=== PATIENT | male | born 1960 | race Caucasian/White ===

== ENCOUNTER 2016-08-17 17:34 | Observation (INO) | payer MEDICARE, MEDICAID ==
[2016-08-17 17:34] VITALS: PULSE 67
[2016-08-17 18:15] VITALS: BMI 41.5
--- NOTE | 2016-08-17 18:47 | ED PDOC ---
Arrival/HPI - General Chief Complaint: Chest Pain Time Seen by Provider: 08/17/16 17:53 Historian: Patient - History of Present Illness Narrative History of Present Illness (Text): 08/17/16 18:41 A 55 year old male, whose past medical history includes CAD, CABG, CHF, diabetes , chronic renal insufficiency, hypertension and lower extremity edema with chronic mrsa infection, presents to the emergency department complaining of chest discomfort for the past 2-3 days. Patient notes radiating pain towards his left shoulder. Patient states his pain is consistent with his angina but feels it is more frequent and worse than usual. He reports decrease relief from nitro. Patient notes dyspnea on exertion, pain and swelling to bilateral lower extremities with weeping discharge from left lower extremity. Patient denies any fever, nausea, vomiting, abdominal pain, urinary symptoms or any other complaints. Time/Duration: Other (2-3 days) Symptom Course: Unchanged Quality: Other Context: Other Past Medical History - Provider Review Nursing Documentation Reviewed: Yes - Infectious Disease Hx of Infectious Diseases: None - Tetanus Immunization Tetanus Immunization: Unknown - Cardiac Hx Cardiac Disorders: Yes Hx Congestive Heart Failure: Yes Hx Hypertension: Yes - Pulmonary Hx Chronic Obstructive Pulmonary Disease (COPD): Yes - Neurological Hx Neurological Disorder: No - HEENT Hx HEENT Disorder: No - Renal Hx Renal Disorder: Yes - Endocrine/Metabolic Hx Diabetes Mellitus Type 2: Yes - Hematological/Oncological Hx Blood Disorders: No - Integumentary Hx Dermatological Disorder: No - Musculoskeletal/Rheumatological Hx Arthritis: Yes - Gastrointestinal Hx Gastrointestinal Disorders: No - Genitourinary/Gynecological Hx Genitourinary Disorders: No (KIDNEY STONES) Hx Reproductive Disorders: No - Psychiatric Hx Psychophysiologic Disorder: Yes Hx Depression: Yes Hx Substance Use: No - Surgical History Hx Open Heart Surgery: Yes - Anesthesia Hx Anesthesia: Yes Hx Anesthesia Reactions: No Hx Malignant Hyperthermia: No - Suicidal Assessment Feels Threatened In Home Enviroment: No Family/Social History - Physician Review Nursing Documentation Reviewed: Yes Family/Social History: No Known Family HX Smoking Status: Former Smoker Hx Alcohol Use: No Hx Substance Use: No Hx Substance Use Treatment: No Allergies/Home Meds Allergies/Adverse Reactions: Allergies No Known Allergies Allergy (Verified 08/17/16 18:17) Home Medications: Home Meds Medication Instructions Recorded Confirmed Insulin Human NPH/Reg [HumuLIN 50 units SUBCUT QPM 10/21/12 07/12/16 70/30 (NPH/Reg)] Isosorbide 120 mg PO DAILY 10/21/12 07/12/16 Aspirin [Lo-Dose Aspirin EC] 81 mg PO DAILY 07/12/16 07/12/16 Glimepiride [Amaryl] 4 mg PO BID 07/12/16 07/12/16 Insulin Aspart, Recombinant 25 units SC DAILY 07/12/16 07/12/16 [Novolog] Nitroglycerin [Nitroglycerin] 0.4 mg SL PRN PRN 07/12/16 07/12/16 Simvastatin [Zocor] 80 mg PO DAILY 07/12/16 07/12/16 Spironolactone [Aldactone] 25 mg PO DAILY 07/12/16 07/12/16 Review of Systems - Physician Review All systems were reviewed & negative as marked: Yes - Review of Systems Constitutional: absent: Fevers Respiratory: Other (MCKENZIE) Cardiovascular: Chest Pain (Chest discomfort with radiating pain to left shoulder) Gastrointestinal: absent: Abdominal Pain, Nausea, Vomiting Genitourinary Male: absent: Dysuria, Frequency, Hematuria, Urinary Output Changes Musculoskeletal: Other (Bilateral lower extremity pain and swelling) Physical Exam Vital Signs Reviewed: Yes Vital Signs Pulse Pulse Resp BP Pulse Ox 08/17/16 21:20 110/68 08/17/16 20:54 104 H 16 106/66 98 08/17/16 18:20 110 H 08/17/16 18:15 110 H 16 95 Temperature: Afebrile Blood Pressure: Normal Pulse: Tachycardic Respiratory Rate: Normal Appearance: Positive for: Non-Toxic, Other (Morbidly obese German male) Pain Distress: None Mental Status: Positive for: Alert and Oriented X 3 - Systems Exam Head: Present: Atraumatic, Normocephalic Pupils: Present: PERRL Conjunctiva: Present: Normal Ears: Present: Normal Mouth: Present: Moist Mucous Membranes Pharnyx: Present: Normal. No: ERYTHEMA, EXUDATE Neck: Present: Normal Range of Motion Respiratory/Chest: Present: Decreased Breath Sounds. No: Respiratory Distress, Accessory Muscle Use Cardiovascular: Present: Normal S1, S2, Tachycardic. No: Murmurs Abdomen: Present: Normal Bowel Sounds. No: Tenderness, Distention, Peritoneal Signs Back: Present: Normal Inspection Upper Extremity: Present: Normal Inspection. No: Cyanosis, Edema Lower Extremity: Present: Edema (bilateral lymphedema, no warmth or ulceration present), NORMAL PULSES Neurological: Present: GCS=15, CN II-XII Intact, Speech Normal Skin: Present: Warm, Dry, Normal Color. No: Rashes Psychiatric: Present: Alert, Oriented x 3, Normal Insight, Normal Concentration Medical Decision Making ED Course and Treatment: 08/17/16 18:41 Impression: A 55 year old male with chest discomfort radiating to left shoulder. Patient notes dyspnea on exertion and bilateral lower extremity pain and swelling with weeping discharge from left lower extremity. Plan: -- Chest xray -- Duplex lower extremity ultrasound -- Labs -- Urinalysis -- Aspirin -- Reassess and disposition Progress Notes: 08/17/16 21:49 Patient with significant cardiac history who is here for chest pain, concerned it is worsening of his angina. EKG is consistent with his old one. Given history - will need to place on tele further for concern for acs, possible unstable angina. No cp at this time and possible recent viagra use, per Dr. Posey, so will hold on nitro. Discussed with Dr. Posey for placement on his service. - Lab Interpretations Lab Results: 08/17/16 18:00 08/17/16 18:00 Lab Results 08/17/16 18:00: WBC 2.5 L*, RBC 4.94, Hgb 13.1 L, Hct 38.8 L, MCV 78.5 L, MCH 26.5, MCHC 33.8, RDW 19.0 H, Plt Count 155, MPV 10.6, Gran % 53.2, Lymph % (Auto ) 27.2, [place] % (Auto) 11.2 H, Eos % (Auto) 7.6 H, Baso % (Auto) 0.8, Gran # 1.33 L, Lymph # 0.7 L, [place] # 0.3, Eos # 0.2, Baso # 0.02, PT 11.5, INR 1.06, APTT 30.5, Sodium 139, Potassium 3.8, Chloride 100, Carbon Dioxide 29, Anion Gap 14, BUN 21, Creatinine 0.9, Est GFR ( Amer) > 60, Est GFR (Non-Af Amer) > 60, Random Glucose 109, Calcium 9.8, Magnesium 2.0, Total Bilirubin 1.4 H, AST 42, ALT 20, Alkaline Phosphatase 93, Lactate Dehydrogenase 419, Total Creatine Kinase 46, Troponin I 0.02 D, NT-Pro-B Natriuret Pep 1480 H, Total Protein 8.5 H, Albumin 4.5, Globulin 4.0, Albumin/Globulin Ratio 1.1, Lipase 180 I have reviewed the lab results: Yes - RAD Interpretation Radiology Orders: 08/17/16 18:35 DUPLEX LOWER EXTRM VEIN BILAT [US] Stat 08/17/16 18:36 CHEST PORTABLE [RAD] Stat - EKG Interpretation EKG Interpretation (Text): 08/17/16 21:51 sinus tachycardia @ 117 with low QRS voltage and poor R wave progression; no changes c/w previous - 07/07/16. Interpreted by ED Physician: Yes Type: 12 lead EKG Comparison: Similar to previous EKG - Medication Orders Current Medication Orders: Discontinued Medications Aspirin (Aspirin Chewable) 324 mg PO STAT STA Stop: 08/17/16 18:38 Last Admin: 08/17/16 18:53 Dose: 324 MG Furosemide (Lasix) 40 mg IVP STAT STA Stop: 08/17/16 20:37 Last Admin: 08/17/16 21:20 Dose: 40 MG MAR Blood Pressure Document 08/17/16 21:20 [email or web address] (Rec: 08/17/16 21:44 CAST [id number]) Blood Pressure Blood Pressure (100/60-150/90) 110/68 IVP Administration Document 08/17/16 21:20 [email or web address] (Rec: 08/17/16 21:44 CAST [id number]) Charges for Administration # of IVP Administrations 1 - Scribe Statement The provider has reviewed the documentation as recorded by the Raulito Chowdary Provider Scribe Attestation: All medical record entries made by the Scribe were at my direction and personally dictated by me. I have reviewed the chart and agree that the record accurately reflects my personal performance of the history, physical exam, medical decision making, and the department course for this patient. I have also personally directed, reviewed, and agree with the discharge instructions and disposition. Disposition/Present on Arrival - Present on Arrival Any Indicators Present on Arrival: No History of DVT/PE: No History of Uncontrolled Diabetes: No Urinary Catheter: No History of Decub. Ulcer: No History Surgical Site Infection Following: None - Disposition Have Diagnosis and Disposition been Completed?: Yes Diagnosis: Chest pain Disposition: HOSPITALIZED Disposition Time: 21:10 Patient Plan: Observation, Telemetry Patient Problems: Current Active Problems Problem Status Diagnosed CHF (congestive heart failure) Acute Edema extremities Chronic Condition: FAIR Discharge Instructions (ExitCare): Chest Pain (ED)
[2016-08-17 18:55] LABS: ADD MANUAL DIFF? NO
[2016-08-17 18:58] LABS: BASO # 0.02 K/mm3 (0.0-2.0); BASO % 0.8 % (0.0-3.0); EOS # 0.2 (0.0-0.7); EOS % 7.6 % (1.5-5.0); GRAN # 1.33 (1.4-6.5); GRAN % 53.2 % (50.0-68.0); HEMATOCRIT 38.8 % (42.0-52.0); LYMPH # 0.7 (1.2-3.4); LYMPH % 27.2 % (22.0-35.0); MEAN CELL VOLUME 78.5 fL (80.0-105.0); MEAN CORPUSCULAR HEMOGLOBIN 26.5 pg (25.0-35.0); MEAN CORPUSCULAR HGB CONC 33.8 g/dl (31.0-37.0); MEAN PLATELET VOLUME 10.6 fl (7.0-11.0); MONO # 0.3 (0.1-0.6); MONO % 11.2 % (1.0-6.0); PLATELET COUNT 155 10^3/uL (120.0-450.0)
[2016-08-17 19:03] LABS: WHITE BLOOD COUNT 2.5 10^3/ul (4.5-11.0)
[2016-08-17 19:09] LABS: INR 1.06 (0.93-1.08); PARTIAL THROMBOPLASTIN TIME 30.5 Seconds (23.7-30.8)
[2016-08-17 19:23] LABS: ALB/GLOB RATIO 1.1 (1.1-1.8); ALKALINE PHOSPHATASE 93 U/L (38-133); ALT/SGPT 20 U/L (7-56); AST/SGOT 42 U/L (15-59); BILIRUBIN,TOTAL 1.4 mg/dL (0.2-1.3); BLOOD UREA NITROGEN 21 mg/dL (7-21); CALCIUM 9.8 mg/dL (8.4-10.5); CARBON DIOXIDE 29 mmol/L (21-33); CHLORIDE 100 mmol/L (98-107); GFR AFRICAN-AMERICAN > 60; GLUCOSE,RANDOM 109 mg/dL (70-110); LIPASE 180 U/L (23-300); POTASSIUM 3.8 mmol/L (3.6-5.0); SODIUM 139 mmol/L (132-148); TOTAL PROTEIN 8.5 g/dL (5.8-8.3)
[2016-08-17 19:34] LABS: TROPONIN I 0.02 ng/mL
[2016-08-18 01:05] LABS: PH,URINE 6.5 (4.7-8.0); URINE BILIRUBIN NEGATIVE (NEGATIVE); URINE BLOOD NEGATIVE (NEGATIVE); URINE GLUCOSE (UA) NEGATIVE (NEGATIVE); URINE KETONE NEGATIVE (NEGATIVE); URINE LEUKOCYTE ESTERASE NEGATIVE Leu/uL (NEGATIVE); URINE PROTEIN NEGATIVE mg/dL (<30 mg/dL); URINE UROBILINOGEN 0.2 E.U./dL (<1 E.U./dL)
[2016-08-18 01:16] LABS: URINE APPEARANCE CLEAR (CLEAR); URINE COLOR YELLOW (YELLOW)
[2016-08-18 06:22] VITALS: O2SAT 100
[2016-08-18] MEDS ORDERED: Pantoprazole 40 mg EC Tab PO SCH (09:45)
[2016-08-18] MEDS ORDERED: Potassium Chloride 10 mEq ER Tab PO SCH (10:00)
[2016-08-18] MEDS ORDERED: POLYETHYLENE GLYCOL 3350 17 GM/Dose PACKET PO SCH (10:00)
[2016-08-18] MEDS ORDERED: Zinc Oxide Topical 40% Oint (Desitin) TOP SCH (10:00)
[2016-08-18] MEDS ORDERED: Arformoterol 15 mcg/2 ml Inh Sol IH SCH ×2 (10:00)
[2016-08-18] MEDS ORDERED: metOLazone 5 MG TAB PO SCH (10:00)
[2016-08-18] MEDS ORDERED: Enoxaparin 40 mg Syringe SC SCH (10:00)
--- NOTE | 2016-08-18 10:02 | RAD ---
HISTORY: cp COMPARISON: 07/07/2016 FINDINGS: LUNGS: No active pulmonary disease. PLEURA: No significant pleural effusion identified, no pneumothorax apparent. CARDIOVASCULAR: Moderate cardiomegaly OSSEOUS STRUCTURES: No significant abnormalities. VISUALIZED UPPER ABDOMEN: Normal. OTHER FINDINGS: None. IMPRESSION: No active disease.
--- NOTE | 2016-08-18 10:13 | CARD ---
APPROVED REPORT EKG Measurement Heart [id number] <Conclusion> Sinus tachycardia PVC Low voltage limb leads Anterior MO, old NSSTW changes No change
[2016-08-18] MEDS: Insulin Detemir 100 units/ml Vial (Levemir) SC SCH ×2 (11:20→18:06)
[2016-08-18] MEDS: Insulin Reg-LOW-Coverage SC SCH ×2 (11:20→18:05)
--- NOTE | 2016-08-18 12:28 | HP ---
The patient was seen in the Emergency Room on 08/17/2016 with complaint of chest pain. HISTORY OF PRESENT ILLNESS: This is a 55-year-old male with history of coronary artery disease, card iac bypass surgery, congestive heart failure, EF in the low 20s, diabetes insulin-dependent, chronic renal insufficiency, hypertension, lower extremity edema, chronic MRSA infection. Just recently, joan Ferrer, was doing good, lost weight. Came in this time with chest pain, left side. According to the patient, similar to his angina although he did not have angina for a long time. The patient r eports that he took nitro for his chest pain. He also had some dyspnea, especially on exertion. Not ed his legs started swelling up more than when he left. The patient denied any fever, nausea, vomiti ng, any chills or any other symptoms. The patient also denied taking any sildenafil, Cialis or Levit ra according to the patient. It was explained to him not to use these or not to take any nitro if he is using it. He understands and he just uses it when electively when he feels like it is safe to us e it. Was recommended not to, but he insisted he wanted it. PAST MEDICAL HISTORY: Chronic as in the present illness. ALLERGIES: No known allergies. SOCIAL HISTORY: No smoking, no drinking. He lives with , has 3 children, 3 daughters. Otherwis e no smoking, no drinking. FAMILY HISTORY: His brother has coronary artery disease, he had a massive heart attack in the age of mid 50s. REVIEW OF SYSTEMS: As in the present illness. MEDICATIONS: Zaroxolyn Aldactone, Zocor, Altace, K-Dur, MiraLax, nitroglycerin p.r.n., Lopressor, Ba hua acidophilus, 70/30, [place], Lasix, Desitin. The patient is getting Lasix 80 mg p.o. b.i.d., aspiri n and Brovana. PHYSICAL EXAMINATION: GENERAL: The patient was seen in the Emergency Room. He was comfortable, no respiratory distress an d no chest pain. I spoke with Dr. Benavides, ER physician. VITAL SIGNS: Temperature 98, heart rate 104, blood pressure 120/74, respirations 20, saturation 99%. HEAD AND NECK: Normal. No JVD, no thyromegaly. CHEST: Clear. CARDIAC: First and second sounds are normal. Systolic murmur. ABDOMEN: Obese, nontender. EXTREMITIES: Bilateral leg edema, right more than left, which is chronic and both legs are wrapped. LABORATORY DATA: White count 2.5, hemoglobin 16.1, hematocrit 38.8, platelets 155. PT, PTT was norm al. Sodium 139, potassium 3.8, chloride 100, bicarbonate 29, BUN 21, creatinine 0.9. Liver enzymes are normal. His proBNP 1480, blood sugar 178. The patient also had a chest x-ray which shows no act debra pulmonary disease. IMPRESSION AND PLAN: This is a 55-year-old male with history of coronary artery disease, congestive heart failure, came in with chest pain. We will admit for observation. Dr. Fermin, cardiology consult will get cardiac enzyme will follow his recommendations. Otherwise, patient continue Lasix and will get cardiac enzymes x 3 and we will followup Dr. Fermin recommendations. Tyrone Posey MD cc: [phone] TT: 08/18/2016 12:27:40 jn
--- NOTE | 2016-08-18 13:19 | CON ---
DATE: 08/18/2016 The patient is in room 277, bed 2. REASON FOR CONSULTATION: Chest pain, shortness of breath, cardiomyopathy, coronary artery disease, s tatus post coronary artery bypass surgery, morbid obesity. HISTORY OF PRESENT ILLNESS: The patient is a 55-year-old male admitted to the hospital with complain ts of chest pain and shortness of breath. The patient stated chest pain is mostly localized point an d is a sharp pain radiating to the back and sometimes he gets chest pain, tightness across the chest on exertion along with shortness of breath. He always sleeps for many years in the recliner because if he sleeps on 1-2 pillows he gets shortness of breath. He also has chronic swelling on the legs al spring with chronic venous stasis. The patient known to have cardiomyopathy, CHF, coronary artery disea se. He is a very poor compliant patient. PAST MEDICAL HISTORY: Significant for morbid obesity, diabetes, hypertension, hyperlipidemia, gaona ry artery disease, status post coronary bypass surgery in 1998, CHF due to acute on chronic LV systol ic failure, chronic venous stasis. The patient's previous cardiac history: The patient had echo on 10/23/2015 which showed ejection frac tion 15-20%, 4 chamber dilatation, trace aortic regurg, mild to moderate mitral regurg, moderate tric uspid regurg, RV systolic pressure 37 mmHg, history of coronary artery bypass surgery in [address] [facility] in [place]. History of kidney stone and depression. The patient had refused c ardiac catheterization in the past. The patient had recent echo on which showed dilated left ventricle, LV ejection fraction 30%, moderate tricuspid regurg with moderate pulmonary hypertension with RV systolic pressure 50 mmHg. PERSONAL HISTORY: The patient is an ex-smoker and he was also diagnosed to have COPD. He still take s a few beers a week. ALLERGIES: No known allergies. HOME MEDICATIONS: Included insulin NPH 70/30 fifty units in the evening, isosorbide mono 120 mg lise y, aspirin 81 mg p.o. daily, glimepiride 4 mg b.i.d., insulin aspart 20 units subQ daily, nitroglycer in p.r.n. sublingual, Zocor 80 mg daily, spironolactone 25 mg daily, Lasix 80 b.i.d., Zaroxolyn 5 mg daily, ____ 1.25 daily. REVIEW OF SYSTEMS: All the systems reviewed, positive mentioned in the history, others were negative . PHYSICAL EXAMINATION: VITAL SIGNS: Blood pressure 120/79, respirations 20, pulse 104, temperature 97.8. HEENT: Head is normocephalic. Eyes: Pupils normal. Conjunctivae normal. NECK: JVP low. Carotid equal. THORAX: AP diameter normal. LUNGS: No significant rales. CARDIOVASCULAR: S1, S2. No rub. ABDOMEN: Protuberant, no organomegaly. EXTREMITIES: The patient has marked swelling with chronic venous stasis changes. LABORATORY DATA: WBC 2.5, hemoglobin 13.1, hematocrit 38.8, platelet 155, sodium 139, potassium 3.8, BUN 21, creatinine 0.9, random glucose 109, bilirubin 1.4. AST, ALT normal. Troponin 0.02 which is normal. BNP 1480. Chest x-ray: Cardiomegaly, increased bronchovascular markings suggestive of con gestive changes. EKG showed sinus rhythm at 81 per minute, Q in V1, V2, small R in V3, V4 suggestive of old anteroseptal NE, T inversion in I and aVL, borderline low voltage. DIAGNOSES: Chest pain, sharp pain in a localized point area and then across the back is probably non cardiac. The patient gets shortness of breath on exertion and some chest pressure, coronary artery d isease, congestive heart failure, morbid obesity, cardiomyopathy, chronic venous stasis, chronic obst ructive pulmonary disease,, coronary artery disease, status post coronary artery bypass surgery in , mild to moderate mitral regurgitation, moderate tricuspid regurgitation, moderate pulmonary hyper tension with right ventricular systolic pressure of 50 mmHg on echo 07/11/2016, diabetes mellitus, juan l dysfunction, anemia, leukopenia. PLAN: The patient is on spironolactone 25 daily. We will change it to b.i.d., ramipril 1.25 p.o. da andre, Ecotrin 81 mg p.o. daily, potassium 10 mEq p.o. daily. We will change furosemide to 80 IV b.i.d . The patient on insulin as ordered, Lipitor 40 mg daily, Lovenox 40 mg subQ daily, Protonix 40 lise y, Zaroxolyn 5 mg p.o. daily. The patient has sinus tachycardia. We will give atenolol 12.5 mg p.o. today, monitor the heart rate. The patient is a very poor compliant patient. Stressed to him not t o drink and follow diet and follow the medication and with the physician. Also, again advised to los e weight. We will follow with you. Rudy Gibbs MD cc: [phone] TT: 08/18/2016 13:18:42 Confirmation # [id number] Dictation # [id number] tn
--- NOTE | 2016-08-18 16:59 | US ---
HISTORY: Leg pain and swelling. Evaluate for DVT PHYSICIAN(S): George Lange MD. TECHNIQUE: Duplex sonography and color-flow Doppler with graded compression were used to evaluate the deep venous systems of both lower extremities. The exam is limited by edema. The tibial veins are not well seen FINDINGS: The visualized deep venous systems of both lower extremities are sonographically normal and compressible. Normal wave forms and augmentation are seen. There is no sonographic evidence for deep venous thrombosis in the visualized segments of both lower extremities. IMPRESSION: No sonographic evidence for deep venous thrombosis in the visualized segments of both lower extremities.
[2016-08-18 17:46] VITALS: BP 99/66; RESP 18; TEMP 97.1
[2016-08-18 18:25] VITALS: PULSE 71
--- NOTE | 2016-08-19 09:35 | CARD ---
APPROVED REPORT EKG Measurement Heart [id number] <Conclusion> Sinus rhythm with 1st degree AV block Low voltage limb leads ASMI, old NSSTW changes No change
--- NOTE | 2016-08-21 14:59 | DS ---
The patient was admitted with bilateral leg edema, congestive heart failure. The patient was well-kn own. He does have a history of chronic systolic heart failure. We just recently discharged from [facility] because of his heart failure and leg edema and swelling and patient also mentioned has chest pain, which is resolved and seems stable otherwise. 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 Gibbs, wh o cleared him for discharge. He does have cardiac enzyme was negative, has echocardiogram shows mode rate pulmonary hypertension with right ventricular pulmonary systolic pressure is 50 on 07/21. The pa tient is stable. Currently has no chest pain, no nausea, no vomiting, stable hemodynamically and rigo athing gomez. PHYSICAL EXAMINATION: VITAL SIGNS: Temperature 97.2, heart rate 102, blood pressure 120/75, respirations 20, saturating 10 0% on room air. HEAD AND NECK: Normal. No JVD, no thyromegaly. CHEST: Clear bilateral. CARDIAC: First sound, second sound normal. Systolic murmur. ABDOMEN: Obese, nontender. EXTREMITIES: Bilateral leg edema, better than before and both legs are red. NEUROLOGIC: Normal. LABORATORY STUDIES: Shows blood sugar in the 150s, 160-200, stable otherwise. The patient also has proBNP which was 1480, which is relatively better than before. The patient also had a chest x-ray, which shows no active pulmonary disease. DISCHARGE DIAGNOSES: 1. Chest pain, atypical. Cardiac enzymes were negative. Cleared by cardiology, Dr. Gibbs. 2. Congestive heart failure, high proBNP, is better than before, acute, chronic systolic heart failu re. 3. Bilateral leg edema. Continue Lasix as prescribed before. 4. Lymphedema. Followup as outpatient by podiatry. Keep the leg elevated. 5. Diabetes. Using insulin. Continue Levemir, continue all other medications. 6. Hypertension. 7. Chronic obstructive pulmonary disease, obstructive sleep apnea, pulmonary hypertension. The patient advised to continue all his previous medication including Zaroxolyn, Aldactone, Zocor, Al tace, K-Dur, MiraLax, Lopressor, insulin, NovoLog and Lantus, Desitin, aspirin. Continue nebulizer t reatment. The patient advised not to use any nitro if he using any of his Levitra or Cialis. The ri sks and benefits explained to the patient, including the time interval between 2 medications. Will brenda bah discharge the patient home. Followup in the office by Dr. Anila Cordero within a week. Tyrone Posey MD cc: [phone] TT: 08/21/2016 14:28:28 en
== END 2016-08-18 20:05 | disposition home or self-care (01) ==
LOC: ED 17:34 → UNDOADMOB 21:10 → ERH 21:10 → 2RSO 08-18 00:14 → ERH 08-18 00:14 → INTOOBSV 08-18 13:16 → OBSVTOIN 08-18 13:16 → UNDODISOB 08-18 20:05
PROVIDERS: ADMIT Internal Medicine; ATTEND Internal Medicine
DX: R07.89 Other chest pain (principal); I13.0 Hypertensive heart and chronic kidney disease with heart failure and stage 1 through stage 4 chronic kidney disease, or unspecified chronic kidney disease; I50.23 Acute on chronic systolic (congestive) heart failure; I42.9 Cardiomyopathy, unspecified; E11.22 Type 2 diabetes mellitus with diabetic chronic kidney disease; N18.9 Chronic kidney disease, unspecified; J44.9 Chronic obstructive pulmonary disease, unspecified; D64.9 Anemia, unspecified; E66.01 Morbid (severe) obesity due to excess calories; I27.2 Other secondary pulmonary hypertension; I08.1 Rheumatic disorders of both mitral and tricuspid valves; D72.819 Decreased white blood cell count, unspecified; I87.8 Other specified disorders of veins; F32.9 Major depressive disorder, single episode, unspecified; Z95.1 Presence of aortocoronary bypass graft; Z79.82 Long term (current) use of aspirin; Z79.4 Long term (current) use of insulin; Z68.41 Body mass index [BMI] 40.0-44.9, adult; Z87.442 Personal history of urinary calculi; Z87.891 Personal history of nicotine dependence
CPT/HCPCS: 71010; 80053; 81003; 82550; 82948; 83615; 83690; 83735; 83880; 84484; 85025; 85610; 85730; 93005; 93970; 96374; 99285; G0378; J1650; J1940

== ENCOUNTER 2016-11-19 00:34 | Emergency (ER) | payer MEDICARE, MEDICAID ==
[2016-11-19 00:35] VITALS: PULSE 67
[2016-11-19 00:56] VITALS: BMI 39.8
[2016-11-19] MEDS ORDERED: Morphine 2 mg/ml ISec IVP STA (01:18)
--- NOTE | 2016-11-19 01:18 | ED PDOC ---
Arrival/HPI - General Chief Complaint: Chest Pain Time Seen by Provider: 11/19/16 00:48 Historian: Patient - History of Present Illness Narrative History of Present Illness (Text): 11/19/16 01:15 Mason Benavides is a 56 year old male, whose past medical history includes CAD, quadruple bypass, CHF, IDDM, chronic renal insufficiency, hypertension, COPD, and lower extremity edema with chronic MRSA infection, who presents to the Emergency department complaining of chest pain. Patient states he has been experiencing sharp mid-sternal chest pain since yesterday, worsened tonight. Patient denies any fever, chills, shortness of breath, nausea, vomiting, diarrhea, urinary symptoms, back pain, neck pain, headache, dizziness, or any other complaints. PMD: Dr. Posey Time/Duration: Other (yesterday) Symptom Course: Worsening Quality: Other (Sharp) Activities at Onset: Rest, Light Context: Home Past Medical History - Provider Review Nursing Documentation Reviewed: Yes - Infectious Disease Hx of Infectious Diseases: None - Tetanus Immunization Tetanus Immunization: Unknown - Cardiac Hx Cardiac Disorders: Yes Hx Congestive Heart Failure: Yes Hx Hypertension: Yes Hx Peripheral Edema: Yes - Pulmonary Hx Respiratory Disorders: Yes Hx Asthma: Yes Hx Chronic Obstructive Pulmonary Disease (COPD): Yes Hx Pneumonia: Yes - Neurological Hx Neurological Disorder: No - HEENT Hx HEENT Disorder: No - Renal Hx Renal Disorder: Yes Hx Kidney Stones: Yes Hx Renal Failure: Yes - Endocrine/Metabolic Hx Endocrine Disorders: Yes Hx Diabetes Mellitus Type 2: Yes - Hematological/Oncological Hx Blood Disorders: Yes Hx Hepatitis A: Yes - Integumentary Hx Dermatological Disorder: No - Musculoskeletal/Rheumatological Hx Musculoskeletal Disorders: Yes Hx Falls: No Hx Osteoarthritis: Yes - Gastrointestinal Hx Gastrointestinal Disorders: No - Genitourinary/Gynecological Hx Genitourinary Disorders: No - Psychiatric Hx Psychophysiologic Disorder: Yes Hx Depression: Yes Hx Substance Use: No - Surgical History Hx Cardiac Catheterization: Yes Hx Coronary Stent: Yes Hx Open Heart Surgery: Yes - Anesthesia Hx Anesthesia: Yes Hx Anesthesia Reactions: No Hx Malignant Hyperthermia: No - Suicidal Assessment Feels Threatened In Home Enviroment: No Family/Social History - Physician Review Nursing Documentation Reviewed: Yes Family/Social History: Unknown Family HX Smoking Status: Former Smoker Hx Alcohol Use: No Hx Substance Use: No Hx Substance Use Treatment: No Allergies/Home Meds Allergies/Adverse Reactions: Allergies No Known Allergies Allergy (Verified 11/19/16 01:01) Home Medications: Home Meds Medication Instructions Recorded Confirmed Insulin Human NPH/Reg [HumuLIN 50 units SUBCUT QPM 10/21/12 07/12/16 70/30 (NPH/Reg)] Isosorbide 120 mg PO DAILY 10/21/12 07/12/16 Aspirin [Lo-Dose Aspirin EC] 81 mg PO DAILY 07/12/16 07/12/16 Glimepiride [Amaryl] 4 mg PO BID 07/12/16 07/12/16 Insulin Aspart, Recombinant 25 units SC DAILY 07/12/16 07/12/16 [Novolog] Nitroglycerin 0.4 mg SL PRN PRN 07/12/16 07/12/16 Simvastatin [Zocor] 80 mg PO DAILY 07/12/16 07/12/16 Spironolactone [Aldactone] 25 mg PO DAILY 07/12/16 07/12/16 Review of Systems - Physician Review All systems were reviewed & negative as marked: Yes - Review of Systems Constitutional: Normal. absent: Fevers Eyes: Normal ENT: Normal Respiratory: Normal. absent: SOB, Cough Cardiovascular: Chest Pain Gastrointestinal: Normal. absent: Abdominal Pain, Diarrhea, Nausea, Vomiting Genitourinary Male: Normal. absent: Dysuria, Frequency, Hematuria, Urinary Output Changes Musculoskeletal: Normal. absent: Back Pain, Neck Pain Skin: Normal. absent: Rash Neurological: Normal. absent: Headache, Dizziness Endocrine: Normal Hemo/Lymphatic: Normal Psychiatric: Normal Physical Exam Vital Signs Reviewed: Yes Vital Signs Temp Pulse Resp BP Pulse Ox 11/19/16 01:47 98 H 104/60 11/19/16 00:57 97.4 F L 100 H 18 154/93 H 96 Temperature: Afebrile Blood Pressure: Hypertensive Pulse: Regular Respiratory Rate: Normal Appearance: Positive for: Well-Appearing, Non-Toxic, Comfortable Pain Distress: None Mental Status: Positive for: Alert and Oriented X 3 - Systems Exam Head: Present: Atraumatic, Normocephalic Pupils: Present: PERRL Extroacular Muscles: Present: EOMI Conjunctiva: Present: Normal Mouth: Present: Moist Mucous Membranes Neck: Present: Normal Range of Motion Respiratory/Chest: Present: Clear to Auscultation, Good Air Exchange. No: Respiratory Distress, Accessory Muscle Use Cardiovascular: Present: Regular Rate and Rhythm, Normal S1, S2. No: Murmurs Abdomen: Present: Normal Bowel Sounds. No: Tenderness, Distention, Peritoneal Signs Back: Present: Normal Inspection Upper Extremity: Present: Normal Inspection. No: Cyanosis, Edema Lower Extremity: Present: Edema (Chronic lower extremity edema/venous stasis changes bilaterally), Neurovascularly Intact. No: Cyanosis, Tenderness, Swelling, Temperature Abnormalties Neurological: Present: GCS=15, CN II-XII Intact, Speech Normal Skin: Present: Warm, Dry, Normal Color. No: Rashes Psychiatric: Present: Alert, Oriented x 3, Normal Insight, Normal Concentration Medical Decision Making ED Course and Treatment: 11/19/16 01:15 Impression: 56 year old male complaining of sharp chest pain. Plan: -- EKG -- Chest X-ray -- Labs, cardiac enzymes -- Aspirin -- Lopressor -- Morphine -- Reassess and disposition Prior Visits: Notes and results from previous visits were reviewed. On 08/17/2016, pt was seen in the Emergency department for chest pain. Pt was admitted to the hospital for further evaluation. Progress Notes: Reviewed EKG, NSR at 100 bpm. LAD. Septal infarct. Non-specific ST/T wave changes. 11/19/16 03:21 Reviewed radiology, Chest X-ray shows no acute processes. 11/19/16 05:[address] Posey, who is aware and agrees with plan. Accepts pt in to his service. Pt will go to Telemetry observation for chest pain. Requests Dr. Fermin on consult. Pt is no acute distress. Discussed results and hospital observation plan with pt , who is aware and verbalizes understanding. - Lab Interpretations Lab Results: 11/19/16 01:32 11/19/16 01:32 Lab Results 11/19/16 01:32: WBC 2.1 L*, RBC 4.76, Hgb 13.0 L, Hct 40.2 L, MCV 84.5, MCH 27.3 , MCHC 32.3, RDW 15.4 H, Plt Count 120, MPV 11.6 H 11/19/16 01:32: Sodium 138, Potassium 4.1, Chloride 102, Carbon Dioxide 26, Anion Gap 14, BUN 15, Creatinine 1.0, Est GFR ( Amer) > 60, Est GFR (Non- Af Amer) > 60, Random Glucose 168 H, Calcium 9.3, Total Bilirubin 1.9 H, AST 36 , ALT 30, Alkaline Phosphatase 57, Lactate Dehydrogenase 426, Total Creatine Kinase 32 L, Troponin I 0.02, Total Protein 7.0, Albumin 4.0, Globulin 3.1, Albumin/Globulin Ratio 1.3 11/19/16 01:32: PT 12.5 H, INR 1.16 H, APTT 28.2 I have reviewed the lab results: Yes - RAD Interpretation Radiology Orders: 11/19/16 01:17 CHEST PORTABLE [RAD] Stat Hydrogen Operator: ED Physician - EKG Interpretation Interpreted by ED Physician: Yes Type: 12 lead EKG - Medication Orders Current Medication Orders: Discontinued Medications Aspirin (Aspirin) 325 mg PO ONCE STA Stop: 11/19/16 01:19 Last Admin: 11/19/16 01:46 Dose: 325 mg Metoprolol Tartrate (Lopressor) 25 mg PO ONCE STA Stop: 11/19/16 01:19 Last Admin: 11/19/16 01:47 Dose: 25 mg Morphine Sulfate (Morphine) 2 mg IVP STAT STA Stop: 11/19/16 01:19 Last Admin: 11/19/16 01:46 Dose: 2 mg - Scribe Statement The provider has reviewed the documentation as recorded by the Josselynibkatina Akers All medical record entries made by the Josselynibkatina were at my direction and personally dictated by me. I have reviewed the chart and agree that the record accurately reflects my personal performance of the history, physical exam, medical decision making, and the department course for this patient. I have also personally directed, reviewed, and agree with the discharge instructions and disposition. Disposition/Present on Arrival - Present on Arrival Any Indicators Present on Arrival: No History of DVT/PE: No History of Uncontrolled Diabetes: No Urinary Catheter: No History of Decub. Ulcer: No History Surgical Site Infection Following: None - Disposition Have Diagnosis and Disposition been Completed?: Yes Diagnosis: Chest pain Disposition: HOSPITALIZED Disposition Time: 05:23 Patient Plan: Observation Condition: STABLE Discharge Instructions (ExitCare): Chest Pain (ED)
[2016-11-19 01:49] LABS: ALB/GLOB RATIO 1.3 (1.1-1.8); ALKALINE PHOSPHATASE 57 U/L (38-133); ALT/SGPT 30 U/L (7-56); AST/SGOT 36 U/L (15-59); BILIRUBIN,TOTAL 1.9 mg/dL (0.2-1.3); BLOOD UREA NITROGEN 15 mg/dL (7-21); CALCIUM 9.3 mg/dL (8.4-10.5); CARBON DIOXIDE 26 mmol/L (21-33); CHLORIDE 102 mmol/L (98-107); GFR AFRICAN-AMERICAN > 60; GLUCOSE,RANDOM 168 mg/dL (70-110); POTASSIUM 4.1 mmol/L (3.6-5.0); SODIUM 138 mmol/L (132-148)
[2016-11-19 01:51] LABS: INR 1.16 (0.93-1.08); PARTIAL THROMBOPLASTIN TIME 28.2 Seconds (23.7-30.8)
[2016-11-19 01:55] LABS: HEMATOCRIT 40.2 % (42.0-52.0); MEAN CELL VOLUME 84.5 fL (80.0-105.0); MEAN CORPUSCULAR HEMOGLOBIN 27.3 pg (25.0-35.0); MEAN CORPUSCULAR HGB CONC 32.3 g/dl (31.0-37.0); MEAN PLATELET VOLUME 11.6 fl (7.0-11.0); RED CELL DISTRIBUTION WIDTH 15.4 % (11.5-14.5)
[2016-11-19 02:00] LABS: TROPONIN I 0.02 ng/mL
[2016-11-19 02:14] LABS: WHITE BLOOD COUNT 2.1 10^3/ul (4.5-11.0)
[2016-11-19 06:59] VITALS: TEMP 98.2
--- NOTE | 2016-11-19 08:22 | RAD ---
HISTORY: chest pain COMPARISON: Chest x-ray performed 08/17/16 TECHNIQUE: Chest, one view. FINDINGS: LUNGS: Mild interstitial prominence may reflect infection or edema. Please note that chest x-ray has limited sensitivity for the detection of pulmonary masses. PLEURA: Small left pleural effusion. No definite pneumothorax . CARDIOVASCULAR: Median sternotomy wires. Cardiomegaly. OSSEOUS STRUCTURES: Degenerative changes. VISUALIZED UPPER ABDOMEN: Unremarkable. OTHER FINDINGS: None. IMPRESSION: Mild interstitial prominence may reflect infection or edema. Small left pleural effusion. Cardiomegaly. Median sternotomy wires. Study has been marked for PA review.
[2016-11-19] MEDS ORDERED: Lactobacillus Acidophilus 500 MU Cap PO SCH (11:15)
[2016-11-19] MEDS ORDERED: POLYETHYLENE GLYCOL 3350 17 GM/Dose PACKET PO SCH (11:15)
[2016-11-19] MEDS ORDERED: Arformoterol 15 mcg/2 ml Inh Sol IH SCH (11:15)
[2016-11-19] MEDS ORDERED: Zinc Oxide Topical 40% Oint (Desitin) TOP SCH (11:15)
[2016-11-19] MEDS ORDERED: Enoxaparin 40 mg Syringe SC SCH (11:15)
[2016-11-19] MEDS ORDERED: Potassium Chloride 20 mEq ER Tab PO SCH (11:15)
[2016-11-19] MEDS ORDERED: Pantoprazole 40 mg EC Tab PO SCH (11:15)
[2016-11-19 11:52] VITALS: BP 110/77; PULSE 97; RESP 19; O2SAT 97
--- NOTE | 2016-11-19 12:44 | CP.PCM.PN ---
Subjective - Date & Time of Evaluation Date of Evaluation: 11/19/16 Time of Evaluation: 12:00 - Subjective Subjective: Patient seen because he has decided to leave AMA for personal reasons. He is alert, awake ,oriented x 3. He states he does not want any further tests,examinations or treatment at this facility. His Vital signs are stable and he is ambulatory. Patient's PMD Dr Posey just saw the patient and he is aware of patient's decision to leave AMA. Patient was told of the risks he is taking in leaving AMA,namely,his chest pain could worsen,he could get a ND,CHF could worsen,cardiac arrhythmias could occur, hypo or hyper glycemia could occur. this could lead to seizures,coma or even .Also ,his low WBC count could mean he has an infection,and this could worsen leading to spread of infection.sepsis and /or loss of life. Patient states he understands everything he is told.but still wants to leave AMA. Advised to return to the ER if needed. Objective - Vital Signs/Intake and Output Vital Signs (last 24 hours): Temp Pulse Resp BP Pulse Ox 98.2 F 97 H 19 110/77 97 11/19/16 06:59 11/19/16 11:52 11/19/16 11:52 11/19/16 11:52 11/19/16 11:52 - Medications Medications: Current Medications Arformoterol Tartrate (Brovana) 15 mcg IH BID JANY Aspirin (Ecotrin) 81 mg PO DAILY JANY Atorvastatin Calcium (Lipitor) 40 mg PO DIN JANY Enoxaparin Sodium (Lovenox) 40 mg SC DAILY [facility] PRN Reason: Protocol Furosemide (Lasix) 40 mg IV BID JANY Glimepiride (Amaryl) 4 mg PO BID JANY Lactobacillus Acidophilus (Bacid Acidophilus) 1 cap PO BID JANY Pantoprazole Sodium (Protonix Ec Tab) 40 mg PO ACB JANY Petrolatum (Desitin Maximum Strength Topical 40% Oint) 0 gm TOP DAILY JANY Polyethylene Glycol (Miralax) 17 gm PO DAILY JANY Potassium Chloride (K-Dur 20 Meq Er Tab) 20 meq PO DAILY [facility] - Labs Labs: PT 12.5 Seconds (9.9-11.8) H 11/19/16 01:32 INR 1.16 (0.93-1.08) H 11/19/16 01:32 APTT 28.2 Seconds (23.7-30.8) 11/19/16 01:32
--- NOTE | 2016-11-19 19:09 | HP ---
The patient is a 56-year-old male who came in with the main reason of chest pain and dyspnea. HISTORY OF PRESENT ILLNESS: This is a 56-year-old male with history of coronary artery disease, juan estive heart failure, EF in the 15%-20%, hypertension and poor compliance came in with chest pain cricket und the chest for almost 4 or 5 hours last night, came in today with the same chest pain [facility]. He felt short of breath. The patient gained 4 pounds recently, has been a dvised to follow his weight and take his Lasix on a regular basis. The patient denied any dizziness. Denied any sweating, any radiation of the pain. No nausea, no vomiting. PAST MEDICAL HISTORY: As I mentioned, COPD, insulin-dependent diabetes, morbid obesity, obstructive sleep apnea, chronic bilateral leg edema and lymphedema, hypertension, coronary artery disease, low e jection fraction, ischemic cardiomyopathy, hypercholesterolemia, renal insufficiency. ALLERGIES: No known allergies. SOCIAL HISTORY: He lives with his and children. No smoking. ALLERGIES: No known allergy. FAMILY HISTORY: Noncontributory. PHYSICAL EXAMINATION: VITAL SIGNS: Temperature 98, heart rate is 92, blood pressure is 125/62, respirations 18, saturation 99% on room air. HEAD AND NECK: Normal. No JVD. CHEST: Clear. CARDIAC: First and second sounds are normal. Systolic murmur. ABDOMEN: Soft, obese, nontender. EXTREMITIES: Bilateral leg edema, but better than before. NEUROLOGIC: Normal. DIAGNOSTIC STUDIES: The patient had a chest x-ray, which shows mild interstitial prominence, may ref lect edema or infection. LABORATORY STUDIES: Include white count 2.1, hemoglobin 13, hematocrit 40.2, platelets are 120. Mya paul: Sodium 138, potassium 4.1, chloride 103, bicarbonate 26, BUN 15, creatinine 1. Liver functi on test is normal. Glucose 168, calcium 9.3, total bilirubin 1.9. Liver function test is normal. T roponin is 0.02 and on repeat troponin before the patient signed against medical advice was the same, 0.02, which is negative. The patient had an EKG which shows is not read yet. IMPRESSION AND PLAN: 1. Acute congestive heart failure. 2. Acute chest pain. Plan is to admit the patient, cardiology consult . Dr. Mckeon will get cardiac enzymes . We will continue IV Lasix, oxygen, inhaled bronchodilators, nebulizers, insulin. The patient gett ing 70/30 insulin 50 units once a day before breakfast and has been doing that and we will give him p otassium, Lasix, and we will follow up clinically. The patient did not take any nitro, is stable and will follow up clinically. We will admit to telemetry. Tyrone Posey MD cc: [phone] TT: 11/19/2016 19:08:44 mn
--- NOTE | 2016-11-19 22:02 | CARD ---
APPROVED REPORT EKG Measurement Heart [id number] CO [id number] <Conclusion> Normal sinus rhythm Left axis deviation Pulmonary disease pattern Septal infarct, age undetermined Abnormal ECG
== END 2016-11-19 12:31 | disposition left against medical advice (07) ==
LOC: ED 00:34 → UNDOADMOB 05:12 → ERH 05:12
DX: R07.9 Chest pain, unspecified (principal); I25.10 Atherosclerotic heart disease of native coronary artery without angina pectoris; I10 Essential (primary) hypertension; E11.9 Type 2 diabetes mellitus without complications; Z79.4 Long term (current) use of insulin; Z95.1 Presence of aortocoronary bypass graft; Z87.891 Personal history of nicotine dependence
CPT/HCPCS: 71010; 80053; 82550; 83615; 84484; 85027; 85610; 85730; 93005; 96372; 96374; 99285; J1650; J2270

== ENCOUNTER 2017-07-26 23:42 | Inpatient (IN) | payer MEDICARE, MEDICAID ==
[2017-07-26 23:43] VITALS: PULSE 67
[2017-07-26 23:45] VITALS: BMI 36.0
--- NOTE | 2017-07-27 00:15 | ED PDOC ---
Arrival/HPI - General Chief Complaint: Trauma Time Seen by Provider: 07/27/17 00:07 Historian: Patient - History of Present Illness Narrative History of Present Illness (Text): 07/27/17 00:20 A 56 year old male, whose past medical history includes quadruple bypass, diabetes, presents to the emergency department complaining of right sided leg, shoulder, abdominal, lower back pain and dizziness s/p a fall at work today. The patient states that he stepped on a pallet and fell off of it landing on his right side. The patient states that he felt dizzy after his fall and does not recall hitting his head. The patient denies fevers, chills, chest pain, shortness of breath, dyspnea on exertion, cough, nausea, vomiting, diarrhea, neck pain, urinary/bowel changes, or any other complaint. PMD: Dr. Posey Time/Duration: Prior to Arrival Symptom Onset: Sudden Symptom Course: Unchanged Activities at Onset: Rest, Light Context: Work Past Medical History - Provider Review Nursing Documentation Reviewed: Yes - Infectious Disease Hx of Infectious Diseases: None - Tetanus Immunization Tetanus Immunization: Unknown - Cardiac Hx Cardiac Disorders: Yes Hx Congestive Heart Failure: Yes Hx Hypertension: Yes - Pulmonary Hx Chronic Obstructive Pulmonary Disease (COPD): Yes - Neurological Hx Neurological Disorder: No - HEENT Hx HEENT Disorder: No - Renal Hx Renal Failure: Yes - Endocrine/Metabolic Hx Diabetes Mellitus Type 2: Yes - Hematological/Oncological Hx Blood Disorders: Yes Hx Hepatitis A: Yes - Integumentary Hx Dermatological Disorder: No - Musculoskeletal/Rheumatological Hx Musculoskeletal Disorders: Yes Hx Falls: Yes Hx Osteoarthritis: Yes - Gastrointestinal Hx Gastrointestinal Disorders: No - Genitourinary/Gynecological Hx Genitourinary Disorders: No - Psychiatric Hx Psychophysiologic Disorder: Yes Hx Depression: Yes Hx Substance Use: No - Surgical History Hx Cardiac Catheterization: Yes Hx Coronary Stent: Yes Hx Open Heart Surgery: Yes - Anesthesia Hx Anesthesia: Yes Hx Anesthesia Reactions: No Hx Malignant Hyperthermia: No - Suicidal Assessment Feels Threatened In Home Enviroment: No Family/Social History - Physician Review Nursing Documentation Reviewed: Yes Family/Social History: No Known Family HX Smoking Status: Former Smoker Hx Alcohol Use: Yes (EVERY WEEK BEER) Hx Substance Use: No Hx Substance Use Treatment: No Allergies/Home Meds Allergies/Adverse Reactions: Allergies No Known Allergies Allergy (Verified 07/26/17 23:45) Home Medications: Home Meds Medication Instructions Recorded Confirmed Carvedilol [Coreg] 3.125 mg PO BID 06/05/17 07/26/17 Escitalopram [Lexapro] 10 mg PO HS 06/05/17 07/26/17 Fluticasone/Salmeterol 500/50 0 puff NEB BID 06/05/17 07/26/17 [Advair Diskus 500/50] Glimepiride [amaRYL] 4 mg PO BID 06/05/17 07/26/17 Insulin Detemir [Levemir] 50 unit SC DAILY 06/05/17 07/26/17 Insulin Glargine,Hum.rec.anlog 50 unit SQ BID 06/05/17 07/26/17 [Lantus Solostar] Metolazone 2.5 mg PO DAILY 06/05/17 07/26/17 Potassium Chloride [Klor-Con 10] 10 meq PO DAILY 06/05/17 07/26/17 Review of Systems - Physician Review All systems were reviewed & negative as marked: Yes - Review of Systems Constitutional: absent: Fevers, Night Sweats Respiratory: absent: SOB, Cough Cardiovascular: absent: Chest Pain, MCKENZIE Gastrointestinal: Abdominal Pain (Right upper and lower quadrant abdominal pain. ). absent: Stool Changes, Diarrhea, Nausea, Vomiting Genitourinary Male: absent: Urinary Output Changes Musculoskeletal: Back Pain (Lower back pain), Other (Right shoulder and leg pain ) Neurological: Dizziness Physical Exam Vital Signs Reviewed: Yes Vital Signs Temp Pulse Resp BP Pulse Ox 07/26/17 23:48 97.5 F L 117 H 18 105/71 100 07/26/17 23:44 97.5 F L 117 H 19 105/71 100 Temperature: Hypothermic Blood Pressure: Normal Pulse: Tachycardic Respiratory Rate: Normal Appearance: Positive for: Well-Appearing, Non-Toxic, Comfortable Pain Distress: None Mental Status: Positive for: Alert and Oriented X 3 - Systems Exam Head: Present: Atraumatic, Normocephalic Pupils: Present: PERRL Extroacular Muscles: Present: EOMI Conjunctiva: Present: Normal Mouth: Present: Moist Mucous Membranes Neck: Present: Normal Range of Motion. No: MIDLINE TENDERNESS, Paraspinal Tenderness Respiratory/Chest: Present: Clear to Auscultation, Good Air Exchange. No: Respiratory Distress, Accessory Muscle Use, Tender to Palpation Cardiovascular: Present: Regular Rate and Rhythm, Normal S1, S2. No: Murmurs Abdomen: Present: Tenderness (Right upper and lower abdominal pain.), Guarding Back: No: Midline Tenderness, Paraspinal Tenderness Upper Extremity: Present: Normal ROM (Full ROM of shoulder.), Neurovascularly Intact, Other (No step-off or crepitus. No ecchymosis.). No: Tenderness (No upper arm tenderness) Lower Extremity: Present: Normal Inspection, Edema (Bilateral edema. ), NORMAL PULSES, Tenderness (Minimal tenderness over ankle. No knee tenderness. ), Neurovascularly Intact, Other (No step-off or crepitus. No ecchymosis.). No: CALF TENDERNESS Neurological: Present: GCS=15, CN II-XII Intact, Speech Normal Skin: Present: Warm, Dry, Normal Color. No: Rashes Psychiatric: Present: Alert, Oriented x 3, Normal Insight, Normal Concentration Medical Decision Making ED Course and Treatment: 07/27/17 00:33 Impression: A 56 year old male presents to the emergency department complaining of right sided shoulder, leg, abdominal, lower back pain, and dizziness s/p slip and fall. Plan: -- Chest, Abdomen CT -- Head CT -- Chest X-ray -- Right Knee with Patella / Shoulder/ Tibia Fibula -- EKG -- Labs -- Reassess and disposition Progress Notes: EKG: Ordered, reviewed, and independently interpreted the EKG. Rate : 113 BPM Rhythm : Sinus Tachycardia 07/27/17 00:35: Patient started to complain of chest pain while in emergency department. - Lab Interpretations I have reviewed the lab results: Yes - RAD Interpretation Radiology Orders: 07/27/17 00:07 HEAD W/O CONTRAST [CT] Stat 07/27/17 00:20 CHEST, ABDOMEN WITH CONTRAST [CT] Stat 07/27/17 00:21 KNEE W PATELLA RIGHT 3 VIEW [RAD] Stat SHOULDER RIGHT [RAD] Stat TIBIA FIBULA RIGHT [RAD] Stat - EKG Interpretation Interpreted by ED Physician: Yes Type: 12 lead EKG - Scribe Statement The provider has reviewed the documentation as recorded by the Josselynibe Kellie Calderon Provider Scribe Attestation: All medical record entries made by the Scribe were at my direction and personally dictated by me. I have reviewed the chart and agree that the record accurately reflects my personal performance of the history, physical exam, medical decision making, and the department course for this patient. I have also personally directed, reviewed, and agree with the discharge instructions and disposition. Disposition/Present on Arrival - Present on Arrival History of DVT/PE: No History of Uncontrolled Diabetes: No Urinary Catheter: No History of Decub. Ulcer: No History Surgical Site Infection Following: None - Disposition Forms: [email or web address] ([place])
--- NOTE | 2017-07-27 00:39 | ED PDOC ---
Arrival/HPI - General Historian: Patient - History of Present Illness Time/Duration: Prior to Arrival Symptom Course: Unchanged Activities at Onset: Rest, Light Context: Work <Quita Giles - Last Filed: 07/27/17 01:52> <Clay Alves - Last Filed: 07/27/17 03:37> - General Chief Complaint: Trauma Time Seen by Provider: 07/27/17 00:07 - History of Present Illness Narrative History of Present Illness (Text): 07/27/17 00:20 A 56 year old male, whose past medical history includes CAD, quadruple bypass, CHF, IDDM, chronic renal insufficiency, hypertension, COPD, and lower extremity edema with chronic MRSA infection, presents to the emergency department complaining of right sided leg, shoulder, abdominal pain, lower back pain and dizziness s/p slip and fall while trying to get detergent from the shelf prior to arrival. The patient states that he stepped on a pallet step stool and fell off of it landing on his right side. The patient states that he felt dizzy after his fall and does not recall hitting his head. The patient denies fevers, chills, chest pain, shortness of breath, dyspnea on exertion, cough, nausea, vomiting, diarrhea, neck pain, urinary/bowel changes, or any other complaint. PMD: Dr. Posey (Quita Giles) Past Medical History - Provider Review Nursing Documentation Reviewed: Yes - Infectious Disease Hx of Infectious Diseases: None - Tetanus Immunization Tetanus Immunization: Unknown - Cardiac Hx Cardiac Disorders: Yes Hx Congestive Heart Failure: Yes Hx Hypertension: Yes - Pulmonary Hx Chronic Obstructive Pulmonary Disease (COPD): Yes - Neurological Hx Neurological Disorder: No - HEENT Hx HEENT Disorder: No - Renal Hx Renal Failure: Yes - Endocrine/Metabolic Hx Diabetes Mellitus Type 2: Yes - Hematological/Oncological Hx Blood Disorders: Yes Hx Hepatitis A: Yes - Integumentary Hx Dermatological Disorder: No - Musculoskeletal/Rheumatological Hx Musculoskeletal Disorders: Yes Hx Falls: Yes Hx Osteoarthritis: Yes - Gastrointestinal Hx Gastrointestinal Disorders: No - Genitourinary/Gynecological Hx Genitourinary Disorders: No - Psychiatric Hx Psychophysiologic Disorder: Yes Hx Depression: Yes Hx Substance Use: No - Surgical History Hx Cardiac Catheterization: Yes Hx Coronary Stent: Yes Hx Open Heart Surgery: Yes - Anesthesia Hx Anesthesia: Yes Hx Anesthesia Reactions: No Hx Malignant Hyperthermia: No - Suicidal Assessment Feels Threatened In Home Enviroment: No <Quita Giles - Last Filed: 07/27/17 01:52> Family/Social History - Physician Review Nursing Documentation Reviewed: Yes Family/Social History: No Known Family HX Smoking Status: Former Smoker Hx Alcohol Use: Yes (EVERY WEEK BEER) Hx Substance Use: No Hx Substance Use Treatment: No <Quita Giles - Last Filed: 07/27/17 01:52> Allergies/Home Meds <Quita Giles - Last Filed: 07/27/17 01:52> <Clay Alves - Last Filed: 07/27/17 03:37> Allergies/Adverse Reactions: Allergies No Known Allergies Allergy (Verified 07/26/17 23:45) Home Medications: Home Meds Medication Instructions Recorded Confirmed Carvedilol [Coreg] 3.125 mg PO BID 06/05/17 07/26/17 Escitalopram [Lexapro] 10 mg PO HS 06/05/17 07/26/17 Fluticasone/Salmeterol 500/50 0 puff NEB BID 06/05/17 07/26/17 [Advair Diskus 500/50] Glimepiride [amaRYL] 4 mg PO BID 06/05/17 07/26/17 Insulin Detemir [Levemir] 50 unit SC DAILY 06/05/17 07/26/17 Insulin Glargine,Hum.rec.anlog 50 unit SQ BID 06/05/17 07/26/17 [Lantus Solostar] Metolazone 2.5 mg PO DAILY 06/05/17 07/26/17 Potassium Chloride [Klor-Con 10] 10 meq PO DAILY 06/05/17 07/26/17 Review of Systems - Physician Review All systems were reviewed & negative as marked: Yes - Review of Systems Constitutional: absent: Fevers, Night Sweats Respiratory: absent: SOB, Cough Cardiovascular: absent: Chest Pain, MCKENZIE Gastrointestinal: Abdominal Pain (Right sided abdominal pain.). absent: Stool Changes, Diarrhea, Nausea, Vomiting Genitourinary Male: absent: Urinary Output Changes Musculoskeletal: Back Pain (Lower back pain), Other (Right shoulder, leg pain.) . absent: Neck Pain Neurological: Dizziness <Quita Giles - Last Filed: 07/27/17 01:52> Physical Exam Vital Signs Reviewed: Yes Temperature: Hypothermic Blood Pressure: Normal Pulse: Tachycardic Respiratory Rate: Normal Appearance: Positive for: Well-Appearing, Non-Toxic, Comfortable Pain Distress: None Mental Status: Positive for: Alert and Oriented X 3 <Quita Giles - Last Filed: 07/27/17 01:52> <Clay Alves - Last Filed: 07/27/17 03:37> - Physical Exam Narrative Physical Exam (Text): 07/27/17 00:38 - Systems Exam Head: Present: Atraumatic, Normocephalic Pupils: Present: PERRL Extroacular Muscles: Present: EOMI Conjunctiva: Present: Normal Mouth: Present: Moist Mucous Membranes Neck: Present: Normal Range of Motion. No: MIDLINE TENDERNESS, Paraspinal Tenderness Respiratory/Chest: Present: Clear to Auscultation, Good Air Exchange. No: Respiratory Distress, Accessory Muscle Use, Tender to Palpation, NO ECCHYMOSIS NO EDEMA, NO STEP OFFS, NO CREPITUS Cardiovascular: Present: Regular Rate and Rhythm, Normal S1, S2. No: Murmurs Abdomen: Present: Tenderness (Right upper and lower abdominal pain.), Guarding Back: No: Midline Tenderness, Paraspinal Tenderness Upper Extremity: Present: Normal ROM (Full ROM of shoulder.), Neurovascularly Intact, Other (No step-off or crepitus. No ecchymosis.). No: Tenderness (No upper arm tenderness) Lower Extremity: Present: Normal Inspection, Edema (Bilateral edema. ), NORMAL PULSES, Tenderness (Minimal tenderness over ankle. No knee tenderness. ), Neurovascularly Intact, Other (No step-off or crepitus. No ecchymosis.). No: CALF TENDERNESS Neurological: Present: GCS=15, Speech Normal Skin: Present: Warm, Dry, Normal Color. Psychiatric: Present: Alert, Oriented x 3, (Quita Giles) Vital Signs Temp Pulse Resp BP Pulse Ox 07/27/17 03:00 98.0 F 104 H 18 99/62 L 99 07/27/17 01:43 97.6 F 101 H 16 99/72 L 99 07/26/17 23:48 97.5 F L 117 H 18 105/71 100 07/26/17 23:44 97.5 F L 117 H 19 105/71 100 Medical Decision Making - Lab Interpretations I have reviewed the lab results: Yes - EKG Interpretation Interpreted by ED Physician: Yes Type: 12 lead EKG <Quita Giles - Last Filed: 07/27/17 01:52> <Clay Alves - Last Filed: 07/27/17 03:37> ED Course and Treatment: 07/27/17 00:33 A 56 year old male presents to the emergency department complaining of right sided shoulder, leg, abdominal, lower back pain, and dizziness s/p mechanical slip and fall. Plan: -- Chest, Abdomen/pelvis CT -- Head CT -- Chest X-ray -- Right Knee with Patella xray --right shoulder xray -- right tib fib xray -- EKG: sinus tachycardia at 113 b/m no st elevations -- Labs -- Reassess and disposition Progress Notes: 07/27/17 00:35: Patient started to complain of chest pain while in emergency department. 07/27/17 01:23: while in xray; pt c/o right femur pain; xrays ordered. cbc; wbc; 2.6 cmp: bun; 31 cr; 1.0 troponin: 0.04 -- Right Knee with Patella xray: no fracture --right shoulder xray: no fracture -- right tib fib xray NO fracture -- Right femur xray; no fracture ct head: ct chest/abd/pelvis; case signed out to dr. alves pending CT head and chest/abd pelvis, re- evaluation and disposition. (Quita Giles) 07/27/17 02:09: Case endorsed to me by DIALLO Giles. Pending Head CT, Chest/Abdomen/Pelvis CT will re-evaluate and disposition. 07/27/17 03:27 CT Chest With Intravenous Contrast IMPRESSION: 1. No acute post-traumatic abnormality. 2. There is a peripheral consolidation with increased interstitial markings or fibrosis at the left lung base. A small consolidation is also visualized within the lingula. These findings are stable. 3. There is mild left pleural thickening. 4. There is cardiomegaly. 5. Incidental/non-acute findings are described above. CT Abdomen With Intravenous Contrast EXAM DATE/TIME: 07/27/2017 12:20 AM IMPRESSION: 1. There is hypodense fatty infiltration of the liver. Minimal perihepatic ascites is visualized. Aside from the area of artifact, no hepatic laceration is visualized. 2. There is splenomegaly. Mild perisplenic ascites is visualized. Heterogeneous enhancement of the spleen limits evaluation for laceration. 3. Cholelithiasis. 4. There is dilatation of the splenic vein, consistent with portal hypertension. 5. There is stranding of the abdominal mesentery, most advanced centrally. This is suggestive of mesenteric panniculitis. This stranding extends adjacent to the pancreas. Correlation with pancreatic enzymes is recommended to exclude pancreatitis. 6. The prostate is mildly enlarged, but incompletely visualized. 7. Mildly enlarged retroperitoneal lymph nodes are identified. A mildly enlarged portacaval lymph node is also visualized. These lymph nodes are nonspecific as to etiology. Dictated and Authenticated by: Jose Raul Perry MD 07/27/2017 3:13 AM Eastern Time ([place] & [place]) CT Head Without Intravenous Contrast EXAM DATE/TIME: 07/27/2017 12:07 AM Dictated and Authenticated by: Jose Raul Perry MD 07/27/2017 3:19 AM Eastern Time ([place] & [place]) IMPRESSION: 1. No acute intracranial hemorrhage or acute territorial type infarct. 2. There is a small nonspecific focus of hypodensity within the right frontal white matter. This is suggestive of small vessel ischemic disease and new compared to the prior study. Demyelination is within the differential. This can be further evaluated with a nonemergent MRI. 07/27/17 03:29: Discussed case with Dr. Posey who accepts patient to his service. Requests Dr. Fermin and Dr. Simpson on consult. (Clay Alves) - Lab Interpretations Lab Results: 07/27/17 00:20 07/27/17 00:20 Lab Results 07/27/17 00:20: WBC 2.6 L*, RBC 5.34, Hgb 14.5, Hct 44.3, MCV 83.0, MCH 27.2, MCHC 32.7, RDW 17.0 H, Plt Count 121, MPV 11.1 H, Gran % 47.9 L, Lymph % (Auto) 36.1 H, [place] % (Auto) 11.0 H, Eos % (Auto) 4.2, Baso % (Auto) 0.8, Gran # 1.26 L , Lymph # (Auto) 1.0 L, [place] # (Auto) 0.3, Eos # (Auto) 0.1, Baso # (Auto) 0.02 07/27/17 00:20: Sodium 139, Potassium 3.6, Chloride 95 L, Carbon Dioxide 33, Anion Gap 15, BUN 31 H, Creatinine 1.0, Est GFR ( Amer) > 60, Est GFR ( Non-Af Amer) > 60, Random Glucose 237 H, Calcium 9.2, Total Bilirubin 1.3, AST 50, ALT 30, Alkaline Phosphatase 67, Lactate Dehydrogenase 448, Total Creatine Kinase 51, Troponin I 0.04 D, Total Protein 7.5, Albumin 4.2, Globulin 3.3, Albumin/Globulin Ratio 1.3 07/27/17 00:20: PT 12.3, INR 1.08, APTT 32.7 - RAD Interpretation Radiology Orders: 07/27/17 00:07 HEAD W/O CONTRAST [CT] Stat 07/27/17 00:20 CHEST, ABDOMEN WITH CONTRAST [CT] Stat 07/27/17 00:21 KNEE W PATELLA RIGHT 3 VIEW [RAD] Stat SHOULDER RIGHT [RAD] Stat TIBIA FIBULA RIGHT [RAD] Stat 07/27/17 00:35 CHEST PORTABLE [RAD] Stat 07/27/17 01:23 Femur Right [FEMUR MIN 2 VIEWS RT] [RAD] Stat - Scribe Statement The provider has reviewed the documentation as recorded by the Scribe <Quita Giles - Last Filed: 07/27/17 01:52> - PA / AGRICULTURE CONSULTANT / Resident Statement / has reviewed & agrees with the documentation as recorded. / has examined the patient and agrees with the treatment plan. <Clay Alves - Last Filed: 07/27/17 03:37> - Scribe Statement Kellie Calderon Provider Scribe Attestation: All medical record entries made by the Scribe were at my direction and personally dictated by me. I have reviewed the chart and agree that the record accurately reflects my personal performance of the history, physical exam, medical decision making, and the department course for this patient. I have also personally directed, reviewed, and agree with the discharge instructions and disposition. (Quita Giles) Disposition/Present on Arrival - Present on Arrival Any Indicators Present on Arrival: No History of DVT/PE: No History of Uncontrolled Diabetes: No Urinary Catheter: No History of Decub. Ulcer: No History Surgical Site Infection Following: None <Quita Giles - Last Filed: 07/27/17 01:52> - Present on Arrival Any Indicators Present on Arrival: No History of DVT/PE: No History of Uncontrolled Diabetes: No Urinary Catheter: No History of Decub. Ulcer: No History Surgical Site Infection Following: None - Disposition Have Diagnosis and Disposition been Completed?: Yes Disposition Time: 03:37 Patient Plan: Observation <Clay Alves - Last Filed: 07/27/17 03:37> - Disposition Diagnosis: Chest pain, Leg strain, Shoulder strain, Dizziness Disposition: HOSPITALIZED Condition: STABLE Discharge Instructions (ExitCare): Chest Pain (ED) Forms: [facility] ([place]ish)
[2017-07-27 00:44] LABS: ALB/GLOB RATIO 1.3 (1.1-1.8); ALBUMIN 4.2 g/dL (3.0-4.8); ALT/SGPT 30 U/L (7-56); AST/SGOT 50 U/L (17-59); BLOOD UREA NITROGEN 31 mg/dL (7-21); CALCIUM 9.2 mg/dL (8.4-10.5); GFR AFRICAN-AMERICAN > 60; GFR NON-AFRICAN AMERICAN > 60
[2017-07-27] MEDS ORDERED: Iohexol 350 MG/100 ML VIAL ONE (00:54)
[2017-07-27 00:56] LABS: TROPONIN I 0.04 ng/mL
[2017-07-27 00:58] LABS: INR 1.08 (0.93-1.08); PARTIAL THROMBOPLASTIN TIME 32.7 Seconds (25.1-36.5); PROTHROMBIN TIME 12.3 SECONDS (9.4-12.5)
[2017-07-27 00:59] LABS: BASO # 0.02 K/mm3 (0.0-2.0); BASO % 0.8 % (0.0-3.0); EOS # 0.1 (0.0-0.7); EOS % 4.2 % (1.5-5.0); GRAN # 1.26 (1.4-6.5); GRAN % 47.9 % (50.0-68.0); HEMOGLOBIN 14.5 g/dL (14.0-18.0); LYMPH % 36.1 % (22.0-35.0); MEAN CORPUSCULAR HEMOGLOBIN 27.2 pg (25.0-35.0); MEAN CORPUSCULAR HGB CONC 32.7 g/dl (31.0-37.0); MEAN PLATELET VOLUME 11.1 fl (7.0-11.0); MONO # 0.3 (0.1-0.6); RBC 5.34 10^6/uL (3.5-6.1)
[2017-07-27 01:03] LABS: WHITE BLOOD COUNT 2.6 10^3/ul (4.5-11.0)
--- NOTE | 2017-07-27 03:13 | CT ---
EXAM: CT Chest With Intravenous Contrast CLINICAL HISTORY: The patient age is 56 years old and is male; Pain; Abdominal pain; Flank; Right; Chest pain; Additional info: Trauma/fall right sided abdominal pain Facility exam id and description: Ct [facility] chest, abdomen with contrast TECHNIQUE: Axial computed tomography images of the chest with intravenous contrast. All CT scans at this facility use one or more dose reduction techniques, viz.: automated exposure control; ma/kV adjustment per patient size (including targeted exams where dose is matched to indication; i.e. head); or iterative reconstruction technique. Coronal and sagittal reformatted images were created and reviewed. CONTRAST: 96 mL of omni 350 administered intravenously. COMPARISON: CT - CHEST W/O CONTRAST 2017-06-06 08:54 FINDINGS: Lungs: There is a peripheral consolidation with increased interstitial markings or fibrosis at the left lung base. A small consolidation is also visualized within the lingula. These findings are stable. Patchy nonspecific groundglass density is identified within the lungs bilaterally. Pleural space: There is mild left pleural thickening. No pneumothorax. Heart: There is cardiomegaly. Bones/joints: Hypertrophic degenerative changes are noted within the spine. Vasculature: Evaluation of the pulmonary arteries is suboptimal due to the phase of enhancement. Sternotomy arteries are visualized. There is no aneurysm or dissection of the thoracic aorta. Lymph nodes: Multiple small mediastinal lymph nodes are visualized, without progression. IMPRESSION: 1. No acute post-traumatic abnormality. 2. There is a peripheral consolidation with increased interstitial markings or fibrosis at the left lung base. A small consolidation is also visualized within the lingula. These findings are stable. 3. There is mild left pleural thickening. 4. There is cardiomegaly. 5. Incidental/non-acute findings are described above. EXAM: CT Abdomen With Intravenous Contrast EXAM DATE/TIME: 07/27/2017 12:20 AM CLINICAL HISTORY: The patient age is 56 years old and is male; Pain; Abdominal pain; Flank; Right; Chest pain; Additional info: Trauma/fall right sided abdominal pain Facility exam id and description: Ct [facility] chest, abdomen with contrast TECHNIQUE: Axial computed tomography images of the abdomen with intravenous contrast. All CT scans at this facility use one or more dose reduction techniques, viz.: automated exposure control; ma/kV adjustment per patient size (including targeted exams where dose is matched to indication; i.e. head); or iterative reconstruction technique. Coronal and sagittal reformatted images were created and reviewed. CONTRAST: 96 mL of omni 350 administered intravenously. COMPARISON: None available. FINDINGS: Liver: There is hypodense fatty infiltration of the liver. Minimal perihepatic ascites is visualized. Artifact limits evaluation of the posterior right hepatic lobe. Otherwise, no hepatic laceration is visualized. Gallbladder and bile ducts: Multiple gallstones are visualized. Pancreas: Normal contour. See below. Spleen: There is splenomegaly. Mild perisplenic ascites is visualized. Heterogeneous enhancement of the spleen limits evaluation for laceration. There is dilatation of the splenic vein, consistent with portal hypertension. Adrenals: No mass. Kidneys and ureters: No solid mass. No hydronephrosis. Stomach and bowel: There is moderate fecal material within the colon. Intraperitoneal space: There is stranding of the abdominal mesentery, most advanced centrally. This is suggestive of mesenteric panniculitis. This stranding extends adjacent to the pancreas. Bones/joints: No acute fracture. Vasculature: Atherosclerotic changes are identified of the abdominal aorta and iliac arteries. There is no aneurysm or dissection of the aorta. Lymph nodes: Mildly enlarged retroperitoneal lymph nodes are identified. One of the enlarged lymph nodes is seen in the left periaortic region measuring 1.3 x 1.2 cm. A mildly enlarged portacaval lymph node is also visualized. These lymph nodes are nonspecific as to etiology. Small intrapelvic lymph nodes are identified, without significant lymphadenopathy. Other findings: The prostate is mildly enlarged, but incompletely visualized. IMPRESSION: 1. There is hypodense fatty infiltration of the liver. Minimal perihepatic ascites is visualized. Aside from the area of artifact, no hepatic laceration is visualized. 2. There is splenomegaly. Mild perisplenic ascites is visualized. Heterogeneous enhancement of the spleen limits evaluation for laceration. 3. Cholelithiasis. 4. There is dilatation of the splenic vein, consistent with portal hypertension. 5. There is stranding of the abdominal mesentery, most advanced centrally. This is suggestive of mesenteric panniculitis. This stranding extends adjacent to the pancreas. Correlation with pancreatic enzymes is recommended to exclude pancreatitis. 6. The prostate is mildly enlarged, but incompletely visualized. 7. Mildly enlarged retroperitoneal lymph nodes are identified. A mildly enlarged portacaval lymph node is also visualized. These lymph nodes are nonspecific as to etiology.
--- NOTE | 2017-07-27 03:20 | CT ---
EXAM: CT Head Without Intravenous Contrast EXAM DATE/TIME: 07/27/2017 12:07 AM CLINICAL HISTORY: The patient age is 56 years old and is male; Signs and symptoms; Dizziness; Additional info: Dizziness, head injury Facility exam id and description: Ct heads head w/o contrast TECHNIQUE: Axial computed tomography images of the head/brain without intravenous contrast. All CT scans at this facility use one or more dose reduction techniques, viz.: automated exposure control; ma/kV adjustment per patient size (including targeted exams where dose is matched to indication; i.e. head); or iterative reconstruction technique. Coronal and sagittal reformatted images were created and reviewed. COMPARISON: CT - HEAD W/O CONTRAST 2015-09-28 16:17 FINDINGS: Brain: There is a small nonspecific focus of hypodensity within the right frontal white matter. This is suggestive of small muscle ischemic disease and new compared to the prior study. Demyelination is within the differential. The acuity of the white matter disease is indeterminate. The white-keita differentiation is preserved demonstrating no acute territorial type infarct. No acute intracranial hemorrhage is seen. Midline shift: There is no midline shift. Ventricles: No ventriculomegaly. Bones/joints: The calvarium demonstrates no evidence for a depressed fracture. Soft tissues: See above. Vasculature: There is atherosclerotic calcification of the intracranial internal carotid arteries and distal vertebral arteries. Sinuses: There is partial opacification of a right ethmoid air cell. Mastoid air cells: No mastoid effusion. IMPRESSION: 1. No acute intracranial hemorrhage or acute territorial type infarct. 2. There is a small nonspecific focus of hypodensity within the right frontal white matter. This is suggestive of small vessel ischemic disease and new compared to the prior study. Demyelination is within the differential. This can be further evaluated with a nonemergent MRI.
--- NOTE | 2017-07-27 09:01 | RAD ---
HISTORY: chest pain COMPARISON: 06/04/2017 FINDINGS: LUNGS: No active pulmonary disease. The previous study showed an 18 mm nodule in the right upper lobe. This is no longer visible PLEURA: No significant pleural effusion identified, no pneumothorax apparent. CARDIOVASCULAR: Mild cardiomegaly and mild vascular congestion OSSEOUS STRUCTURES: No significant abnormalities. VISUALIZED UPPER ABDOMEN: Normal. OTHER FINDINGS: None. IMPRESSION: No active disease.
[2017-07-27] MEDS: Potassium Chloride 10 mEq ER Tab PO SCH ×2 (09:36→21:53)
--- NOTE | 2017-07-27 11:14 | RAD ---
PROCEDURE: Right Knee Radiographs. HISTORY: fall pain COMPARISON: None. FINDINGS: BONES: Normal. No fracture. JOINTS: Normal. No osteoarthritis. JOINT EFFUSION: None. OTHER FINDINGS: The patella is unremarkable IMPRESSION: Normal radiographs of the right knee.
--- NOTE | 2017-07-27 11:15 | RAD ---
PROCEDURE: Radiographs of the Right Shoulder HISTORY: fall, shoulder pain COMPARISON: No prior. FINDINGS: BONES: Normal. No fracture. JOINTS: Normal. Glenohumeral and acromioclavicular joints preserved. No osteoarthritis. SOFT TISSUES: Normal. OTHER FINDINGS: None. IMPRESSION: Normal radiographs of the right shoulder.
--- NOTE | 2017-07-27 11:15 | RAD ---
PROCEDURE: Radiographs of the right tibia and fibula. HISTORY: fall, pain COMPARISON: None available. TECHNIQUE: Frontal and lateral views obtained. FINDINGS: BONES: No fracture or destructive lesion. JOINT SPACES: Unremarkable. OTHER FINDINGS: None. IMPRESSION: Unremarkable radiographs of the right tibia and fibula.
--- NOTE | 2017-07-27 11:16 | RAD ---
PROCEDURE: Right Femur Radiographs. HISTORY: fall COMPARISON: None. TECHNIQUE: AP and Lateral Radiographs of the right femur. FINDINGS: FEMUR: Normal. No fracture. SOFT TISSUES: Normal. OTHER FINDINGS: None. IMPRESSION: Unremarkable radiographs of the right femur.
[2017-07-27] MEDS: Insulin Reg-LOW-Coverage SC SCH ×3 (11:38→21:52)
[2017-07-27 12:00] LABS: HEPATITIS B SURFACE AG Negative (NEGATIVE)
[2017-07-27 12:06] LABS: HEPATITIS A IGM NEGATIVE (NEGATIVE); HEPATITIS B CORE AB NEGATIVE (NEGATIVE)
[2017-07-27 12:17] LABS: HEPATITIS C ANTIBODY NEGATIVE (NEGATIVE)
[2017-07-27] MEDS ORDERED: Oxycodone/Acetaminophen 5/325 mg Tab PO PRN (14:20)
--- NOTE | 2017-07-27 16:23 | CP.PCM.CON ---
History of Present Illness - History of Present Illness History of Present Illness: seen and examined at the bedside earlier today, chart review. Request for GI consult is for portal hypertension. HPI: This is a 56-year-old male with a past medical history of coronary artery disease, quadruple bypass, CHF, insulin-dependent diabetes COPD came to the emergency room with complaints of right-sided leg, shoulder, abdominal and lower back pain, and dizziness. The patient reported that he fell at sharp right while trying to get detergent, he tripped over plastic wrap,foot got stuck. He does report hitting his head but did not lose consciousness. No reports of nausea, vomiting, or shortness of breath or chest pain. He does report right-sided abdominal pain as well as neck pain. No reports of change in bowel habits, melena or bright red blood. On admission he had a CT scan of chest and abdomen which reported splenomegaly with mild perisplenic ascites, heterogenous enhancement of the spleen limits evaluation for laceration. There is dilation of the splenic vein consistent with portal hypertension. Patient denies any EtOH or any known liver disease, also noted to have multiple gallstones. As for the chest is show cardiomegaly and mild left pleural thickening and peripheral consolidation with increased interstitial markings or fibrosis at the left lung base. Patient denies ever having EGD or colonoscopy and fact patient endorses that his PCP has been recommending colonoscopy but patient is reluctant. Past medical history: Congestive heart failure, morbid obesity, insulin- dependent diabetes mellitus Recurrent leg cellulitis, obstructive sleep apnea, quadruple bypass, patient endorses MRSA on lower extremities multiple times Surgical history: Quadruple bypass, removal of Pilonidal cyst 2 Allergies: No known drug allergies Social history: Denies smoking, drinks alcohol at least once a week, denies excessive consumption Denies recreational drug use Family history: Noncontributory at this time Medications: Reviewed as per AUG, significant for Plavix ROS: Systems reviewed with positive finding see HPI. Past Patient History - Infectious Disease Hx of Infectious Diseases: None - Tetanus Immunizations Tetanus Immunization: Unknown - Past Medical History & Family History Past Medical History?: Yes - Past Social History Smoking Status: Smoker Currrent Status Unknown - CARDIAC Hx Cardiac Disorders: Yes Hx Congestive Heart Failure: Yes Hx Hypertension: Yes - PULMONARY Hx Chronic Obstructive Pulmonary Disease (COPD): Yes - NEUROLOGICAL Hx Neurological Disorder: No - HEENT Hx HEENT Problems: No - RENAL Hx Renal Failure: Yes - ENDOCRINE/METABOLIC Hx Diabetes Mellitus Type 2: Yes - HEMATOLOGICAL/ONCOLOGICAL Hx Blood Disorders: Yes Hx Hepatitis A: Yes - INTEGUMENTARY Hx Dermatological Problems: No - MUSCULOSKELETAL/RHEUMATOLOGICAL Hx Falls: Yes - GASTROINTESTINAL Hx Gastrointestinal Disorders: No - GENITOURINARY/GYNECOLOGICAL Hx Genitourinary Disorders: No - PSYCHIATRIC Hx Psychophysiologic Disorder: Yes Hx Depression: Yes - SURGICAL HISTORY Hx Cardiac Catheterization: Yes Hx Coronary Stent: Yes Hx Open Heart Surgery: Yes - ANESTHESIA Hx Anesthesia: Yes Hx Anesthesia Reactions: No Hx Malignant Hyperthermia: No Meds Allergies/Adverse Reactions: Allergies Allergy/AdvReac Type Severity Reaction Status Date / Time No Known Allergies Allergy Verified 07/26/17 23:45 - Medications Medications: Current Medications Aspirin (Aspirin Chewable) 81 mg PO DAILY [facility] Last Admin: 07/27/17 10:16 Dose: 81 mg Atorvastatin Calcium (Lipitor) 40 mg PO DIN [facility] Carvedilol (Coreg) 3.125 mg PO BID [facility] Last Admin: 07/27/17 10:16 Dose: 3.125 mg Clopidogrel Bisulfate (Plavix) 75 mg PO DAILY [facility] Last Admin: 07/27/17 10:16 Dose: 75 mg Furosemide (Lasix) 40 mg PO BID [facility] Last Admin: 07/27/17 10:17 Dose: Not Given Insulin Human Regular (Humulin R Low) 0 units SC ACHS [facility] PRN Reason: Protocol Last Admin: 07/27/17 11:38 Dose: 3 units Oxycodone/Acetaminophen (Percocet 5/325 Mg Tab) 1 tab PO Q8H PRN PRN Reason: Pain, moderate (4-7) Stop: 07/30/17 14:21 Potassium Chloride (Klor-Con 10) 10 meq PO BID [facility] Last Admin: 07/27/17 09:36 Dose: Not Given Spironolactone (Aldactone) 25 mg PO DAILY [facility] Last Admin: 07/27/17 10:16 Dose: 25 mg Physical Exam - Constitutional Appears: No Acute Distress - Head Exam Head Exam: NORMOCEPHALIC - Eye Exam Eye Exam: Normal appearance. absent: Scleral icterus - ENT Exam ENT Exam: Mucous Membranes Moist - Neck Exam Neck exam: Positive for: Normal Inspection - Respiratory Exam Respiratory Exam: Decreased Breath Sounds, NORMAL BREATHING PATTERN. absent: Wheezes, Respiratory Distress - Cardiovascular Exam Cardiovascular Exam: +S1, +S2 - GI/Abdominal Exam GI & Abdominal Exam: Normal Bowel Sounds, Soft, Tenderness (diffuse right-sided tenderness but no rebound or guarding, no ecchymotic areas noted). absent: Guarding, Organomegaly (abdomen obese), Rebound - Extremities Exam Extremities exam: Positive for: pedal edema (bilateral lower extremity edema and discoloration). Negative for: calf tenderness - Neurological Exam Neurological exam: Alert, Oriented x3 - Skin Skin Exam: Dry, Warm Results - Vital Signs Recent Vital Signs: Last Vital Signs Temp 98.6 F 07/27/17 14:00 Pulse 107 H 07/27/17 14:00 Resp 20 07/27/17 14:00 BP 111/77 07/27/17 14:00 Pulse Ox 96 07/27/17 06:00 - Labs Result Diagrams: 07/27/17 00:20 07/27/17 00:20 Labs: Laboratory Results - last 24 hr 07/27/17 07/27/17 07/27/17 07:35 09:15 11:26 POC Glucose (mg/dL) 203 H 285 H Hepatitis A IgM Ab Negative Hep Bs Antigen Negative Hep B Core IgM Ab Negative Hepatitis C Antibody Negative Assessment & Plan - Assessment and Plan (Free Text) Assessment: Assessment: Status post fall, tripped over plastic, fell on right side complain of right- sided abdominal pain, neck pain, leg pain. Fatty liver Splenomegaly/perisplenic ascites/splenic vein dilatation consistent with portal hypertension ? cardiac vs liver cirrhosis History of recurrent CHF H/O Quadruple bypass Diabetes mellitus Plan: Request for abdominal Doppler to check hepatic and portal veins Abdominal ultrasound Check alpha-fetoprotein Follow-up hepatitis panel Pending x-rays of cervical spine monitor H&H and for overt GI bleed On Plavix and aspirin On Aldactone Thank you for this consult and for allowing us to participate in your patient's care, further recommendations based upon clinical course. Seen and discussed with Dr. Wright.
--- NOTE | 2017-07-27 19:19 | US ---
HISTORY: portal htn COMPARISON: None. TECHNIQUE: Sonographic evaluation of the abdomen. FINDINGS: LIVER: Measures 15.9 cm. Normal echogenicity of the liver parenchyma. No mass. No intrahepatic bile duct dilatation. GALLBLADDER: Cholelithiasis without mural thickening, pericholecystic fluid collection or positive sonographic Bustos sign. COMMON BILE DUCT: Measures 1.8 mm. No stones. No dilatation. PANCREAS: The head and neck of the pancreas appear unremarkable the remainder obscured by extensive stomach or bowel gas. RIGHT KIDNEY: Measures 12.6cm. No obstructive uropathy or definitive mass or calculus identified. LEFT KIDNEY: Measures 12.7cm. No obstructive uropathy or definitive mass or calculus identified. SPLEEN: Splenomegaly is identified to 16.8 without focal mass appreciable. AORTA: No aneurysmal dilatation. IVC: Unremarkable. OTHER FINDINGS: None. IMPRESSION: Splenomegaly to 16.8 cm without focal mass identified. Cholelithiasis. Partial imaging of the pancreas.
--- NOTE | 2017-07-27 19:22 | US ---
PROCEDURE: HEPATIC VENOUS DOPPLER Ultrasound HISTORY: DOPPLER OF PORTAL AND HEPATIC VEIN COMPARISON: ABDOMEN ULTRASOUND EXAM ALSO PERFORMED 07/27/2017. TECHNIQUE: Color spectral Doppler analysis of the hepatic and portal veins is been performed as well as the abdominal aorta and inferior vena cava. FINDINGS: Normal directional blood flow was appreciated the portal vein. No hepatofugal blood flow. Hepatic venous blood flow was normal in direction as well as that within the abdominal aorta and inferior and inferior vena cava. No definite structural pattern to suggest occlusive venous or abdominal aortic changes. IMPRESSION: Unremarkable hepatic Doppler ultrasound examination.
--- NOTE | 2017-07-27 22:14 | CON ---
DATE: REASON FOR THE CONSULTATION: Follow up cardiac evaluation status post mechanical fall in grocery shop, complaining of right hip pain, right leg pain. BRIEF CLINICAL HISTORY: This is a 56-year-old morbidly obese male who significantly decreased weight, history of coronary artery bypass many years ago, diabetes, chronic renal insufficiency, COPD, hypertension, obesity, chronic leg edema and chronic venous stasis, chronic MRSA infection who fell down in grocery shop according to the patient and hurt right side of the chest and right hip. The right side of the chest is much better, but now is still complaining of pain, so he came to the emergency room. Denies any chest pain. Denies shortness of breath. Denies any palpitations than usual. Denies any fever or chills. PAST MEDICAL HISTORY: Significant for morbid obesity, diabetes, hypertension, hyperlipidemia, coronary artery disease, status post coronary artery bypass surgery in 1998, history of CHF multiple admissions, acute on chronic systolic dysfunction as well as diastolic dysfunction, chronic venous stasis. Review of cardiac workup as follows: The patient had echo 07/10/2016 that shows dilated left ventricle, systolic function mildly decreased, ejection fraction 30%, moderate tricuspid regurgitation, moderate pulmonary hypertension, RV systolic pressure of 50. SOCIAL HISTORY: The patient is ex-smoker. Denies any history of alcohol abuse. Denies any history of tobacco abuse now. ALLERGIES: NO KNOWN DRUG ALLERGIES. CURRENT MEDICATIONS: The patient is taking at home before he came in was taking metolazone, guaifenesin, spironolactone, insulin, Lasix, Plavix, Coreg, carvedilol, atorvastatin and aspirin. REVIEW OF SYSTEMS: As per HPI. PHYSICAL EXAMINATION: As follows: VITAL SIGNS: Temperature afebrile, heart rate 109, blood pressure 98/60. HEENT: PERRLA. Extraocular muscles intact. NECK: Supple. No carotid bruits or thyromegaly. CHEST: Clear to auscultation. HEART: S1 and S2, regular. ABDOMEN: Soft. EXTREMITIES: Clubbing and cyanosis negative. LABORATORY DATA: Blood workup as follows. WBC 2.6, hemoglobin 14.5, hematocrit 44.3 and platelet count 121. Chemistry shows sodium 139, potassium 3.6, chloride 95, carbon dioxide 33, anion gap of 15, BUN , creatinine 1.0. IMPRESSION: Status post mechanical fall, history of coronary artery disease and coronary artery bypass graft, history of congestive heart failure secondary to systolic dysfunction, ejection fraction 35%, , diabetes, hypertension, hyperlipidemia, chronic venous stasis, history of Methicillin-resistant Staphylococcus aureus. RECOMMENDATION: Review baseline medication, moderate electrolytes, discontinue telemetry. We will follow with you. Thank you, Dr. Posey, for providing us the opportunity in taking care of the patient, Mason Benavides. Rudy Fermin MD
--- NOTE | 2017-07-27 22:38 | CARD ---
APPROVED REPORT EKG Measurement Heart [id number] <Conclusion> Sinus tachycardia Low voltage QRS Cannot rule out Anteroseptal infarct, age undetermined Abnormal ECG
--- NOTE | 2017-07-28 01:02 | CON ---
DATE: PULMONARY CONSULTATION REFERRING PHYSICIAN: Tyrone Posey MD. REASON FOR CONSULTATION: Chronic lung disease, may have sleep apnea syndrome, cardiomyopathy, status post fall, had chest pain. HISTORY OF PRESENT ILLNESS: This is a 56-year-old gentleman with multiple medical issues including coronary artery disease, history of coronary artery bypass surgery, cardiomyopathy with decreased LV function, pulmonary hypertension, chronic lung disease. Apparently, he tripped and the boxes fell on his face and right side of his abdomen, also hurting leg, came into emergency room, had multiple x-rays done. Has mild perisplenic ascites. X-ray of the chest was remarkable with mild left pleural thickening and consolidation with interstitial fibrosis marking. No nausea, no vomiting, no diarrhea reported. PAST MEDICAL HISTORY: As per history of present illness. ALLERGIES: NONE KNOWN. SOCIAL HISTORY: Denies any smoke or alcohol use. FAMILY HISTORY: No significant cardiopulmonary disease reported. MEDICATIONS: He is on spironolactone 25 mg daily, aspirin 81 mg daily, Coreg 3.125 mg twice a day, insulin coverage, potassium 10 mEq twice a day, Lasix 40 mg twice a day, Lipitor 40 mg daily, Lovenox 40 mg daily, Percocet 5/325 one tab q.8 hours p.r.n., Plavix 75 mg daily. REVIEW OF SYSTEMS: No headache, no rhinitis. Does have some muscular-type chest pain. No nausea. Has some abdominal wall discomfort. Leg swelling is much improved. PHYSICAL EXAMINATION: GENERAL: Lying in the bed, in no acute distress. VITAL SIGNS: Tem is 98; heart rate 107; respiratory rate is 20; blood pressure 111/77; pulse ox 96%, 2 L nasal cannula. HEENT: Moist mucous membrane. Crowded airway. Mallampati score is 4. NECK: Supple. No JVD. LUNGS: Have a few crackles, scattered rhonchi. HEART: S1 and S2. ABDOMEN: Obese, soft, nontender. EXTREMITIES: Chronic changes of the skin, has some edema. NEUROLOGIC: Awake, alert. Follows simple command. LABORATORY DATA: Shows hemoglobin 14.5, hematocrit 44.3, WBC 2.6, platelet is 121. INR 1.08. PTT is 33. Sodium 139, potassium 3.6, chloride 95, bicarbonate 33, BUN 31, creatinine 1.0, glucose 291, calcium 9.2. AST 50, ALT 30, alk phos is 67. Troponin is less than 0.04. Albumin is 4.2. Alpha-fetoprotein is 0.8. Hepatitis profile is unremarkable. He has a CT of the lumbar spine, cervical spine and abdominal ultrasound, reports are all pending. Has a femur x-ray done, which shows unremarkable x-ray of the right femur. Also has a CT of the head done in the ER, which shows no acute intracranial hemorrhage or acute territory type infarct, small nonspecific focus of hypodensity within the right frontal white matter, suggested a small vessel ischemic disease and new compared to the prior study. IMPRESSION AND PLAN: Status post fall. According to patient, he feels a mechanical fall. Other issues are cardiomyopathy, congestive heart failure, chronic lung disease, obstructive sleep apnea syndrome, suspected diabetes, lower extremity edema, gastroesophageal reflux disease. Pulmonary point of view, keep head elevated at 45 degrees, sleep apnea precaution, avoid sedation. Continue diuretics, gastric prophylaxis. Sequential compression device to lower extremity. May need MRI of the brain to assure the stability of findings on CAT scan. Followup labs in the morning. Thank you and we will follow with you. Rudy Simpson MD
--- NOTE | 2017-07-28 08:11 | CT ---
PROCEDURE: CT Cervical Spine without contrast HISTORY: Fall COMPARISON: None available. TECHNIQUE: Axial computed tomography images were obtained of the cervical spine without the use of intravenous contrast. Coronal and sagittal reformatted images were created and reviewed. Radiation dose: Total exam DLP = 588.53 mGy-cm. This CT exam was performed using one or more of the following dose reduction techniques: Automated exposure control, adjustment of the mA and/or kV according to patient size, and/or use of iterative reconstruction technique. FINDINGS: VERTEBRAE: There is normal alignment of the cervical vertebral bodies. There is straightening of the cervical spine with loss of normal cervical lordosis. Vertebral height is normal. There is no acute fracture or spondylolisthesis. The craniocervical junction is normal. There is mild degenerative osteoarthrosis at the atlantoaxial joint. DISCS/SPINAL CANAL/NEURAL FORAMINA: There is multilevel degenerative disc disease due to combination of disc osteophyte complexes, uncovertebral joint hypertrophy and multilevel facet arthropathy, worse at C5-6 with a broad-based central and right paracentral disc protrusion, moderate spinal canal stenosis and moderate right neural foraminal narrowing. PARASPINAL SOFT TISSUES: The paraspinous soft tissues are normal. OTHER FINDINGS: None. IMPRESSION: No acute fracture or spondylolisthesis. Straightening of the cervical spine may be positional or related to muscle spasm. Multilevel degenerative disc disease, worse at C5-6 with a broad-based central and right paracentral disc protrusion, moderate spinal canal stenosis and moderate right neural foraminal narrowing. A preliminary report was provided by [employer].
--- NOTE | 2017-07-28 08:20 | CT ---
PROCEDURE: CT Lumbar Spine without contrast HISTORY: Back pain COMPARISON: None. TECHNIQUE: Axial computed tomography images were obtained of the lumbar spine without the use of intravenous contrast. Coronal and sagittal reformatted images were created and reviewed. Radiation dose: Total exam DLP = 2440.93 mGy-cm. This CT exam was performed using one or more of the following dose reduction techniques: Automated exposure control, adjustment of the mA and/or kV according to patient size, and/or use of iterative reconstruction technique. FINDINGS: VERTEBRAE: There is normal alignment of the lumbar vertebral bodies. There is normal lumbar lordosis. There is diffuse bone demineralization. There is no acute fracture, spondylolysis or spondylolisthesis. There is congenital narrowing of the lumbar spinal canal due to congenital short pedicles. DISCS/SPINAL CANAL/NEURAL FORAMINA: L1-2: No large disc herniation, neural foraminal or spinal canal stenosis. L2-3: No large disc herniation, neural foraminal or spinal canal stenosis. L3-4: Diffuse posterior disc bulge in conjunction with mild ligamentum flavum infolding result in mild spinal canal stenosis. Mild bilateral facet arthropathy contribute to moderate neural foraminal narrowing L4-5: Diffuse posterior disc bulge in conjunction with moderate ligamentum flavum infolding result in moderate spinal canal stenosis. Moderate bilateral facet arthropathy contribute to severe neural foraminal narrowing. L5-S1: Posterior disc bulge without spinal canal stenosis. Mild facet arthropathy contribute to mild neural foraminal narrowing. PARASPINAL SOFT TISSUES: Unremarkable. OTHER FINDINGS: There is fecal stasis in the rectum. There is small left pleural effusion and basilar atelectasis. IMPRESSION: No acute fracture, spondylolysis or spondylolisthesis. Mild multilevel degenerative disc disease superimposed on a congenitally narrow spinal canal, worse at L4-5 with moderate spinal canal stenosis and severe neural foraminal narrowing. A preliminary report was provided by [employer] services.
[2017-07-28] MEDS: Enoxaparin 40 mg Syringe SC SCH (09:27)
[2017-07-28] MEDS: Insulin Reg-LOW-Coverage SC SCH ×4 (09:30→21:37)
[2017-07-28] MEDS: Potassium Chloride 10 mEq ER Tab PO SCH ×2 (09:30→17:23)
[2017-07-28] MEDS ORDERED: Insulin Detemir 100 units/ml Vial (Levemir) SC SCH (10:00)
[2017-07-28] MEDS ORDERED: INSULIN GLARGINE HUM REC ANLOG 50 UNIT SQ SCH (10:00)
[2017-07-28] MEDS ORDERED: Enoxaparin 40 mg Syringe SC SCH (10:00)
[2017-07-28] MEDS: Insulin Detemir 100 units/ml Vial (Levemir) SC SCH ×2 (10:25→17:22)
[2017-07-28] MEDS: Albuterol-Ipratrop 3 mg / 0.5 (3 ml) UD IH PRN (20:19)
[2017-07-28] MEDS ORDERED: Magnesium Hydroxide Susp 30 ml UD PO ONE (22:19)
[2017-07-29] MEDS: Albuterol-Ipratrop 3 mg / 0.5 (3 ml) UD IH PRN (01:39)
--- NOTE | 2017-07-29 01:54 | PN ---
DATE: PULMONARY PROGRESS NOTE REFERRING PHYSICIAN: Tyrone Posey MD SUBJECTIVE: He is sitting on side of the bed. Nursing staff at bedside, giving medication. Night was unremarkable. CPAP/BiPAP. No nausea. No vomiting. No diarrhea. Still has leg swelling. OBJECTIVE: GENERAL: In no acute distress. VITAL SIGNS: Temp is 98, heart rate is 108, respiratory rate is 20, blood pressure 104/69, pulse ox 98% on 3 L nasal cannula. HEENT: Moist mucous membrane. Crowded airway. Mallampati score is 4. NECK: Supple. No JVD. LUNGS: Have a few scattered rhonchi. HEART: S1 and S2. ABDOMEN: Soft and nontender. No organomegaly. EXTREMITIES: There is trace edema. NEUROLOGIC: Awake, alert. Follows simple commands. MEDICATIONS: He is on Aldactone 25 mg daily, Antivert 12.5 mg q. 8 hours, aspirin 81 mg daily, Coreg 3.125 mg twice a day, DuoNeb q. 6 hours p.r.n., insulin coverage, potassium 10 mEq twice a day, Lasix 40 mg twice a day, Levemir 25 unit b.i.d., Lipitor 40 mg daily, Lovenox 40 mg subcu daily, Percocet 5/325 one tab q. 8 hours p.r.n., and Plavix 75 mg daily. LABORATORY DATA: Reviewed and shows blood sugar is 252. IMPRESSION AND PLAN: Status post fall; according to patient, it was mechanical fall. Has cardiomyopathy, congestive heart failure, chronic lung disease, obstructive sleep apnea syndrome, has diabetes, lower extremity edema, and gastroesophageal reflux disease. Pulmonary point of view, encouraged continuous positive airway pressure use, keep head at 45 degrees. Gastric prophylaxis. Deep venous thrombosis prophylaxis. Continue diuretics. May need MRI of the brain to assure the findings seen on the CT of the head. Thank you and we will follow with you. Rudy Simpson MD
--- NOTE | 2017-07-29 05:38 | CP.PCM.PN ---
Subjective - Date & Time of Evaluation Date of Evaluation: 07/29/17 Time of Evaluation: 05:38 - Subjective Subjective: S: Requested something for bowel movement. Has no other complaints. Medical record was reviewed. O: Last Vital Signs 3 Temp 98.3 F 07/29/17 05:37 Pulse 95 H 07/29/17 05:37 Resp 20 07/29/17 05:37 BP 96/65 L 07/29/17 05:37 Pulse Ox 95 07/29/17 05:37 Stable. Not in distress. LUNGS:Normal breathing patten. A:Constipation. P:Milk of magnesia 30 CC PO x 1. Objective - Vital Signs/Intake and Output Vital Signs (last 24 hours): Temp Pulse Resp BP Pulse Ox 98.3 F 95 H 20 96/65 L 95 07/29/17 05:37 07/29/17 05:37 07/29/17 05:37 07/29/17 05:37 07/29/17 05:37 - Medications Medications: Current Medications Albuterol/Ipratropium (Duoneb 3 Mg/0.5 Mg (3 Ml) Ud) 3 ml IH [id number] PRN PRN Reason: Shortness of Breath Last Admin: 07/29/17 01:39 Dose: 3 ml Aspirin (Aspirin Chewable) 81 mg PO DAILY [facility] Last Admin: 07/28/17 09:27 Dose: 81 mg Atorvastatin Calcium (Lipitor) 40 mg PO DIN [facility] Last Admin: 07/28/17 17:23 Dose: 40 mg Carvedilol (Coreg) 3.125 mg PO BID [facility] Last Admin: 07/28/17 17:25 Dose: 3.125 mg Clopidogrel Bisulfate (Plavix) 75 mg PO DAILY [facility] Last Admin: 07/28/17 09:29 Dose: 75 mg Enoxaparin Sodium (Lovenox) 40 mg SC DAILY [facility] PRN Reason: Protocol Last Admin: 07/28/17 09:27 Dose: 40 mg Furosemide (Lasix) 40 mg IVP BID [facility] Last Admin: 07/28/17 17:24 Dose: 40 mg Insulin Detemir (Levemir) 25 unit SC BID [facility] Last Admin: 07/28/17 17:22 Dose: 25 unit Insulin Human Lispro (Humalog) 5 units SC AC [facility] Insulin Human Regular (Humulin R Low) 0 units SC ACHS [facility] PRN Reason: Protocol Last Admin: 07/28/17 21:37 Dose: Not Given Meclizine HCl (Antivert) 12.5 mg PO Q8 [facility] Last Admin: 07/28/17 21:37 Dose: 12.5 mg Oxycodone/Acetaminophen (Percocet 5/325 Mg Tab) 1 tab PO Q8H PRN PRN Reason: Pain, moderate (4-7) Stop: 07/30/17 14:21 Last Admin: 07/29/17 01:54 Dose: 1 tab Potassium Chloride (Klor-Con 10) 10 meq PO BID [facility] Last Admin: 07/28/17 17:23 Dose: 10 meq Spironolactone (Aldactone) 25 mg PO DAILY [facility] Last Admin: 07/28/17 09:27 Dose: 25 mg - Labs Labs: PT 12.3 SECONDS (9.4-12.5) 07/27/17 00:20 INR 1.08 (0.93-1.08) 07/27/17 00:20 APTT 32.7 Seconds (25.1-36.5) 07/27/17 00:20
[2017-07-29] MEDS: Insulin Reg-LOW-Coverage SC SCH ×4 (08:07→21:21)
[2017-07-29] MEDS: Insulin Lispro 1 UNITS/0.01 ML SC SCH ×3 (08:13→17:12)
[2017-07-29] MEDS: Insulin Detemir 100 units/ml Vial (Levemir) SC SCH ×3 (09:27→17:14)
[2017-07-29] MEDS: Enoxaparin 40 mg Syringe SC SCH (09:27)
[2017-07-29] MEDS: Potassium Chloride 10 mEq ER Tab PO SCH ×2 (09:28→17:13)
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
[2017-07-29] MEDS ORDERED: Ergocalciferol 50,000 Intl Units Cap PO SCH (16:00)
[2017-07-29] MEDS: Bisacodyl 5mg EC Tab PO PRN (18:46)
--- NOTE | 2017-07-30 00:30 | PN ---
DATE: 07/29/2017 SUBJECTIVE: The patient seems stable. His dizziness seems better. He is getting his insulin. No other complaints. Seen by neurologist. PHYSICAL EXAMINATION: VITAL SIGNS: Today, temperature is 97, heart rate 68, blood pressure is 96/63, respirations 18, saturation 94% on room air. HEAD AND NECK: Normal. No JVD, no thyromegaly. CHEST: Clear, good air entry. CARDIAC: First and second sounds normal. There is systolic murmur. ABDOMEN: Obese, nontender. EXTREMITIES: Moderate edema bilaterally. NEUROLOGIC: Normal. The patient does have some spine exam tenderness in cervical spine with decreased range of motion towards the left side of the neck and also lumbosacral area, he complained of pain with decreased range of motion, mild decreased range of motion forward. LABORATORY STUDIES: The patient's blood sugar 250s and it is coming down to 138, 180, improving. IMPRESSION: 1. Status post fall, head trauma. The patient is stable. Had complaint of vertigo, continue Antivert. Seen by neurologist, stable. 2. Neck pain and lumbosacral area pain, stable. CT was negative for compression fractures or any fractured bones. 3. Insulin-dependent diabetes. Blood sugar is better. Continue current management, and we will follow up clinically. The patient getting Levemir and Humalog plus insulin coverage. 4. Coronary artery disease, congestive heart failure. Continue Lasix, continue Aldactone, and monitor his conditions. Continue aspirin, Plavix. The patient seems to be doing well. Continue Lipitor 40 mg at dinner and Coreg b.i.d. 5. Morbid obesity. 6. Obstructive sleep apnea. 7. Chronic obstructive pulmonary disease, continue bilevel positive airway pressure. PLAN: We will continue gastrointestinal and deep venous thrombosis prophylaxis. The patient seems stable. We will discharge in the morning. The patient seems noncompliant with BiPAP. Tyrone Posey MD
--- NOTE | 2017-07-30 00:46 | PN ---
DATE: 07/28/2017 SUBJECTIVE: Patient complained of right side pain and complained of neck pain and lumbosacral area pain and no other complaint. Breathing is good. His sugar is 300, 200, otherwise stable. PHYSICAL EXAMINATION: VITAL SIGNS: Temperature 98.6, heart [id number], blood pressure 127/89, respiration 19, saturation 95% on room air. HEAD AND NECK: Normal. No JVD. No thyromegaly. CHEST: Clear. Good air entry. CARDIAC: First sound and second sound normal. Systolic murmur. ABDOMEN: Soft, obese. There is tenderness more on the right side. EXTREMITIES: There is mild edema bilateral. There is right flank tenderness. NEUROLOGIC: Nonfocal. LABORATORY DATA: Noted for blood sugar 290-300. Status post fall, head and neck trauma. We got a CT lumbar spine, CT cervical spine, the results came back as degenerative joint disease. No acute fractures. Lumbar spine, degenerative joint disease, no acute fracture. Also, ultrasound of the abdomen, which shows cirrhosis and also had a venous Doppler of the portal vein, which was negative. He had some ascites probably cardiac related. IMPRESSION: 1. Status post trauma. CT of lumbar spine and cervical spine shows no acute fractures, degenerative joint disease. We will monitor lab, and patient seems not in any distress, although complained of pain but seems stable. We will get a Neurology consultation to see him for his vertigo type dizziness, and the patient did hit his head. A CT of the head was negative, was done but could be vertigo. We will give him Antivert. We will get a Neurology consult on him too. 2. Congestive heart failure, coronary artery disease. Continue Lasix. Continue Zaroxolyn and monitor this patient's condition with Cardiology. 3. Liver cirrhosis is probably related to his chronic congestive heart failure and portal hypertension without splenomegaly. We will follow up with GI consult, Dr. Wright. 4. Chronic obstructive pulmonary disease, obstructive sleep apnea. Continue bilevel positive airway pressure. Patient is noncompliant. We will get Dr. Simpson to follow up on that. 5. Insulin-dependent diabetes. Continue Levemir and monitor his sugar. Continue Humalog before meals 2 units a.c. meals and monitor his blood sugar. Continue current therapy, and we will follow up with the neurologist. Tyrone MD [facility] # [id number]
--- NOTE | 2017-07-30 01:44 | CON ---
DATE: HISTORY OF PRESENT ILLNESS: This is a 56-year-old male with a past medical history of coronary artery disease, bypass, chronic renal insufficiency, COPD, hypertension, and chronic venostasis. The patient was admitted because he fell down and hurt his right side of the body and came to the hospital. CAT scan of head, C-spine and lumbar spine was done, which was reported negative for fracture and I was called to evaluate the patient. PAST MEDICAL HISTORY: Diabetes, hypertension, hyperlipidemia, coronary artery disease, status post bypass. SOCIAL HISTORY: Ex-smoker. Does not drink. ALLERGIES: No known drug allergies. PHYSICAL EXAMINATION: HEENT: Normocephalic, atraumatic. NECK: Supple. NEUROLOGIC: Alert, awake, oriented x3. No aphasia. Cranial nerves II through XII are tested. Pupils reactive. EOM intact. Visual ralph full. No facial asymmetry. Tongue midline. Motor: Moves all the extremities equally. Tone normal. Deep tendon reflexes 1+. Both plantars are downgoing. Sensory appears intact. Cerebellar, gait deferred. IMPRESSION: Dizziness, vertigo, and multiple medical problems, status post fall, trauma to the right side of the body. Continue present management. We will follow up. Rehab. Tomi Schofiedl MD
--- NOTE | 2017-07-30 03:07 | PN ---
DATE: PULMONARY PROGRESS NOTE REFERRING PHYSICIAN: Tyrone Posey MD SUBJECTIVE: He is lying in the bed, sleepy, arousable. Did not use CPAP. No headache. No rhinitis. No nausea. No vomiting. No diarrhea. Still has some leg swelling. OBJECTIVE: GENERAL: In no acute distress. VITAL SIGNS: Temperature is 98, heart rate 99, respiratory rate is 18, blood pressure 96/63, pulse ox 94% on nasal cannula. HEENT: Moist mucous membrane. Crowded airway. NECK: Supple. No JVD. LUNGS: Has a fair airflow, with few rhonchi. HEART: S1 and S2. ABDOMEN: Soft, nontender, no organomegaly. EXTREMITIES: Has trace edema, chronic skin changes. NEUROLOGIC: Sleepy, arousable. Follows simple command. LABORATORY DATA: Shows blood sugar 134. MEDICATIONS: He is on Aldactone 25 mg daily, Antivert 12.5 mg q. 8 hours, aspirin 81 mg daily, calcium carbonate 600 mg daily, Colace 100 mg twice a day, Coreg 3.125 mg twice a day, vitamin D 50,000 units weekly, Dulcolax 5 mg twice a day p.r.n., DuoNeb q. 6 hours insulin coverage, potassium 10 mEq daily, Lasix 40 mg twice a day, Levemir 30 units subcu twice a day, Lipitor 40 mg daily, Lovenox 40 mg daily, Percocet 5/325 one tablet q. 8 hours p.r.n., Plavix 75 mg daily. IMPRESSION AND PLAN: Status post fall, which was mechanical fall; has cardiomyopathy, congestive heart failure, chronic lung disease, obstructive sleep apnea syndrome, diabetes, lower extremity edema and gastroesophageal reflux disease. Pulmonary point of view, doing okay. Continue bronchodilator. Continue diuretics. Keep head at 45 degrees, encouraged continuous positive airway pressure use. Gastric prophylaxis. Deep venous thrombosis prophylaxis. Should get MRI of the brain to assure the stability of findings seen on the CT of the head. Thank you and we will follow up with you. Rudy Simpson MD
--- NOTE | 2017-07-30 04:59 | HP ---
DATE OF EXAM: 07/27/2017 REASON FOR ADMISSION: Fall with multiple trauma. HISTORY OF PRESENT ILLNESS: The patient was in a store. He was standing on a piece of wood that broken. He fell, he hit his right side of the body and fell on his face, more on the right side; hit his head and he hit his chest wall area, his right side leg. He denied loss of consciousness, but he complained of pain. He tried to get up. While he was getting up, he also fell again because he was standing on a box of goods and he fell again and could not get up. They lift him up and came to the ER. Complained of neck pain, lower back pain, right leg pain and whole right-sided pain. He denied any chest pain, any shortness of breath, any nausea, vomiting, diarrhea, fever. No other complaints. PAST MEDICAL HISTORY: Ischemic cardiomyopathy, congestive heart failure, EF 20%, hypercholesterolemia, diabetes, insulin dependent. HOME MEDICATIONS: He takes Coreg 6.25 mg b.i.d., he takes Lipitor 40 mg once a day, aspirin 81 mg, Lasix 40 b.i.d., Advair, Flonase, Lexapro 10 mg, Plavix 75 p.o. daily, Protonix 40 once a day, Zaroxolyn 2.5 mg once a day, Reglan 5 mg a.c. meals, Xopenex, Levemir 50 units subcu daily and sometimes he takes 5 to 10 units of Humalog before meals. Patient also takes Aldactone 25 mg p.o. daily and potassium 10 mEq p.o. daily, MiraLax 17 mg b.i.d. ALLERGIES: NO KNOWN ALLERGY. SOCIAL HISTORY: He lives with his and sometimes he lives by himself, has 3 children. No smoking, no drinking, no alcohol. He quit smoking 2 years ago. REVIEW OF SYSTEMS: As in the present illness, he always complained of shortness of breath, lower extremity edema, scrotal edema, dyspnea, sometimes depressed, but not suicidal. He does complain of back pains very rarely, but no other complaints. Impotence, sometimes he has erectile dysfunctions. PHYSICAL EXAMINATION: VITAL SIGNS: On 07/27/2017, the patient had the following; temperature 97.9, heart rate 109, blood pressure is 98/60, respirations 20, saturation 96% on 2 liters. HEAD AND NECK: Normal except there is tenderness in the neck area and spine area, and there is minimal decreased range of motion, especially to the left lateral flexion. No swelling, no cuts. CHEST: Clear. Good air entry. CARDIAC: First sound and second sound normal, systolic murmur. ABDOMEN: Obese, nontender. EXTREMITIES: There is bilateral leg edema, chronic. NEUROLOGIC: Normal. Patient also complained of lower back pain; in the lumbosacral area, there is some tenderness. There is mild decreased range of the motion, especially flexion forward. He does have some pain associated with that. Patient also has some tenderness in the right thigh area. LABORATORY STUDIES: When he came in, he had white count 2.6, hemoglobin 14.5, hematocrit 44.3, platelets 121. Chemistry noted for sodium 139, potassium 3.6, chloride 95, bicarb 33, BUN 31, creatinine 1, blood sugar 237. Liver function test is normal. Patient also had multiple x-rays of the tibia and fibula that was negative, shoulder x-ray negative, knee x-ray was negative. Chest and abdomen CT also was ordered, negative, no acute findings. IMPRESSION AND PLAN: 1. Status post fall with multiple traumas to the neck, to lumbosacral area, right thigh area, right side of the belly. We will admit the patient for observations. We will monitor his status. We will get a Cardiology consult to see him for his cardiac status. We will continue to monitor his condition. 2. Congestive heart failure. 3. Coronary artery disease. 4. Chronic obstructive pulmonary disease. 5. Diabetes, insulin dependent. 6. Resume all his meds. Follow up clinically. Tyrone Posey MD
[2017-07-30 05:39] VITALS: O2SAT 97
[2017-07-30] MEDS: Insulin Reg-LOW-Coverage SC SCH ×2 (07:43→12:28)
[2017-07-30] MEDS: Insulin Lispro 1 UNITS/0.01 ML SC SCH ×2 (08:06→12:28)
[2017-07-30] MEDS: Potassium Chloride 10 mEq ER Tab PO SCH (09:21)
[2017-07-30] MEDS: Enoxaparin 40 mg Syringe SC SCH (09:21)
[2017-07-30] MEDS: Insulin Detemir 100 units/ml Vial (Levemir) SC SCH (09:22)
[2017-07-30] MEDS ORDERED: POLYETHYLENE GLYCOL 3350 17 GM/Dose PACKET PO SCH (10:15)
[2017-07-30] MEDS: Bisacodyl 5mg EC Tab PO PRN (10:17)
[2017-07-30 12:12] VITALS: BP 119/79; PULSE 103; RESP 22; TEMP 97.9
--- NOTE | 2017-07-30 14:19 | PN ---
DATE: REASON FOR CONSULTATION AND FOLLOWUP: Cardiac evaluation status post mechanical fall, history of coronary artery disease, complaining of right hip pain, complaining of some dizziness on standing and complaining of neck pain. Denies any chest pain, shortness of breath or any palpitation. SUBJECTIVE: Denies any chest pain or shortness of breath and complaining of dizziness on standing. OBJECTIVE GENERAL: Not in apparent distress. VITAL SIGNS: Temperature afebrile, heart rate 106, blood pressure 124/78. HEENT: PERRLA, intact. NECK: Supple. No carotid bruit or thyromegaly. CHEST: Clear to auscultation. HEART: S1 and S2, regular. ABDOMEN: Soft. EXTREMITIES: Clubbing and cyanosis negative. LABORATORY DATA: Blood workup as follows: WBC 2.6, hemoglobin 14.5, hematocrit 44.3, and platelet count 121,000. Chemistry shows sodium 139, potassium 3.6, chloride 95, carbon dioxide 50, anion gap of 15, BUN 13, and creatinine 1.0. IMPRESSION: Status post mechanical fall; complaining of dizziness on standing; rule out orthostatic hypotension. Last echo on 07/10/2016 shows ejection fraction 30%, moderate tricuspid regurgitation, moderate pulmonary hypertension with right ventricular systolic pressure of 50; history of coronary artery disease; history of coronary artery bypass graft; history of chronic obstructive pulmonary disease; history of obesity; chronic leg edema; chronic venous stasis; renal insufficiency, chronic; history of Methicillin-resistant Staphylococcus aureus infection of lower extremity; hyperlipidemia; hypertension; congestive heart failure secondary to systolic dysfunction, acute on chronic. RECOMMENDATIONS: We will do orthostatic change for the blood pressure to rule out any drop in blood pressure, suggested to the patient to give the blood, patient is not giving the blood for orthostatic hypotension. We will get repeat echo to assess LV function. because the patient is being treated with IV Lasix. No lab is available. Discussed with the patient. Patient agreed to give the blood tomorrow, he is refusing. Rudy Fermin MD
--- NOTE | 2017-07-30 16:58 | PN ---
DATE: NEUROLOGY FOLLOWUP CHIEF COMPLAINT: Follow up for dizziness. SUBJECTIVE: The patient is doing much better. No longer is feeling lightheaded or vertiginous. Meclizine did help him. No acute events overnight. PAST MEDICAL HISTORY: Type 2 diabetes, sleep apnea syndrome, cardiomyopathy, congestive heart failure, chronic lower extremity stasis, and COPD. REVIEW OF SYSTEMS: A 14-point review of systems is negative except as per the HPI. FAMILY HISTORY: Noncontributory. SOCIAL HISTORY: No illicit drug use, smoking, or EtOH abuse. ALLERGIES: NO KNOWN DRUG ALLERGIES. MEDICATIONS: Reviewed by nurse's reconciliation sheet. LABORATORY DATA: Blood sugar today is 166. PHYSICAL EXAMINATION: VITAL SIGNS: Temperature 97.9, pulse rate 103, blood pressure 119/79, respiratory rate 22, oxygen saturation 96% by room air. GENERAL: The patient is sitting up in bed, in no acute distress. HEENT: Head is atraumatic, normocephalic. PERRLA. Extraocular muscles intact. NECK: Supple. No JVD, no adenopathy noted. LUNGS: Clear to auscultation. No adventitious sounds. HEART: S1, S2. Normal rate and rhythm. No murmurs, rubs, or gallops. ABDOMEN: Soft, nontender, nondistended. Bowel sounds are present. EXTREMITIES: No clubbing, no cyanosis. Peripheral pulses 2+ felt bilaterally. NEUROLOGIC: The patient is alert, oriented to person, place, month, and year. Speech is fluent without any errors. Cranial nerves II through XII intact. Motor: Moves all extremities equally. No pronator drift seen. Sensory: Decreased light touch and pinprick up to the calves bilaterally. Decreased vibration of the toes. DTRs are 2+ throughout and 1 at both knees and ankles. Coordination: [id number] is intact. Gait is slightly wide based. IMPRESSION: This is a 56-year-old man with history of type 2 diabetes, chronic obstructive pulmonary disease, congestive heart failure, and chronic lower extremity stasis who had a mechanical fall and slipped off the pedestal and hit the back of his head as well as his back. His back showed chronic degenerative changes in the cervical and lumbar spine. His dizziness is secondary to a traumatic vertigo, which improved with meclizine. RECOMMENDATIONS: At this time, I recommend: 1. Keep blood sugars between 140 to 180. 2. Meclizine 25 p.o. t.i.d. p.r.n. at the onset of dizziness. 3. He can follow up as an outpatient when he is clinically stable from my standpoint. Melecio Schofield MD
--- NOTE | 2017-08-01 08:08 | DS ---
HOSPITAL COURSE: The patient admitted due to fall that resulted in severe multiple areas of pain. The patient was evaluated in the Emergency Room, had a CT scan of the head which was negative. The patient had a CT of the chest and abdomen while in the Emergency Room, which was due to his fall and it sounds that there is some hypodense fatty infiltration of the liver; perihepatic ascites, probably cardiac in origin. He also had cholelithiasis. He has dilation of splenic vein consistent with portal hypertension. He also had prostate mildly enlarged and there is also mildly enlarged retroperitoneal lymphadenopathy with mildly enlarged portacaval lymph node also, these nodes are nonspecific in etiology. 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 Next, also patient had ultrasound of the liver, gallbladder, seen by GI senior market intelligence consultant, Dr. Wright, and also seen by Neurology senior market intelligence consultant, Dr. Schofield, Pulmonary senior market intelligence consultant, Dr. Simpson and Dr. Melecio Schofield evaluated him and patient seems stable and will be discharged home. He was monitored in Telemetry. His cardiac status, seen by Cardiology, Dr. Fermin who recommended him to be discharged and also, patient had lumbar CT, cervical CT, which showed degenerative disk disease; however, the cervical CT showed large paracentral disk herniation, with which the patient has some complaint of right-sided pain that shoot down to his right arm and also, decreased range of motion of his neck with tenderness on the right side of the C-spine. The patient seems stable, otherwise. His pain is not severe. However, he will follow up as an outpatient. The patient was maintained on his cardiac medicine, insulin medications, Lasix, monitored in the Telemetry and went home. DISCHARGE MEDICATIONS: Coreg 3.125 mg b.i.d., Tessalon Perles 100 mg t.i.d., Lipitor 40 mg once a day, aspirin 81 mg once a day, 40 mg Lasix b.i.d., Flonase nasal spray, Lexapro 10 mg at night p.r.n., Plavix 75 mg p.o. daily, Protonix 40 mg once a day, Reglan 5 mg before meals, Xopenex q.i.d., Levemir 50 units subcu daily, Amaryl 4 mg b.i.d., Aldactone 25 mg p.o. daily, potassium 10 mEq p.o. daily, MiraLax 17 g b.i.d., Antivert 12.5 mg p.o. q. 8 hours, vitamin D once a week, Colace b.i.d., and calcium p.o. daily. PHYSICAL EXAMINATION On discharge is as follows: VITAL SIGNS: Temperature 97, heart rate 106, blood pressure 124/78, respirations 20. HEENT: Head and neck shows tenderness in the right side of the C-spine with decreased range of motion, mild. CHEST: Clear. CARDIAC: First sound and second sound are normal. Systolic murmur. ABDOMEN: Obese, maybe right-sided rib tender area. Otherwise, abdomen soft. BACK: There is tenderness in the lumbosacral area with mild decreased range of motion. EXTREMITIES: Lower extremities, mild edema, chronic. NEUROLOGIC: He moved all extremity except for the above-noted finding on cervical spine exam and lumbosacral area. DISCHARGE DIAGNOSES 1. Status post fall with multiple head and neck and lumbar spine trauma with right thigh pain. 2. Vertigo as a result of head trauma, he is on Antivert, seen by neurologist. 3. Acute neck, cervical spine pain with radiculopathy symptoms on the right arm, which seems not severe in intensity. 4. Lower back pain with acute exacerbation with multi-degenerative disk disease with spinal stenosis. 5. Morbid obesity. 6. Congestive heart failure. 7. Insulin-dependent diabetes. 8. Chronic obstructive pulmonary disease. 9. Obstructive sleep apnea. 10. Noncompliance. 11. Possible osteoporosis. The patient advised to continue vitamin D, calcium, insulin as mentioned in the medication list above. I will see the patient on discharge. Tyrone Posey MD
== END 2017-07-30 13:14 | disposition home or self-care (01) | DRG 552 ==
LOC: ED 23:42 → ERH 07-27 03:37 → 3RSO 07-27 04:22 → OBSVTOIN 07-28 18:06
PROVIDERS: ADMIT Internal Medicine; ATTEND Internal Medicine
DX: M51.36 Other intervertebral disc degeneration, lumbar region (principal); E11.22 Type 2 diabetes mellitus with diabetic chronic kidney disease; I13.0 Hypertensive heart and chronic kidney disease with heart failure and stage 1 through stage 4 chronic kidney disease, or unspecified chronic kidney disease; I50.42 Chronic combined systolic (congestive) and diastolic (congestive) heart failure; I27.20 Pulmonary hypertension, unspecified; J84.10 Pulmonary fibrosis, unspecified; E66.01 Morbid (severe) obesity due to excess calories; K76.6 Portal hypertension; I07.1 Rheumatic tricuspid insufficiency; R18.8 Other ascites; M47.892 Other spondylosis, cervical region; W01.0XXA Fall on same level from slipping, tripping and stumbling without subsequent striking against object, initial encounter; E78.00 Pure hypercholesterolemia, unspecified; E78.5 Hyperlipidemia, unspecified; G47.33 Obstructive sleep apnea (adult) (pediatric); I25.10 Atherosclerotic heart disease of native coronary artery without angina pectoris; I25.5 Ischemic cardiomyopathy; I87.8 Other specified disorders of veins; J44.9 Chronic obstructive pulmonary disease, unspecified; K21.9 Gastro-esophageal reflux disease without esophagitis; K59.00 Constipation, unspecified; K74.60 Unspecified cirrhosis of liver; K76.0 Fatty (change of) liver, not elsewhere classified; K80.20 Calculus of gallbladder without cholecystitis without obstruction; N18.9 Chronic kidney disease, unspecified; S46.919A Strain of unspecified muscle, fascia and tendon at shoulder and upper arm level, unspecified arm, initial encounter; S86.919A Strain of unspecified muscle(s) and tendon(s) at lower leg level, unspecified leg, initial encounter; Z79.4 Long term (current) use of insulin; Z79.82 Long term (current) use of aspirin; Z79.899 Other long term (current) drug therapy; Z86.14 Personal history of Methicillin resistant Staphylococcus aureus infection; Z87.891 Personal history of nicotine dependence; Z91.19 Patient's noncompliance with other medical treatment and regimen; Z95.1 Presence of aortocoronary bypass graft; Z95.5 Presence of coronary angioplasty implant and graft; Y92.512 Supermarket, store or market as the place of occurrence of the external cause; R42 Dizziness and giddiness; Z68.36 Body mass index [BMI] 36.0-36.9, adult

== ENCOUNTER 2017-09-17 21:07 | Observation (INO) | payer MEDICARE, MEDICAID ==
[2017-09-17 21:09] VITALS: PULSE 67
[2017-09-17 22:32] VITALS: BMI 36.5
[2017-09-17 23:30] LABS: BASO # 0.01 K/mm3 (0.0-2.0); BASO % 0.3 % (0.0-3.0); EOS # 0.1 (0.0-0.7); EOS % 4.1 % (1.5-5.0); GRAN # 1.8 (1.4-6.5); GRAN % 57.4 % (50.0-68.0); HEMOGLOBIN 14.5 g/dL (14.0-18.0); LYMPH # 0.9 (1.2-3.4); LYMPH % 27.7 % (22.0-35.0); MEAN CORPUSCULAR HEMOGLOBIN 27.6 pg (25.0-35.0); MEAN PLATELET VOLUME 10.8 fl (7.0-11.0); MONO # 0.3 (0.1-0.6); MONO % 10.5 % (1.0-6.0); RBC 5.26 10^6/uL (3.5-6.1); RED CELL DISTRIBUTION WIDTH 15.7 % (11.5-14.5); WHITE BLOOD COUNT 3.1 10^3/ul (4.5-11.0)
[2017-09-17 23:40] LABS: ALB/GLOB RATIO 1.4 (1.1-1.8); ALBUMIN 4.5 g/dL (3.0-4.8); CALCIUM 9.6 mg/dL (8.4-10.5); GFR AFRICAN-AMERICAN > 60; GFR NON-AFRICAN AMERICAN > 60
[2017-09-17 23:48] LABS: ALT/SGPT 29 U/L (7-56); AST/SGOT 50 U/L (17-59); B-TYPE NATRIURETIC PEPTIDE 1290 pg/mL (0-450); BLOOD UREA NITROGEN 55 mg/dL (7-21)
[2017-09-18] MEDS ORDERED: Vancomycin 1gm in NS 250ml 1 GM/250 ML BAG IVPB STA (03:11)
[2017-09-18] MEDS ORDERED: Piperacillin/Tazobact 3.375 gm 100 ML IVPB STA (03:11)
[2017-09-18] MEDS ORDERED: Levalbuterol 1.25 MG/3 ML Inhal Soln UD IH STA (03:13)
--- NOTE | 2017-09-18 03:52 | ED PDOC ---
Arrival/HPI - General Chief Complaint: Lower Extremity Problem/Injury Time Seen by Provider: 09/17/17 22:43 Historian: Patient - History of Present Illness Narrative History of Present Illness (Text): 09/18/17 03:14 57yr old male presents today with worsening right foot pain. pt states he only has pain if he walks and applies pressure to the plantar aspect of the foot. Patient states he's noticed some change in the redness along the foot. Patient states he feels as if the pain is in the bone. Patient denies fevers at home. Patient states he has been having occasional cough. Patient states he took his medications yesterday and the cough is much better than it was today. Patient denies any shortness of breath at present time. He denies chest pain. Patient denies dizziness or weakness. Patient denies any recent trauma or injury. Patient denies urinary symptoms. Denies abdominal pain. Patient states he started to have a sharp pain in the left foot as well. He denies paresthesias. Past Medical History - Provider Review Nursing Documentation Reviewed: Yes - Travel History Have you recently traveled outside [place] w/in the past 3 mons?: No - Infectious Disease Hx of Infectious Diseases: None - Tetanus Immunization Tetanus Immunization: Unknown - Cardiac Hx Cardiac Disorders: Yes Hx Congestive Heart Failure: Yes Hx Hypertension: Yes - Pulmonary Hx Chronic Obstructive Pulmonary Disease (COPD): Yes - Neurological Hx Neurological Disorder: No - HEENT Hx HEENT Disorder: No - Renal Hx Renal Failure: Yes - Endocrine/Metabolic Hx Diabetes Mellitus Type 2: Yes - Hematological/Oncological Hx Blood Disorders: Yes Hx Hepatitis A: Yes - Integumentary Hx Dermatological Disorder: No - Musculoskeletal/Rheumatological Hx Falls: Yes - Gastrointestinal Hx Gastrointestinal Disorders: No - Genitourinary/Gynecological Hx Genitourinary Disorders: No - Psychiatric Hx Psychophysiologic Disorder: Yes Hx Depression: Yes Hx Substance Use: No - Surgical History Hx Cardiac Catheterization: Yes Hx Coronary Stent: Yes Hx Open Heart Surgery: Yes - Anesthesia Hx Anesthesia: Yes Hx Anesthesia Reactions: No Hx Malignant Hyperthermia: No - Suicidal Assessment Feels Threatened In Home Enviroment: No Family/Social History - Physician Review Nursing Documentation Reviewed: Yes Family/Social History: Unknown Family HX Smoking Status: Former Smoker Hx Alcohol Use: Yes (EVERY WEEK BEER) Hx Substance Use: No Hx Substance Use Treatment: No Allergies/Home Meds Allergies/Adverse Reactions: Allergies No Known Allergies Allergy (Verified 07/26/17 23:45) Home Medications: Home Meds Medication Instructions Recorded Confirmed Carvedilol [Coreg] 3.125 mg PO BID 06/05/17 07/26/17 Escitalopram [Lexapro] 10 mg PO HS 06/05/17 07/26/17 Fluticasone/Salmeterol 500/50 0 puff NEB BID 06/05/17 07/26/17 [Advair Diskus 500/50] Glimepiride [amaRYL] 4 mg PO BID 06/05/17 07/26/17 Insulin Detemir [Levemir] 50 unit SC DAILY 06/05/17 07/26/17 Potassium Chloride [Klor-Con 10] 10 meq PO DAILY 06/05/17 07/26/17 Review of Systems - Review of Systems Constitutional: absent: Fatigue, Fevers ENT: absent: Sore Throat, Sinus Congestion Respiratory: Cough. absent: SOB Cardiovascular: absent: Chest Pain, Palpitations Gastrointestinal: absent: Abdominal Pain, Nausea, Vomiting Musculoskeletal: Arthralgias Skin: Cellulitis Neurological: absent: Headache, Dizziness Psychiatric: absent: Anxiety, Depression Physical Exam Vital Signs Reviewed: Yes Vital Signs Temp Pulse Resp BP Pulse Ox 09/18/17 01:13 97.9 F 76 20 118/75 96 09/17/17 22:29 97.8 F 110 H 20 132/74 99 Temperature: Afebrile Blood Pressure: Normal Pulse: Tachycardic Respiratory Rate: Normal Appearance: Positive for: Well-Appearing, Non-Toxic, Comfortable Pain Distress: None Mental Status: Positive for: Alert and Oriented X 3 - Systems Exam Head: Present: Atraumatic Mouth: Present: Moist Mucous Membranes Neck: Present: Normal Range of Motion Respiratory/Chest: Present: Good Air Exchange, Wheezes, Rhonchi. No: Clear to Auscultation, Respiratory Distress, Accessory Muscle Use, Decreased Breath Sounds, Tachypneic Cardiovascular: Present: Tachycardic. No: Murmurs Abdomen: No: Tenderness, Rebound, Guarding Upper Extremity: Present: Normal ROM Lower Extremity: Present: NORMAL PULSES, Normal ROM, Tenderness (right foot; + ttp over plantar aspect of heel, + ttp over medial aspect of heel; + erythema; + edema; sensation and distal pulses intact; no calf tenderness. no ulcerations , no puncture wounds. ), Swelling, Erythema, Neurovascularly Intact, Capillary Refill < 2 s. No: CALF TENDERNESS, Deformity Neurological: Present: GCS=15, Speech Normal Skin: Present: Warm, Dry Psychiatric: Present: Alert, Oriented x 3 Medical Decision Making ED Course and Treatment: 09/18/17 03:56 57yr old male with hx of chf and lower leg edema with increasing pain right leg. pt with swelling and erythema and tenderness. cbc; wnl cmp; bun;55 glucose; 216 bnp; 1290 trop: ekg; sinus tachycardia at 109 bpm, right axis deviation no ST elevations xray right foot; no fracture cxr; + vascular congestion. blood cultures pending. vancomycin and zosyn started IV for cellulitis. case discussed with dr. interiano; he would like patient to be started on bipap as patient has sleep apnea; also requesting neb treatments. all results discussed with patient; will consult dr. perez and dr. garcía for foot pain. impression: cellulitis, leg, elevated BNP admit tele obs. Reassessment Condition: Re-examined - Lab Interpretations Lab Results: 09/17/17 23:22 09/17/17 23:22 Lab Results 09/17/17 23:22: Lactate Dehydrogenase Pending, Total Creatine Kinase 50, Troponin I Pending 09/17/17 23:22: WBC 3.1 L, RBC 5.26, Hgb 14.5, Hct 42.6, MCV 81.0, MCH 27.6, MCHC 34.0, RDW 15.7 H, Plt Count 144, MPV 10.8, Gran % 57.4, Lymph % (Auto) 27.7 , [place] % (Auto) 10.5 H, Eos % (Auto) 4.1, Baso % (Auto) 0.3, Gran # 1.80, Lymph # (Auto) 0.9 L, [place] # (Auto) 0.3, Eos # (Auto) 0.1, Baso # (Auto) 0.01 09/17/17 23:22: Sodium 138, Potassium 4.0, Chloride 98, Carbon Dioxide 28, Anion Gap 16, BUN 55 H, Creatinine 1.2, Est GFR ( Amer) > 60, Est GFR ( Non-Af Amer) > 60, Random Glucose 216 H, Calcium 9.6, Total Bilirubin 0.9, AST 50, ALT 29, Alkaline Phosphatase 71, NT-Pro-B Natriuret Pep 1290 H, Total Protein 7.7, Albumin 4.5, Globulin 3.2, Albumin/Globulin Ratio 1.4 - RAD Interpretation Radiology Orders: 09/17/17 22:43 CHEST PORTABLE [RAD] Stat DUPLEX LOWER EXTRM VEIN BILAT [US] Stat 09/17/17 22:44 FOOT RIGHT 3 VIEWS ROUTINE [RAD] Stat - Medication Orders Current Medication Orders: Vancomycin HCl (Vancomycin 1gm) 1 gm in 250 mls @ 167 mls/hr IVPB STAT STA PRN Reason: Protocol Stop: 09/18/17 04:40 Discontinued Medications Piperacillin Sod/Tazobactam Sod (Zosyn 3.375 In Ns 100ml) 100 mls @ 200 mls/hr IVPB STAT STA PRN Reason: Protocol Stop: 09/18/17 03:40 Levalbuterol HCl (Xopenex) 1.25 mg IH STAT STA Stop: 09/18/17 03:14 Tramadol HCl (Ultram) 50 mg PO STAT STA Stop: 09/18/17 00:41 Last Admin: 09/18/17 00:56 Dose: 50 mg MAR Pain Assessment Document 09/18/17 00:56 RUSSELL (Rec: 09/18/17 00:56 [facility]LL [email or web address]) Pain Reassessment Is this a pain reassessment? Yes Sleep Is patient sleeping during reassessment? No Presence of Pain Presence of Pain Yes Location Left, Right or Bilateral Bilateral Pain Location Body Site Leg Disposition/Present on Arrival - Present on Arrival Any Indicators Present on Arrival: No History of DVT/PE: No History of Uncontrolled Diabetes: No Urinary Catheter: No History of Decub. Ulcer: No History Surgical Site Infection Following: None - Disposition Have Diagnosis and Disposition been Completed?: Yes Diagnosis: Cellulitis of leg, Elevated brain natriuretic peptide (BNP) level Disposition: HOSPITALIZED Disposition Time: 02:56 Patient Plan: Observation Patient Problems: Current Active Problems Problem Status Onset CHF (congestive heart failure) Acute Cellulitis of leg Acute Elevated brain natriuretic peptide (BNP) level Acute Condition: FAIR
[2017-09-18 04:28] LABS: TROPONIN I 0.03 ng/mL
[2017-09-18 05:06] VITALS: O2SAT 97
--- NOTE | 2017-09-18 07:41 | CP.PCM.CON ---
History of Present Illness - History of Present Illness History of Present Illness: Seen and examined by Me and Dr. Fermin Reason for Consult: 57 year old male with history of ischemic cardiomyopathy, post coronary artery bypass Subjective: I have pain on my right foot when walking, has always have chest pain off and on at rest occasionally Brief History: 57 year old male who came to the ER due to worsening right foot pain on the plantar aspect of right foot especially when walking. He claimed pain on the bone part of foot. Pain increasing when walking. Admit to chest pain off and on occasionally. denies shortness of breath. He has history of ischemic cardiomyopathy, post coronary artery bypass, COPD, IDDM, neuropathy,cellulitis, prostate problems. Review of Systems - Cardiovascular Cardiovascular: As Per HPI, Chest Pain at Rest Additional comments: Tachycardia 110-120's, chest pain on and off occasionally - Respiratory Additional comments: denies SOB - Gastrointestinal Additional comments: denies abdominal problems - Musculoskeletal Additional comments: pain on the right foot plantar - Integumentary Additional comments: dry skin on both lower extremities, healed cellulitis on both legs - Neurological Additional comments: denies any problems - Endocrine Additional Comments: Insulin dependent diabetes mellitus - Hematologic/Lymphatic Additional comments: denies any problems Past Patient History - Infectious Disease Hx of Infectious Diseases: None - Tetanus Immunizations Tetanus Immunization: Unknown - Past Medical History & Family History Past Medical History?: Yes - Past Social History Smoking Status: Never Smoked - CARDIAC Hx Cardiac Disorders: Yes Hx Cardia Arrhythmia: Yes (Tachycardia) Hx Congestive Heart Failure: Yes Hx Hypertension: Yes - PULMONARY Hx Asthma: Yes Hx Chronic Obstructive Pulmonary Disease (COPD): Yes Hx Pneumonia: Yes Hx Sleep Apnea: Yes - NEUROLOGICAL Hx Neurological Disorder: No Hx Dizziness: Yes Other/Comment: Neuropathy - HEENT Hx HEENT Problems: No Hx Cataracts: Yes Hx Glaucoma: Yes - RENAL Hx Kidney Stones: Yes Hx Renal Failure: Yes - ENDOCRINE/METABOLIC Hx Diabetes Mellitus Type 2: Yes - HEMATOLOGICAL/ONCOLOGICAL Hx Blood Disorders: Yes Hx Hepatitis A: Yes - INTEGUMENTARY Hx Dermatological Problems: No - MUSCULOSKELETAL/RHEUMATOLOGICAL Hx Falls: Yes - GASTROINTESTINAL Hx Gastrointestinal Disorders: No - GENITOURINARY/GYNECOLOGICAL Hx Genitourinary Disorders: No Hx Prostate Problems: Yes - PSYCHIATRIC Hx Psychophysiologic Disorder: Yes Hx Depression: Yes Hx Substance Use: No - SURGICAL HISTORY Hx Cardiac Catheterization: Yes Hx Coronary Artery Bypass Graft: Yes Hx Coronary Stent: Yes Hx Open Heart Surgery: Yes - ANESTHESIA Hx Anesthesia: Yes Hx Anesthesia Reactions: No Hx Malignant Hyperthermia: No Meds Allergies/Adverse Reactions: Allergies Allergy/AdvReac Type Severity Reaction Status Date / Time No Known Allergies Allergy Verified 07/26/17 23:45 Physical Exam - Constitutional Appears: No Acute Distress - Head Exam Head Exam: NORMAL INSPECTION - Eye Exam Eye Exam: Normal appearance Pupil Exam: NORMAL ACCOMODATION - ENT Exam ENT Exam: Mucous Membranes Moist, Normal Exam - Respiratory Exam Respiratory Exam: Decreased Breath Sounds, Clear to Auscultation Bilateral - Cardiovascular Exam Cardiovascular Exam: REGULAR RHYTHM, +S1, +S2 Additional comments: Tachycardia 110-120's - GI/Abdominal Exam GI & Abdominal Exam: Normal Bowel Sounds, Soft - Extremities Exam Additional comments: bilateral leg swelling 4+, scar from cellulitis. pain on right plantar foot - Neurological Exam Neurological exam: Alert, Oriented x3 - Psychiatric Exam Psychiatric exam: Normal Affect, Normal Mood - Skin Skin Exam: Dry, Intact Results - Vital Signs Recent Vital Signs: Last Vital Signs Temp 97.5 F L 09/18/17 06:01 Pulse 100 H 09/18/17 06:01 Resp 19 09/18/17 06:01 BP 113/73 09/18/17 06:01 Pulse Ox 97 09/18/17 04:30 - Labs Result Diagrams: 09/17/17 23:22 09/17/17 23:22 Assessment & Plan - Assessment and Plan (Free Text) Assessment: History of present illness: 57 year old male who came to the ER due to worsening right foot pain on the plantar aspect of right foot especially when walking.He claimed pain on the bone part of foot. Pain increasing when walking. Admit to chest pain off and on occasionally. denies shortness of breath. He has history of ischemic cardiomyopathy, post coronary artery bypass.COPD,neuropathy, IDDM. Plan: Heart and blood pressure stable Will start lasix 40 mg IV every 12 hours with K+ supplements Had Echo last 07/10/16= LVEF moderately to severely impaired -30% moderate tricuspid regurgitation, moderate pulmonary hypertension, no vegetation Had Stress test 06/05/17- normal stress test Claimed that he was referred for evaluation of heart transplant years ago but refused Treat conservatively BNP-1290,better than previous admissions Will follow up. Plan and treatment discussed with Dr. Fermin - Date & Time Date: 09/18/17 Time: 07:15
--- NOTE | 2017-09-18 08:33 | RAD ---
HISTORY: cough COMPARISON: 07/27/2022. FINDINGS: LUNGS: The lungs are well inflated. There is mild pulmonary venous congestion and pulmonary redistribution. No focal consolidation. PLEURA: Small left pleural effusion, no pneumothorax apparent. CARDIOVASCULAR: Again seen is severe cardiomegaly. Status post CABG. OSSEOUS STRUCTURES: No significant abnormalities. VISUALIZED UPPER ABDOMEN: Normal. OTHER FINDINGS: None. IMPRESSION: Findings are most compatible with mild congestive heart failure. No lobar pneumonia.
--- NOTE | 2017-09-18 08:39 | RAD ---
PROCEDURE: Right Foot Radiographs. HISTORY: foot pain COMPARISON: None. FINDINGS: BONES: There is no acute displaced fracture or bone destruction. Bone alignment and mineralization are. JOINTS: Normal. SOFT TISSUES: There is severe soft tissue swelling in the foot. OTHER FINDINGS: Atherosclerotic vascular calcifications are present. IMPRESSION: Severe soft tissue swelling in the foot which in the appropriate clinical setting could be related to cellulitis. No radiographic evidence for acute fracture or osteomyelitis
[2017-09-18] MEDS ORDERED: Levalbuterol 0.63 MG/3 ML Inhal Soln UD IH PRN (08:54)
[2017-09-18] MEDS ORDERED: Enoxaparin 40 mg Syringe SC SCH (10:00)
--- NOTE | 2017-09-18 14:26 | US ---
PROCEDURE: Lower extremity HANSEL exam HISTORY: Peripheral vascular disease with pain and claudication. Diabetes. Previous smoker. PHYSICIAN(S): George Lange MD. FINDINGS: The exam is limited by calcified, noncompressible vessels distally. The resting ABIs are not obtainable. The brachial systolic pressures are symmetric. The high thigh PVR waveforms are relatively normal and symmetric. However, there is a 38 mm difference between high thigh pressures, lower on the left. This could represent subtle left iliac and/ or common femoral artery disease The left calf PVR waveform augments normally. There is a 60 mm gradient across the right thigh. The right calf PVR waveform does not augment. This is consistent with right SFA occlusive disease. The ankle and metatarsal waveforms are moderately blunted and symmetric. This is consistent with bilateral tibial occlusive disease. IMPRESSION: 1. Limited study due to calcified vessels. 2. Bilateral tibial occlusive disease 3. Right SFA occlusive disease. 4. Possible left iliac and/ or common femoral artery occlusive disease.
--- NOTE | 2017-09-18 14:27 | US ---
HISTORY: Leg pain and swelling. Evaluate for DVT PHYSICIAN(S): George Lange MD. TECHNIQUE: Duplex sonography and color-flow Doppler with graded compression were used to evaluate the deep venous systems of both lower extremities. The exam is somewhat limited by swelling FINDINGS: The visualized deep venous systems of both lower extremities are sonographically normal and compressible. Normal wave forms and augmentation are seen. There is no sonographic evidence for deep venous thrombosis in the visualized segments of both lower extremities. IMPRESSION: No sonographic evidence for deep venous thrombosis in the visualized segments of both lower extremities.
[2017-09-18 17:18] VITALS: BP 101/60; PULSE 101
[2017-09-18 17:38] VITALS: RESP 19; TEMP 98.4
--- NOTE | 2017-09-18 17:46 | MRI ---
MRI right foot History: Cellulitis. With ambulation. Comparison: None available. Technique: Multi-echo sequences were performed through the right foot without the use of intravenous contrast. Findings: Prominent reticulation and edema seen within dorsal subcutaneous soft tissues of the right foot as well as the circumferential subcutaneous soft tissues of the distal tibia and fibula consistent with a diffuse cellulitis. Reticulation and edema seen within the volar musculature which may represent a myositis. Anterior extensor tendons are preserved. Mild tenosynovitis of the flexor hallucis longus tendon sheath. Remainder of the medial flexors are tendons are preserved. Peroneal tendons are preserved. Anterior and posterior talofibular ligaments are preserved. Relative failure of fat suppression of the middle and distal phalanges of the 2nd through 5th digits, nonspecific. Patchy increased STIR signal seen within the medullary cavities of the 1st and 4th metatarsal bones. This is of uncertain clinical etiology; however, developing medullary infarcts versus acute infectious versus inflammatory changes versus additional etiology cannot entirely be excluded. Clinical correlation. Mild increased signal seen within the visualized Lisfranc ligament which may represent a low grade sprain. Achilles tendon is preserved. Focal thickening of the plantar fascia measuring up to 8 millimeters near its insertion on the inferior calcaneus with a focal 2 millimeter rounded foci of fluid signal intensity at the inferior insertion on the calcaneus suggestive for focal tearing superimposed on a moderate plantar fascitis. Adjacent prominent reactive edema seen within the inferior calcaneus at that level which may represent adjacent reactive edema, possibly secondary to acute infectious and or inflammatory changes versus posttraumatic change versus additional etiology. Sinus tarsi is preserved. No significant ankle joint effusion. Degenerative changes noted at the talonavicular joint space dorsally. Fraying with increased signal seen within the deep fibers of the deltoid ligament suggestive for partial tearing. Impression: 1. Prominent reticulation and edema seen within dorsal subcutaneous soft tissues of the right foot as well as the circumferential subcutaneous soft tissues of the distal tibia and fibula consistent with a diffuse cellulitis. Reticulation and edema seen within the volar musculature which may represent a myositis. 2. Focal thickening of the plantar fascia measuring up to 8 millimeters near its insertion on the inferior calcaneus with a focal 2 millimeter rounded foci of fluid signal intensity at the inferior insertion on the calcaneus suggestive for focal tearing superimposed on a moderate plantar fascitis. Adjacent prominent reactive edema with increased STIR signal and decreased T1 signal seen within the inferior calcaneus at that level which may represent adjacent reactive edema, possibly secondary to acute infectious and or inflammatory changes versus posttraumatic change versus additional etiology. 3. Patchy increased STIR signal seen within the medullary cavities of the 1st and 4th metatarsal bones. This is of uncertain clinical etiology; however, developing medullary infarcts versus acute infectious versus inflammatory changes versus additional etiology cannot entirely be excluded. Clinical correlation. 4. Mild tenosynovitis of the flexor hallucis longus tendon sheath. 5. Mild increased signal seen within the visualized Lisfranc ligament which may represent a low grade sprain. 6. Degenerative changes noted at the talonavicular joint space dorsally. 7. Fraying with increased signal seen within the deep fibers of the deltoid ligament suggestive for partial tearing.
--- NOTE | 2017-09-18 19:32 | CON ---
DATE: 09/18/2017 TIME: 05:10 p.m. CHIEF COMPLAINT/HISTORY OF PRESENT ILLNESS: This is a 57-year-old, noncompliant male with ischemic cardiomyopathy, who is being evaluated for swelling/discomfort of his lover extremities. He has advanced stasis changes bilaterally without active ulceration. There is a lymphedema appearance to the swelling in his lower extremities, implying chronic changes. His pulses at the popliteal and pedal level are not easily palpable. His recent HANSEL/PVR exam is consistent with bilateral tibial disease. No ischemic ulceration is appreciated. I spoke with Dr. Squires. We will place class 1 compression stocking on his lower extremities, which he should wear day and night. We will see him in the office to evaluate his obvious varicose veins and venous insufficiency. Hopefully, he can tolerate the compression stockings, given his cardiomyopathy and small vessel PVD. George Lange MD MTDLisy
[2017-09-18] MEDS ORDERED: Budesonide 0.5 mg/2 ml Inhal Susp UD IH SCH (20:00)
[2017-09-18] MEDS ORDERED: Arformoterol 15 mcg/2 ml Inh Sol IH SCH (20:00)
--- NOTE | 2017-09-18 20:47 | CON ---
DATE: LOCATION: The patient was seen earlier today in [facility], bed 2. CHIEF COMPLAINT: Right foot pain times several days. HISTORY OF PRESENT ILLNESS: This is a 57-year-old male with past medical history of morbid obesity with BMI of 52, history of diabetes and kidney stones, coronary artery disease, hypertension, high cholesterol, cardiomyopathy, congestive heart failure, depression, coronary artery bypass graft and pilonidal cyst, NO KNOWN ALLERGIES, who was admitted with a diagnosis of cellulitis of the right leg and congestive heart failure. REVIEW OF SYSTEMS: Reveals the patient has not had any fevers, any chills; just pain upon walking. Does have shortness of breath. No chest pain. No abdominal pain, diarrhea or constipation. No bright red blood per rectum. PAST MEDICAL HISTORY: Significant for morbid obesity, BMI of 52, diabetes mellitus, kidney stones, coronary artery disease, hypertension, high cholesterol, cardiomyopathy, congestive heart failure, depression. PAST SURGICAL HISTORY: Significant for coronary artery bypass graft and pilonidal cyst. ALLERGIES: THE PATIENT HAS NO KNOWN ALLERGIES. MEDICATIONS AT HOME: Reviewed and include insulin, Lasix, and Lexapro. PHYSICAL EXAMINATION GENERAL: The patient is in bed, answering questions appropriately. VITAL SIGNS: Temperature of 97, blood pressure was 102/60, respiratory rate of 20, heart rate of 98. HEENT: Unremarkable. NECK: Supple. LUNGS: Decreased breath sounds. HEART: Normal S1 and S2. ABDOMEN: Soft, nontender. EXTREMITIES: Examination of foot reveals chronic changes. The right leg has slightly more erythema. No discharge. There is tenderness in the medial aspect of the right heel. LABORATORY DATA: Reveals a white count of 3.1, hemoglobin of 14, platelets of 144. BUN of 55, creatinine of 1.2. The BNP is 1290. Microbiology is pending. The patient had an MRI, results are reviewed and not conclusive for osteo. ASSESSMENT AND PLAN: This is a 57-year-old male with morbid obesity, body mass index of 52 in the past, now with obesity with body mass index of 35, diabetes, kidney stones, coronary artery disease, hypertension, high cholesterol, cardiomyopathy, congestive heart failure, depression with leukopenia and tachycardia. Sepsis with right foot cellulitis. An MRI with mild tenosynovitis and a partial tear of deltoid segment. No mention of osteomyelitis. We will treat the patient with short course of doxycycline, Maxipime, and maybe able to switch to p.o., awaiting for podiatric involvement. We will follow with you. Alessio Melo MD
--- NOTE | 2017-09-18 21:11 | CP.PCM.PN ---
Subjective - Date & Time of Evaluation Date of Evaluation: 09/18/17 Time of Evaluation: 20:47 - Subjective Subjective: Patient seen at the request of his RN because he wants to leave AMA.He is demanding a private room which is not available now. He was admitted for Cellulitis of his R foot. His VS are stable. He does not want any further examinations,tests or treatment ,just wants to leave AMA. Patient was told he is undertaking huge risks in leaving AMA ,namely,loss of limb,spread of infection (sepsis),abscess formation in different parts of his body(including the spine),organ failure and /or .Patient understands what he is told. He signed out AMA,stated he will follow up with his PMD. Advised to return to ER if needed. Dr Posey was notified Objective - Vital Signs/Intake and Output Vital Signs (last 24 hours): Temp Pulse Resp BP Pulse Ox 98.4 F 101 H 19 101/60 97 09/18/17 17:37 09/18/17 17:37 09/18/17 17:37 09/18/17 17:37 09/18/17 04:30 Intake and Output: 09/18/17 09/19/17 18:59 06:59 Intake Total 600 Output Total 1250 Balance -650 - Medications Medications: Current Medications Arformoterol Tartrate (Brovana) 15 mcg IH [id number] [facility] Last Admin: 09/18/17 20:32 Dose: Not Given Aspirin (Aspirin Chewable) 81 mg PO DAILY [facility] Last Admin: 09/18/17 10:46 Dose: 81 mg Atorvastatin Calcium (Lipitor) 40 mg PO DIN [facility] Last Admin: 09/18/17 17:15 Dose: 40 mg Budesonide (Pulmicort Respules) 0.5 mg IH [id number] [facility] Last Admin: 09/18/17 20:32 Dose: Not Given Carvedilol (Coreg) 3.125 mg PO BID [facility] Last Admin: 09/18/17 17:15 Dose: 3.125 mg Clopidogrel Bisulfate (Plavix) 75 mg PO DAILY [facility] Last Admin: 09/18/17 17:15 Dose: 75 mg Doxycycline Hyclate (Doryx) 100 mg PO Q12 [facility] PRN Reason: Protocol Stop: 09/25/17 22:01 Enoxaparin Sodium (Lovenox) 40 mg SC DAILY [facility] PRN Reason: Protocol Last Admin: 09/18/17 10:48 Dose: 40 mg Furosemide (Lasix) 40 mg IVP Q12 [facility] Last Admin: 09/18/17 10:48 Dose: 40 mg Cefepime HCl (Maxipime 1gm) 1 gm in 100 mls @ 100 mls/hr IVPB Q8 [facility] PRN Reason: Protocol Stop: 09/27/17 22:01 Levalbuterol HCl (Xopenex) 0.63 mg IH [id number] PRN PRN Reason: Shortness of Breath Pantoprazole Sodium (Protonix Ec Tab) 40 mg PO 0600 [facility]
--- NOTE | 2017-09-18 21:36 | CARD ---
APPROVED REPORT EKG Measurement Heart [id number] <Conclusion> Sinus tachycardia Right axis deviation Pulmonary disease pattern Abnormal ECG
[2017-09-18] MEDS ORDERED: Cefepime 1gm in NS 100ml 1 GM/100 ML BAG IVPB SCH (22:00)
--- NOTE | 2017-09-18 23:41 | CON ---
DATE: HISTORY OF PRESENT ILLNESS: A 57-year-old male seen at bedside for consultation, evaluation and management of right heel pain. Patient states his pain has worsened over the course of the last few days. Patient states that he only has pain when he is on his feet and is greatest upon awakening in the morning and then arising again after periods of rest. He denies any recent or past history of trauma to the area. Patient denies any fever, chills, nausea or vomiting. He states that he has been using his left foot to keep weight off of his right foot, and now his left foot is bothering him as well. PAST MEDICAL HISTORY: Significant for cardiac disorder, congestive heart failure, essential hypertension, renal failure, type 2 diabetes with peripheral vascular disease and peripheral neuropathy, hepatitis, depression. PAST SURGICAL HISTORY Patient has a history of open heart surgery, cardiac catheterization, and coronary stenting. SOCIAL HISTORY Patient denies any illicit drug use. Does not drink alcohol. Does not smoke, but has a history of depression and psychophysiologic disorder. HOME MEDICATIONS: Include Coreg, Lexapro, Advair, Amaryl, Levemir and Klor-Con. ALLERGIES: PATIENT HAS NO KNOWN DRUG ALLERGIES. PHYSICAL EXAMINATION: VITAL SIGNS: Revealed temperature of 97.9, pulse rate of 98, blood pressure of 102/65, respiratory rate of 20. EXTREMITIES: Nonpalpable posterior tibial pulse and weakly palpable dorsalis pedis pulse noted bilaterally. Absent pedal hair growth noted bilaterally. Lower extremity skin presents thin, shiny and discolored bilaterally. There is noted to be discoloration from longstanding chronic venous stasis changes. There is noted to be pain upon palpation of the plantar medial aspect of the right calcaneal region at the tubercle. This correlates clinically to plantar fasciitis. There are no open lesions noted. There is no drainage. There is no increased temperature gradient noted. LABORATORY DATA: Laboratory findings reveal white count of 3.1, hemoglobin of 14.5, hematocrit of 42.6, platelet count of 144. Right foot x-rays reveal severe soft tissue swelling in the foot, but no radiographic evidence of acute fracture or osteomyelitis. The severe soft tissue swelling does not correlate to cellulitis clinically. Arterial Doppler reveals bilateral tibial occlusive disease and right SFA occlusive disease. There is possible left iliac and/or common femoral artery occlusive disease noted as well. Venous duplex reveals no sonographic evidence for deep vein thrombosis in either of the lower extremities. ASSESSMENT: Painful plantar fasciitis of the right heel. We will await MRI results for further confirmation. PLAN: patient was examined and we will order ice packs to be applied to his right heel for 15 minutes 5 times daily. We will await MRI results. Given his arterial Doppler results, recommend vascular consult with Dr. George Lange for possible vascular intervention for his tibial occlusive disease. Patient will be seen and followed daily. Juan Squires DPM [id number]
--- NOTE | 2017-09-19 04:37 | CON ---
DATE: PULMONARY CONSULTATION REFERRING PHYSICIAN: Dr. Posey. REASON FOR CONSULTATION: Chronic lung disease, cardiomyopathy, sleep apnea syndrome, lower extremity cellulitis. HISTORY OF PRESENT ILLNESS: This is an 57-year-old gentleman known to me from previous admission, noncompliant with the followup, has diabetes, renal insufficiency, coronary artery disease, hypertension, hyperlipidemia, cardiomyopathy, sleep apnea syndrome, depression, comes in with bilateral lower extremity swelling, edema and right foot pain, seen by Infectious Disease, started on antibiotics. Denies any fever. No chills. No nausea, no vomiting. PAST MEDICAL HISTORY: As per history present illness. ALLERGIES: NONE KNOWN. SOCIAL HISTORY: Nonsmoker, nondrinker. FAMILY HISTORY No significant cardiopulmonary disease reported. MEDICATIONS He is on aspirin 81 mg daily, Brovana inhaled twice a day, Coreg 3.125 mg twice day, doxycycline 100 mg twice a day, Lasix 40 mg twice a day, Lipitor 40 mg daily, Lovenox 40 mg subcu daily, cefepime 1 g IV every 8 hours, Plavix 75 mg daily, Protonix 40 mg daily, Pulmicort inhaled twice a day, Ultram 50 mg was given, vancomycin 1 g IV given, Xopenex inhale every 6 hours, Zosyn 3.375 g IV given. REVIEW OF SYSTEMS: No headache, no rhinitis. Has some cough, clear sputum production. No nausea, no vomiting. No diarrhea. No abdominal pain. Has leg swelling and foot pain. PHYSICAL EXAMINATION: GENERAL: Sitting on the side of the bed, in no acute distress. VITAL SIGNS: Temperature is 98, heart is 101, respiratory rate is 20, blood pressure 101/60, pulse ox 98% room air. HEENT: Moist mucous membrane. Crowded airway. Mallampati score IV. NECK: Supple. No JVD. LUNGS: Have a few scattered rhonchi. HEART: S1 and S2. ABDOMEN: Soft, nontender, no organomegaly. EXTREMITIES: Have chronic skin changes, edema, erythema. NEUROLOGIC: Awake, alert, and follows simple commands. LABORATORY DATA: Shows hemoglobin 14.5, hematocrit 42.6, WBC 3.1, platelet is 144. Sodium 138, potassium 4.0, chloride 98, bicarbonate 28, BUN 55, creatinine 1.2, glucose 216, calcium 9.6, AST 50, ALT 29, alk phos is 71. Troponin less than 0.03. ProBNP 1290. Albumin is 4.5. Also has an ultrasound of lower extremity done, which shows bilateral tibial occlusive disease, right SFA occlusive disease, positive left iliac and common femoral artery occlusive disease. Has an MRI of the foot done, which shows prominent edema, soft tissue swelling consistent with cellulitis. There may be component of myositis. Chest x-ray shows congestion. IMPRESSION AND PLAN: Chronic obstructive lung disease, cardiomyopathy, coronary artery disease, noncompliant with continuous positive airway pressure and bilevel positive airway pressure, diabetes, peripheral vascular disease, cellulitis, myositis, seen by Infectious Disease, started on antibiotics. Pulmonary point of view, add inhaled bronchodilator, keep head at 45 degrees, supplemental oxygen, sleep apnea precaution. Patient is noncompliant and refusing to use continuous positive airway pressure/bilevel positive airway pressure. Elevate lower extremity. May benefit from Podiatry consult. Thank you and we will follow with you. Rudy Simpson MD
[2017-09-19] MEDS ORDERED: Pantoprazole 40 mg EC Tab PO SCH (06:00)
--- NOTE | 2017-09-19 08:21 | CON ---
DATE: 09/18/2017 Addendum for initial consult dictated by Shani Queen, nurse practitioner. Patient is complaining of pain and want to get a rehab as well as get the crutches, so we will write for physical therapy. Also, the patient had a stress test in 06/2017. Patient was requested for a nuclear thallium, but patient does not want to inject thallium in the body, so patient did a regular stress test which was negative in 06/2017. PLAN: We will order for HANSEL, PVR as well as we will do physical therapy and will discontinue telemetry. Continue to treat for cellulitis aggressively, medical treatment. We will get lipid profile, TSH, hemoglobin A1c in the morning. Rudy Fermin MD
--- NOTE | 2017-09-19 20:31 | HP ---
CHIEF COMPLAINT: A 57-year-old male came into the hospital because of his lower extremity pain and swelling. HISTORY OF PRESENT ILLNESS: A 57-year-old male with chronic lymphedema of both lower extremities, ischemic cardiomyopathy, congestive heart failure, came into the hospital because of lower extremity pain, usually under plantar surface of both feet. He does have difficulty ambulating. He feels the pain is deep inside. The patient denied any short of breath at this time or any chest pain or any fever, nausea or vomiting. PAST MEDICAL HISTORY: As I mentioned, ischemic cardiomyopathy, severe; COPD; morbid obesity; tachycardia; depression; diabetes, insulin dependent; chronic back pain; shoulder pain. ALLERGIES: NO KNOWN ALLERGY. SOCIAL HISTORY: No smoking, no drinking, and he lives by himself. He has two daughters and his . They live together. REVIEW OF SYSTEMS: As in the present illness, chest discomfort on and off; dyspnea; the patient is a well-known noncompliant patient, lot of times signed AMA and does not follow any rules or any recommendations; chronic pain, leg pain; lymphedema; dyspnea; chest pain; dizziness. PHYSICAL EXAMINATION: VITAL SIGNS: Temperature 97.9, heart rate 98, blood pressure 102/65, respirations 20, saturating 94% on room air. HEAD AND NECK: Normal. No JVD. No thyromegaly. CHEST: Clear. Good air entry. CARDIAC: First sound, second sound are normal. There is regular rhythm. ABDOMEN: Obese, nontender. EXTREMITIES: Chronic skin changes, lymphedema bilaterally including the ankle, above the ankle, and the foot itself and it seems tender all over, mild. However, there is no obvious redness as compared with his known chronic conditions. LABORATORY DATA: White count 3.1, hemoglobin 14.5, hematocrit 42.6, platelets 144. Chemistry: Sodium 138, potassium 4, chloride 98, bicarb 28, BUN 55, creatinine 1.2, blood sugar 216. Liver enzymes are normal. ProBNP 1290, his troponin 0.03. Total CK 50, lactate dehydrogenase 549. The patient also had chest x-ray when he came in and the lungs show well inflated lungs. There is mild pulmonary vascular congestion and no focal consolidation. There is a small left pleural effusion. No pneumonia. The patient also had a foot x-ray, which shows negative for osteo, soft tissue swelling. Electrocardiogram, which showed sinus tachycardia, right axis deviation, pulmonary disease pattern and had a venous Doppler of both lower extremities which shows negative for DVT in the visualized segment. The patient also had an MRI of the foot same day of admission and it showed mild tenosynovitis of the hallucis longus tendon, increased signal within the visualized ligaments, represent low-grade sprain, degenerative changes in the talonavicular joint space dorsally. Also, there is increased signal with as well as deltoid ligament suggesting of partial healing. The patient also has prominent reticulation and edema seen on the dorsal subcutaneous soft tissue of the right foot as well as circumferential subcutaneous soft tissue of the distal tibia-fibula consistent with diffuse cellulitis, reticulations and edema seen within the volar musculature, which may represent myositis. There is also focal thickening of the plantar fascia measuring up to 8 mm near its insertions at the inferior calcaneus with focal 2 mm rounded foci of fluid. The inferior insertions of the calcaneus suggestive of focal tearing superimposed on moderate plantar fasciitis. Also, there is some edema possible secondary to infection or inflammatory conditions. There is also patchy increased signal in the medullary cavities of the first and fourth metatarsal bone, uncertain clinical significance. IMPRESSION AND PLAN: 1. The patient is a well known diabetic, 57, with recurrent cellulitis, lymphedema of both lower extremities and the presence of the abnormal MRI and complaint of pain and swelling of his legs. We admitted the patient for cellulitis both lower extremities. The patient was seen by infectious disease consult, Dr. Melo. The patient was given IV antibiotics and was getting podiatry consultation by Dr. Morales. The patient was given cefepime 1 g every 12 hours and also doxycycline 100 every 12 hours. The patient was admitted initially to telemetry and switched off telemetry to medical floor, maintained on aspirin, was given nebulizer treatment, Coreg, antibiotic and local wound care in addition to his Plavix. The patient was also given Lovenox, Xopenex, Pulmicort, Protonix, Plavix, and cefepime 1 g every 8 hours. 2. The patient has chronic obstructive pulmonary disease, stable. Continue inhaled bronchodilators and BiPAP machine at night. 3. Chronic congestive heart failure. Follow up with Cardiology, maintain his Coreg and other medications, Plavix and aspirin and we will follow up clinically. 4. Morbid obesity. 5. Insulin-dependent diabetes, on insulin coverage and we will admit the patient. Follow up clinically. Tyrone Posey MD
--- NOTE | 2017-09-20 07:53 | DS ---
HOSPITAL COURSE: Patient is admitted for observations with cellulitis of lower extremities, edema, sprain, swelling of his foot. Patient is seen by ID consult, Dr. Melo; Podiatry, Dr. Morales and Cardiology, Dr. Fermin. Patient was admitted initially to Telemetry and then, moved to Regular floor. Patient is also seen in consultation for pulmonary consult. He was given BiPAP and his medications insulin, IV antibiotic, meropenem 1 g every 8 and doxycycline . Patient was hemodynamically stable. Alert, awake, oriented x3. Called in by house doctor, the patient wants to go home, signed against medical advice and his case has been discussed and the risk of worsening infection, cellulitis, septic shock and has been explained to the patient; however, he wants to go home. Patient signed AMA and discharged home. DISCHARGE DIAGNOSES: 1. Cellulitis of both lower extremities. 2. Congestive heart failure. 3. Ischemic cardiomyopathy. 4. Chronic obstructive pulmonary disease. 5. Obstructive sleep apnea. 6. Insulin-dependent diabetes. 7. Morbid obesity. Tyrone Posey MD
== END 2017-09-18 21:30 | disposition left against medical advice (07) ==
LOC: ED 21:07 → ERH 09-18 03:08 → 2RNO 09-18 05:22 → 5RSO 09-18 20:14
PROVIDERS: ADMIT Internal Medicine; ATTEND Internal Medicine
DX: L03.115 Cellulitis of right lower limb (principal); I25.5 Ischemic cardiomyopathy; I11.0 Hypertensive heart disease with heart failure; I50.9 Heart failure, unspecified; E11.51 Type 2 diabetes mellitus with diabetic peripheral angiopathy without gangrene; E11.42 Type 2 diabetes mellitus with diabetic polyneuropathy; M72.2 Plantar fascial fibromatosis; I25.10 Atherosclerotic heart disease of native coronary artery without angina pectoris; E66.9 Obesity, unspecified; F32.9 Major depressive disorder, single episode, unspecified; N19 Unspecified kidney failure; B15.9 Hepatitis A without hepatic coma; Z95.5 Presence of coronary angioplasty implant and graft; Z91.19 Patient's noncompliance with other medical treatment and regimen; Z79.4 Long term (current) use of insulin; Z68.35 Body mass index [BMI] 35.0-35.9, adult; Z95.1 Presence of aortocoronary bypass graft
CPT/HCPCS: 71045; 73630; 73718; 80053; 82550; 82948; 83615; 83880; 84484; 85025; 87086; 93005; 93923; 93970; 99285; G0378; J1650; J1940; J2543

== ENCOUNTER 2018-06-03 17:20 | Emergency (ER) | payer MEDICARE, MEDICAID ==
[2018-06-03 17:20] VITALS: PULSE 67
[2018-06-03 17:25] VITALS: BMI 43.8
--- NOTE | 2018-06-03 17:57 | ED PDOC ---
Arrival/HPI - General Time Seen by Provider: 06/03/18 17:24 - History of Present Illness Narrative History of Present Illness (Text): 06/03/18 17:57 57 year old male, with past medical history of CAD, quadruple bypass, CHF, IDDM, chronic renal insufficiency, hypertension, COPD, and lower extremity edema with chronic MRSA infection, presents to the ED for evaluation of cough. Patient was asked to put on a mask secondary to cough but refused. As such, patient was decided to be transferred to isolation room. Patient eloped within the process prior to medical examination. HPI and ROS limited secondary to patient elopement. Past Medical History - Provider Review Nursing Documentation Reviewed: Yes - Infectious Disease Hx of Infectious Diseases: None - Tetanus Immunization Tetanus Immunization: Unknown - Cardiac Hx Cardiac Disorders: Yes Hx Congestive Heart Failure: Yes Hx Hypertension: Yes - Pulmonary Hx Chronic Obstructive Pulmonary Disease (COPD): Yes - Neurological Hx Neurological Disorder: No - HEENT Hx HEENT Disorder: No - Renal Hx Renal Failure: Yes - Endocrine/Metabolic Hx Diabetes Mellitus Type 2: Yes - Hematological/Oncological Hx Blood Disorders: Yes Hx Hepatitis A: Yes - Integumentary Hx Dermatological Disorder: No - Musculoskeletal/Rheumatological Hx Falls: Yes - Gastrointestinal Hx Gastrointestinal Disorders: No - Genitourinary/Gynecological Hx Genitourinary Disorders: No - Psychiatric Hx Psychophysiologic Disorder: Yes Hx Depression: Yes Hx Substance Use: No - Surgical History Hx Cardiac Catheterization: Yes Hx Coronary Stent: Yes Hx Open Heart Surgery: Yes - Anesthesia Hx Anesthesia: Yes Hx Anesthesia Reactions: No Hx Malignant Hyperthermia: No - Suicidal Assessment Feels Threatened In Home Enviroment: No Family/Social History - Physician Review Nursing Documentation Reviewed: Yes Family/Social History: Unknown Family HX Smoking Status: Former Smoker Hx Alcohol Use: Yes (EVERY WEEK BEER) Hx Substance Use: No Hx Substance Use Treatment: No Allergies/Home Meds Allergies/Adverse Reactions: Allergies No Known Allergies Allergy (Verified 06/03/18 17:59) Home Medications: Home Meds Medication Instructions Recorded Confirmed RX: Carvedilol [Coreg] 3.125 mg PO BID 06/05/17 07/26/17 RX: Escitalopram [Lexapro] 10 mg PO HS 06/05/17 07/26/17 RX: Fluticasone/Salmeterol 500/50 0 puff NEB BID 06/05/17 07/26/17 [Advair Diskus 500/50] RX: Glimepiride [amaRYL] 4 mg PO BID 06/05/17 07/26/17 RX: Insulin Detemir [Levemir] 50 unit SC DAILY 06/05/17 07/26/17 RX: Potassium Chloride [Klor-Con 10 meq PO DAILY 06/05/17 07/26/17 10] Review of Systems - Review of Systems Systems not reviewed;Unavailable: Other (Patient eloped) Respiratory: Cough Physical Exam - Physical Exam Physical Exam Limitations: Other (Not performed as patient eloped.) Medical Decision Making ED Course and Treatment: 06/03/18 18:00 Patient eloped prior to examination. 06/03/18 18:00 EKG: Ordered, reviewed, and independently interpreted the EKG. Rate :109 BPM Rhythm : A-fib Interpretation : No ST-segment elevations. Low voltage. - RAD Interpretation Radiology Orders: 06/03/18 17:37 CHEST PORTABLE [RAD] Stat - EKG Interpretation Interpreted by ED Physician: Yes Type: 12 lead EKG - Scribe Statement The provider has reviewed the documentation as recorded by the Scribe Max Bernard. All medical record entries made by the Scribe were at my direction and personally dictated by me. I have reviewed the chart and agree that the record accurately reflects my personal performance of the history, physical exam, medical decision making, and the department course for this patient. I have also personally directed, reviewed, and agree with the discharge instructions and disposition. Disposition/Present on Arrival - Present on Arrival Any Indicators Present on Arrival: No History of DVT/PE: No History of Uncontrolled Diabetes: No Urinary Catheter: No History Surgical Site Infection Following: None - Disposition Have Diagnosis and Disposition been Completed?: Yes Diagnosis: Patient left without being seen Disposition Time: 18:00 Condition: UNKNOWN Referrals: Tyrone Posey MD [Primary Care Provider] - Follow up with primary
[2018-06-03 18:08] VITALS: BP 107/62; PULSE 98; RESP 20; TEMP 98.8; O2SAT 98
--- NOTE | 2018-06-04 10:39 | CARD ---
APPROVED REPORT Date of service: 06/03/2018 EKG Measurement Heart [id number] <Conclusion> Atrial fibrillation with rapid ventricular response Rightward axis Low voltage QRS Cannot rule out Anterior infarct, age undetermined Abnormal ECG
== END 2018-06-03 18:00 | disposition left against medical advice (07) ==
LOC: ED 17:20
DX: Z02.89 Encounter for other administrative examinations (principal); R07.9 Chest pain, unspecified
CPT/HCPCS: 93005; LWBS0

== ENCOUNTER 2018-07-08 18:44 | Inpatient (IN) | payer MEDICARE, MEDICAID ==
[2018-07-08 19:07] VITALS: BMI 45.1
[2018-07-08 19:59] LABS: HEMOGLOBIN 12.6 g/dL (14.0-18.0); MEAN CELL VOLUME 80.9 fl (80.0-105.0); MEAN CORPUSCULAR HEMOGLOBIN 25.3 pg (25.0-35.0); MEAN CORPUSCULAR HGB CONC 31.3 g/dl (31.0-37.0); MEAN PLATELET VOLUME 10.6 fl (7.0-11.0); RBC 4.98 10^6/uL (3.5-6.1); RED CELL DISTRIBUTION WIDTH 17.9 % (11.5-14.5); WHITE BLOOD COUNT 2.8 10^3/uL (4.5-11.0)
--- NOTE | 2018-07-08 20:00 | ED PDOC ---
Arrival/HPI - General Chief Complaint: Shortness Of Breath Time Seen by Provider: 07/08/18 19:14 Historian: Patient - History of Present Illness Narrative History of Present Illness (Text): 07/08/18 19:49 57 year old male, whose past medical history includes morbid obesity, cardiomyopathy, CAD, quadruple bypass, CHF, IDDM, chronic renal insufficiency, hypertension, COPD, and lower extremity edema with chronic MRSA infection, p resents to the emergency department with progressive shortness of breath, for 3 days. Patient informs of associated orthopnea. Patient also informs of worsening leg swelling and unhealed skin wounds in the lower extremities. Patient informs he was advised by pmd to come to the ER. Patient denies any chest pain, nausea, vomiting, diarrhea, fever, chills, abdominal pain, or any other complaints. Time/Duration: < week (3 days) Symptom Onset: Gradual Symptom Course: Unchanged, Worsening Activities at Onset: Light Context: Home Past Medical History - Provider Review Nursing Documentation Reviewed: Yes - Infectious Disease Hx of Infectious Diseases: None - Tetanus Immunization Tetanus Immunization: Unknown - Cardiac Hx Cardiac Disorders: Yes Hx Congestive Heart Failure: Yes Hx Hypertension: Yes - Pulmonary Hx Chronic Obstructive Pulmonary Disease (COPD): Yes - Neurological Hx Neurological Disorder: No - HEENT Hx HEENT Disorder: No - Renal Hx Renal Disorder: Yes Hx Renal Failure: Yes - Endocrine/Metabolic Hx Endocrine Disorders: Yes Hx Diabetes Mellitus Type 2: Yes - Hematological/Oncological Hx Blood Disorders: Yes Hx Hepatitis A: Yes - Integumentary Hx Dermatological Disorder: No - Musculoskeletal/Rheumatological Hx Falls: Yes - Gastrointestinal Hx Gastrointestinal Disorders: No - Genitourinary/Gynecological Hx Genitourinary Disorders: No - Psychiatric Hx Psychophysiologic Disorder: Yes Hx Depression: Yes Hx Substance Use: No - Surgical History Hx Cardiac Catheterization: Yes Hx Coronary Stent: Yes Hx Open Heart Surgery: Yes - Anesthesia Hx Anesthesia: Yes Hx Anesthesia Reactions: No Hx Malignant Hyperthermia: No - Suicidal Assessment Feels Threatened In Home Enviroment: No Family/Social History - Physician Review Nursing Documentation Reviewed: Yes Family/Social History: No Known Family HX Smoking Status: Former Smoker Hx Alcohol Use: Yes (EVERY WEEK BEER) Hx Substance Use: No Hx Substance Use Treatment: No Allergies/Home Meds Allergies/Adverse Reactions: Allergies No Known Allergies Allergy (Verified 06/03/18 17:59) Home Medications: Home Meds Medication Instructions Recorded Confirmed Carvedilol [Coreg] 3.125 mg PO BID 06/05/17 07/26/17 Escitalopram [Lexapro] 10 mg PO HS 06/05/17 07/26/17 Fluticasone/Salmeterol 500/50 0 puff NEB BID 06/05/17 07/26/17 [Advair Diskus 500/50] Glimepiride [amaRYL] 4 mg PO BID 06/05/17 07/26/17 Insulin Detemir [Levemir] 50 unit SC DAILY 06/05/17 07/26/17 Potassium Chloride [Klor-Con 10] 10 meq PO DAILY 06/05/17 07/26/17 Review of Systems - Physician Review All systems were reviewed & negative as marked: Yes - Review of Systems Constitutional: absent: Fevers, Night Sweats Respiratory: SOB Cardiovascular: absent: Chest Pain Gastrointestinal: absent: Abdominal Pain, Diarrhea, Nausea, Vomiting Musculoskeletal: Other (Chornic leg swelling) Skin: Abscess Physical Exam Vital Signs Reviewed: Yes Vital Signs Pulse Resp BP Pulse Ox 07/08/18 19:24 120 H 18 117/83 97 Blood Pressure: Normal Pulse: Tachycardic Respiratory Rate: Normal Appearance: Positive for: Well-Appearing, Non-Toxic, Comfortable Pain Distress: None Mental Status: Positive for: Alert and Oriented X 3 - Systems Exam Head: Present: Atraumatic, Normocephalic Pupils: Present: PERRL Extroacular Muscles: Present: EOMI Conjunctiva: Present: Normal Mouth: Present: Moist Mucous Membranes Neck: Present: Normal Range of Motion Respiratory/Chest: Present: Rhonchi (Few scattered rhonchi). No: Respiratory Distress, Accessory Muscle Use Cardiovascular: Present: Regular Rate and Rhythm, Normal S1, S2. No: Murmurs Abdomen: Present: Other (Soft and Globular). No: Tenderness, Distention, Peritoneal Signs Back: Present: Normal Inspection Upper Extremity: Present: Normal Inspection. No: Cyanosis, Edema Lower Extremity: Present: Normal Inspection, Swelling (Chronic bilateral lower leg swelling), Other (Chronic venous stasis changes; scattered open wounds to lower legs). No: Edema, CALF TENDERNESS, Adam's Sign Neurological: Present: GCS=15, CN II-XII Intact, Speech Normal Skin: Present: Warm, Dry, Normal Color. No: Rashes Psychiatric: Present: Alert, Oriented x 3, Normal Insight, Normal Concentration Medical Decision Making ED Course and Treatment: 07/08/18 20:04 Impression: 57 year old male presents with shortness of breath Plan: -- EKG -- CMP, Cardiac iso, BNP -- Platelets -- Wound and blood cultures -- Reassess and disposition Prior Visits: Notes and results from previous visits were reviewed. Progress Notes: 07/08/18 20:06 EKG reviewed by me, shows: A-fib @ 129bpm Anterior infarct Non-specific STT wave changes 07/08/18 22:[address] Posey who accepts patient under his service. Requests Dr Melo, Dr Fermin, and Dr Morales on consult. 07/09/18 00:21 Dr Posey is on the blue list, patient needs to be admitted to hospitalist service. Discussed case with medical receptionist biller and Dr Blue who will now assume care of the patient. - Scribe Statement The provider has reviewed the documentation as recorded by the Scribe George Perez Provider Scribe Attestation: All medical record entries made by the Scribe were at my direction and personally dictated by me. I have reviewed the chart and agree that the record accurately reflects my personal performance of the history, physical exam, medical decision making, and the department course for this patient. I have also personally directed, reviewed, and agree with the discharge instructions and disposition. Disposition/Present on Arrival - Present on Arrival Any Indicators Present on Arrival: No History of DVT/PE: No History of Uncontrolled Diabetes: No Urinary Catheter: No History of Decub. Ulcer: No History Surgical Site Infection Following: None - Disposition Have Diagnosis and Disposition been Completed?: Yes Diagnosis: CHF (congestive heart failure), Cellulitis of leg, Atrial fibrillation Disposition: HOSPITALIZED Disposition Time: 22:24 Patient Problems: Current Active Problems Problem Status Onset Atrial fibrillation Acute CHF (congestive heart failure) Acute Cellulitis of leg Acute Condition: STABLE Discharge Instructions (ExitCare): Heart Failure (ED), Cellulitis (ED) Forms: [email or web address] (Portuguese)
[2018-07-08 20:06] LABS: INR 1.33; PARTIAL THROMBOPLASTIN TIME 40.1 Seconds (26.9-38.3); PROTHROMBIN TIME 14.8 SECONDS (9.4-12.5)
[2018-07-08 20:11] LABS: ALB/GLOB RATIO 1.2 (1.1-1.8); ALBUMIN 4.4 g/dL (3.0-4.8); ALT/SGPT 14 U/L (7-56); AST/SGOT 46 U/L (17-59); BLOOD UREA NITROGEN 43 mg/dL (7-21); CALCIUM 9.5 mg/dL (8.4-10.5); GFR NON-AFRICAN AMERICAN 57
[2018-07-08] MEDS ORDERED: Piperacillin/Tazobact 3.375 gm 100 ML IV STA (20:14)
[2018-07-08] MEDS ORDERED: Vancomycin 1 gm/D5W 200 ml 200 ML IV STA (20:14)
[2018-07-08] MEDS ORDERED: Vancomycin 1gm in NS 250ml 1 GM/250 ML BAG IVPB STA (20:20)
[2018-07-08 20:22] LABS: B-TYPE NATRIURETIC PEPTIDE 3960 pg/mL (0-450); TROPONIN I 0.04 ng/mL
[2018-07-08] MEDS ORDERED: diltiaZEM IVPB 100mg in NS 100 ML IV PRN (21:33)
--- NOTE | 2018-07-09 01:07 | CP.PCM.HP ---
<Jose Richardson - Last Filed: 07/09/18 04:47> History of Present Illness - History of Present Illness History of Present Illness: Jose Richardson, PGY1 H&P for Dr. Blue cc: "progressive shortness of breath" Patient is a 57 year old male, with PMHx Morbid Obesity, CAD with CABG, CHF-rEF, DM, JOAN, CKD, Fatty Liver Disease, HTN, MRSA infection of the lower extremities, Afib who presented to the emergency department with progressive shortness of breath for 3 days in duration. In the ED, Vitals: HR 114, Temp 97.8, BP 127/74, RR 18, SaO2 97% (room air). Medical team was consulted for evaluation. Patient endorsed orthopnea and exertional dyspnea. He said for the past 3 days he felt like his shortness of breath was worsening. He noted worsening swelling of his legs and he has chronic unhealed skin wounds on both of his legs. He also has a chronic cough. He says that he takes his lasix medication at home but it hasn't been helping him. He denies chest pain, abdominal pain, n/v/d, fevers, chills, numbness/tingling of extremities. A full 12 point ROS was conducted and unremarkable except as stated above. PMD: Dr. Posey PMHx: Morbid Obesity, CAD with CABG, CHF-rEF, DM, JOAN, CKD, Fatty Liver Disease, HTN, MRSA infection of the lower extremities, Afib Past Surgical Hx: CABG (1998) Allergies: NKDA Meds: see MAR Social Hx: former heavy smoker, reports that he drinks 1-2 beers a week, denies drug use Fam Hx: Cancer, HTN Present on Admission - Present on Admission Any Indicators Present on Admission: No Review of Systems - Review of Systems All systems: reviewed and no additional remarkable complaints except (as per HPI) Past Patient History - Infectious Disease Hx of Infectious Diseases: None - Tetanus Immunizations Tetanus Immunization: Unknown - Past Medical History & Family History Past Medical History?: Yes - Past Social History Smoking Status: Former Smoker - CARDIAC Hx Cardiac Disorders: Yes Hx Congestive Heart Failure: Yes Hx Hypertension: Yes - PULMONARY Hx Chronic Obstructive Pulmonary Disease (COPD): Yes - NEUROLOGICAL Hx Neurological Disorder: No - HEENT Hx HEENT Problems: No - RENAL Hx Chronic Kidney Disease: Yes Hx Renal Failure: Yes - ENDOCRINE/METABOLIC Hx Endocrine Disorders: Yes Hx Diabetes Mellitus Type 2: Yes - HEMATOLOGICAL/ONCOLOGICAL Hx Blood Disorders: Yes Hx Hepatitis A: Yes - INTEGUMENTARY Hx Dermatological Problems: No - MUSCULOSKELETAL/RHEUMATOLOGICAL Hx Falls: Yes - GASTROINTESTINAL Hx Gastrointestinal Disorders: No - GENITOURINARY/GYNECOLOGICAL Hx Genitourinary Disorders: No - PSYCHIATRIC Hx Psychophysiologic Disorder: Yes Hx Depression: Yes Hx Substance Use: No - SURGICAL HISTORY Hx Cardiac Catheterization: Yes Hx Coronary Stent: Yes Hx Open Heart Surgery: Yes - ANESTHESIA Hx Anesthesia: Yes Hx Anesthesia Reactions: No Hx Malignant Hyperthermia: No Meds Allergies/Adverse Reactions: Allergies Allergy/AdvReac Type Severity Reaction Status Date / Time No Known Allergies Allergy Verified 06/03/18 17:59 Physical Exam - Constitutional Appears: No Acute Distress - Head Exam Head Exam: ATRAUMATIC, NORMAL INSPECTION, NORMOCEPHALIC - Eye Exam Eye Exam: EOMI, Normal appearance Pupil Exam: NORMAL ACCOMODATION - ENT Exam ENT Exam: Mucous Membranes Moist - Respiratory Exam Respiratory Exam: Clear to Auscultation Bilateral, NORMAL BREATHING PATTERN. absent: Rales, Rhonchi, Wheezes - Cardiovascular Exam Cardiovascular Exam: RRR, +S1, +S2 - GI/Abdominal Exam GI & Abdominal Exam: Distended, Normal Bowel Sounds, Soft. absent: Guarding, Rigid, Tenderness - Extremities Exam Extremities exam: Positive for: pedal edema, tenderness, pedal pulses present. Negative for: calf tenderness Additional comments: Chronic stasis dermatitis with +1 pitting edema of the lower extremities bilaterally. No pustular drainage. Not warm to the touch. - Back Exam Back exam: NORMAL INSPECTION - Neurological Exam Neurological exam: Alert, Oriented x3 - Psychiatric Exam Psychiatric exam: Normal Affect, Normal Mood - Skin Skin Exam: Dry, Intact, Normal Color, Warm Results - Vital Signs Recent Vital Signs: Last Vital Signs Temp 97.8 F 07/08/18 19:24 Pulse 114 H 07/08/18 23:33 Resp 21 07/08/18 23:33 BP 137/74 07/08/18 23:33 Pulse Ox 98 07/08/18 23:33 - Labs Result Diagrams: 07/08/18 19:50 07/08/18 19:50 Labs: Laboratory Results - last 24 hr 02/04/19 02/04/19 02/04/19 19:50 19:50 19:50 WBC 2.8 L RBC 4.98 Hgb 12.6 L Hct 40.3 L MCV 80.9 MCH 25.3 MCHC 31.3 RDW 17.9 H Plt Count 173 MPV 10.6 PT 14.8 H INR 1.33 APTT 40.1 H Sodium 138 Potassium 3.7 Chloride 97 L Carbon Dioxide 29 Anion Gap 15 BUN 43 H Creatinine 1.3 Est GFR ( Amer) > 60 Est GFR (Non-Af Amer) 57 Random Glucose 151 H Calcium 9.5 Total Bilirubin 1.5 H AST 46 ALT 14 Alkaline Phosphatase 93 Lactate Dehydrogenase 505 Total Creatine Kinase 32 L Troponin I 0.04 D NT-Pro-B Natriuret Pep 3960 H Total Protein 7.9 Albumin 4.4 Globulin 3.5 Albumin/Globulin Ratio 1.2 Assessment & Plan - Assessment and Plan (Free Text) Assessment: Patient is a 57 year old male, with PMHx Morbid Obesity, CAD with CABG, CHF-rEF, DM, JOAN, CKD, Fatty Liver Disease, HTN, MRSA infection of the lower extremities, Afib who presented to the emergency department with progressive shortness of breath for 3 days in duration. Patient will be admitted for CHF exacerbation, Afib with RVR, and Cellulitis of the lower extremities with Hx MRSA. Plan: CHF Exacerbation with Hx CHF-rEF - duonebs prn - Cardio is on consult (Dr. Fermin) - c/w nasal cannula prn - Lasix 40mg IV q8 - trend trops; initial trop was .04 - daily weights - strict ins/outs - BNP was 3960 in ED - Lipid Panel - Last echo 07/2016: EF 31% with mild-mod pulmonary HTN - CXR: no evidence of consolidation or infiltrate Afib with RVR - c/w cardizem drip - Lovenox 1 mg/kg q12 - EKG: afib with RVR at 129 bpm. Non-specific ST and T wave changes. - Patient endorses hx of Afib - Cardio is on consult - TSH Cellulitis of the Lower Extremities with Hx MRSA - vanco - ID on consult (Dr. Melo) - Podiatry is on consult (Dr. Morales) - Wound care - Surgical boot for lower extremities - wbc noted to be 2.8 - blood cx and wound cx - PT evaluation - Isolation because of MRSA Hx Hx DM II - ISS - Accuchecks - Levemir 20mg q12 Hx CKD - Cr is 1.3 - monitor renal function Hx JOAN - recommend BiPAP at night however patient was refusing GI ppx: ptx Diet: HHD (carb-consistent) Dispo: Monitor patient on telemetry. Case was discussed and reviewed with Attending Physician, Dr. Blue. <Jay Blue - Last Filed: 07/09/18 21:19> Results - Vital Signs Recent Vital Signs: Last Vital Signs Temp 97.8 F 07/08/18 19:24 Pulse 93 H 07/09/18 12:25 Resp 16 07/09/18 07:02 BP 144/80 07/09/18 15:02 Pulse Ox 97 07/09/18 07:02 - Labs Result Diagrams: 07/08/18 19:50 07/08/18 19:50 Labs: Laboratory Results - last 24 hr 07/09/18 07/09/18 07/09/18 08:21 11:17 18:13 POC Glucose (mg/dL) 174 H 270 H 225 H Attending/Attestation - Attestation I have personally seen and examined this patient.: Yes I have fully participated in the care of the patient.: Yes I have reviewed all pertinent clinical information: Yes
[2018-07-09] MEDS ORDERED: Albuterol-Ipratrop 3 mg / 0.5 (3 ml) UD IH PRN (02:05)
[2018-07-09] MEDS ORDERED: Enoxaparin 150 mg Syringe SC SCH ×2 (02:15→06:00)
[2018-07-09] MEDS ORDERED: Pantoprazole 40 mg EC Tab PO SCH (06:00)
[2018-07-09 07:02] VITALS: RESP 16; O2SAT 97
--- NOTE | 2018-07-09 08:45 | RAD ---
Date of service: 07/08/2018 HISTORY: sob COMPARISON: 09/17/2017 FINDINGS: LUNGS: No active pulmonary disease. PLEURA: No significant pleural effusion identified, no pneumothorax apparent. CARDIOVASCULAR: No aortic atherosclerotic calcification present. Moderate to severe cardiomegaly mild vascular congestion OSSEOUS STRUCTURES: No significant abnormalities. VISUALIZED UPPER ABDOMEN: Normal. OTHER FINDINGS: None. IMPRESSION: Moderate to severe cardiomegaly with mild vascular congestion
[2018-07-09] MEDS: Insulin Lispro (humaLOG) MEDIUM Coverage SC SCH ×4 (09:00→23:19)
[2018-07-09] MEDS ORDERED: metOLazone 5 MG TAB PO SCH (10:45)
[2018-07-09] MEDS: Insulin Detemir 100 units/ml Vial (Levemir) SC SCH ×2 (11:43→23:58)
--- NOTE | 2018-07-09 12:23 | CARD ---
APPROVED REPORT Date of service: 07/08/2018 EKG Measurement Heart [id number] <Conclusion> Atrial fibrillation with rapid ventricular response Indeterminate axis Low voltage QRS Poor R wave progression, cannot rule out Anterior infarct, age undetermined Abnormal ECG
[2018-07-09] MEDS: Milrinone 20mg/100ml D5W 100 ML IV PRN ×2 (12:25→18:09)
[2018-07-09] MEDS ORDERED: Digoxin 250 mcg (0.25 mg) Tab PO SCH (14:00)
--- NOTE | 2018-07-09 14:27 | CP.PCM.CON ---
<Chepe Brooks - Last Filed: 07/09/18 14:22> History of Present Illness - History of Present Illness History of Present Illness: ID Consult Note 57 year old male with past medical history of CAD s/p CABG, CHF, DM, JOAN, CKD, morbid obesity, fatty liver disease, A-fib, and HTN presents to 3 weeks of worsening shortness of breath. Patient admits to having worsening swelling of b/l lower extremities during this time. He admits to getting lower leg open wounds whenever his legs swell. He has had open sores on his legs for 3 weeks. He states he has used over the counter triple antibiotic ointment topically, without help. Denies chest pain, nausea, vomiting, diarrhea, fever, chills, dysuria. Medical Hx: CAD s/p CABG, CHF, DM, JOAN, CKD, morbid obesity, fatty liver disease, A-fib, and HTN Surgical Hx: CABG Allergies: NKDA Medications: Reviewed, as per MAR Social Hx: Former smoker, social alcohol use. Denies illicit drug use Family Hx: Cancer, HTN Review of Systems - Review of Systems Review of Systems: 12 point ROS as per HPI, otherwise negative Past Patient History - Infectious Disease Hx of Infectious Diseases: None - Tetanus Immunizations Tetanus Immunization: Unknown - Past Medical History & Family History Past Medical History?: Yes - Past Social History Smoking Status: Former Smoker - CARDIAC Hx Cardiac Disorders: Yes Hx Congestive Heart Failure: Yes Hx Hypertension: Yes - PULMONARY Hx Chronic Obstructive Pulmonary Disease (COPD): Yes - NEUROLOGICAL Hx Neurological Disorder: No - HEENT Hx HEENT Problems: No - RENAL Hx Chronic Kidney Disease: Yes Hx Renal Failure: Yes - ENDOCRINE/METABOLIC Hx Endocrine Disorders: Yes Hx Diabetes Mellitus Type 2: Yes - HEMATOLOGICAL/ONCOLOGICAL Hx Blood Disorders: Yes Hx Hepatitis A: Yes - INTEGUMENTARY Hx Dermatological Problems: No - MUSCULOSKELETAL/RHEUMATOLOGICAL Hx Falls: Yes - GASTROINTESTINAL Hx Gastrointestinal Disorders: No - GENITOURINARY/GYNECOLOGICAL Hx Genitourinary Disorders: No - PSYCHIATRIC Hx Psychophysiologic Disorder: Yes Hx Depression: Yes Hx Substance Use: No - SURGICAL HISTORY Hx Cardiac Catheterization: Yes Hx Coronary Stent: Yes Hx Open Heart Surgery: Yes - ANESTHESIA Hx Anesthesia: Yes Hx Anesthesia Reactions: No Hx Malignant Hyperthermia: No Meds Allergies/Adverse Reactions: Allergies Allergy/AdvReac Type Severity Reaction Status Date / Time No Known Allergies Allergy Verified 06/03/18 17:59 - Medications Medications: Current Medications Albuterol/Ipratropium (Duoneb 3 Mg/0.5 Mg (3 Ml) Ud) 3 ml IH Q4H PRN PRN Reason: Shortness of Breath Apixaban (Eliquis) 5 mg PO BID [facility]; Protocol Digoxin (Lanoxin) 0.25 mg PO 1400 [facility] Furosemide (Lasix) 40 mg IVP Q8 [facility] Last Admin: 07/09/18 05:47 Dose: 40 mg Ceftaroline Fosamil 400 mg/ (Sodium Chloride) 100 mls @ 100 mls/hr IVPB Q12 [facility]; Protocol Stop: 07/16/18 10:01 Last Admin: 07/09/18 11:08 Dose: 100 mls/hr Milrinone Lactate/Dextrose (Primacor 20mg/100ml D5w) 100 mls @ 15.615 mls/hr IV .Q6H25M PRN; Protocol PRN Reason: TITRATE PER MD ORDER Last Admin: 07/09/18 12:25 Dose: 0.375 mcg/kg/min, 15.615 mls/hr Insulin Detemir (Levemir) 20 unit SC Q12 [facility] Last Admin: 07/09/18 11:43 Dose: 20 units Insulin Human Lispro (Humalog Med) 0 units SC ACHS [facility]; Protocol Last Admin: 07/09/18 09:00 Dose: Not Given Lisinopril (Zestril) 2.5 mg PO DAILY [facility] Metolazone (Zaroxolyn) 5 mg PO DAILY [facility] Last Admin: 07/09/18 11:42 Dose: 5 mg Metoprolol Tartrate (Lopressor) 25 mg PO BID [facility] Last Admin: 07/09/18 11:09 Dose: 25 mg Pantoprazole Sodium (Protonix Ec Tab) 40 mg PO 0600 [facility] Last Admin: 07/09/18 05:47 Dose: 40 mg Physical Exam - Constitutional Appears: Non-toxic, No Acute Distress - Head Exam Head Exam: ATRAUMATIC, NORMAL INSPECTION, NORMOCEPHALIC - Eye Exam Eye Exam: EOMI - ENT Exam ENT Exam: Mucous Membranes Moist - Respiratory Exam Respiratory Exam: Decreased Breath Sounds, NORMAL BREATHING PATTERN - Cardiovascular Exam Cardiovascular Exam: RRR, +S1, +S2 - GI/Abdominal Exam GI & Abdominal Exam: Normal Bowel Sounds, Soft. absent: Tenderness - Extremities Exam Extremities exam: Positive for: pedal edema (+2 b/l) - Neurological Exam Neurological exam: Alert, Oriented x3 - Psychiatric Exam Psychiatric exam: Normal Affect, Normal Mood - Skin Additional comments: Chronic lymphadema skin changes on b/l lower extremities Multiple open sores, nondraining. No discharge Results - Vital Signs Recent Vital Signs: Last Vital Signs Temp 97.8 F 07/08/18 19:24 Pulse 93 H 07/09/18 12:25 Resp 16 07/09/18 07:02 BP 110/70 07/09/18 12:25 Pulse Ox 97 07/09/18 07:02 - Labs Result Diagrams: 07/08/18 19:50 07/08/18 19:50 Labs: Laboratory Results - last 24 hr 07/08/18 07/08/18 07/08/18 19:50 19:50 19:50 WBC 2.8 L RBC 4.98 Hgb 12.6 L Hct 40.3 L MCV 80.9 MCH 25.3 MCHC 31.3 RDW 17.9 H Plt Count 173 MPV 10.6 PT 14.8 H INR 1.33 APTT 40.1 H Sodium 138 Potassium 3.7 Chloride 97 L Carbon Dioxide 29 Anion Gap 15 BUN 43 H Creatinine 1.3 Est GFR ( Amer) > 60 Est GFR (Non-Af Amer) 57 POC Glucose (mg/dL) Random Glucose 151 H Calcium 9.5 Total Bilirubin 1.5 H AST 46 ALT 14 Alkaline Phosphatase 93 Lactate Dehydrogenase 505 Total Creatine Kinase 32 L Troponin I 0.04 D NT-Pro-B Natriuret Pep 3960 H Total Protein 7.9 Albumin 4.4 Globulin 3.5 Albumin/Globulin Ratio 1.2 07/09/18 08:21 WBC RBC Hgb Hct MCV MCH MCHC RDW Plt Count MPV PT INR APTT Sodium Potassium Chloride Carbon Dioxide Anion Gap BUN Creatinine Est GFR ( Amer) Est GFR (Non-Af Amer) POC Glucose (mg/dL) 174 H Random Glucose Calcium Total Bilirubin AST ALT Alkaline Phosphatase Lactate Dehydrogenase Total Creatine Kinase Troponin I NT-Pro-B Natriuret Pep Total Protein Albumin Globulin Albumin/Globulin Ratio Assessment & Plan - Assessment and Plan (Free Text) Plan: Cellulitis with open wounds CHF exacerbation Hx of leg wounds with MRSA, Pseudomonas, and Klebsiella Hx of CAD Hx of CABG Hx of CHF Hx of Morbid obesity Hx of JOAN Hx of CKD Hx of HTN Hx of A-fib Plan Chest x-ray reviewed Lower extremity ultrasound negative for DVT b/l Continue patient on Teflaro Follow up cultures Local wound care Cecilia, PGY-3 <Raghav Toth - Last Filed: 07/09/18 16:11> Meds - Medications Medications: Current Medications Albuterol/Ipratropium (Duoneb 3 Mg/0.5 Mg (3 Ml) Ud) 3 ml IH Q4H PRN PRN Reason: Shortness of Breath Apixaban (Eliquis) 5 mg PO BID [facility]; Protocol Digoxin (Lanoxin) 0.25 mg PO 1400 [facility] Last Admin: 07/09/18 15:01 Dose: 0.25 mg Furosemide (Lasix) 40 mg IVP Q8 [facility] Last Admin: 07/09/18 15:02 Dose: 40 mg Ceftaroline Fosamil 400 mg/ (Sodium Chloride) 100 mls @ 100 mls/hr IVPB Q12 [facility]; Protocol Stop: 07/16/18 10:01 Last Admin: 07/09/18 11:08 Dose: 100 mls/hr Milrinone Lactate/Dextrose (Primacor 20mg/100ml D5w) 100 mls @ 15.615 mls/hr IV .Q6H25M PRN; Protocol PRN Reason: TITRATE PER MD ORDER Last Admin: 07/09/18 12:25 Dose: 0.375 mcg/kg/min, 15.615 mls/hr Insulin Detemir (Levemir) 20 unit SC Q12 [facility] Last Admin: 07/09/18 11:43 Dose: 20 units Insulin Human Lispro (Humalog Med) 0 units SC ACHS [facility]; Protocol Last Admin: 07/09/18 12:00 Dose: Not Given Lisinopril (Zestril) 2.5 mg PO DAILY [facility] Metolazone (Zaroxolyn) 5 mg PO DAILY [facility] Last Admin: 07/09/18 11:42 Dose: 5 mg Metoprolol Tartrate (Lopressor) 25 mg PO BID [facility] Last Admin: 07/09/18 11:09 Dose: 25 mg Pantoprazole Sodium (Protonix Ec Tab) 40 mg PO 0600 [facility] Last Admin: 07/09/18 05:47 Dose: 40 mg Results - Vital Signs Recent Vital Signs: Last Vital Signs Temp 97.8 F 07/08/18 19:24 Pulse 93 H 07/09/18 12:25 Resp 16 07/09/18 07:02 BP 144/80 07/09/18 15:02 Pulse Ox 97 07/09/18 07:02 - Labs Result Diagrams: 07/08/18 19:50 07/08/18 19:50 Labs: Laboratory Results - last 24 hr 07/08/18 07/08/18 07/08/18 19:50 19:50 19:50 WBC 2.8 L RBC 4.98 Hgb 12.6 L Hct 40.3 L MCV 80.9 MCH 25.3 MCHC 31.3 RDW 17.9 H Plt Count 173 MPV 10.6 PT 14.8 H INR 1.33 APTT 40.1 H Sodium 138 Potassium 3.7 Chloride 97 L Carbon Dioxide 29 Anion Gap 15 BUN 43 H Creatinine 1.3 Est GFR ( Amer) > 60 Est GFR (Non-Af Amer) 57 POC Glucose (mg/dL) Random Glucose 151 H Calcium 9.5 Total Bilirubin 1.5 H AST 46 ALT 14 Alkaline Phosphatase 93 Lactate Dehydrogenase 505 Total Creatine Kinase 32 L Troponin I 0.04 D NT-Pro-B Natriuret Pep 3960 H Total Protein 7.9 Albumin 4.4 Globulin 3.5 Albumin/Globulin Ratio 1.2 07/09/18 08:21 WBC RBC Hgb Hct MCV MCH MCHC RDW Plt Count MPV PT INR APTT Sodium Potassium Chloride Carbon Dioxide Anion Gap BUN Creatinine Est GFR ( Amer) Est GFR (Non-Af Amer) POC Glucose (mg/dL) 174 H Random Glucose Calcium Total Bilirubin AST ALT Alkaline Phosphatase Lactate Dehydrogenase Total Creatine Kinase Troponin I NT-Pro-B Natriuret Pep Total Protein Albumin Globulin Albumin/Globulin Ratio Assessment & Plan - Assessment and Plan (Free Text) Plan: Infectious diseases Attending Physician Attestation Patient seen and examined, discussed with medical equipment repair technician. I have reviewed the patient's history of present illness, past medical, social, personal and family histories, pertinent physical exam findings, course so far in this hospital admission, pertinent laboratory and imaging results. I agree with the above findings, assessment and plan. In addition, started patient on Teflaro for cellulitis of lower extremities with infected wounds. Follow up wound cx, blood cx and monitor clinical response.
[2018-07-09 15:05] VITALS: PULSE 80
--- NOTE | 2018-07-09 16:23 | CP.PCM.PCO ---
Progress Note - Review of Symptoms Events since last encounter: Patient refused evaluation by Podiatry at this time, will be evaluated again tomorrow
[2018-07-09] MEDS ORDERED: Vancomycin 1gm in NS 250ml 1 GM/250 ML BAG IVPB SCH (20:00)
--- NOTE | 2018-07-09 20:34 | CON ---
DATE: 07/09/2018 CARDIOLOGY CONSULTATION REASON FOR CONSULTATION: Acute decompensated congestive heart failure, acute and chronic systolic dysfunction. BRIEF CLINICAL HISTORY: This is a 57-year-old morbidly obese male very noncompliant for the medications, history of chronic atrial fibrillation, history of coronary artery disease, CABG, history of renal insufficiency, admitted with 3 months history of gaining weight, gained more than 80 pounds of weight over the period of 2 to 3 months. Now for the last 3 days have more increasing shortness of breath and more increased leg swelling and now the patient has paroxysmal dyspnea, PND and orthopnea, so came to the emergency room. Denies any chest pain now. PAST MEDICAL HISTORY: Significant for morbid obesity, diabetes, hypertension, hyperlipidemia, atrial fibrillation, coronary artery bypass surgery in 1998, quadruple 4 bypass at [facility], history of multiple admission with decompensated congestive heart failure, acute on chronic secondary to systolic dysfunction as of diastolic dysfunction, chronic venous stasis, history of atrial fibrillation. Last EKG on , paroxysmal, before that the patient was in normal sinus. PREVIOUS CARDIAC WORKUP FOLLOWS: The patient had an echo on 07/10/2016 that showed dilated left ventricular systolic function, moderately decreased ejection fraction 30%, moderate tricuspid regurgitation, moderate pulmonary hypnosis systolic pressure of 50. The patient had scheduled stress test in 06/2017, but the patient refused nuclear and did regular stress test because he thinks nuclear will his body, he does not want any nuclear material to be injected. A stress test dated 06/07/2017, and it was regular stress test. The patient also refused cardiac catheterization in the past as well. The patient did a repeat echocardiography most recent 07/10/2016, that showed ejection fraction 30% and [id number] pulmonary hypertension, no vegetation, and moderate tricuspid regurgitation, done by Dr. Cortez. CURRENT MEDICATIONS: The patient at home was taking guaiphenesin, spironolactone, Reglan, Xopenex, insulin, glimepiride, Plavix, Coreg, atorvastatin, and aspirin. ALLERGIES: NO KNOWN DRUG ALLERGY. REVIEW OF SYSTEMS: As per HPI, except recent history of shortness of breath and palpitation. PHYSICAL EXAMINATION: GENERAL: Height of the patient 5 feet 9 inches, weight of the patient 306 pounds, and body mass index 45 kg/m2. HEENT: PERRLA. Extraocular muscles intact. NECK: Supple. JVD positive. CHEST: Bilateral decreased air entry at the bases, few crackles. ABDOMEN: Belly distended. EXTREMITIES: Pedal edema 3+. LABORATORY DATA: EKG atrial fibrillation rate of 123. Blood workup; WBC 2.8, hemoglobin 12.6, hematocrit 40.3, and platelet count 173. INR 1.33. Chemistry shows sodium 130, potassium 3.7, chloride 97, carbon dioxide 29, anion gap of 15, BUN 43, and creatinine 1.3. BNP 3,960. Chest x-ray reviewed, shows congestion, CHF. IMPRESSION: A 57-year-old male with morbid obesity, diabetes, hypertension, hyperlipidemia, coronary artery disease, status post coronary artery bypass grafting in 1998, admitted with decompensated congestive heart failure secondary to systolic dysfunction. Last ejection fraction in 2017 was 30%. The patient is very noncompliance. History of paroxysmal atrial fibrillation. Refused cardiac catheterization also. This morning, a lengthy discussion was done, but the patient refused cardiac catheterization. Last time, the patient agreed for only regular stress test, but does not want nuclear stress test. RECOMMENDATIONS: We will start IV Primacor, aggressive diuresis. Continue Cardizem IV then change to p.o. and then we will start Eliquis 5 mg p.o. two times a day because of the atrial fibrillation, though the patient is very noncompliant. Discussed with the patient at length. We will also add metolazone. We will follow with you. Thank you, Dr. Posey, for providing us the opportunity in taking care of the patient, Mason Benavides. Rudy Fermin MD
[2018-07-09] MEDS ORDERED: Influenza Vaccine 60 mcg/0.5 mL SYR (4YR UP) IM ONE (21:31)
[2018-07-09] MEDS ORDERED: Pneumococcal 23-Valent Vaccine IM ONE (21:31)
--- NOTE | 2018-07-09 23:02 | CARD ---
APPROVED REPORT Date of service: 07/09/2018 EXAM: Two-dimensional and M-mode echocardiogram with Doppler and color Doppler. INDICATION Congestive Heart Failure 2D DIMENSIONS Left Atrium (2D)4.8 (1.6-4.0cm)IVSd1.3 (0.7-1.1cm) LVDd6.0 (3.9-5.9cm)PWd1.2 (0.7-1.1cm) LVDs5.5 (2.5-4.0cm)FS (%) 9.0 % LVEF (%)19.3 (>50%) M-Mode DIMENSIONS Aortic Root3.00 (2.2-3.7cm)Aortic Cusp Exc.2.20 (1.5-2.0cm) Aortic Valve AoV Peak Swjgorhv526.0cm/Poornima Peak GR.5mmHg Mitral Valve E/A ratio0.0 TDI E/Lateral E'0.0E/Medial E'0.0 Tricuspid Valve TR Peak [id number]/sRAP [id number] Peak Gr.30mmHg [id number] LEFT VENTRICLE The Left Ventricle is mildly dilated. There is borderline concentric left ventricular hypertrophy. The systolic function is severely impaired.EF-20-25% There is moderate to severe hypokinesis in the apical anterior wall. A fib, diastolicFx could not be assessed No left ventricle thrombus noted on this study. There is no ventricular septal defect visualized. There is no left ventricular aneurysm. There is no mass noted in the left ventricle. RIGHT VENTRICLE The right ventricle is moderately dilated. There is normal right ventricular wall thickness. Systolic function is moderately reduced. ATRIA The left atrium is mildly dilated. The right atrium is moderately dilated. The interatrial septum is intact with no evidence for an atrial septal defect. AORTIC VALVE The aortic valve is moderately thickened but opens well. The aortic valve is moderately sclerotic. There is trace aortic regurgitation. moderate aortic Sclerosis but no There is no aortic valvular vegetation. MITRAL VALVE The mitral valve is thickened but opens well. Mitral regurgitation is mild to moderate. There is no mitral valve stenosis. There is no evidence of mitral valve prolapse. TRICUSPID VALVE The tricuspid valve leaflets are thickened , but open well. There is moderate tricuspid regurgitation.RVSP_40 mmof hg. There is no tricuspid valve stenosis. There is no tricuspid valve prolapse or vegetation. PULMONIC VALVE The pulmonic valve is mildly thickened. There is trace pulmonic valvular regurgitation. There is no pulmonic valvular stenosis. GREAT VESSELS The aortic root is normal in size. The ascending aorta is normal in size. The pulmonary artery is normal. The IVC is dilated. PERICARDIAL EFFUSION There is no pleural effusion. There is no pericardial effusion. <Conclusion> Four chamber dilatation, C/w CMP.EF-20-25%. There is trace aortic regurgitation. Mitral regurgitation is mild to moderate. There is moderate tricuspid regurgitation.RVSP_40 mmof hg. There is trace pulmonic valvular regurgitation. The IVC is dilated. No thrombus or vegetation noted
[2018-07-09 23:30] VITALS: BP 116/61
[2018-07-10] MEDS: Milrinone 20mg/100ml D5W 100 ML IV PRN (01:05)
[2018-07-10 03:27] VITALS: TEMP 98.2
[2018-07-10 03:40] VITALS: PULSE 102
--- NOTE | 2018-07-11 04:17 | DS ---
SUBJECTIVE: The patient was moved to the telemetry floor earlier. The patient left the hospital against medical advice. patient had seen by multiple consults. Cardiology consult, pulmonary consult, Infectious Disease consult and podiatry consult. The patient had an echocardiogram, which shows dilated left ventricle, dilated was consistent with cardiomyopathy. Ejection fraction between 20% and 25%. He has moderate tricuspid regurgitation with pulmonary hypertension, 40 mmHg, and mild to moderate mitral regurgitation. His IVC is dilated consistent with high pressure and high fluid pressure in the right side of the heart. PHYSICAL EXAMINATION: VITAL SIGNS: Stable. Temperature 98, heart rate 93, blood pressure 116/61, respiration 16, O2 saturation 97% on room air. The patient left before being seen and probably there is no significant changes, still have edema and several changes in the legs. DISCHARGE DIAGNOSES: 1. Cellulitis, post lower extremity. 2. Dilated cardiomyopathy, with acute worsening. 3. Acute congestive heart failure. 4. Diabetes, insulin dependent. 5. Chronic atrial fibrillations. 6. Morbid obesity. 7. Obstructive sleep apnea. 8. Noncompliance. PLAN: To follow the patient when he come back to the office. The patient is very noncompliant, risk of strokes, sudden heart attack and , and cardiac risk is high with his cardiomyopathy patient, noncompliant, especially risk of stroke and any infarctions in any organs due to untreated atrial fibrillations. Tyrone Posey MD
--- NOTE | 2018-07-11 04:31 | PN ---
DATE: 07/09/2018 SUBJECTIVE: The patient was seen in the emergency room. He complained that he is uncomfortable with stitches, but otherwise he has still leg swelling. He is less short of breath than before. No chest pain. No other complaints. PHYSICAL EXAMINATION: VITAL SIGNS: Temperature 98.2, heart rate 96, blood pressure 116/61, respirations 18, and saturation 97% on room air. HEAD AND NECK: Normal. No JVD. No thyromegaly. CHEST: Clear bilaterally. CARDIAC: First sound and second sound normal. Systolic murmur. ABDOMEN: Obese, nontender. EXTREMITIES: Bilateral leg edema up to the knee with bilateral redness, more in the right. There is some redness ulcerations in the lower extremity consistent with cellulitis. NEUROLOGICAL: Normal. LABORATORY DATA: White count 2.8, hemoglobin 12.6, hematocrit 40.3, platelets 173. Chemistry: Sodium 138, potassium 3.7, chloride 97, bicarb 29, BUN 43, creatinine 1.3, blood sugar 174. Total bilirubin 1.5, AST and ALT are normal. Troponin is 0.04 and BNP is 3960. IMPRESSION AND PLAN: 1. Bilateral lower extremity cellulitis. Continue current intravenous antibiotics as per infectious disease consultation, Dr. Melo, who is a consult on the case. Dr. Raghav Toth has seen the patient, and he recommended to continue current treatment with local wound care for both lower extremities. The patient is getting Teflaro intravenously every 12 hours. 2. Congestive heart failure. The patient has low cardiac output, ischemic cardiomyopathy. Seen by cardiology, Dr. Fermin, who recommended intravenous milrinone (intravenous Primacor). 3. Insulin-dependent diabetes. Continue Levemir. Continue insulin coverage. 4. Ischemic cardiomyopathy. Continue Zestril, digoxin, Primacor, and Lasix. 5. Atrial fibrillation. The patient is on Eliquis 5 mg twice a day. Discussed risks of compliance with Eliquis and risks of stroke have been explained very well to the patient, he understands. 6. Bilateral lower extremity edema. Continue Lasix and Zaroxolyn. Keep the legs elevated. The patient is otherwise stable. We will keep the head of the bed elevated at 45 degrees. The patient is noncompliant with continuous positive airway pressure machine as part of risk of obstructive sleep apnea. Continue current therapy for now. Tyrone Posey MD
== END 2018-07-10 05:14 | disposition left against medical advice (07) | DRG 291 ==
LOC: ED 18:44 → ERH 07-09 00:21 → 3RNO 07-10 01:32
PROVIDERS: ADMIT Internal Medicine; ATTEND Internal Medicine
DX: I13.0 Hypertensive heart and chronic kidney disease with heart failure and stage 1 through stage 4 chronic kidney disease, or unspecified chronic kidney disease (principal); I50.43 Acute on chronic combined systolic (congestive) and diastolic (congestive) heart failure; L03.115 Cellulitis of right lower limb; L03.116 Cellulitis of left lower limb; Z68.42 Body mass index [BMI] 45.0-49.9, adult; I42.0 Dilated cardiomyopathy; I25.5 Ischemic cardiomyopathy; E78.5 Hyperlipidemia, unspecified; G47.33 Obstructive sleep apnea (adult) (pediatric); I08.1 Rheumatic disorders of both mitral and tricuspid valves; I25.10 Atherosclerotic heart disease of native coronary artery without angina pectoris; I27.20 Pulmonary hypertension, unspecified; I48.0 Paroxysmal atrial fibrillation; I48.2 Chronic atrial fibrillation; I87.8 Other specified disorders of veins; J44.9 Chronic obstructive pulmonary disease, unspecified; K76.0 Fatty (change of) liver, not elsewhere classified; N18.9 Chronic kidney disease, unspecified; Z79.01 Long term (current) use of anticoagulants; E11.22 Type 2 diabetes mellitus with diabetic chronic kidney disease; E66.01 Morbid (severe) obesity due to excess calories; Z79.4 Long term (current) use of insulin; Z86.14 Personal history of Methicillin resistant Staphylococcus aureus infection; Z87.891 Personal history of nicotine dependence; Z91.19 Patient's noncompliance with other medical treatment and regimen; Z95.1 Presence of aortocoronary bypass graft; Z95.5 Presence of coronary angioplasty implant and graft

== ENCOUNTER 2018-09-12 20:24 | Inpatient (IN) | payer MEDICARE, MEDICAID ==
[2018-09-12 21:13] LABS: BASO # 0.02 K/mm3 (0.0-2.0); BASO % 0.7 % (0.0-3.0); EOS # 0.1 (0.0-0.7); EOS % 4.2 % (1.5-5.0); HEMOGLOBIN 11.8 g/dL (14.0-18.0); LYMPH # 0.6 (1.2-3.4); LYMPH % 22.1 % (22.0-35.0); MEAN CELL VOLUME 81.2 fl (80.0-105.0); MEAN CORPUSCULAR HEMOGLOBIN 25.2 pg (25.0-35.0); MEAN PLATELET VOLUME 10.8 fl (7.0-11.0); MONO # 0.5 (0.1-0.6); MONO % 15.8 % (1.0-6.0); RBC 4.69 10^6/uL (3.5-6.1); RED CELL DISTRIBUTION WIDTH 19.9 % (11.5-14.5); WHITE BLOOD COUNT 2.9 10^3/uL (4.5-11.0)
[2018-09-12 21:15] LABS: VENOUS BLOOD GAS BASE EXCESS 3.9 mmol/L (0.0-2.0); VENOUS BLOOD GAS PO2 93 mm/Hg (30-55); VENOUS BLOOD PH 7.47 (7.32-7.43)
[2018-09-12 21:22] LABS: BLOOD UREA NITROGEN 39 mg/dL (7-21); CALCIUM 9.5 mg/dL (8.4-10.5); GFR NON-AFRICAN AMERICAN 57
[2018-09-12 21:33] LABS: B-TYPE NATRIURETIC PEPTIDE 7580 pg/mL (0-450)
[2018-09-12 21:34] LABS: TROPONIN I 0.02 ng/mL
[2018-09-12] MEDS ORDERED: Albuterol-Ipratrop 3 mg / 0.5 (3 ml) UD IH STA (21:36)
--- NOTE | 2018-09-12 21:40 | ED PDOC ---
Arrival/HPI - General Chief Complaint: Shortness Of Breath Time Seen by Provider: 09/12/18 20:36 Historian: Patient - History of Present Illness Narrative History of Present Illness (Text): 09/12/18 21:37 58 year old male, whose past medical history includes Morbid Obesity, CAD with CABG, CHF-rEF, DM, JOAN, CKD, Fatty Liver Disease, HTN, MRSA infection of the lower extremities, Afib, presents to the emergency department complaining of swelling to the legs bilaterally, swelling to his scrotum, abdominal distention, and shortness of breath for the past 10 days. Patient reports he experienced this previously. He reports he is compliant with his Lasix. Patient also reports intermittent sharp chest pain and urinary retention, but denies any fever, chills, nausea, vomiting, diarrhea, back pain, neck pain, headache, dizziness, or any other complaints. PMD: Dr. Posey Time/Duration: Other (10 days) Symptom Onset: Gradual Symptom Course: Unchanged Activities at Onset: Light Context: Home Past Medical History - Provider Review Nursing Documentation Reviewed: Yes - Infectious Disease Hx of Infectious Diseases: None - Tetanus Immunization Tetanus Immunization: Unknown - Cardiac Hx Cardiac Disorders: Yes (tachycardia, cad) Hx Angina: Yes Hx Cardiac Arrhythmia: Yes Hx Congestive Heart Failure: Yes Hx Hypertension: Yes Hx Peripheral Edema: Yes (+4 pitting ble edema) Other/Comment: 1999 open heart, circulation problems, chronic non healing draining leg wounds - Pulmonary Hx Respiratory Disorders: Yes Hx Asthma: Yes Hx Chronic Obstructive Pulmonary Disease (COPD): Yes Hx Pneumonia: Yes Hx Sleep Apnea: Yes - Neurological Hx Neurological Disorder: Yes Hx Dizziness: Yes - HEENT Hx HEENT Disorder: Yes (eyeglases) Hx Cataracts: Yes Hx Glaucoma: Yes Other/Comment: dental abcess 09/17/17, missing teeth, wound cultures taken of r and l leg wounds 07/08/18 results are still pending - Renal Hx Renal Disorder: Yes Hx Kidney Stones: Yes Hx Renal Failure: Yes - Endocrine/Metabolic Hx Endocrine Disorders: Yes Hx Diabetes Mellitus Type 2: Yes - Hematological/Oncological Hx Blood Disorders: Yes Hx Hepatitis A: Yes - Integumentary Hx Dermatological Disorder: Yes Other/Comment: + 4 edema ble discolored skin,multiple non heaing draining wounds, thick toenails, chronic mrsa, dry skin both feet, discolored toes, chest scar healed from open heart 1998 - Musculoskeletal/Rheumatological Hx Falls: Yes (past) - Gastrointestinal Hx Gastrointestinal Disorders: Yes (obese, fatty liver) - Genitourinary/Gynecological Hx Genitourinary Disorders: No - Psychiatric Hx Psychophysiologic Disorder: Yes Hx Depression: Yes Hx Substance Use: No - Surgical History Hx Cardiac Catheterization: Yes Hx Coronary Stent: Yes Hx Open Heart Surgery: Yes Other/Comment: pylonidal cysts x 2 - Anesthesia Hx Anesthesia: Yes Hx Anesthesia Reactions: No Hx Malignant Hyperthermia: No - Suicidal Assessment Feels Threatened In Home Enviroment: No Family/Social History - Physician Review Nursing Documentation Reviewed: Yes Family/Social History: No Known Family HX Smoking Status: Never Smoked Hx Alcohol Use: Yes (a beer a week) Hx Substance Use: No Hx Substance Use Treatment: No Allergies/Home Meds Allergies/Adverse Reactions: Allergies No Known Allergies Allergy (Verified 06/03/18 17:59) Home Medications: Home Meds Medication Instructions Recorded Confirmed Carvedilol [Coreg] 3.125 mg PO BID 06/05/17 09/12/18 Escitalopram [Lexapro] 10 mg PO HS 06/05/17 09/12/18 Fluticasone/Salmeterol 500/50 0 puff NEB BID 06/05/17 09/12/18 [Advair Diskus 500/50] Glimepiride [amaRYL] 4 mg PO BID 06/05/17 09/12/18 Insulin Detemir [Levemir] 50 unit SC DAILY 06/05/17 09/12/18 Potassium Chloride [Klor-Con 10] 10 meq PO DAILY 06/05/17 09/12/18 Review of Systems - Physician Review All systems were reviewed & negative as marked: Yes - Review of Systems Constitutional: absent: Fevers, Other (chills) Respiratory: SOB Cardiovascular: Chest Pain, Edema (to legs, scrotum) Gastrointestinal: Other (abdomianl distention). absent: Abdominal Pain, Diarrhea, Nausea, Vomiting Genitourinary Male: Other (urianry retention) Musculoskeletal: absent: Back Pain, Neck Pain Neurological: absent: Headache, Dizziness Physical Exam Vital Signs Reviewed: Yes Vital Signs Temp Pulse Resp BP Pulse Ox 09/12/18 20:37 97.5 F L 97 H 22 116/78 98 Temperature: Afebrile Blood Pressure: Normal Pulse: Regular Respiratory Rate: Normal Appearance: Positive for: Well-Appearing, Non-Toxic, Uncomfortable Pain Distress: None Mental Status: Positive for: Alert and Oriented X 3 Finger Stick Blood Glucose: 191 - Systems Exam Head: Present: Atraumatic, Normocephalic Pupils: Present: PERRL Extroacular Muscles: Present: EOMI Conjunctiva: Present: Normal Mouth: Present: Moist Mucous Membranes Neck: Present: Normal Range of Motion Respiratory/Chest: Present: Other (prolong expiratory phase. Mild dyspnea conversational). No: Respiratory Distress, Accessory Muscle Use, Wheezes, Rales Cardiovascular: Present: Regular Rate and Rhythm, Normal S1, S2. No: Murmurs Abdomen: Present: Distention (grossly abdominal distention ), Other (decrease bowel sounds). No: Tenderness, Normal Bowel Sounds, Peritoneal Signs Back: Present: Normal Inspection Upper Extremity: Present: Normal Inspection. No: Cyanosis, Edema Lower Extremity: Present: Edema (pitting edema bilateral LE that goes all the way up to the legs, scrotum, and distented belly. ) Neurological: Present: GCS=15, Speech Normal Skin: Present: Warm, Dry, Normal Color. No: Rashes Psychiatric: Present: Alert, Oriented x 3 Medical Decision Making ED Course and Treatment: 09/12/18 21:37 Impression: 58 year old male presents complaining of swelling to this legs bilaterally, swelling to his scrotum, abdominal distention, shortness of breath, and intermittent chest pain that began 10 days ago. Plan: -- VBG -- EKG -- Labs -- Chest X-ray -- Duoneb -- Bladder scan -- Reassess and disposition Prior Visits: Notes and results from previous visits were reviewed. Progress Notes: EKG shows a-fib RVR at 109 BPM. Interpreted by me. 09/12/18 21:46 CXR Impression: As read by me as CHF. 09/12/18 21:[address] Posey who is aware and agrees with the plan. Accepts patient into his service. Request Dr. Fermin for consult. 09/12/18 22:00 Patient complaining of urinary retention. Order a bladder scan which shows >1000. Ordered blakely cath. 09/12/18 22:41 Blakely cath successfully placed. - Lab Interpretations Lab Results: pO2 93 mm/Hg (30-55) H 09/12/18 21:12 VBG pH 7.47 (7.32-7.43) H 09/12/18 21:12 VBG pCO2 38.0 (40-60) L 09/12/18 21:12 VBG HCO3 27.7 mmol/l (21-28) 09/12/18 21:12 VBG Total CO2 28.9 mmol.L (22-28) H 09/12/18 21:12 VBG O2 Sat (Calc) 99.2 % (40-65) H 09/12/18 21:12 VBG Base Excess 3.9 mmol/L (0.0-2.0) H 09/12/18 21:12 VBG Potassium 5.3 mmol/L (3.6-5.2) H 09/12/18 21:12 Sodium 134.0 mmol/L (132-148) 09/12/18 21:12 Chloride 101.0 mmol/L (98-107) 09/12/18 21:12 Glucose 197 mg/dl (75-110) H 09/12/18 21:12 Lactate 1.5 mmol/L (0.7-2.1) 09/12/18 21:12 FiO2 21.0 % 09/12/18 21:12 Troponin I 0.02 ng/mL D 09/12/18 21:00 NT-Pro-B Natriuret Pep 7580 pg/mL (0-450) H 09/12/18 21:00 I have reviewed the lab results: Yes - RAD Interpretation Radiology Orders: 09/12/18 21:25 CHEST PORTABLE [RAD] Stat Pipe Finisher: ED Physician - EKG Interpretation Interpreted by ED Physician: Yes Type: 12 lead EKG - Scribe Statement The provider has reviewed the documentation as recorded by the Raulito Hawkins Provider Scribe Attestation: All medical record entries made by the Raulito were at my direction and personally dictated by me. I have reviewed the chart and agree that the record accurately reflects my personal performance of the history, physical exam, medical decision making, and the department course for this patient. I have also personally directed, reviewed, and agree with the discharge instructions and disposition. Disposition/Present on Arrival - Present on Arrival Any Indicators Present on Arrival: No History of DVT/PE: No History of Uncontrolled Diabetes: No Urinary Catheter: No History of Decub. Ulcer: No History Surgical Site Infection Following: None - Disposition Have Diagnosis and Disposition been Completed?: Yes Diagnosis: CHF (congestive heart failure), Hyperglycemia, Urinary retention Disposition: HOSPITALIZED Disposition Time: 21:50 Patient Plan: Admission, Telemetry Patient Problems: Current Active Problems Problem Status Onset CHF (congestive heart failure) Acute Hyperglycemia Acute Urinary retention Acute Condition: STABLE
[2018-09-13 04:06] VITALS: BMI 48.7
--- NOTE | 2018-09-13 08:29 | RAD ---
HISTORY: sob COMPARISON: Chest x-ray performed 07/08/18 TECHNIQUE: Chest, one view. FINDINGS: LUNGS: Moderate interstitial prominence may reflect infection or edema. No focal consolidation. Please note that chest x-ray has limited sensitivity for the detection of pulmonary masses. PLEURA: No significant pleural effusion identified. No definite pneumothorax . CARDIOVASCULAR: Median sternotomy wires. Cardiomegaly. Atherosclerotic calcifications of the aortic knob. OSSEOUS STRUCTURES: Degenerative changes. VISUALIZED UPPER ABDOMEN: Unremarkable. OTHER FINDINGS: None. IMPRESSION: Moderate interstitial prominence may reflect infection or edema. Cardiomegaly.
[2018-09-13] MEDS ORDERED: Levalbuterol 0.63 MG/3 ML Inhal Soln UD IH PRN (09:38)
[2018-09-13] MEDS: POLYETHYLENE GLYCOL 3350 17 GM/Dose PACKET PO SCH ×3 (10:04→18:48)
[2018-09-13] MEDS: metOLazone 5 MG TAB PO SCH (10:06)
[2018-09-13] MEDS: Milrinone 20mg/100ml D5W 100 ML IV PRN ×3 (10:07→21:38)
--- NOTE | 2018-09-13 11:15 | CARD ---
APPROVED REPORT Date of service: 09/12/2018 EKG Measurement Heart [id number] <Conclusion> Atrial fibrillation with rapid ventricular response Low voltage QRS Possible Anterolateral infarct, age undetermined Abnormal ECG
--- NOTE | 2018-09-13 11:53 | CP.PCM.CON ---
<Alessio Champion - Last Filed: 09/13/18 11:42> History of Present Illness - History of Present Illness History of Present Illness: Podiatry consult note for attending Dr. Squires: 56 year old male with PMH of Morbid obesity, CAD, quadruple bypass, CHF, IDDM, chronic renal insufficiency, HTN, COPD and LE edema seen at bedside complaining of b/l painful leg swelling. Patient is well known to podiatry service and used to follow up with Dr. Squires for his b/l LE edema. Patient states that he has had these swollen legs for years. Patient states that 10 days ago it started to get worse and more painful. He states that the pain is throbbing and 10/10. Patient denies any recent wounds to either legs. He states that all he is now on Lasix. He denies any further pedal complaints at this time. He denies recent N/V/F/C/CP/SO. PMH: Morbid obesity, CAD, quadruple bypass, CHF, IDDM, chronic renal insufficiency, HTN, COPD and LE edema. PSH: CABG (1998) Allergies: NKDA Social Hx: former heavy smoker, reports that he drinks 1-2 beers a week, denies drug use Review of Systems - Review of Systems Review of Systems: As per HPI - Constitutional Constitutional: As Per HPI Past Patient History - Infectious Disease Hx of Infectious Diseases: None - Tetanus Immunizations Tetanus Immunization: Unknown - Past Medical History & Family History Past Medical History?: Yes - Past Social History Smoking Status: Never Smoked - CARDIAC Hx Cardiac Disorders: Yes (tachycardia, cad) Hx Angina: Yes Hx Cardia Arrhythmia: Yes Hx Congestive Heart Failure: Yes Hx Hypertension: Yes Hx Peripheral Edema: Yes (+4 pitting ble edema) Other/Comment: 1998 open heart, circulation problems, chronic non healing draining leg wounds - PULMONARY Hx Respiratory Disorders: Yes Hx Asthma: Yes Hx Chronic Obstructive Pulmonary Disease (COPD): Yes Hx Pneumonia: Yes Hx Sleep Apnea: Yes - NEUROLOGICAL Hx Neurological Disorder: Yes Hx Dizziness: Yes - HEENT Hx HEENT Problems: Yes (eyeglases) Hx Cataracts: Yes Hx Glaucoma: Yes Other/Comment: dental abcess 09/17/17, missing teeth, wound cultures taken of r and l leg wounds 07/08/18 results are still pending - RENAL Hx Chronic Kidney Disease: Yes Hx Kidney Stones: Yes Hx Renal Failure: Yes - ENDOCRINE/METABOLIC Hx Endocrine Disorders: Yes Hx Diabetes Mellitus Type 2: Yes - HEMATOLOGICAL/ONCOLOGICAL Hx Blood Disorders: Yes Hx Hepatitis A: Yes - INTEGUMENTARY Hx Dermatological Problems: Yes Other/Comment: + 4 edema ble discolored skin,multiple non heaing draining wou nds, thick toenails, chronic mrsa, dry skin both feet, discolored toes, chest scar healed from open heart 1998 - MUSCULOSKELETAL/RHEUMATOLOGICAL Hx Falls: Yes - GASTROINTESTINAL Hx Gastrointestinal Disorders: Yes (obese, fatty liver) - GENITOURINARY/GYNECOLOGICAL Hx Genitourinary Disorders: No - PSYCHIATRIC Hx Psychophysiologic Disorder: Yes Hx Depression: Yes Hx Substance Use: No - SURGICAL HISTORY Hx Cardiac Catheterization: Yes Hx Coronary Stent: Yes Hx Open Heart Surgery: Yes Other/Comment: pylonidal cysts x 2 - ANESTHESIA Hx Anesthesia: Yes Hx Anesthesia Reactions: No Hx Malignant Hyperthermia: No Meds Allergies/Adverse Reactions: Allergies Allergy/AdvReac Type Severity Reaction Status Date / Time No Known Allergies Allergy Verified 06/03/18 17:59 - Medications Medications: Current Medications Apixaban (Eliquis) 5 mg PO BID PENDING SALE TO [facility]; Protocol Last Admin: 09/13/18 10:06 Dose: 5 mg Aspirin (Aspirin Chewable) 81 mg PO DAILY PENDING SALE TO [facility] Last Admin: 09/13/18 10:04 Dose: 81 mg Atorvastatin Calcium (Lipitor) 40 mg PO DIN PENDING SALE TO [facility] Digoxin (Digoxin) 0.125 mg PO 1400 PENDING SALE TO [facility] Docusate Sodium (Colace) 100 mg PO BID PENDING SALE TO [facility] Last Admin: 09/13/18 10:03 Dose: 100 mg Ergocalciferol (Drisdol 50,000 Intl Units Cap) 1 cap PO Q7D PENDING SALE TO [facility] Escitalopram Oxalate (Lexapro) 10 mg PO HS PENDING SALE TO [facility] Furosemide (Lasix) 40 mg IV 0800,1400 PENDING SALE TO [facility] Milrinone Lactate/Dextrose (Primacor 20mg/100ml D5w) 100 mls @ 16.84 mls/hr IV .Q5H57M PRN; Protocol PRN Reason: TITRATE PER MD ORDER Last Admin: 09/13/18 10:07 Dose: 0.375 mcg/kg/min, 16.84 mls/hr Insulin Detemir (Levemir) 30 unit SC HS PENDING SALE TO [facility] Insulin Human Regular (Humulin R Low) 0 units SC ACHS PENDING SALE TO [facility]; Protocol Levalbuterol HCl (Xopenex) 0.63 mg IH [id number] PRN PRN Reason: Shortness of Breath Last Admin: 09/13/18 10:41 Dose: 0.63 mg Metolazone (Zaroxolyn) 5 mg PO DAILY PENDING SALE TO [facility] Stop: 09/16/18 23:59 Last Admin: 09/13/18 10:06 Dose: 5 mg Pantoprazole Sodium (Protonix Ec Tab) 40 mg PO 0600 PENDING SALE TO [facility] Polyethylene Glycol (Miralax) 17 gm PO BID PENDING SALE TO [facility] Last Admin: 09/13/18 10:20 Dose: Not Given Spironolactone (Aldactone) 25 mg PO BID JANY Tramadol HCl (Ultram) 50 mg PO Q6 PRN PRN Reason: Pain, severe (8-10) Last Admin: 09/13/18 10:37 Dose: 50 mg Verapamil HCl (Calan Tab) 40 mg PO TID PENDING SALE TO [facility] Last Admin: 09/13/18 10:04 Dose: 40 mg Physical Exam - Constitutional Appears: Non-toxic - Head Exam Head Exam: ATRAUMATIC, NORMOCEPHALIC - Extremities Exam Additional comments: LE focused exam: Vasc: DP/PT pulses non palpable secondary to b/l swelling. Cap refill < 3 seconds to all digits. Skin temperature warm to warm from proximal to distal. Diffuse +2 pitting edema noted to b/l LE. Neuro: Gross and protective sensation grossly intact b/l. Derm: No open lesions, wounds, maceration, xerosis, or abnormal growths noted to b/l LE. Mild erythema noted to b/l LE most likely secondary to lymphedema. MSK: Mild pain on palpating to b/l LE. No gross deformities noted b/l. Muscle power intact 5/5 to all groups b/l. - Neurological Exam Neurological exam: Alert, Oriented x3 Results - Vital Signs Recent Vital Signs: Last Vital Signs Temp 97.7 F 09/13/18 06:00 Pulse 103 H 09/13/18 10:42 Resp 20 09/13/18 06:00 BP 116/65 09/13/18 10:07 Pulse Ox 96 09/13/18 06:00 - Labs Result Diagrams: 09/12/18 21:00 09/12/18 21:00 Labs: Laboratory Results - last 24 hr 09/12/18 09/12/18 09/12/18 20:46 21:00 21:00 WBC 2.9 L RBC 4.69 Hgb 11.8 L Hct 38.1 L MCV 81.2 MCH 25.2 MCHC 31.0 RDW 19.9 H Plt Count 189 MPV 10.8 Neut % (Auto) 57.2 Lymph % (Auto) 22.1 Ward % (Auto) 15.8 H Eos % (Auto) 4.2 Baso % (Auto) 0.7 Lymph # (Auto) 0.6 L Ward # (Auto) 0.5 Eos # (Auto) 0.1 Baso # (Auto) 0.02 Absolute Neuts (auto) 1.63 pO2 VBG pH VBG pCO2 VBG HCO3 VBG Total CO2 VBG O2 Sat (Calc) VBG Base Excess VBG Potassium Glucose Lactate FiO2 Sodium 135 Potassium 5.3 H Chloride 99 Carbon Dioxide 26 Anion Gap 15 BUN 39 H Creatinine 1.3 Est GFR ( Amer) > 60 Est GFR (Non-Af Amer) 57 POC Glucose (mg/dL) 191 H Random Glucose 191 H Calcium 9.5 Magnesium 2.4 H Lactate Dehydrogenase 410 Total Creatine Kinase 24 L Troponin I 0.02 D NT-Pro-B Natriuret Pep 7580 H Venous Blood Potassium 09/12/18 21:12 WBC RBC Hgb Hct MCV MCH MCHC RDW Plt Count MPV Neut % (Auto) Lymph % (Auto) Ward % (Auto) Eos % (Auto) Baso % (Auto) Lymph # (Auto) Ward # (Auto) Eos # (Auto) Baso # (Auto) Absolute Neuts (auto) pO2 93 H VBG pH 7.47 H VBG pCO2 38.0 L VBG HCO3 27.7 VBG Total CO2 28.9 H VBG O2 Sat (Calc) 99.2 H VBG Base Excess 3.9 H VBG Potassium 5.3 H Glucose 197 H Lactate 1.5 FiO2 21.0 Sodium 134.0 Potassium Chloride 101.0 Carbon Dioxide Anion Gap BUN Creatinine Est GFR ( Amer) Est GFR (Non-Af Amer) POC Glucose (mg/dL) Random Glucose Calcium Magnesium Lactate Dehydrogenase Total Creatine Kinase Troponin I NT-Pro-B Natriuret Pep Venous Blood Potassium 5.3 H Assessment & Plan - Assessment and Plan (Free Text) Assessment: 56 year old male with PMHx of CAD, quadruple bypass, CHF, IDDM, chronic renal insufficiency, HTN, COPD and LE edema with chronic MRSA infection seen at bedside complaining of b/l lower extremity painful edema. Plan: Patient seen and evaluated at bedside with attending Dr. Squires Plan discussed with Dr. Squires Charts, labs and vitals reviewed: Afebrile, no leukocytosis B/L Tomas bandage applied to lower extremities. Ordered b/l Venous duplex. Ordered lotrisone cream to be applied b/l topically BID. Continue medications as per primary service. Podiatry will continue to follow while patient in house - Date & Time Date: 09/13/18 Time: 11:42 <Juan Squires - Last Filed: 09/13/18 16:45> Meds - Medications Medications: Current Medications Apixaban (Eliquis) 5 mg PO BID PENDING SALE TO [facility]; Protocol Last Admin: 09/13/18 10:06 Dose: 5 mg Aspirin (Aspirin Chewable) 81 mg PO DAILY PENDING SALE TO [facility] Last Admin: 09/13/18 10:04 Dose: 81 mg Atorvastatin Calcium (Lipitor) 40 mg PO DIN PENDING SALE TO [facility] Betamethasone/Clotrimazole (Lotrisone) 0 gm TOP BID PENDING SALE TO [facility] Digoxin (Digoxin) 0.125 mg PO 1400 PENDING SALE TO [facility] Last Admin: 09/13/18 14:41 Dose: 0.125 mg Docusate Sodium (Colace) 100 mg PO BID PENDING SALE TO [facility] Last Admin: 09/13/18 10:03 Dose: 100 mg Ergocalciferol (Drisdol 50,000 Intl Units Cap) 1 cap PO Q7D PENDING SALE TO [facility] Last Admin: 09/13/18 13:00 Dose: 1 cap Escitalopram Oxalate (Lexapro) 10 mg PO HS PENDING SALE TO [facility] Milrinone Lactate/Dextrose (Primacor 20mg/100ml D5w) 100 mls @ 16.84 mls/hr IV .Q5H57M PRN; Protocol PRN Reason: TITRATE PER MD ORDER Last Admin: 09/13/18 15:09 Dose: 0.375 mcg/kg/min, 16.84 mls/hr Insulin Detemir (Levemir) 30 unit SC [facility] Insulin Human Regular (Humulin R Low) 0 units SC [facility]; Protocol Last Admin: 09/13/18 13:01 Dose: 1 u Ipratropium [place] (Atrovent) 0.5 mg IH TIDRESP PENDING SALE TO [facility] Last Admin: 09/13/18 13:11 Dose: 0.5 mg Levalbuterol HCl (Xopenex) 0.63 mg IH [id number] PRN PRN Reason: Shortness of Breath Last Admin: 09/13/18 10:41 Dose: 0.63 mg Levalbuterol HCl (Xopenex) 0.63 mg IH TIDRESP PENDING SALE [facility] Last Admin: 09/13/18 13:11 Dose: 0.63 mg Metolazone (Zaroxolyn) 5 mg PO DAILY PENDING SALE TO [facility] Stop: 09/16/18 23:59 Last Admin: 09/13/18 10:06 Dose: 5 mg Oxycodone HCl (Oxycodone Immediate Release Tab) 5 mg PO Q6H PRN PRN Reason: Pain, severe (8-10) Last Admin: 09/13/18 14:40 Dose: 5 mg Pantoprazole Sodium (Protonix Ec Tab) 40 mg PO 0600 PENDING SALE TO [facility] Polyethylene Glycol (Miralax) 17 gm PO BID PENDING SALE TO [facility] Last Admin: 09/13/18 10:20 Dose: Not Given Spironolactone (Aldactone) 25 mg PO BID JANY Verapamil HCl (Calan Tab) 40 mg PO TID PENDING SALE [facility] Last Admin: 09/13/18 14:07 Dose: Not Given Results - Vital Signs Recent Vital Signs: Last Vital Signs Temp 97.3 F L 09/13/18 12:00 Pulse 100 H 09/13/18 14:00 Resp 20 09/13/18 12:00 BP 99/61 L 09/13/18 14:07 Pulse Ox 96 09/13/18 06:00 - Labs Result Diagrams: 09/12/18 21:00 09/12/18 21:00 Labs: Laboratory Results - last 24 hr 09/12/18 09/12/18 09/12/18 20:46 21:00 21:00 WBC 2.9 L RBC 4.69 Hgb 11.8 L Hct 38.1 L MCV 81.2 MCH 25.2 MCHC 31.0 RDW 19.9 H Plt Count 189 MPV 10.8 Neut % (Auto) 57.2 Lymph % (Auto) 22.1 Ward % (Auto) 15.8 H Eos % (Auto) 4.2 Baso % (Auto) 0.7 Lymph # (Auto) 0.6 L Ward # (Auto) 0.5 Eos # (Auto) 0.1 Baso # (Auto) 0.02 Absolute Neuts (auto) 1.63 pO2 VBG pH VBG pCO2 VBG HCO3 VBG Total CO2 VBG O2 Sat (Calc) VBG Base Excess VBG Potassium Glucose Lactate FiO2 Sodium 135 Potassium 5.3 H Chloride 99 Carbon Dioxide 26 Anion Gap 15 BUN 39 H Creatinine 1.3 Est GFR ( Amer) > 60 Est GFR (Non-Af Amer) 57 POC Glucose (mg/dL) 191 H Random Glucose 191 H Calcium 9.5 Magnesium 2.4 H Lactate Dehydrogenase 410 Total Creatine Kinase 24 L Troponin I 0.02 D NT-Pro-B Natriuret Pep 7580 H Venous Blood Potassium 09/12/18 21:12 WBC RBC Hgb Hct MCV MCH MCHC RDW Plt Count MPV Neut % (Auto) Lymph % (Auto) Ward % (Auto) Eos % (Auto) Baso % (Auto) Lymph # (Auto) Ward # (Auto) Eos # (Auto) Baso # (Auto) Absolute Neuts (auto) pO2 93 H VBG pH 7.47 H VBG pCO2 38.0 L VBG HCO3 27.7 VBG Total CO2 28.9 H VBG O2 Sat (Calc) 99.2 H VBG Base Excess 3.9 H VBG Potassium 5.3 H Glucose 197 H Lactate 1.5 FiO2 21.0 Sodium 134.0 Potassium Chloride 101.0 Carbon Dioxide Anion Gap BUN Creatinine Est GFR ( Amer) Est GFR (Non-Af Amer) POC Glucose (mg/dL) Random Glucose Calcium Magnesium Lactate Dehydrogenase Total Creatine Kinase Troponin I NT-Pro-B Natriuret Pep Venous Blood Potassium 5.3 H Attending/Attestation - Attestation I have personally seen and examined this patient.: Yes I have fully participated in the care of the patient.: Yes I have reviewed all pertinent clinical information: Yes
[2018-09-13] MEDS: Ergocalciferol 50,000 Intl Units Cap PO SCH (13:00)
[2018-09-13] MEDS: Insulin Reg-LOW-Coverage SC SCH ×3 (13:01→21:39)
[2018-09-13] MEDS: Ipratropium 0.02% Inhal Soln (0.5 mg/2.5 ml) UD IH SCH ×2 (13:11→20:25)
[2018-09-13] MEDS: Levalbuterol 0.63 MG/3 ML Inhal Soln UD IH SCH ×2 (13:11→20:25)
--- NOTE | 2018-09-13 13:56 | CON ---
DATE: 09/13/2018 PULMONARY CONSULTATION NOTE REASON FOR CONSULTATION: Sleep apnea, COPD and shortness of breath. HISTORY OF PRESENT ILLNESS: This is a 58-year-old male known to us from previous admissions, has history of noncompliance with outpatient followup, has past medical history significant for morbid obesity, coronary artery disease with CABG, congestive heart failure, diabetes mellitus, obstructive sleep apnea, chronic kidney disease, fatty liver disease, hypertension, history of MRSA infection on lower extremities, AFib, cardiomyopathy, lymphedema bilateral lower extremity. The patient presents to emergency room complaining of following to bilateral lower extremities swelling to his scrotum, abdominal distention and shortness of breath for about 10 days. Repots that he has been taking his Lasix at home but they have not been helping. Also reported on admission to the emergency room that he was having some urinary retention and some sharp chest pain. Today, the patient seen sitting up at bedside, edema continues, reports some nasal congestion. Denies any chest pain. Muñoz catheter in place. PAST MEDICAL HISTORY: As per history of present illness. ALLERGIES: NO KNOWN ALLERGIES. SOCIAL HISTORY: Nonsmoker. No EtOH abuse. No illicit drug use. FAMILY HISTORY: No significant cardiopulmonary disease reported. MEDICATIONS: Reviewed. Eliquis 5 mg twice a day, aspirin 81 mg, Lipitor 40 mg at dinner, Lotrisone topically twice a day to affected area, digoxin 0.125 mg daily, Colace 100 mg twice a day, ergocalciferol 50,000 units weekly, Lexapro 10 mg at bedtime, Lasix 40 mg twice a day, Levemir 30 units subcutaneously at bedtime, Humulin R sliding scale a.c. and at bedtime, Xopenex 0.63 mg inhalation every 6 hours p.r.n., metolazone 5 mg daily, Primacor 20 mg in 100 mL D5W 100 mL at 16.84 mL per hour, Protonix 40 mg daily, MiraLax 17 g twice a day, Aldactone 25 mg twice a day, Ultram 50 mg every 6 hours p.r.n. and Verapamil 40 mg 3 times a day. REVIEW OF SYSTEMS: No headache, chest pain, abdominal pain, nausea, vomiting, diarrhea, leg pain reported. The patient reports swelling to bilateral lower extremities, swelling to scrotum and abdominal distention. Reports shortness of breath at times, especially when lying flat, states he has nasal congestion. PHYSICAL EXAMINATION GENERAL: No acute distress. VITAL SIGNS: Blood pressure 108/70, pulse 107, temperature 97.7 and oxygen saturation 96%. HEENT: Moist mucous membranes. Crowded airway. Mallampati score of 4. NECK: Supple. No JVD. LUNGS: Few scattered rhonchi. CARDIOVASCULAR: S1 and S2. ABDOMEN: Distended and nontender. EXTREMITIES: Bilateral lower extremity edema. NEUROLOGICAL: Awake, alert and verbal. Following commands. EXTREMITIES: Chronic skin changes, edema. LABORATORY DATA: Reviewed. WBC 2.9, RBC 4.69, hemoglobin 11.9, hematocrit 38.1 and platelets 189. PO2 of 93, venous blood gas pH 7.47, venous blood gas PCO2 of 38, venous blood gas HCO3 of 27.7 on FiO2 of 21. Sodium 135, potassium 5.3, chloride 99, carbon dioxide 26, anion gap 15, BUN 39, creatinine 1.3, GFR 57, POC glucose 191, random glucose 191, calcium 9.5, magnesium 2.4, lactate dehydrogenase 410, total creatine kinase 24, troponin 0.02, proBNP 7580 and venous blood potassium 5.3. Chest x-ray shows moderate interstitial prominence, may reflect infection or edema. No focal consolidation. EKG; atrial fibrillation with rapid ventricular response. IMPRESSION AND PLAN: Congestive heart failure, chronic obstructive lung disease, cardiomyopathy, coronary artery disease, obstructive sleep apnea, noncompliance with continuous positive airway pressure and bilevel positive airway pressure use, diabetes mellitus, peripheral vascular disease, morbid obesity, hypertension, chronic kidney disease and pulmonary hypertension. Discussed with the patient in depth regarding using bilevel positive airway pressure machine, the patient refuses at this time, understanding risk associated with sleep apnea even . The patient verbalizes that he does not want to use continuous positive airway pressure and bilevel positive airway pressure machine, but will leave continuous positive airway pressure and bilevel positive airway pressure in his room incase he changes his mind tonight. Needs to monitor closely for cardiac arrhythmia. We will increase Lasix to 80 mg twice a day, repeating CMP in the morning. The patient currently on anticoagulation for atrial fibrillation. We will add Xopenex and Atrovent routine for chronic lung disease. Gastric prophylaxis, sleep apnea precaution, head of elevated at 45 degrees and fall precautions. Continue supplemental oxygen. This patient was seen and examined with Dr. Simpson. Discussed assessment and plan as described above. This patient was seen and examined with Jose Salinas, nurse practitioner. Discussed assessment and plan as described above. Thank you for this consult and we will follow with you. Jose Salinas APN Rudy Simpson MD HONG
[2018-09-13] MEDS: oxyCODONE 5 mg Immediate Release Tab PO PRN (14:40)
[2018-09-13] MEDS: Digoxin 125 mcg (0.125 mg) Tab PO SCH (14:41)
[2018-09-13] MEDS: Clotrimazole/Betamethasone Cream(15 gm) TOP SCH (20:24)
[2018-09-13] MEDS: Insulin Detemir 100 units/ml Vial (Levemir) SC SCH (21:36)
[2018-09-14] MEDS: oxyCODONE 5 mg Immediate Release Tab PO PRN ×3 (00:38→23:40)
--- NOTE | 2018-09-14 04:39 | CON ---
DATE: 09/13/2018 CARDIOLOGY CONSULTATION REASON FOR CONSULTATION: Followup acute decompensated congestive heart failure, secondary to systolic dysfunction; swelling of the leg and scrotal swelling and shortness of breath. Cardiac evaluation and management. BRIEF CLINICAL HISTORY: This is a 58-year-old morbidly obese male, very noncompliant with past medical history significant with coronary artery disease, CABG, CHF, reduced EF, diabetes, obstructive sleep apnea, chronic kidney disease, chronic atrial fibrillation, noncompliance with the medication, came in with complaint of leg swelling, shortness of breath, and scrotal swelling since Lasix does not work. Denies any chest pain. The last time the patient came in to the ER and suggested to start Primacor, but the patient eloped and signed out from the emergency room. PAST HISTORY: Significant for morbid obesity, diabetes, hypertension, hyperlipidemia, chronic atrial fibrillation, coronary artery bypass in 1998, quadruple bypass at [facility], history of multiple admissions for decompensated congestive heart failure, acute and chronic, secondary to systolic dysfunction as well as diastolic dysfunction; chronic venous stasis, history of chronic atrial fibrillation. Previous cardiac workup as follows: The patient had an echo on 07/10/2016 that shows dilated left ventricle ejection fraction, severely decreased. The patient had a repeat echocardiography done on last admission dated 07/09/2018, read by me and that showed an ejection fraction of 20-25%, four-chamber dilatation, trace aortic regurgitation, [id number] mitral regurgitation, moderate tricuspid regurgitation, RV systolic pressure 40, trace pulmonary insufficiency, dilated IVC dated 07/09/2018. History of atrial fibrillation, paroxysmal, now is persistent. The patient will scheduled a stress test, but the patient refused, think that nuclear material will poison him and he does not want this. The last time the patient had a regular stress test dated 06/07/2017 and refused catheterization as well in the past. CURRENT MEDICATIONS: The patient is supposed to take at home, guaifenesin, Aldactone, potassium, , Reglan, meclizine, insulin, glimepiride, Coreg, carvedilol. Digoxin and anticoagulation were added the last time at admission, but the patient does not want to take it. ALLERGIES: NO KNOWN DRUG ALLERGIES. REVIEW OF SYSTEMS: As per HPI. PHYSICAL EXAMINATION: GENERAL: Height of the patient, 5 feet 9 inches, weight of the patient 330 pounds, body mass index 50 kg/m2. VITAL SIGNS: Temperature afebrile, heart rate 100, blood pressure 108/70. HEENT: PERRLA. Extraocular muscles are intact. NECK: Supple. No carotid bruits or thyromegaly. CHEST: Clear to auscultation. Basilar crackles noted. Decreased air entry at the bases. HEART: Irregular. ABDOMEN: Soft. EXTREMITIES: 3+ pedal edema, scrotal swelling noted. LABORATORY DATA: EKG: AFib, rate of 110. Blood workup: WBC 2.9, hemoglobin 11.8, hematocrit 38.1, platelet count of 189. Chemistry shows sodium 135, potassium 5.2, chloride 99, carbon dioxide of 26, anion gap of 15, BUN 35, creatinine 1.3. BNP 7580. Chest x-ray shows CHF. IMPRESSION: This is a 58-year-old morbidly obese male with past medical history of significant coronary artery disease status post coronary artery bypass graft in 1998, very noncompliant with the medication, history of atrial fibrillation, does not want to take anticoagulation, does not want to take digoxin. Last echo shows four-chamber dilatation, decreased left ventricular function, admitted with acute decompensated congestive heart failure secondary to systolic dysfunction. RECOMMENDATIONS: We will start Eliquis, we will start IV Primacor, aggressive diuresis with Zaroxolyn, hold other medications because of low blood pressure, start verapamil to control the heart rate. Once he stabilizes and patient improves, we will put MARCEL or ARB as well as low dose of Coreg. Emphasis is made in comparison with medication, followup and further recommendation made for hospital course. We will follow with you. Thank you, Dr. Posey, for providing us the opportunity in taking care of the patient, Mason Benavides. Rudy Fermin MD
[2018-09-14] MEDS: Milrinone 20mg/100ml D5W 100 ML IV PRN ×4 (05:21→23:16)
[2018-09-14] MEDS: Pantoprazole 40 mg EC Tab PO SCH (05:23)
[2018-09-14 07:10] LABS: ALB/GLOB RATIO 1.2 (1.1-1.8); ALBUMIN 3.7 g/dL (3.0-4.8); ALT/SGPT 6 U/L (7-56); AST/SGOT 34 U/L (17-59); BLOOD UREA NITROGEN 42 mg/dL (7-21); CALCIUM 9.2 mg/dL (8.4-10.5); GFR NON-AFRICAN AMERICAN 52
[2018-09-14 07:11] LABS: BASO # 0.03 K/mm3 (0.0-2.0); BASO % 0.8 % (0.0-3.0); EOS # 0.2 (0.0-0.7); EOS % 4.8 % (1.5-5.0); HEMOGLOBIN 10.2 g/dL (14.0-18.0); LYMPH # 0.6 (1.2-3.4); LYMPH % 16.2 % (22.0-35.0); MEAN CELL VOLUME 81.3 fl (80.0-105.0); MEAN CORPUSCULAR HEMOGLOBIN 24.4 pg (25.0-35.0); MEAN PLATELET VOLUME 10.5 fl (7.0-11.0); MONO # 0.5 (0.1-0.6); RBC 4.18 10^6/uL (3.5-6.1); RED CELL DISTRIBUTION WIDTH 19.7 % (11.5-14.5); WHITE BLOOD COUNT 3.8 10^3/uL (4.5-11.0)
[2018-09-14] MEDS: Insulin Reg-LOW-Coverage SC SCH ×3 (08:46→16:30)
[2018-09-14] MEDS: Levalbuterol 0.63 MG/3 ML Inhal Soln UD IH SCH ×3 (09:25→20:13)
[2018-09-14] MEDS: Ipratropium 0.02% Inhal Soln (0.5 mg/2.5 ml) UD IH SCH ×3 (09:25→20:13)
[2018-09-14] MEDS: Clotrimazole/Betamethasone Cream(15 gm) TOP SCH ×2 (11:00→20:17)
[2018-09-14] MEDS: metOLazone 5 MG TAB PO SCH (11:00)
--- NOTE | 2018-09-14 11:18 | CP.PCM.PN ---
<Alessio Champion - Last Filed: 09/14/18 11:15> Subjective - Date & Time of Evaluation Date of Evaluation: 09/14/18 Time of Evaluation: 11:15 - Subjective Subjective: Podiatry progress note for attending Dr. Squires: 58 year old male patient edema seen at bedside for b/l painful leg swelling. Patient states that his leg pain improved since yesterday. He states that he feels some burning pain in his heels when he steps on his feet. He states that he had some nausea today. He denies any further pedal complaints at this time. He denies any overnight V/F/C/CP/SO. Objective - Vital Signs/Intake and Output Vital Signs (last 24 hours): Temp Pulse Resp BP Pulse Ox 98.7 F 99 H 18 122/63 99 09/14/18 06:00 09/14/18 06:00 09/14/18 06:00 09/14/18 06:00 09/14/18 06:00 Intake and Output: 09/14/18 09/14/18 06:59 18:59 Intake Total 2085 100 Output Total 1100 Balance 985 100 - Medications Medications: Current Medications Apixaban (Eliquis) 5 mg PO BID [facility]; Protocol Last Admin: 09/13/18 18:47 Dose: 5 mg Aspirin (Aspirin Chewable) 81 mg PO DAILY [facility] Last Admin: 09/13/18 10:04 Dose: 81 mg Atorvastatin Calcium (Lipitor) 40 mg PO DIN [facility] Last Admin: 09/13/18 18:47 Dose: 40 mg Betamethasone/Clotrimazole (Lotrisone) 0 gm TOP BID [facility] Last Admin: 09/13/18 20:24 Dose: 1 applic Digoxin (Digoxin) 0.125 mg PO 1400 [facility] Last Admin: 09/13/18 14:41 Dose: 0.125 mg Docusate Sodium (Colace) 100 mg PO BID [facility] Last Admin: 09/13/18 18:48 Dose: 100 mg Ergocalciferol (Drisdol 50,000 Intl Units Cap) 1 cap PO Q7D [facility] Last Admin: 09/13/18 13:00 Dose: 1 cap Escitalopram Oxalate (Lexapro) 10 mg PO HS [facility] Last Admin: 09/13/18 21:36 Dose: 10 mg Furosemide (Lasix) 40 mg IVP 0800,1400 [facility] Milrinone Lactate/Dextrose (Primacor 20mg/100ml D5w) 100 mls @ 16.84 mls/hr IV .Q5H57M PRN; Protocol PRN Reason: TITRATE PER MD ORDER Last Admin: 09/14/18 10:56 Dose: 0.375 mcg/kg/min, 16.84 mls/hr Insulin Detemir (Levemir) 30 unit SC HS [facility] Last Admin: 09/13/18 21:36 Dose: 30 unit Insulin Human Regular (Humulin R Low) 0 units SC ACHS [facility]; Protocol Last Admin: 09/14/18 08:46 Dose: Not Given Ipratropium [place] (Atrovent) 0.5 mg IH TIDRESP [facility] Last Admin: 09/14/18 09:25 Dose: 0.5 mg Levalbuterol HCl (Xopenex) 0.63 mg IH [id number] PRN PRN Reason: Shortness of Breath Last Admin: 09/13/18 10:41 Dose: 0.63 mg Levalbuterol HCl (Xopenex) 0.63 mg IH TIDRESP [facility] Last Admin: 09/14/18 09:25 Dose: 0.63 mg Metolazone (Zaroxolyn) 5 mg PO DAILY [facility] Stop: 09/16/18 23:59 Last Admin: 09/13/18 10:06 Dose: 5 mg Oxycodone HCl (Oxycodone Immediate Release Tab) 5 mg PO Q6H PRN PRN Reason: Pain, severe (8-10) Last Admin: 09/14/18 00:38 Dose: 5 mg Pantoprazole Sodium (Protonix Ec Tab) 40 mg PO 0600 [facility] Last Admin: 09/14/18 05:23 Dose: 40 mg Polyethylene Glycol (Miralax) 17 gm PO BID [facility] Last Admin: 09/13/18 18:48 Dose: 17 gm Spironolactone (Aldactone) 25 mg PO BID [facility] Verapamil HCl (Calan Tab) 40 mg PO TID [facility] Last Admin: 09/13/18 18:47 Dose: 40 mg - Labs Labs: 09/14/18 06:00 09/14/18 06:00 - Constitutional Appears: Non-toxic, No Acute Distress - Head Exam Head Exam: ATRAUMATIC, NORMOCEPHALIC - Extremities Exam Additional comments: LE focused exam: Vasc: DP/PT pulses non palpable secondary to b/l swelling. Cap refill < 3 seconds to all digits. Skin temperature warm to warm from proximal to distal. Diffuse +2 pitting edema noted to b/l LE. Neuro: Gross and protective sensation grossly intact b/l. Derm: No open lesions, wounds, maceration, xerosis, or abnormal growths noted to b/l LE. Skin changes noted 2ry to chronic edema in the form of thickning and lichnification. MSK: Mild pain on palpating to b/l LE. No gross deformities noted b/l. Muscle power intact 5/5 to all groups b/l. - Neurological Exam Neurological Exam: Alert, Awake, Oriented x3 Assessment and Plan - Assessment and Plan (Free Text) Assessment: 58 year old male patient edema seen at bedside for b/l lower extremity painful edema. Plan: Patient seen and evaluated at bedside with attending Dr. Squires Plan discussed with Dr. Squires Charts, labs and vitals reviewed: Afebrile, no leukocytosis. Ordered PT evaluation and treatment. B/L Tomas bandage applied to lower extremities. B/L Venous duplex; Pending. Continue applying lotrisone cream b/l topically BID. Continue medications as per primary service. Podiatry will continue to follow while patient in house <Juan Squires - Last Filed: 09/14/18 12:02> Objective - Vital Signs/Intake and Output Vital Signs (last 24 hours): Temp Pulse Resp BP Pulse Ox 98.7 F 99 H 18 122/63 99 09/14/18 06:00 09/14/18 06:00 09/14/18 06:00 09/14/18 06:00 09/14/18 06:00 Intake and Output: 09/14/18 09/14/18 06:59 18:59 Intake Total 2085 100 Output Total 1100 Balance 985 100 - Medications Medications: Current Medications Apixaban (Eliquis) 5 mg PO BID [facility]; Protocol Last Admin: 09/13/18 18:47 Dose: 5 mg Aspirin (Aspirin Chewable) 81 mg PO DAILY [facility] Last Admin: 09/13/18 10:04 Dose: 81 mg Atorvastatin Calcium (Lipitor) 40 mg PO DIN [facility] Last Admin: 09/13/18 18:47 Dose: 40 mg Betamethasone/Clotrimazole (Lotrisone) 0 gm TOP BID [facility] Last Admin: 09/13/18 20:24 Dose: 1 applic Digoxin (Digoxin) 0.125 mg PO 1400 [facility] Last Admin: 09/13/18 14:41 Dose: 0.125 mg Docusate Sodium (Colace) 100 mg PO BID [facility] Last Admin: 09/13/18 18:48 Dose: 100 mg Ergocalciferol (Drisdol 50,000 Intl Units Cap) 1 cap PO Q7D [facility] Last Admin: 09/13/18 13:00 Dose: 1 cap Escitalopram Oxalate (Lexapro) 10 mg PO HS [facility] Last Admin: 09/13/18 21:36 Dose: 10 mg Furosemide (Lasix) 40 mg IVP 0800,1400 [facility] Milrinone Lactate/Dextrose (Primacor 20mg/100ml D5w) 100 mls @ 16.84 mls/hr IV .Q5H57M PRN; Protocol PRN Reason: TITRATE PER MD ORDER Last Admin: 09/14/18 10:56 Dose: 0.375 mcg/kg/min, 16.84 mls/hr Insulin Detemir (Levemir) 30 unit SC [facility] Last Admin: 09/13/18 21:36 Dose: 30 unit Insulin Human Regular (Humulin R Low) 0 units SC [facility]; Protocol Last Admin: 09/14/18 08:46 Dose: Not Given Ipratropium [place] (Atrovent) 0.5 mg IH TIDRESP [facility] Last Admin: 09/14/18 09:25 Dose: 0.5 mg Levalbuterol HCl (Xopenex) 0.63 mg IH [id number] PRN PRN Reason: Shortness of Breath Last Admin: 09/13/18 10:41 Dose: 0.63 mg Levalbuterol HCl (Xopenex) 0.63 mg IH TIDRESP [facility] Last Admin: 09/14/18 09:25 Dose: 0.63 mg Metolazone (Zaroxolyn) 5 mg PO DAILY [facility] Stop: 09/16/18 23:59 Last Admin: 09/13/18 10:06 Dose: 5 mg Oxycodone HCl (Oxycodone Immediate Release Tab) 5 mg PO Q6H PRN PRN Reason: Pain, severe (8-10) Last Admin: 09/14/18 00:38 Dose: 5 mg Pantoprazole Sodium (Protonix Ec Tab) 40 mg PO 0600 [facility] Last Admin: 09/14/18 05:23 Dose: 40 mg Polyethylene Glycol (Miralax) 17 gm PO BID [facility] Last Admin: 09/13/18 18:48 Dose: 17 gm Spironolactone (Aldactone) 25 mg PO BID [facility] Verapamil HCl (Calan Tab) 40 mg PO TID [facility] Last Admin: 09/13/18 18:47 Dose: 40 mg - Labs Labs: 09/14/18 06:00 09/14/18 06:00 Attending/Attestation - Attestation I have personally seen and examined this patient.: Yes I have fully participated in the care of the patient.: Yes I have reviewed all pertinent clinical information, including history, physical exam and plan: Yes
[2018-09-14] MEDS: Digoxin 125 mcg (0.125 mg) Tab PO SCH (15:43)
[2018-09-14] MEDS: POLYETHYLENE GLYCOL 3350 17 GM/Dose PACKET PO SCH ×2 (15:46→20:00)
--- NOTE | 2018-09-14 20:58 | PN ---
DATE: 09/14/2018 SUBJECTIVE: The patient was seen today. He is lying in the bed in 45 degrees. He does feel orthopnea when he is lying flat. His is big, distended, nontender, and Muñoz catheter is in with diureses. PHYSICAL EXAMINATION: VITAL SIGNS: Temperature 98.1, heart rate 123, blood pressure is 105/58, and respirations 18. HEAD AND NECK: Normal. No JVD. No thyromegaly. CHEST: Diminished breath sounds bilaterally. CARDIAC: First sound and second sound normal. Tachycardic. ABDOMEN: Obese and nontender. EXTREMITIES: Edema bilateral with lymphedema with chronic skin changes. NEUROLOGICAL: Normal. LABORATORY STUDY: Shows sodium 135, potassium 4.9, chloride 99, bicarb 27, BUN 42, creatinine 1.4, and blood sugar 126. Liver function test is normal. Albumin 3.7 and globulin 3.2. CBC shows white count 3.8, hemoglobin 10.2, hematocrit 34, and platelets 187. IMPRESSION AND PLAN: 1. Acute congestive heart failure on top of chronic systolic heart failure. Continue IV Lasix, continue IV milrinone. 2. Atrial fibrillation new, continue Eliquis plus verapamil. 3. Chronic obstructive pulmonary disease. 4. Obstructive sleep apnea, continue bilevel positive airway pressure, and follow up with Dr. Simpson. 5. Lymphedema, chronic leg edema with scrotal edema, continue diuresis. Podiatry consult seeing the patient. 6. Diabetes, insulin dependent. Blood sugar is controlled in 120s. Continue current management. Continue current therapy. Follow up clinically. Tyrone Posey MD
--- NOTE | 2018-09-14 22:18 | PN ---
DATE: 09/14/2018 PULMONARY PROGRESS NOTE REFERRING PHYSICIAN: Tyrone Posey MD SUBJECTIVE: He is out of bed to chair, has a Muñoz catheter, dark color urine, claiming not putting out enough urine. Short of breath, minimal exertion. No chest pain. No nausea, No vomiting. No diarrhea, has anasarca, lower extremity; refuse to use CPAP/BiPAP. OBJECTIVE: GENERAL: No acute distress. VITAL SIGNS: Temperature 98, heart rate 106, respiratory rate is 20, blood pressure 112/71, pulse ox 99% on nasal cannula. HEENT: Moist mucous membranes. Crowded airway. Mallampati score is 4. NECK: Supple. No JVD. LUNGS: Decrease breath sound at bases. Few rhonchi. HEART: S1, S2. ABDOMEN: Soft. Nontender. Nondistended, has some edema. EXTREMITIES: Has anasarca. Chronic skin changes. NEUROLOGIC: Awake and alert, follows simple commands. MEDICATIONS: He is on Aldactone 25 mg twice a day, aspirin 81 mg daily, Atrovent 0.5 mg three times a day, Calan 40 mg three times a day, Colace 100 mg twice a day, digoxin 0.125 mg daily, vitamin D 50,000 units every seven days, Eliquis 5 mg twice a day, insulin coverage, Lasix 40 mg IV twice a day, Levemir 30 units subcu h.s., Lexapro 10 mg h.s., Lipitor 40 mg daily, Lotrisone cream affected area, MiraLax 17 g twice a day, oxycodone immediate release 5 mg every 6 hours p.r.n., Primacor IV drip, Protonix 40 mg daily, Xopenex inhaled p.r.n., Zaroxolyn 5 mg daily. LABORATORY DATA: Shows hemoglobin 10.2, hematocrit 34.7, WBC 3.8, platelet count is 187. Sodium 135, potassium 4.9, chloride 99, bicarbonate 27, BUN 42, creatinine 1.4, glucose 126, calcium 9.2, phosphorus 3.2, magnesium 2.2, AST 34, ALT 6, alk phos is 76, albumin is 3.7. IMPRESSION: Congestive heart failure, chronic obstructive lung disease, cardiomyopathy, coronary artery disease, obstructive sleep apnea syndrome, suspected diabetes mellitus, peripheral vascular disease, morbid obesity, hypertension, chronic renal disease, pulmonary hypertension. PLAN: We will continue to encourage the patient to use BiPAP, keep head at 45 degrees, continue diuretics or Primacor. We will send urinalysis and urine culture. May need to increase the diuretics. Thank you and we will follow with you. Rudy Simpson MD
[2018-09-15] MEDS: Insulin Detemir 100 units/ml Vial (Levemir) SC SCH ×2 (00:02→22:20)
--- NOTE | 2018-09-15 00:02 | HP ---
DATE OF EXAM: 09/13/2018 MAIN REASON FOR ADMISSION: Difficulty breathing. HISTORY OF PRESENT ILLNESS: This is a 58-year-old male who came into the hospital with complaint of short of breath, swelling of both lower extremities, and swelling of the scrotum. The patient is well known. He has ischemic cardiomyopathy and noncompliant. The patient keep signing AMA, poor compliance with meds as outpatient and inpatient, came in with dyspnea, progressive swelling all over his body including his belly, scrotum and legs with history of recurrent cellulitis and lymphedema, came with similar complaint and was admitted to the hospital for evaluation and treatment. Denied any fever, chills, or any chest pain. PAST MEDICAL HISTORY: As I explained has congestive heart failure with low ejection fraction, coronary artery disease, hypertension, hypercholesteremia, insulin-dependent diabetes, morbid obesity, obstructive sleep apnea, chronic lymphedema, chronic leg cellulitis, obstructive sleep apnea, noncompliance, and poor compliance as outpatient and inpatient. ALLERGIES: NO KNOWN ALLERGY. MEDICATIONS: Plavix 75 mg, Coreg 3.125 b.i.d., calcium pills twice a day, Tessalon Perles, Lipitor 40, aspirin 81, Aldactone 25 p.o. daily, potassium 10 p.o. daily, MiraLax, Protonix 40, Reglan p.r.n., Antivert, Xopenex q.i.d., Levemir 50 units subcutaneously daily, Amaryl 4 mg b.i.d., Lasix 40 p.o. b.i.d., Advair, Flonase, Lexapro 10 mg p.o. at bedtime, vitamin D once a week, and Colace 100 b.i.d. REVIEW OF SYSTEMS: As in the present illness. Did not have difficulty breathing. He does have weakness. He does have swelling of the lower extremity, dysuria, knee arthritis, and back pain. No GI symptoms. The patient is also noncompliant consulted with any GI colonoscopies or prostate eval. Does not follow with either doctor as outpatient. PHYSICAL EXAMINATION: GENERAL: The patient was sitting in the bed, does not seems to be in respiratory distress, but his belly is huge, scrotum is huge, swollen, edematous both lower extremity with the chronic ischemic changes. VITAL SIGNS: Temperature 97.7, heart rate 107, blood pressure 108/70, respirations 20, and saturation 96%. HEENT: Head and neck normal. No JVD. CHEST: Diminished breath sounds with few basilar rales. CARDIAC: First sound and second sound normal. ABDOMEN: Soft, obese, and nontender. EXTREMITIES: Lymphedema both lower extremities. GENITOURINARY: Scrotum is huge and swollen. Both testicles swollen and it seems like in a one testicular . LABORATORY DATA: White count 2.9, hemoglobin 11.8, hematocrit 38.1, and platelets 189. Chemistry shows sodium 135, potassium 5.3, chloride 99, bicarbonate 26, BUN 39, creatinine 1.3, blood sugar 191, glucose 191, calcium 9.5, and magnesium 2.4. Lactate dehydrogenase is 410. CK is 24. Troponin 0.02. ProBNP 7580. Chest x-ray report, it shows moderate interstitial prominence reflect infection or edema. No focal consolidations that is consistent with congestive heart failure. The patient also had electrocardiogram, which shows atrial fibrillation with rapid ventricular response, possible anteroseptal . IMPRESSION: 1. Acute congestive heart failure, severe anasarca. We will start IV Lasix, Cardiology consult Dr. Fermin seen the patient, start him on milrinone drip, IV Lasix, Zaroxolyn, and also put him on Eliquis 5 mg because of his atrial fibrillation, continue digoxin, and the patient was getting verapamil 40 mg three times a day for controlling of his atrial fibrillation. 2. Chronic obstructive pulmonary disease, continue Xopenex. The patient need bilevel positive airway pressure machine for obstructive sleep apnea, Pulmonary consult Dr. Simpson. 3. Bilateral lower extremity edema, lymphedema, we will get Dr. Squires for lower extremity cellulitis and edema. PLAN: Continue current therapy. For diabetes, resume insulin and insulin coverage. Continue current therapy. Follow up clinically. The patient is a full code. Poor compliance patient and will need Lasix diuresis at least 20 to 30 pounds of gain weight because of his edema all over. Tyrone Posey MD
[2018-09-15] MEDS: Pantoprazole 40 mg EC Tab PO SCH (06:09)
[2018-09-15] MEDS: oxyCODONE 5 mg Immediate Release Tab PO PRN ×2 (06:09→22:30)
[2018-09-15] MEDS: Milrinone 20mg/100ml D5W 100 ML IV PRN ×3 (06:10→18:22)
[2018-09-15] MEDS: Insulin Reg-LOW-Coverage SC SCH ×5 (08:18→22:22)
[2018-09-15] MEDS: Levalbuterol 0.63 MG/3 ML Inhal Soln UD IH SCH ×3 (09:12→20:19)
[2018-09-15] MEDS: Ipratropium 0.02% Inhal Soln (0.5 mg/2.5 ml) UD IH SCH ×3 (09:12→20:19)
[2018-09-15] MEDS: Clotrimazole/Betamethasone Cream(15 gm) TOP SCH ×2 (09:35→18:17)
[2018-09-15] MEDS: metOLazone 5 MG TAB PO SCH (09:36)
[2018-09-15] MEDS: POLYETHYLENE GLYCOL 3350 17 GM/Dose PACKET PO SCH ×2 (09:36→18:16)
--- NOTE | 2018-09-15 11:51 | CP.PCM.PN ---
<Alessio Champion - Last Filed: 09/15/18 11:48> Subjective - Date & Time of Evaluation Date of Evaluation: 09/15/18 Time of Evaluation: 11:48 - Subjective Subjective: Podiatry progress note for attending Dr. Squires: 58 year old male patient edema seen at bedside for b/l painful leg swelling. Patient states that his leg pain and swelling are improving. He states that he is still feeling some burning pain in his heels when he steps on it. He states that he had some nausea today. He denies any further pedal complaints at this t aide. He denies any overnight V/F/C/CP/SO. Objective - Vital Signs/Intake and Output Vital Signs (last 24 hours): Temp Pulse Resp BP Pulse Ox 97.4 F L 103 H 20 106/58 L 95 09/15/18 05:55 09/15/18 09:36 09/15/18 05:55 09/15/18 09:36 09/15/18 05:55 Intake and Output: 09/15/18 09/15/18 06:59 18:59 Intake Total 1220 Output Total 1850 Balance -630 - Medications Medications: Current Medications Apixaban (Eliquis) 5 mg PO BID [facility]; Protocol Last Admin: 09/15/18 09:36 Dose: 5 mg Aspirin (Aspirin Chewable) 81 mg PO DAILY [facility] Last Admin: 09/15/18 09:36 Dose: 81 mg Atorvastatin Calcium (Lipitor) 40 mg PO DIN [facility] Last Admin: 09/14/18 20:00 Dose: 40 mg Betamethasone/Clotrimazole (Lotrisone) 0 gm TOP BID [facility] Last Admin: 09/15/18 09:35 Dose: 1 applic Digoxin (Digoxin) 0.125 mg PO 1400 [facility] Last Admin: 09/14/18 15:43 Dose: 0.125 mg Docusate Sodium (Colace) 100 mg PO BID [facility] Last Admin: 09/15/18 09:36 Dose: 100 mg Ergocalciferol (Drisdol 50,000 Intl Units Cap) 1 cap PO Q7D [facility] Last Admin: 09/13/18 13:00 Dose: 1 cap Escitalopram Oxalate (Lexapro) 10 mg PO HS [facility] Last Admin: 09/14/18 23:19 Dose: 10 mg Furosemide (Lasix) 60 mg IVP 0800,1400 [facility] Last Admin: 09/15/18 09:36 Dose: 60 mg Milrinone Lactate/Dextrose (Primacor 20mg/100ml D5w) 100 mls @ 16.84 mls/hr IV .Q5H57M PRN; Protocol PRN Reason: TITRATE PER MD ORDER Last Admin: 09/15/18 06:10 Dose: 0.375 mcg/kg/min, 16.84 mls/hr Insulin Detemir (Levemir) 30 unit SC [facility] Last Admin: 09/15/18 00:02 Dose: Not Given Insulin Human Regular (Humulin R Low) 0 units SC [facility]; Protocol Last Admin: 09/15/18 08:18 Dose: Not Given Ipratropium [place] (Atrovent) 0.5 mg IH TIDRESP [facility] Last Admin: 09/15/18 09:12 Dose: 0.5 mg Levalbuterol HCl (Xopenex) 0.63 mg IH [id number] PRN PRN Reason: Shortness of Breath Last Admin: 09/13/18 10:41 Dose: 0.63 mg Levalbuterol HCl (Xopenex) 0.63 mg IH TIDRESP [facility] Last Admin: 09/15/18 09:12 Dose: 0.63 mg Metolazone (Zaroxolyn) 5 mg PO DAILY [facility] Stop: 09/16/18 23:59 Last Admin: 09/15/18 09:36 Dose: 5 mg Oxycodone HCl (Oxycodone Immediate Release Tab) 5 mg PO Q6H PRN PRN Reason: Pain, severe (8-10) Last Admin: 09/15/18 06:09 Dose: 5 mg Pantoprazole Sodium (Protonix Ec Tab) 40 mg PO 0600 [facility] Last Admin: 09/15/18 06:09 Dose: 40 mg Polyethylene Glycol (Miralax) 17 gm PO BID [facility] Last Admin: 09/15/18 09:36 Dose: 17 gm Spironolactone (Aldactone) 25 mg PO BID [facility] Verapamil HCl (Calan Tab) 40 mg PO TID [facility] Last Admin: 09/15/18 09:36 Dose: 40 mg - Labs Labs: 09/14/18 06:00 09/14/18 06:00 - Constitutional Appears: Non-toxic - Head Exam Head Exam: ATRAUMATIC, NORMOCEPHALIC - Extremities Exam Additional comments: LE focused exam: Vasc: DP/PT pulses non palpable secondary to b/l swelling. Cap refill < 3 seconds to all digits. Skin temperature warm to warm from proximal to distal. Diffuse +2 pitting edema noted to b/l LE, improving. Neuro: Gross and protective sensation grossly intact b/l. Derm: No open lesions, wounds, maceration, xerosis, or abnormal growths noted to b/l LE. Skin changes noted 2ry to chronic edema in the form of thickning and lichnification. MSK: Mild pain on palpating to b/l LE. No gross deformities noted b/l. Muscle power intact 5/5 to all groups b/l. - Neurological Exam Neurological Exam: Alert, Awake, Oriented x3 - Psychiatric Exam Psychiatric exam: Normal Affect, Normal Mood Assessment and Plan - Assessment and Plan (Free Text) Assessment: 58 year old male patient edema seen at bedside for b/l lower extremity painful stasis edema. Plan: Patient seen and evaluated at bedside Plan discussed with Dr. Squires Charts, labs and vitals reviewed: Afebrile, no leukocytosis. Ordered PT evaluation and treatment. B/L Tomas bandage applied to lower extremities. B/L Venous duplex; Pending. Continue applying lotrisone cream b/l topically BID. Continue medications as per primary service. Podiatry will continue to follow while patient in house <Juan Squires - Last Filed: 09/17/18 07:46> Objective - Vital Signs/Intake and Output Vital Signs (last 24 hours): Temp Pulse Resp BP Pulse Ox 97.7 F 93 H 19 111/62 92 L 09/17/18 05:53 09/17/18 05:53 09/17/18 05:53 09/17/18 05:53 09/17/18 05:53 Intake and Output: 09/17/18 09/17/18 06:59 18:59 Intake Total 906 Output Total 2200 Balance -1294 - Medications Medications: Current Medications Apixaban (Eliquis) 5 mg PO BID [facility]; Protocol Last Admin: 09/16/18 17:10 Dose: 5 mg Aspirin (Aspirin Chewable) 81 mg PO DAILY [facility] Last Admin: 09/16/18 09:38 Dose: 81 mg Atorvastatin Calcium (Lipitor) 40 mg PO DIN [facility] Last Admin: 09/16/18 17:09 Dose: 40 mg Betamethasone/Clotrimazole (Lotrisone) 0 gm TOP BID [facility] Last Admin: 09/16/18 17:10 Dose: 1 applic Digoxin (Digoxin) 0.125 mg PO 1400 [facility] Last Admin: 09/16/18 14:09 Dose: 0.125 mg Docusate Sodium (Colace) 100 mg PO BID [facility] Last Admin: 09/16/18 17:10 Dose: 100 mg Ergocalciferol (Drisdol 50,000 Intl Units Cap) 1 cap PO Q7D [facility] Last Admin: 09/13/18 13:00 Dose: 1 cap Escitalopram Oxalate (Lexapro) 10 mg PO HS [facility] Last Admin: 09/16/18 21:46 Dose: 10 mg Fluticasone Propionate (Flonase) 1 actuation NS DAILY [facility] Last Admin: 09/16/18 09:37 Dose: 1 actuation Furosemide (Lasix) 60 mg IVP Q8 [facility] Last Admin: 09/17/18 05:21 Dose: 60 mg Milrinone Lactate/Dextrose (Primacor 20mg/100ml D5w) 100 mls @ 17.212 mls/hr IV .Q5H49M PRN; Protocol PRN Reason: TITRATE PER MD ORDER Last Admin: 09/17/18 03:47 Dose: 0.375 mcg/kg/min, 17.212 mls/hr Insulin Detemir (Levemir) 30 unit SC [facility] Last Admin: 09/16/18 21:51 Dose: Not Given Insulin Human Regular (Humulin R Low) 0 units SC [facility]; Protocol Last Admin: 09/16/18 21:45 Dose: Not Given Ipratropium [place] (Atrovent) 0.5 mg IH TIDRESP [facility] Last Admin: 09/16/18 19:38 Dose: 0.5 mg Levalbuterol HCl (Xopenex) 0.63 mg IH [id number] PRN PRN Reason: Shortness of Breath Last Admin: 09/13/18 10:41 Dose: 0.63 mg Levalbuterol HCl (Xopenex) 0.63 mg IH TIDRESP [facility] Last Admin: 09/16/18 19:38 Dose: 0.63 mg Oxycodone HCl (Oxycodone Immediate Release Tab) 5 mg PO Q6H PRN PRN Reason: Pain, severe (8-10) Last Admin: 09/17/18 03:51 Dose: 5 mg Pantoprazole Sodium (Protonix Ec Tab) 40 mg PO 0600 [facility] Last Admin: 09/17/18 05:22 Dose: 40 mg Polyethylene Glycol (Miralax) 17 gm PO BID [facility] Last Admin: 09/16/18 17:09 Dose: 17 gm Spironolactone (Aldactone) 25 mg PO BID [facility] Verapamil HCl (Calan Tab) 40 mg PO TID [facility] Last Admin: 09/16/18 17:10 Dose: 40 mg - Labs Labs: 09/14/18 06:00 09/17/18 05:30 Attending/Attestation - Attestation I have personally seen and examined this patient.: Yes I have fully participated in the care of the patient.: Yes I have reviewed all pertinent clinical information, including history, physical exam and plan: Yes
[2018-09-15] MEDS: Digoxin 125 mcg (0.125 mg) Tab PO SCH (14:35)
[2018-09-15] MEDS: Fluticasone Nasal 50 mcg/Spray NS SCH (18:15)
--- NOTE | 2018-09-15 18:56 | PN ---
DATE: 09/15/2018 PULMONARY PROGRESS NOTE REFERRING PHYSICIAN: Dr. Posey. SUBJECTIVE: He is sitting up by the side of the bed, has a Muñoz catheter, claiming that he does not have enough urine and why Lasix was cut down, refusing to use CPAP and BiPAP. Mild cough. On Flonase. No nausea, no vomiting. No diarrhea. Has anasarca. OBJECTIVE: GENERAL: No acute distress. VITAL SIGNS: Temp is 98, heart rate 102, respiratory rate is 18, blood pressure 101/56, pulse oximetry 98% on face mask oxygen. HEENT: Moist mucous membranes. Crowded airway. Mallampati score is 4. NECK: Supple. No JVD. LUNGS: Decrease breath sound at bases. HEART: S1, S2. ABDOMEN: Soft, nontender. No organomegaly, has abdominal wall edema. EXTREMITIES: He has anasarca. Testicular edema. NEUROLOGIC: Awake and alert, follows simple commands. MEDICATIONS: He is on Aldactone 25 mg twice a day, aspirin 81 mg daily, Atrovent 0.5 mg three times a day, Calan 40 mg three times a day, Colace 100 mg twice a day, digoxin 0.125 mg daily, vitamin D 50,000 units every seven days, Eliquis 5 mg daily, insulin coverage, Lasix 60 mg twice a day, Levemir 30 units subcutaneous at bedtime, Lexapro 10 mg at bedtime, Lipitor 40 mg daily, Lotrisone to affected area, oxycodone immediate release 5 mg every 6 hours p.r.n., Primacor IV drip, Protonix 40 mg daily, Xopenex inhaled every 6 hours, Zaroxolyn 5 mg daily. LABORATORY DATA: Reviewed and showed blood sugar this morning of 162. IMPRESSION AND PLAN Congestive heart failure, chronic obstructive lung disease, cardiomyopathy, coronary artery disease, obstructive sleep apnea syndrome, suspected diabetes mellitus, peripheral vascular disease, morbid obesity, hypertension, chronic renal failure, pulmonary hypertension. I spoke to nursing staff, Discouraged the patient to take oral free fluid, mainly to put him on fluid restriction. May increase Lasix to 60 mg every 8 hours. Watch electrolytes very closely. Also watch for orthostatic hypotension. On Primacor. Encourage bilevel positive airway pressure use. Thank you. We will follow with you. Rudy Simpson MD [facility] # [id number]
--- NOTE | 2018-09-15 19:20 | CP.PCM.CON ---
History of Present Illness - History of Present Illness History of Present Illness: GENERAL SURGERY CONSULT NOTE FOR DR. ROQUE 58yo noncompliant male with PMHx of morbid obesity, CAD s/p CABG, CHF, DM, chronic renal insufficiency, JOAN, A fib, HTN, COPD and LE edema originally presented to the ED on 09/12 for bilateral LE edema, scrotal edema, and SOB and was admitted for acute on chronic CHF. Surgery is consulted for right breast masses. Pt states that last summer, he felt 1 right breast lump. He had a bilateral US on 01/14/18 which was negative, BIRADS 1 as well as a bilateral mammogram which was also BIRADS 1. His PMD recommended that he follow up with a breast surgeon but patient expressed hesitation at seeing a surgeon so did not follow up. Pt states that about 6 weeks ago, he noticed 2 additional lumps which were tender. Denies nipple discharge. PMHx: morbid obesity, CAD s/p CABG, CHF, DM, chronic renal insufficiency, JOAN, A fib, HTN, COPD and LE edema Surgeries: CABG 20 years ago, 2 back surgeries Allergies: none Social hx: former smoker, quit in 1985. Drinks 1 glass a day, some days of the week. Review of Systems - Review of Systems All systems: reviewed and no additional remarkable complaints except (as per HPI) Past Patient History - Infectious Disease Hx of Infectious Diseases: None - Tetanus Immunizations Tetanus Immunization: Unknown - Past Medical History & Family History Past Medical History?: Yes - Past Social History Smoking Status: Never Smoked - CARDIAC Hx Cardiac Disorders: Yes (tachycardia, cad) Hx Angina: Yes Hx Cardia Arrhythmia: Yes Hx Congestive Heart Failure: Yes Hx Hypertension: Yes Hx Peripheral Edema: Yes (+4 pitting ble edema) Other/Comment: 1998 open heart, circulation problems, chronic non healing draining leg wounds - PULMONARY Hx Respiratory Disorders: Yes Hx Asthma: Yes Hx Chronic Obstructive Pulmonary Disease (COPD): Yes Hx Pneumonia: Yes Hx Sleep Apnea: Yes - NEUROLOGICAL Hx Neurological Disorder: Yes Hx Dizziness: Yes - HEENT Hx HEENT Problems: Yes (eyeglases) Hx Cataracts: Yes Hx Glaucoma: Yes Other/Comment: dental abcess 09/17/17, missing teeth, wound cultures taken of r and l leg wounds 07/08/18 results are still pending - RENAL Hx Chronic Kidney Disease: Yes Hx Kidney Stones: Yes Hx Renal Failure: Yes - ENDOCRINE/METABOLIC Hx Endocrine Disorders: Yes Hx Diabetes Mellitus Type 2: Yes - HEMATOLOGICAL/ONCOLOGICAL Hx Blood Disorders: Yes Hx Hepatitis A: Yes - INTEGUMENTARY Hx Dermatological Problems: Yes Other/Comment: + 4 edema ble discolored skin,multiple non heaing draining wounds, thick toenails, chronic mrsa, dry skin both feet, discolored toes, chest scar healed from open heart 1998 - MUSCULOSKELETAL/RHEUMATOLOGICAL Hx Falls: Yes (past) - GASTROINTESTINAL Hx Gastrointestinal Disorders: Yes (obese, fatty liver) - GENITOURINARY/GYNECOLOGICAL Hx Genitourinary Disorders: No - PSYCHIATRIC Hx Psychophysiologic Disorder: Yes Hx Depression: Yes Hx Substance Use: No - SURGICAL HISTORY Hx Cardiac Catheterization: Yes Hx Coronary Stent: Yes Hx Open Heart Surgery: Yes Other/Comment: pylonidal cysts x 2 - ANESTHESIA Hx Anesthesia: Yes Hx Anesthesia Reactions: No Hx Malignant Hyperthermia: No Meds Allergies/Adverse Reactions: Allergies Allergy/AdvReac Type Severity Reaction Status Date / Time No Known Allergies Allergy Verified 06/03/18 17:59 - Medications Medications: Current Medications Apixaban (Eliquis) 5 mg PO BID [facility]; Protocol Last Admin: 09/15/18 18:16 Dose: 5 mg Aspirin (Aspirin Chewable) 81 mg PO DAILY [facility] Last Admin: 09/15/18 09:36 Dose: 81 mg Atorvastatin Calcium (Lipitor) 40 mg PO DIN [facility] Last Admin: 09/15/18 18:16 Dose: 40 mg Betamethasone/Clotrimazole (Lotrisone) 0 gm TOP BID [facility] Last Admin: 09/15/18 18:17 Dose: 1 applic Digoxin (Digoxin) 0.125 mg PO 1400 [facility] Last Admin: 09/15/18 14:35 Dose: 0.125 mg Docusate Sodium (Colace) 100 mg PO BID [facility] Last Admin: 09/15/18 18:16 Dose: 100 mg Ergocalciferol (Drisdol 50,000 Intl Units Cap) 1 cap PO Q7D [facility] Last Admin: 09/13/18 13:00 Dose: 1 cap Escitalopram Oxalate (Lexapro) 10 mg PO HS [facility] Last Admin: 09/14/18 23:19 Dose: 10 mg Fluticasone Propionate (Flonase) 1 actuation NS DAILY [facility] Last Admin: 04/14/19 18:15 Dose: 1 actuation Furosemide (Lasix) 60 mg IVP Q8 [facility] Last Admin: 09/15/18 14:35 Dose: 60 mg Milrinone Lactate/Dextrose (Primacor 20mg/100ml D5w) 100 mls @ 16.84 mls/hr IV .Q5H57M PRN; Protocol PRN Reason: TITRATE PER MD ORDER Last Admin: 09/15/18 18:22 Dose: 0.375 mcg/kg/min, 16.84 mls/hr Insulin Detemir (Levemir) 30 unit SC [facility] Last Admin: 09/15/18 00:02 Dose: Not Given Insulin Human Regular (Humulin R Low) 0 units SC [facility]; Protocol Last Admin: 09/15/18 18:16 Dose: 1 u Ipratropium [place] (Atrovent) 0.5 mg IH TIDRESP [facility] Last Admin: 09/15/18 13:51 Dose: 0.5 mg Levalbuterol HCl (Xopenex) 0.63 mg IH [id number] PRN PRN Reason: Shortness of Breath Last Admin: 09/13/18 10:41 Dose: 0.63 mg Levalbuterol HCl (Xopenex) 0.63 mg IH TIDRESP [facility] Last Admin: 09/15/18 13:51 Dose: 0.63 mg Metolazone (Zaroxolyn) 5 mg PO DAILY [facility] Stop: 09/16/18 23:59 Last Admin: 09/15/18 09:36 Dose: 5 mg Oxycodone HCl (Oxycodone Immediate Release Tab) 5 mg PO Q6H PRN PRN Reason: Pain, severe (8-10) Last Admin: 09/15/18 06:09 Dose: 5 mg Pantoprazole Sodium (Protonix Ec Tab) 40 mg PO 0600 [facility] Last Admin: 09/15/18 06:09 Dose: 40 mg Polyethylene Glycol (Miralax) 17 gm PO BID [facility] Last Admin: 09/15/18 18:16 Dose: 17 gm Spironolactone (Aldactone) 25 mg PO BID [facility] Verapamil HCl (Calan Tab) 40 mg PO TID [facility] Last Admin: 09/15/18 18:16 Dose: 40 mg Physical Exam - Constitutional Appears: Non-toxic, No Acute Distress - Head Exam Head Exam: ATRAUMATIC, NORMAL INSPECTION - Eye Exam Eye Exam: EOMI, Normal appearance - Respiratory Exam Respiratory Exam: NORMAL BREATHING PATTERN. absent: Respiratory Distress - Cardiovascular Exam Cardiovascular Exam: +S1, +S2 - GI/Abdominal Exam GI & Abdominal Exam: Distended, Soft. absent: Tenderness - Exam Exam: Scrotal Swelling - Extremities Exam Extremities exam: Positive for: pedal edema Additional comments: LE edema bilaterally - Neurological Exam Neurological exam: Alert, CN II-XII Intact - Psychiatric Exam Psychiatric exam: Normal Affect, Normal Mood - Skin Skin Exam: Dry, Normal Color, Warm - Additional Findings Additional findings: Bilateral gynecomastia Right breast: 4 freely mobile 1-2 cm masses, tender, no nipple discharge or skin changes Left breast: lumpy breasts, tender to palpation Bilateral axilla: no lymphadenopathy appreciated Results - Vital Signs Recent Vital Signs: Last Vital Signs Temp 98.3 F 09/15/18 18:00 Pulse 93 H 09/15/18 18:00 Resp 18 09/15/18 18:00 BP 114/71 09/15/18 18:00 Pulse Ox 95 09/15/18 05:55 - Labs Result Diagrams: 09/14/18 06:00 09/14/18 06:00 Labs: Laboratory Results - last 24 hr 09/14/18 09/15/18 09/15/18 21:23 07:18 11:36 POC Glucose (mg/dL) 135 H 120 H 162 H 09/15/18 16:10 POC Glucose (mg/dL) 173 H Assessment & Plan - Assessment and Plan (Free Text) Assessment: 58yo M with PMHx of morbid obesity, CAD s/p CABG, CHF, DM, chronic renal insufficiency, JOAN, A fib, HTN, COPD and LE edema who has several right breast lumps 01/14/18 bilateral US: negative, BIRADS 1 01/14/18 bilateral mammogram: negative, BIRADS 1 Plan: - Bilateral mammogram - Bilateral US - Discussed plan with Dr. Monica Alonso PGY-4
--- NOTE | 2018-09-15 22:03 | PN ---
DATE: 09/15/2018 SUBJECTIVE: The patient was seen and examined. The patient has no new complaints. He still has a Muñoz catheter. He is still being diuresed. He still complains of shortness of breath with lying flat and with exertion. No chest pain, no short of breath. PHYSICAL EXAMINATION: VITAL SIGNS: Temperature 98, heart rate 102, blood pressure 101/56, and respirations 18. HEAD AND NECK: Normal. No JVD. No thyromegaly. CHEST: There are few basal rales. CARDIAC: First sound and second sound normal. Systolic murmur. ABDOMEN: Obese, distended, and nontender. EXTREMITIES: Edema. Both lower extremities have been wrapped with gauze. NEUROLOGIC: Normal. LABORATORY DATA: White count 3.8, hemoglobin 10.2, hematocrit 34, and platelets 187. His chemistry is noted for sodium of 135, potassium 4.9, chloride 99, bicarbonate 27, BUN 42, creatinine 1.4, and blood sugar 126. Liver function test is normal. Magnesium is 2.2. IMPRESSION AND PLAN: 1. Acute systolic heart failure on top of chronic systolic heart failure. Continue intravenous Lasix, Zaroxolyn, milrinone, and digoxin. 2. The patient also has atrial fibrillation, new. Continue Eliquis 5 mg b.i.d. and continue verapamil 40 mg t.i.d. p.o. 3. Insulin-dependent diabetes. Continue Levemir 30 units subcutaneously plus insulin coverage. 4. Chronic osteoarthritis, back pain. Continue oxycodone p.r.n. 5. Chronic obstructive pulmonary disease, obstructive sleep apnea. Continue BiPAP and nebulizer treatment. 6. Hypercholesterolemia. Continue Lipitor. 7. Generalized weakness. The patient will benefit from physical therapy. He is probably going to need subacute rehab. At this time, we will continue current therapy to get him out of congestive heart failure, then we will plan to send him for rehab if he agrees. The patient has been noncompliant. Tyrone Posey MD
[2018-09-16] MEDS: Milrinone 20mg/100ml D5W 100 ML IV PRN ×3 (01:17→21:47)
[2018-09-16] MEDS: Pantoprazole 40 mg EC Tab PO SCH (05:33)
[2018-09-16 06:51] LABS: ALB/GLOB RATIO 1.1 (1.1-1.8); ALBUMIN 3.6 g/dL (3.0-4.8); ALT/SGPT 9 U/L (7-56); AST/SGOT 40 U/L (17-59); BLOOD UREA NITROGEN 41 mg/dL (7-21); CALCIUM 9.4 mg/dL (8.4-10.5); GFR NON-AFRICAN AMERICAN > 60
[2018-09-16] MEDS: Insulin Reg-LOW-Coverage SC SCH ×4 (07:51→21:45)
[2018-09-16] MEDS: Ipratropium 0.02% Inhal Soln (0.5 mg/2.5 ml) UD IH SCH ×3 (07:52→19:38)
[2018-09-16] MEDS: Levalbuterol 0.63 MG/3 ML Inhal Soln UD IH SCH ×3 (07:52→19:38)
[2018-09-16] MEDS ORDERED: Potassium Chloride 20 mEq ER Tab PO STA ×2 (07:58)
--- NOTE | 2018-09-16 08:01 | CP.PCM.PN ---
Subjective - Date & Time of Evaluation Date of Evaluation: 09/16/18 Time of Evaluation: 07:35 - Subjective Subjective: General Surgery Progress Note for Dr. Monica Gentile, PGY1 Patient seen and examined at bedside this morning. No acute events reported overnight. Patient admits to tenderness with palpation of right breast. Denies fevers/chills/chest pain/SOB. Objective - Vital Signs/Intake and Output Vital Signs (last 24 hours): Temp Pulse Resp BP Pulse Ox 97.8 F 95 H 19 106/56 L 95 09/16/18 05:53 09/16/18 05:53 09/16/18 05:53 09/16/18 05:53 09/16/18 05:53 Intake and Output: 09/16/18 09/16/18 06:59 18:59 Intake Total 1774 Output Total 3100 Balance -1326 - Medications Medications: Current Medications Apixaban (Eliquis) [address] [facility]; Protocol Last Admin: 09/15/18 18:16 Dose: 5 mg Aspirin (Aspirin Chewable) [address] [facility] Last Admin: 09/15/18 09:36 Dose: 81 mg Atorvastatin Calcium (Lipitor) [address] [facility] Last Admin: 09/15/18 18:16 Dose: 40 mg Betamethasone/Clotrimazole (Lotrisone) [address] [facility] Last Admin: 09/15/18 18:17 Dose: 1 applic Digoxin (Digoxin) 0.[address] [facility] Last Admin: 09/15/18 14:35 Dose: 0.125 mg Docusate Sodium (Colace) [address] [facility] Last Admin: 09/15/18 18:16 Dose: 100 mg Ergocalciferol (Drisdol 50,000 Intl Units Cap) [address] [facility] Last Admin: 09/13/18 13:00 Dose: 1 cap Escitalopram Oxalate (Lexapro) [address] [facility] Last Admin: 09/15/18 22:19 Dose: 10 mg Fluticasone Propionate (Flonase) [address] [facility] Last Admin: 09/15/18 18:15 Dose: 1 actuation Furosemide (Lasix) [address] [facility] Last Admin: 09/16/18 05:32 Dose: 60 mg Insulin Detemir (Levemir) 30 unit SC [facility] Last Admin: 09/15/18 22:20 Dose: 30 unit Insulin Human Regular (Humulin R Low) [address] [facility]; Protocol Last Admin: 09/16/18 07:51 Dose: Not Given Ipratropium [place] (Atrovent) 0.[address] [facility] Last Admin: 09/16/18 07:52 Dose: 0.5 mg Levalbuterol HCl (Xopenex) 0.63 mg IH [id number] PRN PRN Reason: Shortness of Breath Last Admin: 09/13/18 10:41 Dose: 0.63 mg Levalbuterol HCl (Xopenex) 0.[address] [facility] Last Admin: 09/16/18 07:52 Dose: 0.63 mg Metolazone (Zaroxolyn) [address] [facility] Stop: 09/16/18 23:59 Last Admin: 09/15/18 09:36 Dose: 5 mg Oxycodone HCl (Oxycodone Immediate Release Tab) 5 mg PO Q6H PRN PRN Reason: Pain, severe (8-10) Last Admin: 09/15/18 22:30 Dose: 5 mg Pantoprazole Sodium (Protonix Ec Tab) [address] [facility] Last Admin: 09/16/18 05:33 Dose: 40 mg Polyethylene Glycol (Miralax) [address] [facility] Last Admin: 09/15/18 18:16 Dose: 17 gm Spironolactone (Aldactone) [address] [facility] Verapamil HCl (Calan Tab) [address] [facility] Last Admin: 09/15/18 18:16 Dose: 40 mg Physical Exam - Constitutional Appears: Non-toxic, No Acute Distress - Head Exam Head Exam: ATRAUMATIC, NORMAL INSPECTION - Eye Exam Eye Exam: EOMI, Normal appearance - Respiratory Exam Respiratory Exam: NORMAL BREATHING PATTERN. absent: Respiratory Distress - Cardiovascular Exam Cardiovascular Exam: +S1, +S2, regular rhythm - GI/Abdominal Exam GI & Abdominal Exam: Distended, Soft. absent: Tenderness, guarding, rebound - Extremities Exam Extremities exam: Positive for: pedal edema + 1 B/L. Negative for: calf tenderness Additional comments: - Neurological Exam Neurological exam: Alert Oriented x3, CN II-XII Intact - Skin Skin Exam: Dry, Normal Color, Warm - Additional Findings Additional findings: 4 tender nodules noted in lateral right breast, freely mobile, 1cm, no discharge No axillary lymphadenopathy noted Left breast non tender, no discharge Left breast size greater than right breast size, asymmetry appreciated - Labs Labs: 09/14/18 06:00 09/16/18 06:00 Assessment and Plan - Assessment and Plan (Free Text) Assessment: 58 year old male with PMH significant for CAD s/p CABG, CHF, JOAN, COPD presenting to the hospital for right breast mass. 01/14/18 bilateral US: negative, BIRADS 1. 01/14/18 bilateral mammogram: negative, BIRADS 1. Right Breast mass Acute on chronic systolic CHF Afib DM JOAN Plan: -B/L mammogram pending -B/L US pending -duplex LE to r/o DVT pending -CXR 09/12 reviewed, moderate interstitial prominence may reflect infection/edema. -further care as per primary medical team -further recommendations as per Dr. Anderson
[2018-09-16] MEDS: Fluticasone Nasal 50 mcg/Spray NS SCH (09:37)
[2018-09-16] MEDS: POLYETHYLENE GLYCOL 3350 17 GM/Dose PACKET PO SCH ×2 (09:37→17:09)
[2018-09-16] MEDS: metOLazone 5 MG TAB PO SCH (09:38)
[2018-09-16] MEDS: oxyCODONE 5 mg Immediate Release Tab PO PRN ×2 (09:54→20:00)
--- NOTE | 2018-09-16 10:24 | CP.PCM.PN ---
<Darline Delarosa - Last Filed: 09/16/18 10:21> Subjective - Date & Time of Evaluation Date of Evaluation: 09/16/18 Time of Evaluation: 10:21 - Subjective Subjective: Podiatry progress note for Drs. Morales/Dr. Squires 58 year old male patient seen and evaluated at bedside with Dr. Morales bilateral lower extremity swelling. Patient states that his leg pain and swelling are improving. He denies any further pedal complaints at this time. He denies any overnight nausea, vomiting, shortness of breath, chest pain or fever Objective - Vital Signs/Intake and Output Vital Signs (last 24 hours): Temp Pulse Resp BP Pulse Ox 97.8 F 95 H 19 106/56 L 95 09/16/18 05:53 09/16/18 09:38 09/16/18 05:53 09/16/18 09:38 09/16/18 05:53 Intake and Output: 09/16/18 09/16/18 06:59 18:59 Intake Total 1774 Output Total 3100 Balance -1326 - Medications Medications: Current Medications Apixaban (Eliquis) 5 mg PO BID [facility]; Protocol Last Admin: 09/16/18 09:38 Dose: 5 mg Aspirin (Aspirin Chewable) 81 mg PO DAILY [facility] Last Admin: 09/16/18 09:38 Dose: 81 mg Atorvastatin Calcium (Lipitor) 40 mg PO DIN [facility] Last Admin: 09/15/18 18:16 Dose: 40 mg Betamethasone/Clotrimazole (Lotrisone) 0 gm TOP BID [facility] Last Admin: 09/15/18 18:17 Dose: 1 applic Digoxin (Digoxin) 0.125 mg PO 1400 [facility] Last Admin: 09/15/18 14:35 Dose: 0.125 mg Docusate Sodium (Colace) 100 mg PO BID [facility] Last Admin: 09/16/18 09:38 Dose: 100 mg Ergocalciferol (Drisdol 50,000 Intl Units Cap) 1 cap PO Q7D [facility] Last Admin: 09/13/18 13:00 Dose: 1 cap Escitalopram Oxalate (Lexapro) 10 mg PO HS [facility] Last Admin: 09/15/18 22:19 Dose: 10 mg Fluticasone Propionate (Flonase) 1 actuation NS DAILY [facility] Last Admin: 09/16/18 09:37 Dose: 1 actuation Furosemide (Lasix) 60 mg IVP Q8 [facility] Last Admin: 09/16/18 05:32 Dose: 60 mg Milrinone Lactate/Dextrose (Primacor 20mg/100ml D5w) 100 mls @ 17.212 mls/hr IV .Q5H49M PRN; Protocol PRN Reason: TITRATE PER MD ORDER Last Admin: 09/16/18 09:38 Dose: 0.375 mcg/kg/min, 17.212 mls/hr Insulin Detemir (Levemir) 30 unit SC [facility] Last Admin: 09/15/18 22:20 Dose: 30 unit Insulin Human Regular (Humulin R Low) 0 units SC [facility]; Protocol Last Admin: 09/16/18 07:51 Dose: Not Given Ipratropium [place] (Atrovent) 0.5 mg IH TIDRESP [facility] Last Admin: 09/16/18 07:52 Dose: 0.5 mg Levalbuterol HCl (Xopenex) 0.63 mg IH [id number] PRN PRN Reason: Shortness of Breath Last Admin: 09/13/18 10:41 Dose: 0.63 mg Levalbuterol HCl (Xopenex) 0.63 mg IH TIDRESP [facility] Last Admin: 09/16/18 07:52 Dose: 0.63 mg Metolazone (Zaroxolyn) 5 mg PO DAILY [facility] Stop: 09/16/18 23:59 Last Admin: 09/16/18 09:38 Dose: 5 mg Oxycodone HCl (Oxycodone Immediate Release Tab) 5 mg PO Q6H PRN PRN Reason: Pain, severe (8-10) Last Admin: 09/16/18 09:54 Dose: 5 mg Pantoprazole Sodium (Protonix Ec Tab) 40 mg PO 0600 [facility] Last Admin: 09/16/18 05:33 Dose: 40 mg Polyethylene Glycol (Miralax) 17 gm PO BID [facility] Last Admin: 09/16/18 09:37 Dose: 17 gm Spironolactone (Aldactone) 25 mg PO BID [facility] Verapamil HCl (Calan Tab) 40 mg PO TID [facility] Last Admin: 09/16/18 09:37 Dose: 40 mg - Labs Labs: 09/14/18 06:00 09/16/18 06:00 - Constitutional Appears: Well, Non-toxic, No Acute Distress - Head Exam Head Exam: ATRAUMATIC, NORMOCEPHALIC - Extremities Exam Additional comments: LE focused exam: Vasc: DP/PT pulses faintly palpable secondary to b/l swelling. Cap refill < 3 seconds to all digits. Skin temperature warm to warm from proximal to distal. Diffuse +2 pitting edema noted to b/l LE, improving. Neuro: Gross and protective sensation grossly intact b/l. Derm: Skin changes with xerosis noted secondary to chronic edema, No open lesio ns, wounds, maceration, abnormal growths noted to b/l LE. MSK: Mild pain on palpating to b/l LE. No gross deformities noted b/l. Muscle power intact 5/5 to all groups b/l. - Neurological Exam Neurological Exam: Alert, Awake, Oriented x3 - Psychiatric Exam Psychiatric exam: Normal Affect, Normal Mood Assessment and Plan - Assessment and Plan (Free Text) Assessment: 58 year old male patient edema seen at bedside for b/l lower extremity painful stasis edema. Plan: Patient seen and evaluated at bedside with Dr. Morales Plan discussed with Dr. Morales Charts, labs and vitals reviewed: Afebrile, no leukocytosis Continue physical therapy B/L Venous duplex: Pending Continue applying lotrisone cream b/l topically BID B/L Tomas bandages applied to lower extremities Continue medications as per primary service Podiatry will continue to follow while patient in house <Katt Morales - Last Filed: 09/21/18 20:36> Objective - Vital Signs/Intake and Output Vital Signs (last 24 hours): Temp Pulse Resp BP Pulse Ox 98.1 F 80 19 112/72 94 L 09/20/18 12:00 09/20/18 14:56 09/20/18 12:00 09/20/18 14:56 09/20/18 06:00 - Labs Labs: 09/14/18 06:00 09/20/18 06:10 Attending/Attestation - Attestation I have personally seen and examined this patient.: Yes I have fully participated in the care of the patient.: Yes I have reviewed all pertinent clinical information, including history, physical exam and plan: Yes
[2018-09-16] MEDS: Clotrimazole/Betamethasone Cream(15 gm) TOP SCH ×2 (10:29→17:10)
[2018-09-16] MEDS: Digoxin 125 mcg (0.125 mg) Tab PO SCH (14:09)
--- NOTE | 2018-09-16 14:21 | CP.PCM.PCO ---
Physician Communication Note - Physician Communication Note Physician Communication Note: continue to diurese, repeat labs in am
[2018-09-16] MEDS ORDERED: Potassium Chloride 20 mEq ER Tab PO ONE (15:00)
--- NOTE | 2018-09-16 17:59 | US ---
HISTORY: Leg pain and swelling. Evaluate for DVT PHYSICIAN(S): George Lange MD. TECHNIQUE: Duplex sonography and color-flow Doppler with graded compression were used to evaluate the deep venous systems of both lower extremities. Exam is very limited by body habitus and edema. The lower femoral veins and tibial veins are not well seen FINDINGS: The visualized deep venous systems of both lower extremities are sonographically normal and compressible. Normal wave forms and augmentation are seen. There is no sonographic evidence for deep venous thrombosis in the visualized segments of both lower extremities. IMPRESSION: No sonographic evidence for deep venous thrombosis in the visualized segments of both lower extremities. Very limited study.
--- NOTE | 2018-09-16 19:54 | PN ---
DATE: 09/16/2018 REASON FOR CONSULTATION AND FOLLOWUP: Cardiac evaluation, admitted with acute decompensated congestive heart failure, chronic atrial fibrillation, history of coronary artery disease, CABG, noncompliance with medications. The patient denies any chest pain, shortness of breath or any palpitation. Feels a lot better, but still feeling distended abdomen and scrotal swelling. Swelling in the leg, decreased. OBJECTIVE: GENERAL: Not in apparent distress. Sitting on the chair. VITAL SIGNS: Temperature afebrile. Heart rate 90 and blood pressure 100/50. HEENT: PERRLA. Extraocular muscles intact. NECK: Supple. No carotid bruits or thyromegaly. CHEST: Clear to auscultation. HEART: S1 and S2, regular. ABDOMEN: Soft. EXTREMITIES: Clubbing and cyanosis negative. LABORATORY DATA: Blood workup as follows; WBC 3.1, hemoglobin 10, hematocrit 34 and platelet count 187. Chemistry shows sodium 131, potassium 3, chloride 96, carbon dioxide 31, anion gap of 13, BUN 41 and creatinine 1.2. IMPRESSION: A 58-year-old morbidly obese male with a past medical history significant for coronary artery disease, chronic atrial fibrillation, cardiomyopathy, refused cardiac catheterization, admitted with acute decompensated congestive heart failure, increase leg swelling, increased scrotal edema. The patient's last echocardiography on 07/09/2018, that shows ejection fraction 20% to 25% four-chambered dilatation, trace aortic regurgitation, [id number] mitral regurgitation, moderate tricuspid regurgitation, right ventricular systolic pressure 40, dilated inferior vena cava. RECOMMENDATION: Continue Eliquis as ordered 5 mg p.o. b.i.d., increasing. Continue Aldactone 25 mg p.o. b.i.d. Continue verapamil to control the heart rate. Continue digoxin 0.125 mg daily. Continue Lasix. Supplement aggressively potassium. Initial plan was to discontinue Primacor today, but the patient is still with severe scrotal swelling. We will get the benefit for 48-72 hours more from Primacor, we will continue to resume back Primacor. We will supplement potassium and follow up. We will give another 40 mEq K-Dur at 3 p.m. We will repeat the SMA-7 in the morning with magnesium, phosphorus and calcium. We will follow with you. Thank you, Dr. Posey, for providing us the opportunity in taking care of the patient, Mason Benavides. Rudy Fermin MD
--- NOTE | 2018-09-16 21:43 | PN ---
DATE: 09/16/2018 PULMONARY PROGRESS NOTE REFERRING PHYSICIAN: Tyrone Posey MD SUBJECTIVE: The patient is lying in the bed, head at 45 degrees. Feels a little better. Has some blood around the Muñoz catheter. No hemoptysis. No hematemesis. Has anasarca, testicular edema. OBJECTIVE: GENERAL: No acute distress. VITAL SIGNS: Temp is 98, heart rate is 98, respiratory rate is 20, blood pressure 100/49, and pulse ox 95% on 3 L nasal cannula. HEENT: Moist mucous membrane. Crowded airway. Mallampati score is 4. NECK: Supple. No JVD. LUNGS: Have fair airflow with rhonchi. HEART: S1 and S2. ABDOMEN: Obese. Has abdominal wall edema. EXTREMITIES: Have anasarca with testicular swelling. NEUROLOGIC: Awake and alert. Follows simple commands. MEDICATIONS: He is on Aldactone 25 mg twice a day, aspirin 81 mg daily, Atrovent inhaled three times a day, verapamil 40 mg three times a day, Colace 100 mg twice a day, digoxin 0.125 mg daily, vitamin D 50,000 units every 7 days, Eliquis 5 mg twice a daily, Flonase one spray each nostril daily, insulin coverage, Lasix 60 mg every 8 hours, Levemir 30 units subcu at bedtime, Lexapro 10 mg daily, Lipitor 40 mg daily, Lotrisone to affected area twice a day, MiraLax 17 g twice a day, oxycodone immediate release 5 mg every 6 hours p.r.n., Primacor drip, Protonix 40 mg daily, Xopenex inhaled every 6 hours, Zaroxolyn 5 mg daily. LABORATORY DATA: Reviewed and noted. Sodium 137, potassium 3, chloride 93, bicarbonate 31, BUN 41, creatinine 1.2, glucose 86, calcium 9.4, magnesium 2.1. AST 40, ALT 9, alk phos 74 and albumin is 3.6. IMPRESSION AND PLAN: Congestive heart failure, chronic obstructive lung disease, cardiomyopathy, coronary artery disease, obstructive sleep apnea syndrome, suspected diabetes, peripheral vascular disease, morbid obesity, hypertension, chronic renal failure, pulmonary hypertension. Pulmonary point of view, doing okay. Keep head elevated at 45 degrees. Sleep apnea precaution. Avoid sedation. The patient refused to use continuous positive airway pressure or bilevel positive airway pressure. Continue high dose of steroids. Follow electrolytes closely. Replace potassium. Elevate lower extremities. Thank you and we will follow with you. Rudy Simpson MD
[2018-09-16] MEDS: Insulin Detemir 100 units/ml Vial (Levemir) SC SCH ×2 (21:46→21:51)
[2018-09-17] MEDS: Milrinone 20mg/100ml D5W 100 ML IV PRN ×4 (03:47→23:47)
[2018-09-17] MEDS: oxyCODONE 5 mg Immediate Release Tab PO PRN ×2 (03:51→22:02)
[2018-09-17] MEDS: Pantoprazole 40 mg EC Tab PO SCH (05:22)
[2018-09-17 06:48] LABS: BLOOD UREA NITROGEN 36 mg/dL (7-21); CALCIUM 9.5 mg/dL (8.4-10.5); GFR NON-AFRICAN AMERICAN > 60
[2018-09-17] MEDS: Ipratropium 0.02% Inhal Soln (0.5 mg/2.5 ml) UD IH SCH ×3 (07:53→19:38)
[2018-09-17] MEDS: Levalbuterol 0.63 MG/3 ML Inhal Soln UD IH SCH ×3 (07:54→19:38)
[2018-09-17] MEDS: Insulin Reg-LOW-Coverage SC SCH ×4 (08:02→22:03)
[2018-09-17] MEDS ORDERED: Potassium Chloride 20 mEq ER Tab PO ONE ×3 (08:04→14:00)
[2018-09-17] MEDS: POLYETHYLENE GLYCOL 3350 17 GM/Dose PACKET PO SCH ×2 (09:33→17:50)
[2018-09-17] MEDS: Fluticasone Nasal 50 mcg/Spray NS SCH (09:34)
[2018-09-17] MEDS: Clotrimazole/Betamethasone Cream(15 gm) TOP SCH ×2 (09:35→17:52)
--- NOTE | 2018-09-17 09:49 | CP.PCM.PN ---
Subjective - Date & Time of Evaluation Date of Evaluation: 09/17/18 Time of Evaluation: 08:20 - Subjective Subjective: General Surgery Progress Note for Dr. Monica Gentile, PGY1 Patient seen and examined at bedside this morning. No acute events reported overnight. Patient states breast tenderness is unchanged from yesterday. Denies nausea/vomiting/fevers/chills/chest pain/SOB. Objective - Vital Signs/Intake and Output Vital Signs (last 24 hours): Temp Pulse Resp BP Pulse Ox 97.7 F 93 H 19 111/62 92 L 09/17/18 05:53 09/17/18 05:53 09/17/18 05:53 09/17/18 05:53 09/17/18 05:53 Intake and Output: 09/17/18 09/17/18 06:59 18:59 Intake Total 906 Output Total 2200 Balance -1294 - Medications Medications: Current Medications Apixaban (Eliquis) 5 mg PO BID [facility] [place]; Protocol Last Admin: 09/16/18 17:10 Dose: 5 mg Aspirin (Aspirin Chewable) 81 mg PO DAILY [facility] Last Admin: 09/16/18 09:38 Dose: 81 mg Atorvastatin Calcium (Lipitor) 40 mg PO DIN [facility] Last Admin: 09/16/18 17:09 Dose: 40 mg Betamethasone/Clotrimazole (Lotrisone) 0 gm TOP BID [facility] [place] Last Admin: 09/16/18 17:10 Dose: 1 applic Digoxin (Digoxin) 0.125 mg PO 1400 [facility] [place] Last Admin: 09/16/18 14:09 Dose: 0.125 mg Docusate Sodium (Colace) 100 mg PO BID [facility] Last Admin: 09/16/18 17:10 Dose: 100 mg Ergocalciferol (Drisdol 50,000 Intl Units Cap) 1 cap PO Q7D [facility] [place] Last Admin: 09/13/18 13:00 Dose: 1 cap Escitalopram Oxalate (Lexapro) 10 mg PO HS [facility] [place] Last Admin: 09/16/18 21:46 Dose: 10 mg Fluticasone Propionate (Flonase) 1 actuation NS DAILY [facility] [place] Last Admin: 09/16/18 09:37 Dose: 1 actuation Furosemide (Lasix) 60 mg IVP Q8 [facility] Last Admin: 09/17/18 05:21 Dose: 60 mg Milrinone Lactate/Dextrose (Primacor 20mg/100ml D5w) 100 mls @ 17.212 mls/hr IV .Q5H49M PRN; Protocol PRN Reason: TITRATE PER MD ORDER Last Admin: 09/17/18 03:47 Dose: 0.375 mcg/kg/min, 17.212 mls/hr Potassium Chloride (Potassium Chloride 10 Meq/100 Ml) 10 meq in 100 mls @ 100 mls/hr IVPB Q2H [facility] Stop: 09/17/18 12:14 Last Admin: 09/17/18 09:33 Dose: Not Given Insulin Detemir (Levemir) 30 unit SC HS [facility] [place] Last Admin: 09/16/18 21:51 Dose: Not Given Insulin Human Regular (Humulin R Low) 0 units SC ACHS [facility] [place]; Protocol Last Admin: 09/17/18 08:02 Dose: Not Given Ipratropium Austin (Atrovent) 0.5 mg IH TIDRESP [facility] [place] Last Admin: 09/17/18 07:53 Dose: 0.5 mg Levalbuterol HCl (Xopenex) 0.63 mg IH [id number] PRN PRN Reason: Shortness of Breath Last Admin: 09/13/18 10:41 Dose: 0.63 mg Levalbuterol HCl (Xopenex) 0.63 mg IH TIDRESP [facility] [place] Last Admin: 09/17/18 07:54 Dose: 0.63 mg Oxycodone HCl (Oxycodone Immediate Release Tab) 5 mg PO Q6H PRN PRN Reason: Pain, severe (8-10) Last Admin: 09/17/18 03:51 Dose: 5 mg Pantoprazole Sodium (Protonix Ec Tab) 40 mg PO 0600 [facility] [place] Last Admin: 09/17/18 05:22 Dose: 40 mg Polyethylene Glycol (Miralax) 17 gm PO BID [facility] Last Admin: 09/16/18 17:09 Dose: 17 gm Potassium Chloride (K-Dur 20 Meq Er Tab) 20 meq PO BRK [facility] [place] Potassium Chloride (K-Dur 20 Meq Er Tab) 40 meq PO ONCE ONE Stop: 09/17/18 12:01 Potassium Chloride (K-Dur 20 Meq Er Tab) 20 meq PO ONCE ONE Stop: 09/17/18 14:01 Spironolactone (Aldactone) 25 mg PO BID [facility] Verapamil HCl (Calan Tab) 40 mg PO TID [facility] Last Admin: 09/16/18 17:10 Dose: 40 mg - Labs Labs: 09/14/18 06:00 09/17/18 05:30 - Constitutional Appears: Non-toxic, No Acute Distress - Head Exam Head Exam: ATRAUMATIC, NORMAL INSPECTION - Eye Exam Eye Exam: EOMI, Normal appearance - Respiratory Exam Respiratory Exam: NORMAL BREATHING PATTERN. absent: Respiratory Distress - Cardiovascular Exam Cardiovascular Exam: +S1, +S2, no tachycardia - GI/Abdominal Exam GI & Abdominal Exam: Distended, Soft. absent: Tenderness, guarding, rebound - Extremities Exam Extremities exam: Positive for: pedal edema + 1 B/L. Negative for: calf tenderness Additional comments: - Neurological Exam Neurological exam: Alert Oriented x3, CN II-XII Intact. Lethargic - Skin Skin Exam: Dry, Normal Color, Warm - Additional Findings Additional findings: 4 tender nodules noted in lateral right breast, freely mobile, 1cm, no discharge No axillary lymphadenopathy noted Left breast non tender, no discharge Left breast size greater than right breast size, asymmetry appreciated Assessment and Plan - Assessment and Plan (Free Text) Assessment: 58 year old male with PMH significant for CAD s/p CABG, CHF, JOAN, COPD presenting to the hospital for right breast mass. 01/14/18 bilateral US: negative, BIRADS 1. 01/14/18 bilateral mammogram: negative, BIRADS 1. Right Breast mass Acute on chronic systolic CHF Hypokalemia Afib DM JOAN Plan: -B/L Breast US pending - tentatively today -duplex LE shows no evidence of DVT -B/L mammogram pending -CXR 09/12 reviewed, moderate interstitial prominence may reflect infection/edema. -further care as per primary medical team, potassium repleted -further recommendations as per Dr. Anderson
--- NOTE | 2018-09-17 11:08 | PN ---
DATE: 09/16/2018 SUBJECTIVE: The patient still complained of dyspnea, swelling over including his abdomen, scrotum, and lower extremities. He has no chest pain; afebrile. PHYSICAL EXAMINATION: VITAL SIGNS: Temperature is 98, heart rate is 89, blood pressure 102/57, and saturating 92% on room air. HEAD AND NECK: Normal. No JVD. No thyromegaly. CHEST: Bilateral basal rales. CARDIAC: First sound and second sound normal; systolic murmur. ABDOMEN: Obese and nontender. EXTREMITIES: Edematous both legs with chronic lymphedema changes. Scrotum is edematous, less than before. NEUROLOGIC: Normal. LABORATORY DATA: Sodium 137, potassium 3, BUN 41, creatinine 1.2, and glucose 115. Liver function test is normal. IMPRESSION AND PLAN: 1. Acute on top of chronic systolic heart failure. Continue IV Lasix. Continue IV milrinone. 2. Chronic lymphedema, bilateral lower extremity scrotal edema. Continue Lasix and Zaroxolyn. 3. Chronic obstructive pulmonary disease, obstructive sleep apnea. Continue bilevel positive airway pressure. Follow up with the Pulmonary consult. 4. Insulin-dependent diabetes. Continue insulin 30 units plus insulin coverage. 5. Chronic osteoarthritis, chronic back pain, and knee arthritis. Continue oxycodone p.r.n. Plan is to continue current therapy. Follow up laboratory study for electrolyte abnormality, we will repeat potassium and basic metabolic panel in the morning. CURRENT MEDICATIONS: Aspirin, Atrovent nebulizers, verapamil three times a day, Colace, digoxin, vitamin D, Eliquis 5 mg twice a day, Flonase insulin coverage, K-Dur 40 mEq using one time, and Lasix 40 IV twice daily, Xopenex four times a day, continuous positive airway pressure machine noncompliant, Lipitor 40, Lexapro 10, Lotrisone cream, MiraLax, Colace, oxycodone p.r.n. and Protonix 40. The patient was on IV milrinone. Current problem; the patient has is atrial fibrillation, new onset. Continue Eliquis for that and generalized weakness, the patient will need acute rehab, but patient refused. We will continue current therapy or follow up. Tyrone Posey MD [facility] # [id number]
--- NOTE | 2018-09-17 12:09 | US ---
Date of service: 09/17/2018 HISTORY: Right breast lumps TECHNIQUE: Sonographic evaluation of both breast was performed. FINDINGS: RIGHT BREAST: There is moderate subareolar fibroglandular parenchyma . No solid or cystic masses identified. No axillary lymphadenopathy identified. LEFT BREAST: There is moderate subareolar fibroglandular parenchyma. No solid or cystic masses identified. There is moderate subcutaneous edema in the lateral breast. No axillary lymphadenopathy identified. IMPRESSION: 1. Moderate bilateral subareolar fibroglandular parenchyma is most compatible with gynecomastia. No sonographic evidence of malignancy. Clinical follow-up is advised and further management should be based on other clinical parameters. When the patient's clinical condition is stable correlation with mammography is advised for definitive evaluation. 2. Moderate subcutaneous edema in the lateral breast. BIRADS: BIRADS 0 Incomplete - Need additional imaging evaluation and/or prior mammograms for comparison Recommendation: Recall for additional imaging and/or comparison with prior examination, as described above. Patient will be contacted.
--- NOTE | 2018-09-17 12:37 | PN ---
DATE: 09/17/2018 REASON FOR CONSULTATION AND FOLLOWUP: Cardiac evaluation, admitted with acute decompensated congestive heart failure, chronic atrial fibrillation, history of coronary artery disease, history of CABG, noncompliance with medications. SUBJECTIVE: The patient feels a little better, lying almost flat with 10-20 degree head up. Feels decrease in leg swelling, but still feels scrotal swelling. Having a good diuresis, last 24 hour 1.3-liter negative fluid balance. OBJECTIVE: VITAL SIGNS: Weight of the patient 317 pounds, admitting weight at that time was 330, so 13 pounds weight decrease. Temperature afebrile. heart rate 94, blood pressure 111/64. HEENT: PERRLA. Extraocular muscles intact. NECK: Supple. No carotid bruits or thyromegaly. No JVD. CHEST: Clear to auscultation. HEART: S1 and S2, irregular. ABDOMEN: Distended. EXTREMITIES: Wrapped in Tomas bandage. 2+ pedal edema, scrotal swelling. LABORATORY DATA: The patient refused blood workup today. Later on, it shows sodium 130, potassium 2.9, chloride 97, carbon dioxide 34, anion gap of 11, BUN 36 and creatinine 1.2. IMPRESSION: A 58-year-old morbidly obese male with past medical history significant for ischemic cardiomyopathy, chronic atrial fibrillation, noncompliance with the medications, refused cardiac catheterization in the past, history of coronary artery bypass surgery in the past, last echo shows 4 chamber dilation, ejection fraction 20% to 25%, admitted with acute decompensated congestive heart failure, acute on chronic, secondary to systolic dysfunction, secondary to reduced LV function. RECOMMENDATION: Continue Eliquis. Continue aggressive diuresis. Continue Primacor for next 24 to 48 hours. Aggressively supplement potassium. IV potassium was ordered, the patient refused because it burn, so we will put 40 mg p.o. now stat, 40 mg at 11 a.m. and 40 mg at 3 p.m. and another 40 mg at 7 p.m. Continue spironolactone, also added. Continue diuresis. Repeat SMA-7 in the morning. Discussed with the patient. We will follow with you. Last stress test on treadmill was negative for ischemia. The patient refused thallium because he thinks nuclear scans poison his body. Very noncompliant patient. When the patient goes home, just took only Lasix and refused all these medications. We started the patient on digoxin, verapamil, pressure is 100, not much room for TOMAS inhibitor and Coreg. Once the patient switch into p.o. diuretics, we will start back on TOMAS inhibitor as low dose and we will start low dose of Coreg as well with holding parameter. Continue digoxin. Continue aspirin. Continue atorvastatin. Continue Eliquis and diuretics. We will repeat blood work in the morning. Continue Eliquis for atrial fibrillation. The patient is a high risk for thromboembolic complication, high ATUL score. Thank you, Dr. Posey, for providing us the opportunity in taking care of the patient, Mason Benavides. Rudy Fermin MD
[2018-09-17] MEDS: Digoxin 125 mcg (0.125 mg) Tab PO SCH (13:49)
[2018-09-17] MEDS: Insulin Detemir 100 units/ml Vial (Levemir) SC SCH (22:01)
--- NOTE | 2018-09-18 02:32 | PN ---
DATE: 09/17/2018 PULMONARY PROGRESS NOTE REFERRING PHYSICIAN: Tyrone Posey MD SUBJECTIVE: The patient is sitting at the side of the bed. is at bedside. Night was unremarkable. Feels better. Not much cough with sputum production. No chest pain. No nausea. Still has abdominal wall edema, testicular edema and lower leg swelling. OBJECTIVE: GENERAL: No acute distress. VITAL SIGNS: Temperature 98, heart rate 91, respiratory rate 20, blood pressure 106/55, pulse oximetry 92% on room air. HEENT: Moist mucous membranes. Crowded airway. NECK: Supple. No JVD. LUNGS: Fair airflow with rhonchi. HEART: S1 and S2. ABDOMEN: Obese, soft. Abdominal wall edema. EXTREMITIES: He does have a chronic change in the lower extremities with edema. GENITOURINARY: He has testicular edema. NEUROLOGICAL: Awake and alert. Follows simple commands. MEDICATIONS: He is on Aldactone 25 mg twice a day, aspirin 81 mg daily, Proventil 0.5 mg inhaled three times a day, Calan 40 mg three times a day, Colace 100 mg twice a day, Coreg 3.125 mg twice a day, digoxin 0.125 mg daily, vitamin D 50,000 units every seven days, Eliquis 5 mg twice a day, Flonase one spray to each nostril daily, insulin coverage, potassium 20 mEq daily, Lasix 60 mg every 8 hours, Levemir 30 units subcutaneous at bedtime, Lexapro 10 mg daily, Lipitor 40 mg daily, Lotrisone to affected area, MiraLax 17 g twice a day, oxycodone immediate release every 6 hours p.r.n., IV Primacor, Protonix 40 mg daily, Xopenex inhaler every 6 hours, Zestril 2.5 mg daily. LABORATORY DATA: Shows sodium 139; potassium 2.9, being replaced; chloride 97; bicarbonate 34; BUN 36; creatinine 1.2; glucose 129. Calcium 9.5, phosphorus 3.7, magnesium 1.8. DIAGNOSTIC DATA: He had a lower extremity Doppler done today, which shows no sonographic evidence of DVT in the visualized segment of both lower extremities. Very limited study because of the lymphedema. IMPRESSION AND PLAN: Cardiomyopathy, chronic obstructive lung disease, coronary artery disease, obstructive sleep apnea syndrome, suspected diabetes, peripheral vascular disease, morbid obesity, hypertension, chronic renal failure, pulmonary hypertension. Spoke to the patient and the patient's in detail. Encouraged to use bilevel positive airway pressure, keep head at 45 degrees. Continue . Follow BUN and creatinine closely. On Primacor, watch for arrhythmia. Follow up electrolyte in the morning. Thank you and we will follow with you. Rudy Simpson MD
[2018-09-18] MEDS: Pantoprazole 40 mg EC Tab PO SCH (05:19)
[2018-09-18] MEDS: Milrinone 20mg/100ml D5W 100 ML IV PRN ×3 (06:27→19:55)
[2018-09-18 07:12] LABS: BLOOD UREA NITROGEN 32 mg/dL (7-21); CALCIUM 9.3 mg/dL (8.4-10.5); GFR NON-AFRICAN AMERICAN > 60
[2018-09-18] MEDS ORDERED: Potassium Chloride 20 mEq ER Tab PO ONE ×2 (07:38→14:00)
[2018-09-18] MEDS ORDERED: Magnesium Sulfate 2 gm/50 ml 2 GM/50 ML BAG IVPB ONE (07:39)
[2018-09-18] MEDS: Levalbuterol 0.63 MG/3 ML Inhal Soln UD IH SCH ×3 (07:59→19:29)
[2018-09-18] MEDS: Ipratropium 0.02% Inhal Soln (0.5 mg/2.5 ml) UD IH SCH ×3 (07:59→19:29)
[2018-09-18] MEDS: Insulin Reg-LOW-Coverage SC SCH ×4 (08:33→22:01)
[2018-09-18] MEDS: Fluticasone Nasal 50 mcg/Spray NS SCH (10:53)
[2018-09-18] MEDS: Magnesium Oxide 400 mg Tab UD PO SCH ×2 (10:54→18:09)
[2018-09-18] MEDS: Potassium Chloride 20 mEq ER Tab PO SCH (10:54)
[2018-09-18] MEDS: Clotrimazole/Betamethasone Cream(15 gm) TOP SCH ×2 (10:54→18:10)
[2018-09-18] MEDS: POLYETHYLENE GLYCOL 3350 17 GM/Dose PACKET PO SCH ×2 (10:55→18:10)
--- NOTE | 2018-09-18 12:29 | PN ---
DATE: 09/18/2018 REASON FOR CONSULTATION AND FOLLOWUP: Cardiac evaluation, admitted with acute decompensated congestive heart failure acute on chronic secondary to systolic dysfunction, chronic atrial fibrillation, noncompliance with medications, history of coronary artery disease, history of CABG, and again noncompliance with medications. SUBJECTIVE: The patient feels a little better, lying flat almost with 10-20 degree head up. Denies any chest pain. Denies shortness of breath. Denies any palpitation, but still complains of swelling of his scrotum. OBJECTIVE: GENERAL: Not in apparent distress, lying flat with 10 degree head up. VITAL SIGNS: Temperature afebrile, heart rate 91, blood pressure 122/76. HEENT: PERRLA. Extraocular muscles intact. NECK: Supple. No carotid bruits or thyromegaly. CHEST: Clear to auscultation. HEART: S1, S2. Regular. ABDOMEN: Soft. EXTREMITIES: Clubbing, cyanosis negative. LABORATORY DATA: Blood workup as follows: WBC 3.8, hemoglobin 10.8, hematocrit 34, platelets count 187. Chemistry shows sodium 141, potassium 3, chloride 96, carbon dioxide 36, anion gap of 4, BUN 32, creatinine 1, magnesium 1.5. IMPRESSION: This is a 58-year-old morbidly obese male with past medical history significant for ischemic cardiomyopathy; chronic atrial fibrillation; noncompliance with the medications; refused cardiac catheterization in the past; history of coronary artery bypass surgery in the past; last echo shows four-chamber dilatation, ejection fraction 20% to 25%; admitted with acute decompensated congestive heart failure, acute on chronic, secondary to systolic dysfunction, secondary to left ventricular dysfunction. The patient has also multiple electrolyte abnormalities including hypokalemia and hypomagnesemia. RECOMMENDATION: Continue Eliquis. Continue aggressive diuresis. Supplement electrolytes. The patient refused intravenous. We will continue oral potassium, oral magnesium. Continue intravenous Primacor. Continue . The patient will get the benefit for next 24 to 48 hours of intravenous Primacor. We will follow with you. We will repeat the blood workup in the morning. Thank you, Dr. Posey, for providing us the opportunity in taking care of the patient, Mason Benavides. Rudy Fermin MD [facility] # [id number]
[2018-09-18] MEDS: Digoxin 125 mcg (0.125 mg) Tab PO SCH (13:32)
[2018-09-18] MEDS: oxyCODONE 5 mg Immediate Release Tab PO PRN ×2 (13:41→22:49)
--- NOTE | 2018-09-18 15:21 | CP.PCM.PN ---
Subjective - Date & Time of Evaluation Date of Evaluation: 09/18/18 Time of Evaluation: 09:30 - Subjective Subjective: General Surgery Progress Note for Dr. Monica Gentile, PGY1 Patient seen and examined at bedside this morning. No acute events reported overnight. Patient admits to continued breast tenderness. Patient is refusing MRI at this time. Denies fevers/chills/nausea/vomiting/CP/SOB. Objective - Vital Signs/Intake and Output Vital Signs (last 24 hours): Temp Pulse Resp BP Pulse Ox 98.2 F 90 18 106/65 92 L 09/18/18 12:00 09/18/18 13:32 09/18/18 12:00 09/18/18 13:32 09/18/18 06:00 Intake and Output: 09/18/18 09/18/18 06:59 18:59 Intake Total 731 100 Balance 731 100 - Medications Medications: Current Medications Apixaban (Eliquis) 5 mg PO BID [facility]; Protocol Last Admin: 09/18/18 10:53 Dose: 5 mg Aspirin (Aspirin Chewable) 81 mg PO DAILY [facility] Last Admin: 09/18/18 10:52 Dose: 81 mg Atorvastatin Calcium (Lipitor) 40 mg PO DIN [facility] Last Admin: 09/17/18 17:50 Dose: 40 mg Betamethasone/Clotrimazole (Lotrisone) 0 gm TOP BID [facility] Last Admin: 09/18/18 10:54 Dose: 1 applic Carvedilol (Coreg) 3.125 mg PO BID [facility] Last Admin: 09/18/18 10:52 Dose: 3.125 mg Digoxin (Digoxin) 0.125 mg PO 1400 [facility] Last Admin: 09/18/18 13:32 Dose: 0.125 mg Docusate Sodium (Colace) 100 mg PO BID [facility] Last Admin: 09/18/18 10:52 Dose: 100 mg Ergocalciferol (Drisdol 50,000 Intl Units Cap) 1 cap PO Q7D [facility] Last Admin: 09/13/18 13:00 Dose: 1 cap Escitalopram Oxalate (Lexapro) 10 mg PO HS [facility] Last Admin: 09/17/18 22:01 Dose: 10 mg Fluticasone Propionate (Flonase) 1 actuation NS DAILY [facility] Last Admin: 09/18/18 10:53 Dose: 1 actuation Furosemide (Lasix) 60 mg IVP Q8 [facility] Last Admin: 09/18/18 13:32 Dose: 60 mg Milrinone Lactate/Dextrose (Primacor 20mg/100ml D5w) 100 mls @ 17.212 mls/hr IV .Q5H49M PRN; Protocol PRN Reason: TITRATE PER MD ORDER Last Admin: 09/18/18 13:33 Dose: 0.375 mcg/kg/min, 17.212 mls/hr Insulin Detemir (Levemir) 30 unit SC [facility] Last Admin: 09/17/18 22:01 Dose: Not Given Insulin Human Regular (Humulin R Low) 0 units SC [facility]; Protocol Last Admin: 09/18/18 12:00 Dose: Not Given Ipratropium [place] (Atrovent) 0.5 mg IH TIDRESP [facility] Last Admin: 09/18/18 13:36 Dose: 0.5 mg Levalbuterol HCl (Xopenex) 0.63 mg IH [id number] PRN PRN Reason: Shortness of Breath Last Admin: 09/13/18 10:41 Dose: 0.63 mg Levalbuterol HCl (Xopenex) 0.63 mg IH TIDRESP [facility] Last Admin: 09/18/18 13:36 Dose: 0.63 mg Lisinopril (Zestril) 2.5 mg PO DAILY [facility] Last Admin: 09/18/18 10:55 Dose: 2.5 mg Magnesium Oxide (Mag-Ox) 400 mg PO BID [facility] Last Admin: 09/18/18 10:54 Dose: 400 mg Oxycodone HCl (Oxycodone Immediate Release Tab) 5 mg PO Q6H PRN PRN Reason: Pain, severe (8-10) Last Admin: 09/18/18 13:41 Dose: 5 mg Pantoprazole Sodium (Protonix Ec Tab) 40 mg PO 0600 [facility] Last Admin: 09/18/18 05:19 Dose: 40 mg Polyethylene Glycol (Miralax) 17 gm PO BID [facility] Last Admin: 09/18/18 10:55 Dose: 17 gm Potassium Chloride (K-Dur 20 Meq Er Tab) 20 meq PO BRK [facility] Last Admin: 09/18/18 10:54 Dose: 20 meq Spironolactone (Aldactone) 25 mg PO BID [facility] Last Admin: 04/17/19 10:52 Dose: 25 mg Verapamil HCl (Calan Tab) 40 mg PO TID [facility] Last Admin: 09/18/18 13:32 Dose: 40 mg - Labs Labs: 09/14/18 06:00 09/18/18 06:35 - Constitutional Appears: Non-toxic, No Acute Distress - Head Exam Head Exam: ATRAUMATIC, NORMAL INSPECTION - Eye Exam Eye Exam: EOMI, Normal appearance - Respiratory Exam Respiratory Exam: NORMAL BREATHING PATTERN. absent: Respiratory Distress - Cardiovascular Exam Cardiovascular Exam: +S1, +S2, no tachycardia - GI/Abdominal Exam GI & Abdominal Exam: Distended, Soft. absent: Tenderness, guarding, rebound - Extremities Exam Extremities exam: Positive for: pedal edema + 1 B/L. Negative for: calf tenderness Additional comments: - Neurological Exam Neurological exam: Alert Oriented x3, CN II-XII Intact. Lethargic - Skin Skin Exam: Dry, Normal Color, Warm, Sacral Ulcer stage 2 appreciated - Additional Findings Additional findings: 4 tender nodules noted in lateral right breast, freely mobile, 1cm, no discharge/fluid/bleeding appreciated No axillary lymphadenopathy noted Left breast non tender, no discharge Left breast size greater than right breast size, asymmetry appreciated Assessment and Plan - Assessment and Plan (Free Text) Assessment: 58 year old male with PMH significant for CAD s/p CABG, CHF, JOAN, COPD presenting to the hospital for right breast mass. 01/14/18 bilateral US: negati ve, BIRADS 1. 01/14/18 bilateral mammogram: negative, BIRADS 1. 4/14 Breast US = moderate subareolar fibroglandular parenchyma. No solid or cystic masses. Right Breast mass Acute on chronic systolic CHF Hypokalemia/hypomagnesiumemia Afib DM JOAN Plan: -Breast US findings reviewed -Patient unable to have mammogram since he can't stand for 15 min -Patient refusing MRI breast until scrotal edema subsides -duplex LE shows no evidence of DVT -CXR 09/12 reviewed, moderate interstitial prominence may reflect infection/edema. -further care as per primary medical team, potassium and magnesium repleted -further recommendations as per Dr. Anderson
--- NOTE | 2018-09-18 16:05 | PN ---
DATE: 09/18/2018 PULMONARY PROGRESS NOTE REFERRING PHYSICIAN: Tyrone Posey MD. SUBJECTIVE: He is lying in the bed, sleepy, arousable. Night was unremarkable. Does not use CPAP/BiPAP. No cough. No sputum production. Gets short of breath. Minimal exertion, no chest pain. Still have a increased abdominal girth, decreased leg swelling. OBJECTIVE: GENERAL: No acute distress. VITAL SIGNS: Temperature is 98, heart rate 90, respiratory rate is 18, blood pressure is 106/65, and pulse ox 92% on room air. HEENT: Moist mucous membrane. Crowded airway. Mallampati score is 4. NECK: Supple. No JVD. LUNGS: Fair airflow. No rhonchi. HEART: S1 and S2. ABDOMEN: Large positive abdominal wall edema. EXTREMITIES: He has chronic changes left NEUROLOGIC: Awake, alert, and follows simple commands. MEDICATIONS: He is on Aldactone 25 mg twice a day, aspirin 81 mg daily, Atrovent 0 5 mg three times a day, Veramil 40 mg three times a day, Colace 100 mg twice a day ,Coreg 3.125 mg twice a day, digoxin 0.125 mg daily, vitamin D 50,000 units weekly, Eliquis 5 mg twice a day, Flonase one spray to each nostril daily, insulin coverage, potassium 20 mEq daily, Lasix 60 mg IV every 8 hours, Levemir 30 units subcutaneous at bedtime, Lexapro 10 mg daily, Lipitor 40 mg daily, Lotrisone to affected area, magnesium oxide 400 mg twice a day, MiraLax 17 g twice a day, oxycodone immediate release 5 mg every 6 hours p.r.n., IV Primacor is being given, Protonix 40 mg daily, Xopenex inhaler every 6 hours, and Zestril 2.5 mg daily. LABORATORY DATA: Reviewed. Sodium 140, potassium 2.0, chloride 96, bicarbonate 36, BUN 32, creatinine 1.0, and glucose 137. Calcium 9.3, phosphorus 3.2, and magnesium 1.5. IMPRESSION AND PLAN: Cardiomyopathy, chronic obstructive lung disease, coronary artery disease, obstructive sleep apnea syndrome, suspected diabetes, peripheral vascular disease, morbid obesity, hypertension, chronic renal insufficiency, and pulmonary hypertension. Case discussed with family. Continue large dose of diuretics on Primacor. Replace potassium. Sleep apnea precautions. Gastric prophylaxis and deep venous thrombosis prophylaxis. Pressure ulcer precaution. Follow up labs in the morning. Thank you. We will follow with you. Rudy Simpson MD
[2018-09-18] MEDS: Insulin Detemir 100 units/ml Vial (Levemir) SC SCH (22:01)
[2018-09-19] MEDS: Milrinone 20mg/100ml D5W 100 ML IV PRN (03:15)
[2018-09-19] MEDS: Pantoprazole 40 mg EC Tab PO SCH (06:24)
[2018-09-19] MEDS: Levalbuterol 0.63 MG/3 ML Inhal Soln UD IH SCH ×3 (07:51→19:39)
[2018-09-19] MEDS: Ipratropium 0.02% Inhal Soln (0.5 mg/2.5 ml) UD IH SCH ×3 (07:51→19:38)
[2018-09-19] MEDS: Insulin Reg-LOW-Coverage SC SCH ×4 (08:39→21:47)
[2018-09-19] MEDS: Potassium Chloride 20 mEq ER Tab PO SCH (08:53)
--- NOTE | 2018-09-19 09:12 | CP.PCM.PN ---
Subjective - Date & Time of Evaluation Date of Evaluation: 09/19/18 Time of Evaluation: 06:20 - Subjective Subjective: Awake, alert, no distress Reason for consultation and follow up: Cardiac evaluation of shortness of breath, admitted for decompensated acute on chronic systolic dysfunction congestive heart failure, non compliant with medications, history of CHF, coronary artery disease post CABG, chronic atrial fibrillation Seen and examined by me and Dr. Fermin Objective - Vital Signs/Intake and Output Vital Signs (last 24 hours): Temp Pulse Resp BP Pulse Ox 98.3 F 91 H 19 118/70 96 09/19/18 05:41 09/19/18 05:42 09/19/18 05:41 09/19/18 06:24 09/19/18 05:41 Intake and Output: 09/19/18 09/19/18 06:59 18:59 Intake Total 1802 Output Total 4800 Balance -2998 - Medications Medications: Current Medications Apixaban (Eliquis) 5 mg PO BID [facility]; Protocol Last Admin: 09/18/18 18:09 Dose: 5 mg Aspirin (Aspirin Chewable) 81 mg PO DAILY [facility] Last Admin: 09/18/18 10:52 Dose: 81 mg Atorvastatin Calcium (Lipitor) 40 mg PO DIN [facility] Last Admin: 09/18/18 18:09 Dose: 40 mg Betamethasone/Clotrimazole (Lotrisone) 0 gm TOP BID [facility] Last Admin: 09/18/18 18:10 Dose: 1 applic Carvedilol (Coreg) 3.125 mg PO BID [facility] Last Admin: 09/18/18 18:08 Dose: 3.125 mg Digoxin (Digoxin) 0.125 mg PO 1400 [facility] Last Admin: 09/18/18 13:32 Dose: 0.125 mg Docusate Sodium (Colace) 100 mg PO BID [facility] Last Admin: 09/18/18 18:08 Dose: 100 mg Ergocalciferol (Drisdol 50,000 Intl Units Cap) 1 cap PO Q7D [facility] Last Admin: 09/13/18 13:00 Dose: 1 cap Escitalopram Oxalate (Lexapro) 10 mg PO HS [facility] Last Admin: 09/18/18 22:49 Dose: 10 mg Fluticasone Propionate (Flonase) 1 actuation NS DAILY [facility] Last Admin: 09/18/18 10:53 Dose: 1 actuation Furosemide (Lasix) 60 mg IVP Q8 [facility] Last Admin: 09/19/18 06:24 Dose: 60 mg Insulin Detemir (Levemir) 30 unit SC HS [facility] Last Admin: 09/18/18 22:01 Dose: Not Given Insulin Human Regular (Humulin R Low) 0 units SC ACHS [facility]; Protocol Last Admin: 09/19/18 08:39 Dose: Not Given Ipratropium [place] (Atrovent) 0.5 mg IH TIDRESP [facility] Last Admin: 09/19/18 07:51 Dose: 0.5 mg Lactic Acid (Lac-Hydrin 12% Cream (140 G)) 0 ea TOP DAILY [facility] Levalbuterol HCl (Xopenex) 0.63 mg IH [id number] PRN PRN Reason: Shortness of Breath Last Admin: 09/13/18 10:41 Dose: 0.63 mg Levalbuterol HCl (Xopenex) 0.63 mg IH TIDRESP [facility] Last Admin: 09/19/18 07:51 Dose: 0.63 mg Lisinopril (Zestril) 2.5 mg PO DAILY [facility] Last Admin: 09/18/18 10:55 Dose: 2.5 mg Magnesium Oxide (Mag-Ox) 400 mg PO BID [facility] Last Admin: 09/18/18 18:09 Dose: 400 mg Oxycodone HCl (Oxycodone Immediate Release Tab) 5 mg PO Q6H PRN PRN Reason: Pain, severe (8-10) Last Admin: 09/18/18 22:49 Dose: 5 mg Pantoprazole Sodium (Protonix Ec Tab) 40 mg PO 0600 [facility] Last Admin: 09/19/18 06:24 Dose: 40 mg Polyethylene Glycol (Miralax) 17 gm PO BID [facility] Last Admin: 09/18/18 18:10 Dose: 17 gm Potassium Chloride (K-Dur 20 Meq Er Tab) 20 meq PO BRK [facility] Last Admin: 09/19/18 08:53 Dose: 20 meq Spironolactone (Aldactone) 25 mg PO BID [facility] Last Admin: 09/18/18 18:08 Dose: 25 mg Verapamil HCl (Calan Tab) 40 mg PO TID [facility] Last Admin: 09/18/18 18:08 Dose: 40 mg - Labs Labs: 09/14/18 06:00 09/18/18 06:35 - Constitutional Appears: Non-toxic - Head Exam Head Exam: NORMAL INSPECTION, NORMOCEPHALIC - Eye Exam Eye Exam: Normal appearance Pupil Exam: NORMAL ACCOMODATION - ENT Exam ENT Exam: Mucous Membranes Moist, Normal Exam - Respiratory Exam Respiratory Exam: Decreased Breath Sounds - Cardiovascular Exam Cardiovascular Exam: Irregular Rhythm, +S1, +S2 - GI/Abdominal Exam GI & Abdominal Exam: Soft, Normal Bowel Sounds - Extremities Exam Extremities Exam: Full ROM Additional comments: 2-3+ edema - Neurological Exam Neurological Exam: Alert, Awake, Oriented x3 - Psychiatric Exam Psychiatric exam: Normal Affect, Normal Mood - Skin Skin Exam: Dry, Normal Color, Warm Assessment and Plan - Assessment and Plan (Free Text) Assessment: A 58 year old morbidly obese male who came in to the ER due to shortness of b reath and swelling of lower extremities. History of CHF, coronary artery disease post CABG (1998) chronic atrial fibrillation, diabetes, Obstructive sleep apnea,COPD, Asthma, pneumonia, chronic kidney disease,fatty liver disease,depression, hypertension,MRSA infection of the lower extremities,non compliant with medications. Admitted for decompensated acute on chronic systolic dysfunction congestive heart failure,started on Primacor but unable to tolerate due to hypotension. Refused vcardiac catheterization in the past. Echo done on 07/07/18 showed four chamber dilatation consistent with cardiomyopathy, LVEF 20-25%, trace AR, mild to moderate MR, moderate TR RVSP 40 mmHg, trace pulmonic valve regurgitation. Aggressively diurese. Refusing IV infusions. Plan: Exertional shortness of breath Nebulizer treatment Aggressive diurese Heart rate controlled Blood pressure stable On Eliquis 5 mg BID, ASA 81 mg daily, Lipitor 40 mg daily, Coreg 3.125 mg BID Digoxin 0.125 mg daily, Lasix 60 mg IV every 8 hours,Lisinopril 2.5 mg daily, Aldactone 25 mg BID, Verapamil 40 mg TID, Kdur 20 meq daily Continue current medications Continue current treatment Repelnish potassium and magnesium as needed Will follow up Plan and treatment discussed with Dr. Fermin
[2018-09-19] MEDS: POLYETHYLENE GLYCOL 3350 17 GM/Dose PACKET PO SCH ×2 (10:27→17:46)
[2018-09-19] MEDS: Magnesium Oxide 400 mg Tab UD PO SCH ×2 (10:28→17:46)
[2018-09-19] MEDS: Clotrimazole/Betamethasone Cream(15 gm) TOP SCH ×2 (10:32→17:47)
[2018-09-19] MEDS: Fluticasone Nasal 50 mcg/Spray NS SCH (10:32)
[2018-09-19] MEDS: Ammonium Lactate 12% Cream (140 g) TOP SCH (10:33)
--- NOTE | 2018-09-19 11:01 | PN ---
DATE: 09/17/2018 SUBJECTIVE: The patient still have dyspnea, still have orthopnea, and lower extremity edema including scrotum area. No chest pain. The patient still in atrial fibrillation on and off. PHYSICAL EXAMINATION VITAL SIGNS: Temperature 97.7, heart rate 91, blood pressure 111/62, respirations 19 and saturation 92% on room air. HEAD AND NECK: Normal. No JVD. No thyromegaly. CHEST: Bilateral rales. CARDIAC: First sound and second sound normal. Systolic murmur. ABDOMEN: Obese and distended. Positive ascites. Bowel sounds intact. EXTREMITIES: Bilateral leg edema is improving slowly. Scrotum still swelling. LABORATORY STUDY: On 09/17/2018, sodium 139, potassium 2.9, chloride 97, bicarb 34, BUN 36, creatinine 1.6, blood sugar 129, magnesium 1.8, phosphorus 3.7, and calcium 9.5. IMPRESSION: 1. Acute systolic heart failure on top of chronic systolic heart failure. Continue IV Lasix, continue milrinone. Followup his [place]. The patient is end-stage cardiac failure. 2. History of coronary artery disease, bypass surgery. The patient has atrial fibrillation, new. Continue Eliquis and continue verapamil 40 mg three times a day. Continue digoxin 0.125 once a day and Coreg 3.125 mg b.i.d. 3. Chronic obstructive pulmonary disease, morbid obesity, obstructive sleep apnea, noncompliance with bilevel positive airway pressure. Continue inhaled bronchodilator. Followup with Dry End Tester. 4. Hypercholesteremia, chronic lymphedema . Continue diuretics. Keep the legs elevated. Seen by Podiatry. 5. Chronic back pain, chronic osteoarthritis. Continue oxycodone p.r.n. Continue current medications. We will followup clinically. 6. Ischemic cardiomyopathy. Continue digoxin, Vistaril and Aldactone. Followup clinically with the Cardiology. PLAN: Electrolyte abnormalities, low potassium, and potassium will be replaced. We will monitor his electrolytes and lab in the morning. Continue current treatment. Followup with other consultants. Tyrone Posey MD
--- NOTE | 2018-09-19 11:57 | PN ---
DATE: 09/18/2018 SUBJECTIVE: The patient is feeling better, less swelling. He has just complain of some scrotum discomfort. Otherwise, no new complaint. His dyspnea is less than before. He has no fever, no chest pain. PHYSICAL EXAMINATION: VITAL SIGNS: On 09/18/2018; temperature 97.9, heart rate 86, blood pressure 107/61, respirations 20. HEAD AND NECK: Normal. No JVD. No thyromegaly. CHEST: Bilateral rales on the basis. HEART: First sound and second sound normal. Systolic murmur. Irregular. ABDOMEN: Obese and distended. He is less before. EXTREMITIES: Lower extremities; less edematous, still significant edema, but less than before. Scrotal swelling is known. There is some scratch arceo on the scrotal area. NEUROLOGIC: Normal. LABORATORY STUDIES: On 09/18/2018; sodium 141, potassium 3, chloride 96, bicarb 36, BUN 32, creatinine is 1. Blood sugar 137, magnesium is down 1.5, phosphorus 3.2 and calcium 9.3. IMPRESSION AND PLAN: 1. Acute systolic heart failure on top of chronic systolic heart failure. Continue Coreg, digoxin, Vistaril 2.5 mg, continue IV Lasix 40 mg twice a day. Will followup with the industrial recruiter. 2. Coronary artery disease with ischemic cardiomyopathy. Continue current medications including digoxin, Coreg, Aldactone, Vistaril, and . 3. acute which is new onset atrial fibrillation. We are going to continue Eliquis 5 mg twice daily. 4. Insulin-dependent diabetes. Continue insulin regimen and Levemir 30 units subcutaneously daily plus insulin coverage on sliding scale. 5. Chronic obstructive pulmonary disease, obstructive sleep apnea, chronic lower extremity edema. Continue diuretics. Keep the legs elevated. Continue nebulizer treatment, inhaled bronchodilators and bilevel positive airway pressure machine at night. The patient is noncompliant. 6. Hypercholesteremia, depression, chronic skin changes. We will given Lac-Hydrin, local treatment and continue aspirin, continue Atrovent nebulizer treatments, vitamin D, digoxin, Eliquis, Colace, 40 mg t.i.d., Aldactone, Lac-Hydrin, Lasix is being given 60 mg IV every 8 hours. Continue Levemir, Lexapro, Lipitor 40 mg, Lotrisone cream, mag oxide, MiraLax, oxycodone 5 mg every 6 hours, Primacor IV drip, Protonix 40 mg, Xopenex q.i.d., and Vistaril 2.5 mg p.o. daily. Continue current therapy. Followup clinically. The patient is improving, still need followup more complaints. Tyrone Posey MD
[2018-09-19] MEDS: Digoxin 125 mcg (0.125 mg) Tab PO SCH (14:20)
[2018-09-19 18:20] VITALS: O2SAT 94
[2018-09-19] MEDS: Insulin Detemir 100 units/ml Vial (Levemir) SC SCH (21:45)
[2018-09-19] MEDS: oxyCODONE 5 mg Immediate Release Tab PO PRN (23:17)
--- NOTE | 2018-09-19 23:56 | PN ---
DATE: 09/19/2018 PULMONARY PROGRESS NOTE REFERRING PHYSICIAN: Tyrone Posey MD SUBJECTIVE: He is out of bed to chair, feels better, decreased abdominal girth, decreased leg edema, short of breath, has some cough. No nausea. No vomiting. No diarrhea. PHYSICAL EXAMINATION: GENERAL: No acute distress. VITAL SIGNS: Temperature is 98, heart rate is 84, respiratory rate is 18, blood pressure 108/70, pulse ox 94% on nasal cannula. HEENT: Moist mucous membranes. No ulcer or thrush noted. NECK: Supple. No JVD. LUNGS: Fair air flow with few rhonchi. HEART: S1 and S2. ABDOMEN: Distended abdominal wall edema. EXTREMITIES: Still have a significant edema, but decreased compared to previous testicular swelling. NEUROLOGICAL: Awake and alert. Follows simple commands. MEDICATIONS: He is on Aldactone 25 mg twice a day, aspirin 81 mg daily, Atrovent 0.5 mg three times a day, Calan 40 mg three times a day, Colace 100 mg twice a day, Coreg 3.125 mg twice a day, digoxin 0.125 mg daily, vitamin D 50,000 units every 7 days, Eliquis 5 mg twice a day, Flonase one spray to each nostril daily, insulin coverage, potassium 20 mEq daily, he is on Lasix 60 mg every 8 hours, Levemir 30 units subcutaneous at bedtime, Lexapro 10 mg at bedtime, Lipitor 40 mg daily, Lotrisone to affected area, magnesium oxide 400 mg twice a day, MiraLax 17 g twice a day, oxycodone immediate release 5 mg every 6 hours p.r.n., Protonix 40 mg daily, Xopenex inhaled every 6 hours, and Zestril 2.5 mg daily. LABORATORY DATA: Shows blood sugar this morning 188. IMPRESSION AND PLAN: Cardiomyopathy, chronic obstructive lung disease, coronary artery disease, obstructive sleep apnea syndrome, diabetes, peripheral vascular disease, morbid obesity, hypertension, renal insufficiency, pulmonary hypertension. Pulmonary point of view, doing okay. We will add Pulmicort and Mucomyst to Atrovent inhalers. Continue diuretics. Follow up electrolyte closely. Continue Primacor. Pressure ulcer precaution. Careful with sedation. Thank you and we will follow with you. Rudy Simpson MD [facility] # [id number]
[2018-09-20] MEDS: Pantoprazole 40 mg EC Tab PO SCH (05:00)
--- NOTE | 2018-09-20 06:26 | CP.PCM.PN ---
Subjective - Date & Time of Evaluation Date of Evaluation: 09/20/18 Time of Evaluation: 06:15 - Subjective Subjective: Lying in bed, awake, alert, no distress, Reason for consultation and follow up: Cardiac evaluation of shortness of breath, admitted for decompensated acute on chronic systolic dysfunction congestive heart failure, non compliant with medications, history of CHF, coronary artery disease post CABG, chronic atrial fibrillation Seen and examined by me and Dr. Fermin Objective - Vital Signs/Intake and Output Vital Signs (last 24 hours): Temp Pulse Resp BP Pulse Ox 98.0 F 81 18 115/75 94 L 09/20/18 06:00 09/20/18 06:00 09/20/18 06:00 09/20/18 06:00 09/20/18 06:00 Intake and Output: 09/19/18 09/20/18 18:59 06:59 Intake Total 1140 600 Output Total 2900 2000 Balance -1760 -1400 - Medications Medications: Current Medications Apixaban (Eliquis) 5 mg PO BID [facility]; Protocol Last Admin: 09/19/18 17:46 Dose: 5 mg Aspirin (Aspirin Chewable) 81 mg PO DAILY [facility] Last Admin: 09/19/18 10:29 Dose: 81 mg Atorvastatin Calcium (Lipitor) 40 mg PO DIN [facility] Last Admin: 09/19/18 17:46 Dose: 40 mg Betamethasone/Clotrimazole (Lotrisone) 0 gm TOP BID [facility] Last Admin: 09/19/18 17:47 Dose: Not Given Carvedilol (Coreg) 3.125 mg PO BID [facility] Last Admin: 09/19/18 17:39 Dose: Not Given Digoxin (Digoxin) 0.125 mg PO 1400 [facility] Last Admin: 09/19/18 14:20 Dose: 0.125 mg Docusate Sodium (Colace) 100 mg PO BID [facility] Last Admin: 09/19/18 17:46 Dose: 100 mg Ergocalciferol (Drisdol 50,000 Intl Units Cap) 1 cap PO Q7D [facility] Last Admin: 09/13/18 13:00 Dose: 1 cap Escitalopram Oxalate (Lexapro) 10 mg PO HS [facility] Last Admin: 09/19/18 21:45 Dose: 10 mg Fluticasone Propionate (Flonase) 1 actuation NS DAILY [facility] Last Admin: 09/19/18 10:32 Dose: 1 actuation Furosemide (Lasix) 60 mg IVP Q8 [facility] Last Admin: 09/20/18 05:00 Dose: 60 mg Insulin Detemir (Levemir) 30 unit SC HS [facility] Last Admin: 09/19/18 21:45 Dose: 30 unit Insulin Human Regular (Humulin R Low) 0 units SC ACHS [facility]; Protocol Last Admin: 09/19/18 21:47 Dose: Not Given Ipratropium [place] (Atrovent) 0.5 mg IH TIDRESP [facility] Last Admin: 09/19/18 19:38 Dose: 0.5 mg Lactic Acid (Lac-Hydrin 12% Cream (140 G)) 0 ea TOP DAILY [facility] Last Admin: 09/19/18 10:33 Dose: 1 applic Levalbuterol HCl (Xopenex) 0.63 mg IH [id number] PRN PRN Reason: Shortness of Breath Last Admin: 09/13/18 10:41 Dose: 0.63 mg Levalbuterol HCl (Xopenex) 0.63 mg IH TIDRESP [facility] Last Admin: 09/19/18 19:39 Dose: 0.63 mg Lisinopril (Zestril) 2.5 mg PO DAILY [facility] Last Admin: 09/19/18 10:28 Dose: Not Given Magnesium Oxide (Mag-Ox) 400 mg PO BID [facility] Last Admin: 09/19/18 17:46 Dose: 400 mg Oxycodone HCl (Oxycodone Immediate Release Tab) 5 mg PO Q6H PRN PRN Reason: Pain, severe (8-10) Last Admin: 09/19/18 23:17 Dose: 5 mg Pantoprazole Sodium (Protonix Ec Tab) 40 mg PO 0600 [facility] Last Admin: 09/20/18 05:00 Dose: 40 mg Polyethylene Glycol (Miralax) 17 gm PO BID [facility] Last Admin: 09/19/18 17:46 Dose: 17 gm Potassium Chloride (K-Dur 20 Meq Er Tab) 20 meq PO BRK [facility] Last Admin: 09/19/18 08:53 Dose: 20 meq Spironolactone (Aldactone) 25 mg PO BID [facility] Last Admin: 09/19/18 17:46 Dose: 25 mg Verapamil HCl (Calan Tab) 40 mg PO TID [facility] Last Admin: 09/19/18 17:46 Dose: 40 mg - Labs Labs: 09/14/18 06:00 09/18/18 06:35 - Constitutional Appears: Non-toxic, No Acute Distress - Head Exam Head Exam: NORMAL INSPECTION, NORMOCEPHALIC - Eye Exam Eye Exam: Normal appearance Pupil Exam: NORMAL ACCOMODATION - ENT Exam ENT Exam: Mucous Membranes Moist, Normal Exam - Neck Exam Neck Exam: Full ROM, Normal Inspection - Respiratory Exam Respiratory Exam: Decreased Breath Sounds, NORMAL BREATHING PATTERN - Cardiovascular Exam Cardiovascular Exam: Irregular Rhythm, +S1, +S2 Additional comments: Telemetry atrial fibrillation 70-80's - GI/Abdominal Exam GI & Abdominal Exam: Soft, Normal Bowel Sounds - Exam Exam: Scrotal Swelling Additional comments: blakely catheter - Extremities Exam Extremities Exam: Full ROM Additional comments: 2+edema - Neurological Exam Neurological Exam: Alert, Awake, Oriented x3 - Psychiatric Exam Psychiatric exam: Normal Affect, Normal Mood - Skin Skin Exam: Dry, Normal Color, Warm Assessment and Plan - Assessment and Plan (Free Text) Assessment: A 58 year old morbidly obese male who came in to the ER due to shortness of breath and swelling of lower extremities. History of CHF, coronary artery disease post CABG (1998) chronic atrial fibrillation, diabetes, Obstructive sleep apnea,COPD, Asthma, pneumonia, chronic kidney disease,fatty liver disease,depression, hypertension,MRSA infection of the lower extremities,non compliant with medications. Admitted for decompensated acute on chronic systolic dysfunction congestive heart failure,started on Primacor but unable to tolerate due to hypotension. Refused cardiac catheterization in the past. Echo done on 07/07/18 showed four chamber dilatation consistent with cardiomyopathy, LVEF 20-25%, trace AR, mild to moderate MR, moderate TR RVSP 40 mmHg, trace pulmonic valve regurgitation. Refusing IV infusions. Symptoms improving. Denies shortness of breath but still with leg edema and scrotal edema. Aggressively diurese. Plan: Denies shortness of breath Symptoms improving but still with scrotal and leg edema Aggressively diurese. Heart rate controlled, atrial fibrillation Blood pressure stable On Eliquis 5 mg BID, ASA 81 mg daily, Lipitor 40 mg daily, Coreg 3.125 mg BID Digoxin 0.125 mg daily, Lasix 60 mg IV every 8 hours,Lisinopril 2.5 mg daily, Aldactone 25 mg BID, Verapamil 40 mg TID, Kdur 20 meq daily Continue current medications Continue current treatment Replenish electrolytes as needed Will follow up Plan and treatment discussed with Dr. Fermin
[2018-09-20 07:07] LABS: BLOOD UREA NITROGEN 26 mg/dL (7-21); CALCIUM 9.6 mg/dL (8.4-10.5); GFR NON-AFRICAN AMERICAN > 60
[2018-09-20] MEDS ORDERED: Magnesium Sulfate 2 gm/50 ml 2 GM/50 ML BAG IVPB ONE (08:13)
[2018-09-20] MEDS: Insulin Reg-LOW-Coverage SC SCH ×2 (08:34→12:10)
[2018-09-20] MEDS: Potassium Chloride 20 mEq ER Tab PO SCH (08:46)
[2018-09-20] MEDS: oxyCODONE 5 mg Immediate Release Tab PO PRN (08:46)
[2018-09-20] MEDS: Ipratropium 0.02% Inhal Soln (0.5 mg/2.5 ml) UD IH SCH ×2 (08:48→14:40)
[2018-09-20] MEDS: Levalbuterol 0.63 MG/3 ML Inhal Soln UD IH SCH ×2 (08:48→14:39)
[2018-09-20] MEDS ORDERED: Potassium Chloride 20 mEq ER Tab PO STA (09:13)
[2018-09-20] MEDS ORDERED: Potassium Chloride 20 mEq ER Tab PO ONE ×2 (10:00→13:00)
[2018-09-20] MEDS: Ergocalciferol 50,000 Intl Units Cap PO SCH (11:46)
[2018-09-20] MEDS: POLYETHYLENE GLYCOL 3350 17 GM/Dose PACKET PO SCH (11:48)
[2018-09-20] MEDS: Clotrimazole/Betamethasone Cream(15 gm) TOP SCH (11:49)
[2018-09-20] MEDS: Ammonium Lactate 12% Cream (140 g) TOP SCH (11:49)
[2018-09-20] MEDS: Fluticasone Nasal 50 mcg/Spray NS SCH (11:50)
[2018-09-20 13:43] VITALS: RESP 19; TEMP 98.1
[2018-09-20] MEDS ORDERED: Magnesium Oxide 400 mg Tab UD PO SCH (14:00)
[2018-09-20] MEDS: Digoxin 125 mcg (0.125 mg) Tab PO SCH (14:57)
[2018-09-20 14:58] VITALS: BP 112/72; PULSE 80
--- NOTE | 2018-09-21 02:15 | PN ---
DATE: 09/19/2018 SUBJECTIVE: The patient is still dyspneic. The patient was moving out of bed to chair or going to the bathroom. He has no fever. No nausea. No vomiting. PHYSICAL EXAMINATION: VITAL SIGNS: Temperature is 98, heart rate is 92, blood pressure is 108/70, respirations are 18, and saturation is 94%. HEAD AND NECK: Normal. No JVD. No thyromegaly. CHEST: Few basilar rhonchi. CARDIAC: First sound and second sound normal, systolic murmur. ABDOMEN: Obese and nontender. . EXTREMITIES: Bilateral leg edema decreased in size. LABORATORY STUDIES: Blood sugar is in the 180 less than 200. His sodium is 141, potassium 3, chloride 96, bicarb 36, BUN 32, and creatinine is 1. Blood sugar 138. Calcium 9.3. Phosphorus 3.2. Magnesium 1.1. IMPRESSION AND PLAN: 1. Acute systolic heart failure on chronic systolic. Continue IV Lasix. Continue diuresis. Follow up with the grade setter. The patient will be tapered off IV milrinone. Plan is to send the patient for some physical therapy and rehabilitations plus continue IV Lasix. 2. Insulin-dependent diabetes. Continue insulin coverage and Levemir plus insulin coverage. 3. Hypercholesterolemia, chronic obstructive pulmonary disease, and obstructive sleep apnea. Continue inhaled bronchodilators. Continue Pulmicort, Brovana plus Xopenex. 4. Depression and hypercholesterolemia, chronic back pain, and chronic osteoarthritis. Continue oxycodone. Follow up clinically. We will continue current therapy. We will follow up with other consultants. Advised to be compliant with CPAP machine. The patient is noncompliant, not using it. Continue current therapy. Tyrone Posey MD
--- NOTE | 2018-09-21 03:17 | DS ---
HISTORY OF PRESENT ILLNESS: The patient was admitted with acute systolic heart failure. The patient gained weight of about 60 pounds as an outpatient. He has massive ascites with massive scrotal swelling and lymphedema and bilateral leg edema, who was admitted with acute systolic heart failure and was maintained on IV milrinone and IV Lasix, which improved gradually. The patient was significantly after his diuresis improved; however, he still needs more diuresis. He did also has COPD and obstructive sleep apnea history, maintained on inhaled bronchodilators and BiPAP machine, seen by Cardiology, Pulmonary and Podiatry consults. The patient is otherwise stable. His creatinine remains stable. No fever. No nausea. No vomiting. PHYSICAL EXAMINATION VITAL SIGNS: The patient on discharge is with a temperature of 98, heart rate is 92, blood pressure 105/69, respirations 20, saturations 94% on room air. HEAD AND NECK: Normal. No JVD. No thyromegaly. CHEST: Clear. A basal rales. CARDIAC: First sound and second sound normal. Systolic murmur. ABDOMEN: Obese, nontender. EXTREMITIES: Chronic leg edema was decreased in size. NEUROLOGICALLY: Normal. LABORATORY DATA: Sodium 141, potassium 3.4, chloride 93, bicarb 39, BUN 26, creatinine is 1, blood sugar is 59, calcium 9.6, phosphorus 3.6, magnesium 1.6. DISCHARGE DIAGNOSES: 1. Acute systolic heart failure on top of chronic systolic heart failure. Continue Lasix, continue Coreg. 2. Electrolyte abnormalities. Continue replace magnesium and potassium on a daily basis. 3. Chronic leg edema with acute congestive heart failure and improved during dialysis. 4. Scrotal edema. 5. New onset atrial fibrillation. 6. Hypercholesteremia. 7. Chronic obstructive pulmonary disease. 8. Obstructive sleep apnea. 9. Chronic back pain. 10. Morbid obesity. 11. Ischemic cardiomyopathy. PLAN: Continue current medications. He is getting Aldactone 25 mg b.i.d., aspirin 81 mg, Atrovent inhalation t.i.d., Calan 40 mg t.i.d., Colace 100 mg b.i.d., Coreg 3.125 mg b.i.d., digoxin 0.125 mg p.o. daily, vitamin D once a week, Eliquis 5 mg b.i.d., Flonase, insulin coverage per algorithm, potassium 20 mEq p.o. b.i.d., Lac-Hydrin for skin lower extremity, Lasix 60 mg IV every 8 hours, Levemir 30 units subcutaneously at bedtime, Lexapro 10 mg once a day, Lipitor 40 mg at bedtime, Lotrisone to lower extremity topically and scrotal area, mag oxide 400 mg b.i.d., MiraLax, Oxycodone 5 mg every 6 hours, Xopenex q.i.d., Protonix 40 mg p.o. daily, Zestril 2.5 mg daily. Continue current therapy. Continue physical therapy. Diuresis. Monitor electrolytes and continue bilevel positive airway pressure. Tyrone Posey MD
[2018-09-21] MEDS ORDERED: Potassium Chloride 20 mEq ER Tab PO SCH (18:00)
--- NOTE | 2018-09-23 09:46 | PN ---
DATE: 09/20/2018 PULMONARY PROGRESS NOTE REFERRING PHYSICIAN: Tyrone Posey MD SUBJECTIVE: He is up in the chair. Night was unremarkable. Feels much better. Still has some cough, short of breath with exertion. No chest pain, still has abdominal wall edema and still has leg swelling, but decreased edema. OBJECTIVE: GENERAL: In no acute distress. VITAL SIGNS: Temperature is 98, heart rate is 80, respiratory rate is 20, blood pressure is 112/72, and pulse ox is 94% on room air. HEENT: Moist mucous membranes. Crowded airway. Mallampati score is 4. NECK: Supple. No JVD. LUNGS: Has a fair airflow with few crackles at the bases. HEART: S1 and S2. ABDOMEN: Obese, has edema of the abdominal wall. EXTREMITIES: Has a chronic changes of the skin, scrotal edema is also present. NEUROLOGIC: Awake, alert, and follows simple command. MEDICATIONS: Reveals. No new changes since yesterday. LABORATORY DATA: Shows sodium 141, potassium 3.4, chloride 93, bicarbonate 39, BUN 26, creatinine 1, glucose 59, calcium is 9.6, phosphorus 3.6, and magnesium 1.6. IMPRESSION AND PLAN: Cardiomyopathy, chronic obstructive lung disease, coronary artery disease, obstructive sleep apnea syndrome, diabetes, peripheral vascular disease, morbid obesity, hypertension, renal insufficiency, and pulmonary hypertension. Pulmonary point of view, slowly improving. Continue bronchodilator, keep head at 45 degrees, noncompliant with continuous positive airway pressure and bilevel positive airway pressure, being followed by Cardiology, continue high dose of diuretics, follow BUN and creatinine closely, fall precaution, gastric prophylaxis, anticoagulation. Thank you and we will follow with you. Rudy Simpson MD
== END 2018-09-20 15:50 | DRG 291 ==
LOC: ED 20:24 → ERH 21:51 → 2RNO 23:24
PROVIDERS: ADMIT Internal Medicine; ATTEND Internal Medicine
PROC: 0T9B70Z Drainage of Bladder with Drainage Device, Via Natural or Artificial Opening (ICD-10-PCS; principal; 2018-09-12)
DX: I13.0 Hypertensive heart and chronic kidney disease with heart failure and stage 1 through stage 4 chronic kidney disease, or unspecified chronic kidney disease (principal); I50.23 Acute on chronic systolic (congestive) heart failure; L03.116 Cellulitis of left lower limb; L03.115 Cellulitis of right lower limb; I48.1 Persistent atrial fibrillation; Z68.42 Body mass index [BMI] 45.0-49.9, adult; E11.65 Type 2 diabetes mellitus with hyperglycemia; E11.51 Type 2 diabetes mellitus with diabetic peripheral angiopathy without gangrene; E11.22 Type 2 diabetes mellitus with diabetic chronic kidney disease; I25.10 Atherosclerotic heart disease of native coronary artery without angina pectoris; J44.9 Chronic obstructive pulmonary disease, unspecified; R33.9 Retention of urine, unspecified; R07.9 Chest pain, unspecified; I48.2 Chronic atrial fibrillation; G47.33 Obstructive sleep apnea (adult) (pediatric); I25.5 Ischemic cardiomyopathy; I89.0 Lymphedema, not elsewhere classified; I27.20 Pulmonary hypertension, unspecified; E66.01 Morbid (severe) obesity due to excess calories; E87.6 Hypokalemia; E83.42 Hypomagnesemia; M17.10 Unilateral primary osteoarthritis, unspecified knee; E78.00 Pure hypercholesterolemia, unspecified; E78.5 Hyperlipidemia, unspecified; H40.9 Unspecified glaucoma; N18.9 Chronic kidney disease, unspecified; K76.0 Fatty (change of) liver, not elsewhere classified; N44.8 Other noninflammatory disorders of the testis; G89.29 Other chronic pain; M54.9 Dorsalgia, unspecified; I08.3 Combined rheumatic disorders of mitral, aortic and tricuspid valves; N62 Hypertrophy of breast; Z95.1 Presence of aortocoronary bypass graft; Z95.5 Presence of coronary angioplasty implant and graft; Z86.14 Personal history of Methicillin resistant Staphylococcus aureus infection; Z79.4 Long term (current) use of insulin; Z87.891 Personal history of nicotine dependence; Z79.01 Long term (current) use of anticoagulants; Z91.19 Patient's noncompliance with other medical treatment and regimen; Z91.14 Patient's other noncompliance with medication regimen

== ENCOUNTER 2018-09-20 15:54 | Inpatient (IN) | payer OTHER, MEDICAID ==
[2018-09-20] MEDS ORDERED: Levalbuterol 0.63 MG/3 ML Inhal Soln UD IH PRN (16:04)
[2018-09-20] MEDS: oxyCODONE 5 mg Immediate Release Tab PO PRN (16:55)
[2018-09-20] MEDS: Insulin Reg-LOW-Coverage SC SCH ×2 (17:21→21:48)
[2018-09-20] MEDS: Potassium Chloride 20 mEq ER Tab PO SCH (17:27)
[2018-09-20] MEDS: Magnesium Oxide 400 mg Tab UD PO SCH (17:28)
[2018-09-20] MEDS: POLYETHYLENE GLYCOL 3350 17 GM/Dose PACKET PO SCH (17:28)
[2018-09-20] MEDS: Clotrimazole/Betamethasone Cream(15 gm) TOP SCH (17:34)
[2018-09-20 18:16] VITALS: BMI 41.1
[2018-09-20] MEDS: Ipratropium 0.02% Inhal Soln (0.5 mg/2.5 ml) UD IH SCH (20:26)
[2018-09-20] MEDS: Levalbuterol 0.63 MG/3 ML Inhal Soln UD IH SCH (20:26)
--- NOTE | 2018-09-20 20:31 | CP.PCM.CON ---
History of Present Illness - History of Present Illness History of Present Illness: General surgery consult note for Dr. Laxmi Salazar, PGY-2 Pt seen/examined at bedside 58M w/PMH sig for morbid obesity, CAD s/p CABG, CHF, DM, chronic renal insufficiency, JOAN A fib, HTN, COPD anasarca, and LE edema re-consulted for Right breast masses. Pt recently transferred from medical floor to TCU due to deconditioning. Pt reports Right breast with 1 mass last summer, had B/L breast US at that time which was negative, and a B/L breast mammogram, which was BIRADS 1. Pt was instructed to follow up with a breast surgeon, however, did not follow up at that time. Pt reports noting 2 additional right breast lumps, which are tender to palpation. Denies nipple discharge, retraction, skin changes, SOB, CP, N & V, F & C, other complaints. Pt had B/L breast U/S while inpatient on this admission with findings of BIRADS 0. Pt was recommended to have either a bilateral mammogram or breast MRI, however was unable to tolerate standing/refused due to discomfort from breast tissue compression or laying with legs together due to scrotal edema. PMH: morbid obesity, CAD s/p CABG, CHF, DM, chronic renal insufficiency, JOAN, LE edema PSH: CABG 20 years ago, 2 back surgeries All: NKDA SH:former smoker, quit in 1985. Drinks 1 glass a day, some days of the week. FH: Mother of cancer Review of Systems - Review of Systems All systems: reviewed and no additional remarkable complaints except - Constitutional Constitutional: absent: Chills, Fever - EENT Nose/Mouth/Throat: absent: Sore Throat - Cardiovascular Cardiovascular: absent: Chest Pain - Respiratory Respiratory: absent: Cough - Gastrointestinal Gastrointestinal: absent: Abdominal Pain, Nausea, Vomiting - Genitourinary Genitourinary: absent: Change in Urinary Stream - Musculoskeletal Musculoskeletal: absent: Back Pain - Neurological Neurological: Weakness Past Patient History - Infectious Disease Hx of Infectious Diseases: None - Tetanus Immunizations Tetanus Immunization: Unknown - Past Medical History & Family History Past Medical History?: Yes - Past Social History Smoking Status: Never Smoked - CARDIAC Hx Cardiac Disorders: Yes (Tachycardia, CAD, CABG, A-fib on Eliquis.) Hx Congestive Heart Failure: Yes (CHF-rEF.) Hx Hypertension: Yes - PULMONARY Hx Chronic Obstructive Pulmonary Disease (COPD): Yes - NEUROLOGICAL Hx Neurological Disorder: Yes Hx Dizziness: Yes - HEENT Hx HEENT Problems: Yes (eyeglases) Hx Cataracts: Yes Hx Glaucoma: Yes Other/Comment: dental abcess 09/17/17, missing teeth, wound cultures taken of r and l leg wounds 07/08/18 results are still pending - RENAL Hx Renal Failure: Yes (CKD) - ENDOCRINE/METABOLIC Hx Diabetes Mellitus Type 2: Yes - HEMATOLOGICAL/ONCOLOGICAL Hx Blood Disorders: Yes Hx Hepatitis A: Yes - INTEGUMENTARY Hx Dermatological Problems: Yes Other/Comment: + 4 edema ble discolored skin,multiple non heaing draining wounds, thick toenails, chronic mrsa, dry skin both feet, discolored toes, chest scar healed from open heart 1998 - MUSCULOSKELETAL/RHEUMATOLOGICAL Hx Falls: Yes (past) - GASTROINTESTINAL Hx Gastrointestinal Disorders: Yes (obese, fatty liver) - GENITOURINARY/GYNECOLOGICAL Hx Genitourinary Disorders: Yes - PSYCHIATRIC Hx Psychophysiologic Disorder: Yes Hx Depression: Yes - SURGICAL HISTORY Hx Open Heart Surgery: Yes Other/Comment: pylonidal cysts x 2 - ANESTHESIA Hx Anesthesia: Yes Hx Anesthesia Reactions: No Hx Malignant Hyperthermia: No Meds Allergies/Adverse Reactions: Allergies Allergy/AdvReac Type Severity Reaction Status Date / Time No Known Allergies Allergy Verified 09/20/18 16:00 - Medications Medications: Current Medications Apixaban (Eliquis) 5 mg PO BID [facility]; Protocol Last Admin: 09/20/18 17:26 Dose: 5 mg Aspirin (Aspirin Chewable) 81 mg PO DAILY [facility] Atorvastatin Calcium (Lipitor) 40 mg PO DIN [facility] Last Admin: 09/20/18 17:27 Dose: 40 mg Betamethasone/Clotrimazole (Lotrisone) 0 gm TOP BID [facility] Last Admin: 09/20/18 17:34 Dose: 1 applic Carvedilol (Coreg) 3.125 mg PO BID [facility] Last Admin: 09/20/18 17:26 Dose: 3.125 mg Digoxin (Digoxin) 0.125 mg PO 1400 [facility] Docusate Sodium (Colace) 100 mg PO BID [facility] Last Admin: 09/20/18 17:25 Dose: 100 mg Ergocalciferol (Drisdol 50,000 Intl Units Cap) 1 cap PO Q7D [facility] Escitalopram Oxalate (Lexapro) 10 mg PO HS [facility] Fluticasone Propionate (Flonase) 1 actuation NS DAILY [facility] Furosemide (Lasix) 60 mg IVP Q8 [facility] Insulin Detemir (Levemir) 30 unit SC HS [facility] Insulin Human Regular (Humulin R Low) 0 units SC ACHS [facility]; Protocol Last Admin: 09/20/18 17:21 Dose: 2 units Ipratropium [place] (Atrovent) 0.5 mg IH TIDRESP [facility] Last Admin: 09/20/18 20:26 Dose: 0.5 mg Lactic Acid (Lac-Hydrin 12% Cream (140 G)) 0 ea TOP DAILY [facility] Levalbuterol HCl (Xopenex) 0.63 mg IH [id number] PRN PRN Reason: Shortness of Breath Levalbuterol HCl (Xopenex) 0.63 mg IH TIDRESP [facility] Last Admin: 09/20/18 20:26 Dose: 0.63 mg Lisinopril (Zestril) 2.5 mg PO DAILY [facility] Magnesium Oxide (Mag-Ox) 400 mg PO TID [facility] Last Admin: 09/20/18 17:28 Dose: 400 mg Oxycodone HCl (Oxycodone Immediate Release Tab) 5 mg PO Q6H PRN PRN Reason: severe pain ( 8-10)] Last Admin: 09/20/18 16:55 Dose: 5 mg Pantoprazole Sodium (Protonix Ec Tab) 40 mg PO 0600 [facility] Polyethylene Glycol (Miralax) 17 gm PO BID [facility] Last Admin: 09/20/18 17:28 Dose: 17 gm Potassium Chloride (K-Dur 20 Meq Er Tab) 20 meq PO BID [facility] Last Admin: 09/20/18 17:27 Dose: 20 meq Spironolactone (Aldactone) 25 mg PO BID [facility] Last Admin: 09/20/18 17:23 Dose: 25 mg Verapamil HCl (Calan Tab) 40 mg PO TID [facility] Last Admin: 09/20/18 17:24 Dose: 40 mg Physical Exam - Constitutional Appears: Non-toxic, No Acute Distress - Head Exam Head Exam: ATRAUMATIC, NORMAL INSPECTION, NORMOCEPHALIC - Eye Exam Eye Exam: EOMI, Normal appearance - ENT Exam ENT Exam: Mucous Membranes Moist, Normal Exam - Respiratory Exam Respiratory Exam: Chest Wall Tenderness (over breast tissue masses), NORMAL BREATHING PATTERN - Cardiovascular Exam Cardiovascular Exam: REGULAR RHYTHM, +S1, +S2 - GI/Abdominal Exam GI & Abdominal Exam: Soft. absent: Distended (morbidly obese), Firm, Guarding, Tenderness - Neurological Exam Neurological exam: Alert, CN II-XII Intact, Oriented x3 - Psychiatric Exam Psychiatric exam: Normal Affect, Normal Mood - Skin Skin Exam: Dry, Intact, Normal Color, Warm Results - Vital Signs Recent Vital Signs: Last Vital Signs Temp 98 F 09/20/18 18:05 Pulse 92 H 09/20/18 18:05 Resp 18 09/20/18 18:05 BP 112/71 09/20/18 18:05 Pulse Ox - Labs Labs: Laboratory Results - last 24 hr 09/20/18 17:06 POC Glucose (mg/dL) 201 H Assessment & Plan - Assessment and Plan (Free Text) Assessment: 58M w/increasing number of breast masses in bilateral breast tissue Plan: Recommend either bilateral mammogram or bilateral breast MRI for evaluation when pt able to tolerate either exam Further surgical recommendations pending imaging results DW Dr. Monica Salazar, PGY-2 - Date & Time Date: 09/20/18 Time: 20:30
[2018-09-20] MEDS: Insulin Detemir 100 units/ml Vial (Levemir) SC SCH (21:49)
[2018-09-21] MEDS: Pantoprazole 40 mg EC Tab PO SCH (05:52)
[2018-09-21] MEDS: oxyCODONE 5 mg Immediate Release Tab PO PRN ×3 (05:53→21:55)
[2018-09-21] MEDS: Insulin Reg-LOW-Coverage SC SCH ×4 (06:58→21:54)
[2018-09-21] MEDS: Ipratropium 0.02% Inhal Soln (0.5 mg/2.5 ml) UD IH SCH ×3 (07:29→20:07)
[2018-09-21] MEDS: Levalbuterol 0.63 MG/3 ML Inhal Soln UD IH SCH ×2 (07:29→13:22)
[2018-09-21 07:41] LABS: BLOOD UREA NITROGEN 26 mg/dL (7-21); CALCIUM 9.1 mg/dL (8.4-10.5); GFR NON-AFRICAN AMERICAN > 60
[2018-09-21] MEDS: Potassium Chloride 20 mEq ER Tab PO SCH ×2 (09:29→18:28)
[2018-09-21] MEDS: Clotrimazole/Betamethasone Cream(15 gm) TOP SCH ×2 (09:30→18:30)
[2018-09-21] MEDS: POLYETHYLENE GLYCOL 3350 17 GM/Dose PACKET PO SCH ×2 (09:30→18:30)
[2018-09-21] MEDS: Magnesium Oxide 400 mg Tab UD PO SCH ×3 (09:30→18:27)
[2018-09-21] MEDS ORDERED: Potassium Chloride 20 mEq ER Tab PO ONE (10:37)
--- NOTE | 2018-09-21 11:40 | CON ---
DATE: 09/21/2018 PULMONARY CONSULT NOTE REFERRING PHYSICIAN: Dr. Tyrone Posey. REASON FOR CONSULT: Sleep apnea, cough and shortness of breath. HISTORY OF PRESENT ILLNESS: This is a 58-year-old male with history of noncompliance with outpatient followup, has past medical history for morbid obesity, coronary artery disease, CABG, congestive heart failure, diabetes mellitus, obstructive sleep apnea syndrome, chronic kidney disease, fatty liver disease, hypertension, history of MRSA infection on lower extremities, atrial fibrillation, cardiomyopathy, lymphadenopathy in bilateral lower extremities and congestive heart failure. The patient presented to emergency room complaining of bilateral lower extremities swelling, swelling to scrotum, abdominal distention and shortness of breath. The patient was treated for congestive heart failure exacerbation, currently on TR for rehabilitation. The patient reports that he does still have occasional productive cough and shortness of breath with exertion, refusing CPAP machine. PAST MEDICAL HISTORY: As per history of present illness. ALLERGIES: NO KNOWN ALLERGIES. SOCIAL HISTORY: Nonsmoker. No EtOH abuse. No illicit drug use. FAMILY HISTORY: No significant cardiopulmonary disease reported. MEDICATIONS: Reviewed. Eliquis 5 mg twice a day, aspirin 81 mg daily, Lipitor 40 mg at dinner, Lotrisone topically twice a day to affected area, Coreg 3.125 mg twice a day, digoxin 0.125 mg daily, Colace 100 mg daily, ergocalciferol one cap every 7 days, Lexapro 10 mg at bedtime, Flonase nasal spray daily, Lasix 60 mg IV push every 8 hours, Levemir 30 units at bedtime, Humulin R sliding scale a.c. and at bedtime, Atrovent 0.5 mg inhalation three times a day, Lac-Hydrin topically daily to affected area, Xopenex 0.63 mg inhalation every 6 hours p.r.n., Xopenex 0.63 mg inhalation three times a day, lisinopril 2.5 mg daily, magnesium oxide 400 mg three times a day, oxycodone 5 mg every 6 hours p.r.n., Protonix 40 mg daily, MiraLax 17 g twice a day, potassium chloride 20 mEq twice a day, spironolactone 25 mg twice a day and verapamil 40 mg three times a day. REVIEW OF SYSTEMS: No headache, rhinitis, chest pain, abdominal pain, nausea, vomiting, diarrhea, or leg pain reported. He does have bilateral lower extremity edema. Reports productive cough and shortness of breath with exertion. PHYSICAL EXAMINATION GENERAL: No acute distress. VITAL SIGNS: Blood pressure 95/57, heart rate 92 and temperature 98. HEENT: Moist mucous membranes. Crowded airway. Mallampati score of 4. NECK: Supple. No JVD. LUNGS: Few scattered rhonchi. CARDIOVASCULAR: S1 and S2. ABDOMEN: Obese, distended and nontender. EXTREMITIES: Bilateral lower extremity edema. NEUROLOGICAL: Awake, alert and verbal. Following commands. LABORATORY DATA: Reviewed. Sodium 138, potassium 3.8, chloride 91, carbon dioxide 37, anion gap 13, BUN 26, creatinine 1, GFR greater than 60, POC glucose 115, random glucose 79, calcium 9.1, phosphorus 3.3 and magnesium 1.7. IMPRESSION AND PLAN: Cardiomyopathy, chronic obstructive lung disease, coronary artery disease, obstructive sleep apnea syndrome, diabetes mellitus, peripheral vascular disease, morbid obesity, hypertension, renal insufficiency, pulmonary hypertension and congestive heart failure exacerbation. Pulmonary point review, continue inhaled bronchodilators, we will add Pulmicort and Mucomyst nebulizers. The patient currently on anticoagulation therapy, gastric prophylaxis, continue diuretics. We will need to monitor electrolytes closely, pressure ulcer precaution, careful with sedation, sleep apnea precaution, head of bed elevated at 45 degrees. The patient refusing to use continuous positive airway pressure machine despite education. Verbalizes understanding of risk of cardiopulmonary disease associated with sleep apnea syndrome. Physical therapy. This patient was seen and examined with Dr. Simpson. Discussed assessment and plan as described above. This patient was seen and examined with Jose Salinas, nurse practitioner. Discussed assessment and plan as described above. Thank you for this consult and we will follow with you. Jose Salinas APN Rudy Simpson MD
[2018-09-21] MEDS: Digoxin 125 mcg (0.125 mg) Tab PO SCH (15:34)
[2018-09-21] MEDS: Fluticasone Nasal 50 mcg/Spray NS SCH (15:35)
[2018-09-21] MEDS: Ammonium Lactate 12% Cream (140 g) TOP SCH (15:37)
--- NOTE | 2018-09-21 18:42 | CON ---
DATE: 09/21/2018 CONSULTATION SERVICE: Cardiology. REASON FOR CONSULTATION: History of acute and chronic CHF secondary to systolic dysfunction, transferred to Transitional Care Unit with continuity of care; history of coronary artery disease, history of CABG, and history of chronic atrial fibrillation. BRIEF CLINICAL HISTORY: This is a 58-year-old very morbidly obese male, very noncompliant with a past medical history significant for atrial fibrillation, chronic, a history of coronary artery disease, CABG, reduced LV function, diabetes, sleep apnea, and chronic kidney disease. Admitted with acute decompensated congestive heart failure to the acute medical floor. The patient was treated with IV Primacor. Now, the patient is moved to Transitional Care Unit with continuity of care. Also the patient complained of a scrotal swelling and enlarged belly and distended and 3+ pedal edema. PAST MEDICAL HISTORY: Significant for morbid obesity, diabetes, hypertension, hyperlipidemia, chronic atrial fibrillation, coronary artery bypass surgery in 1998, quadruple bypass at [facility], history of multiple admissions for decompensated congestive heart failure, acute and chronic secondary to systolic dysfunction. The patient has a fixed idea that a stress thallium especially the nuclear is very injurious to his body and ruins his kidney. The patient did not want any stress test. History of chronic atrial fibrillation. PREVIOUS CARDIAC WORKUP: As follows; the patient had an echo on 07/10/2016 that showed dilated left ventricular ejection fraction severely decreased. The patient had a repeat echocardiography done on last admission 07/09/2018, that shows ejection fraction 20% to 25%, four-chamber dilatation, trace aortic regurgitation, moderate mitral regurgitation, moderate tricuspid regurgitation, RV systolic pressure 40, trace pulmonary insufficiency, dilated IVC, date of echo 07/09/2018. History of atrial fibrillation, history of paroxysmal atrial fibrillation. The patient was scheduled for a stress test, but the patient refused because he thinks that nuclear material will ruin his body. The patient refused cardiac catheterization multiple times. Last the patient had a stress test regular on 06/07/2017, at [facility] was negative for ischemia. CURRENT MEDICATIONS: The patient is taking at home; guaifenesin, spironolactone, potassium, polyethylene glycol, MiraLax, Protonix, Reglan, meclizine, Xopenex, and insulin. The patient was started on IV Primacor here and IV Lasix continued. Primacor was discontinued upon transfer to Transitional Care Unit. PHYSICAL EXAMINATION GENERAL: Height of the patient 5 feet 9 inches, weight of the patient 278 pounds, and body mass index 41.2 kg/m2. VITAL SIGNS: Temperature afebrile, heart rate 60, and blood pressure 107/58. HEENT: PERRLA. Intact. NECK: Supple. No carotid bruits or thyromegaly. CHEST: Clear to auscultation. HEART: S1 and S2 regular. ABDOMEN: Soft. EXTREMITIES: Clubbing and cyanosis negative. LABORATORY DATA: Blood workup, SMA-7; sodium 130, potassium 3.8, chloride 91, carbon dioxide 37, anion gap of 13, BUN 26, and creatinine 1.0. IMPRESSION: A 58-year-old morbidly obese male with past medical history significant for ischemic cardiomyopathy with four-chambered dilatation, showing ejection fraction 20% to 25%, chronic atrial fibrillation, admitted with acute decompensated congestive heart failure, acute and chronic secondary to systolic dysfunction. RECOMMENDATIONS: Aggressive diuresis. Continue spironolactone. Continue Lasix. Continue verapamil 40 mg to control the heart rate. Continue Coreg 3.125 mg daily. Continue digoxin 0.125 mg daily. Continue Eliquis. Continue IV Lasix. We will supplement potassium. We will give 40 mEq K-Dur and repeat labs in the morning. We will get a magnesium level and blood workup and CBC as well. We will follow with you. Thank you, Dr. Posey, for providing us the opportunity in taking care of the patient, Mason Benavides. Rudy Fermin MD
[2018-09-21] MEDS: Acetylcysteine 20% Inhal Soln (4ml) IH SCH (20:07)
[2018-09-21] MEDS: Budesonide 0.5 mg/2 ml Inhal Susp UD IH SCH (20:08)
[2018-09-21] MEDS: Insulin Detemir 100 units/ml Vial (Levemir) SC SCH (21:56)
[2018-09-22] MEDS: Pantoprazole 40 mg EC Tab PO SCH (05:19)
[2018-09-22] MEDS: Insulin Reg-LOW-Coverage SC SCH ×4 (06:51→22:03)
[2018-09-22] MEDS: Acetylcysteine 20% Inhal Soln (4ml) IH SCH ×2 (07:24→20:48)
[2018-09-22] MEDS: Ipratropium 0.02% Inhal Soln (0.5 mg/2.5 ml) UD IH SCH ×3 (07:24→20:48)
[2018-09-22] MEDS: Levalbuterol 0.63 MG/3 ML Inhal Soln UD IH SCH ×4 (07:25→20:48)
[2018-09-22] MEDS: Budesonide 0.5 mg/2 ml Inhal Susp UD IH SCH ×2 (07:25→20:48)
[2018-09-22] MEDS: Magnesium Oxide 400 mg Tab UD PO SCH ×3 (09:18→17:31)
[2018-09-22] MEDS: POLYETHYLENE GLYCOL 3350 17 GM/Dose PACKET PO SCH ×2 (09:18→17:31)
[2018-09-22] MEDS: oxyCODONE 5 mg Immediate Release Tab PO PRN ×2 (09:19→22:49)
[2018-09-22] MEDS: Ammonium Lactate 12% Cream (140 g) TOP SCH (09:20)
[2018-09-22] MEDS: Fluticasone Nasal 50 mcg/Spray NS SCH (09:20)
[2018-09-22] MEDS: Clotrimazole/Betamethasone Cream(15 gm) TOP SCH ×2 (09:21→17:34)
[2018-09-22] MEDS: Potassium Chloride 20 mEq ER Tab PO SCH ×2 (09:40→17:30)
--- NOTE | 2018-09-22 12:21 | CP.PCM.CON ---
<Panchito Moyer - Last Filed: 09/22/18 12:17> History of Present Illness - History of Present Illness History of Present Illness: Podiatry Consult Note for Dr. Squires/Andrew 58M PMH morbid obesity, CAD s/p CABG, CHF, DM, chronic renal insufficiency, JOAN A fib, HTN, COPD anasarca, and LE edema seen at bedside for b/l LE edema which he states has been present for several weeks. He also complains of heel pain to his left heel and denies any recent trauma to the area. Patient is AAO x 3 and N AD, resting comfortably in bed. Denies any further pedal complaints at this time. Denies any recent N/V/F/C/CP/D Review of Systems - Review of Systems All systems: reviewed and no additional remarkable complaints except Review of Systems: as per HPI Past Patient History - Infectious Disease Hx of Infectious Diseases: None - Tetanus Immunizations Tetanus Immunization: Unknown - Past Medical History & Family History Past Medical History?: Yes - Past Social History Smoking Status: Never Smoked - CARDIAC Hx Cardiac Disorders: Yes (Tachycardia, CAD, CABG) - PULMONARY Hx Chronic Obstructive Pulmonary Disease (COPD): Yes - NEUROLOGICAL Hx Neurological Disorder: Yes Hx Dizziness: Yes - HEENT Hx HEENT Problems: Yes (eyeglases) Hx Cataracts: Yes Hx Glaucoma: Yes Other/Comment: dental abcess 09/17/17, missing teeth, wound cultures taken of r and l leg wounds 07/08/18 results are still pending - RENAL Hx Renal Failure: Yes (CKD) - ENDOCRINE/METABOLIC Hx Diabetes Mellitus Type 2: Yes - HEMATOLOGICAL/ONCOLOGICAL Hx Blood Disorders: Yes Hx Hepatitis A: Yes - INTEGUMENTARY Hx Dermatological Problems: Yes Other/Comment: + 4 edema ble discolored skin,multiple non heaing draining wounds, thick toenails, chronic mrsa, dry skin both feet, discolored toes, chest scar healed from open heart 1998 - MUSCULOSKELETAL/RHEUMATOLOGICAL Hx Falls: Yes (past) - GASTROINTESTINAL Hx Gastrointestinal Disorders: Yes (obese, fatty liver) - GENITOURINARY/GYNECOLOGICAL Hx Genitourinary Disorders: Yes - PSYCHIATRIC Hx Psychophysiologic Disorder: Yes Hx Depression: Yes - SURGICAL HISTORY Hx Open Heart Surgery: Yes Other/Comment: pylonidal cysts x 2 - ANESTHESIA Hx Anesthesia: Yes Hx Anesthesia Reactions: No Hx Malignant Hyperthermia: No Meds Allergies/Adverse Reactions: Allergies Allergy/AdvReac Type Severity Reaction Status Date / Time No Known Allergies Allergy Verified 09/20/18 16:00 - Medications Medications: Current Medications Acetylcysteine (Acetylcysteine 20%) 4 ml IH BIDRESP [facility] Last Admin: 09/22/18 07:24 Dose: 4 ml Apixaban (Eliquis) 5 mg PO BID [facility]; Protocol Last Admin: 09/22/18 09:19 Dose: 5 mg Aspirin (Aspirin Chewable) 81 mg PO DAILY [facility] Last Admin: 09/22/18 09:19 Dose: 81 mg Atorvastatin Calcium (Lipitor) 40 mg PO DIN [facility] Last Admin: 09/21/18 18:28 Dose: 40 mg Betamethasone/Clotrimazole (Lotrisone) 0 gm TOP BID [facility] Last Admin: 09/22/18 09:21 Dose: 1 applic Budesonide (Pulmicort Respules) 0.5 mg IH [id number] [facility] Last Admin: 09/22/18 07:25 Dose: 0.5 mg Carvedilol (Coreg) 3.125 mg PO BID [facility] Last Admin: 09/22/18 09:18 Dose: 3.125 mg Digoxin (Digoxin) 0.125 mg PO 1400 [facility] Last Admin: 09/21/18 15:34 Dose: 0.125 mg Docusate Sodium (Colace) 100 mg PO BID [facility] Last Admin: 09/22/18 09:19 Dose: 100 mg Ergocalciferol (Drisdol 50,000 Intl Units Cap) 1 cap PO Q7D [facility] Escitalopram Oxalate (Lexapro) 10 mg PO HS [facility] Last Admin: 09/21/18 21:21 Dose: 10 mg Fluticasone Propionate (Flonase) 1 actuation NS DAILY [facility] Last Admin: 09/22/18 09:20 Dose: Not Given Furosemide (Lasix) 60 mg IVP Q8 [facility] Last Admin: 09/22/18 05:17 Dose: 60 mg Insulin Detemir (Levemir) 30 unit SC HS [facility] Last Admin: 09/21/18 21:56 Dose: 30 u Insulin Human Regular (Humulin R Low) 0 units SC ACHS [facility]; Protocol Last Admin: 09/22/18 11:17 Dose: Not Given Ipratropium Marshall (Atrovent) 0.5 mg IH TIDRESP [facility] Last Admin: 09/22/18 07:24 Dose: 0.5 mg Lactic Acid (Lac-Hydrin 12% Cream (140 G)) 0 ea TOP DAILY [facility] Last Admin: 09/22/18 09:20 Dose: 1 applic Levalbuterol HCl (Xopenex) 0.63 mg IH [id number] PRN PRN Reason: Shortness of Breath Levalbuterol HCl (Xopenex) 0.63 mg IH TIDRESP [facility] Last Admin: 09/22/18 07:25 Dose: 0.63 mg Lisinopril (Zestril) 2.5 mg PO DAILY [facility] Last Admin: 09/22/18 09:21 Dose: 2.5 mg Magnesium Oxide (Mag-Ox) 400 mg PO TID [facility] Last Admin: 09/22/18 09:18 Dose: 400 mg Oxycodone HCl (Oxycodone Immediate Release Tab) 5 mg PO Q6H PRN PRN Reason: severe pain ( 8-10)] Last Admin: 09/22/18 09:19 Dose: 5 mg Pantoprazole Sodium (Protonix Ec Tab) 40 mg PO 0600 [facility] Last Admin: 09/22/18 05:19 Dose: 40 mg Polyethylene Glycol (Miralax) 17 gm PO BID [facility] Last Admin: 09/22/18 09:18 Dose: 17 gm Potassium Chloride (K-Dur 20 Meq Er Tab) 20 meq PO BID [facility] Last Admin: 09/22/18 09:40 Dose: 20 meq Spironolactone (Aldactone) 25 mg PO BID [facility] Last Admin: 09/22/18 09:18 Dose: 25 mg Verapamil HCl (Calan Tab) 40 mg PO TID [facility] Last Admin: 09/22/18 09:20 Dose: 40 mg Physical Exam - Constitutional Appears: Well, Non-toxic, No Acute Distress - Extremities Exam Additional comments: LE focused exam: Vasc: DP/PT pulses faintly palpable 1/4 secondary to 1+ pitting edema b/l. CFT < 3 seconds to all digits b/l. Skin temperature warm to warm from proximal to distal WNL Neuro: Epicritic and protective sensation grossly intact b/l Derm: No open lesions, wounds, maceration, xerosis, abnormal pigmentation or abnormal growths noted MSK: Pain to right heel with palpation secondary to deep tissue injury. ROM WNL at all major joints, MMT 5/5 in all major muscle groups - Neurological Exam Neurological exam: Alert, Oriented x3 - Psychiatric Exam Psychiatric exam: Normal Affect, Normal Mood Results - Vital Signs Recent Vital Signs: Last Vital Signs Temp 98 F 09/21/18 16:00 Pulse 101 H 09/22/18 09:18 Resp 16 09/21/18 16:00 BP 108/70 09/22/18 09:21 Pulse Ox 93 L 09/21/18 16:00 - Labs Result Diagrams: 09/21/18 07:00 Labs: Laboratory Results - last 24 hr 09/21/18 09/21/18 09/22/18 15:53 21:29 05:08 POC Glucose (mg/dL) 139 H 253 H 173 H 09/22/18 11:06 POC Glucose (mg/dL) 139 H Assessment & Plan - Assessment and Plan (Free Text) Assessment: 58M seen at bedside for b/l LE swelling and right heel pain secondary to DTI Plan: Patient seen and evaluated Plan discussed with Dr. Squires Both legs lightly wrapped in MARCEL compression dressing with heels exposed Multipodus boots ordered to be worn at all times in bed No plan for surgical intervention at this time Podiatry will continue to follow while patient in house - Date & Time Date: 09/22/18 Time: 12:23 <Juan Squires - Last Filed: 09/24/18 08:24> Meds - Medications Medications: Current Medications Acetylcysteine (Acetylcysteine 20%) 4 ml IH BIDRESP [facility] Last Admin: 09/24/18 07:09 Dose: Not Given Apixaban (Eliquis) 5 mg PO BID [facility]; Protocol Last Admin: 09/23/18 17:22 Dose: 5 mg Aspirin (Aspirin Chewable) 81 mg PO 0800 [facility] Last Admin: 09/24/18 07:53 Dose: 81 mg Atorvastatin Calcium (Lipitor) 40 mg PO DIN [facility] Last Admin: 09/23/18 17:20 Dose: 40 mg Betamethasone/Clotrimazole (Lotrisone) 0 gm TOP BID [facility] Last Admin: 09/23/18 17:23 Dose: 1 applic Budesonide (Pulmicort Respules) 0.5 mg IH [id number] [facility] Last Admin: 09/24/18 07:10 Dose: 0.5 mg Carvedilol (Coreg) 3.125 mg PO BID [facility] Last Admin: 09/24/18 07:53 Dose: 3.125 mg Digoxin (Digoxin) 0.125 mg PO 1400 [facility] Last Admin: 09/23/18 13:58 Dose: 0.125 mg Docusate Sodium (Colace) 100 mg PO BID [facility] Last Admin: 09/23/18 17:21 Dose: 100 mg Ergocalciferol (Drisdol 50,000 Intl Units Cap) 1 cap PO Q7D [facility] Escitalopram Oxalate (Lexapro) 10 mg PO HS [facility] Last Admin: 09/23/18 21:08 Dose: 10 mg Fluticasone Propionate (Flonase) 1 actuation NS DAILY [facility] Last Admin: 09/23/18 11:07 Dose: Not Given Furosemide (Lasix) 60 mg IVP Q8 [facility] Last Admin: 09/24/18 05:40 Dose: 60 mg Insulin Detemir (Levemir) 30 unit SC [facility] Last Admin: 09/23/18 21:21 Dose: 30 u Insulin Human Regular (Humulin R Low) 0 units SC ACHS [facility]; Protocol Last Admin: 09/24/18 06:40 Dose: 1 units Ipratropium Marshall (Atrovent) 0.5 mg IH TIDRESP [facility] Last Admin: 09/24/18 07:10 Dose: 0.5 mg Lactic Acid (Lac-Hydrin 12% Cream (140 G)) 0 ea TOP DAILY [facility] Last Admin: 09/23/18 11:07 Dose: 1 applic Levalbuterol HCl (Xopenex) 0.63 mg IH [id number] PRN PRN Reason: Shortness of Breath Levalbuterol HCl (Xopenex) 0.63 mg IH TIDRESP [facility] Last Admin: 09/24/18 07:10 Dose: 0.63 mg Lisinopril (Zestril) 2.5 mg PO DAILY [facility] Last Admin: 09/23/18 11:08 Dose: Not Given Magnesium Oxide (Mag-Ox) 400 mg PO TID [facility] Last Admin: 09/23/18 17:22 Dose: 400 mg Oxycodone HCl (Oxycodone Immediate Release Tab) 5 mg PO Q6H PRN PRN Reason: severe pain ( 8-10)] Last Admin: 09/23/18 21:14 Dose: 5 mg Pantoprazole Sodium (Protonix Ec Tab) 40 mg PO 0600 [facility] Last Admin: 09/24/18 05:40 Dose: 40 mg Polyethylene Glycol (Miralax) 17 gm PO BID [facility] Last Admin: 09/23/18 17:23 Dose: 17 gm Potassium Chloride (K-Dur 20 Meq Er Tab) 20 meq PO 0800,1800 [facility] Last Admin: 09/24/18 07:54 Dose: 20 meq Spironolactone (Aldactone) 25 mg PO BID [facility] Last Admin: 09/23/18 17:21 Dose: 25 mg Verapamil HCl (Calan Tab) 40 mg PO TID [facility] Last Admin: 09/23/18 17:21 Dose: 40 mg Results - Vital Signs Recent Vital Signs: Last Vital Signs Temp 98.2 F 09/24/18 06:00 Pulse 77 09/24/18 07:53 Resp 20 09/24/18 06:00 BP 108/64 09/24/18 07:53 Pulse Ox 95 09/24/18 06:00 - Labs Result Diagrams: 09/24/18 06:40 Labs: Laboratory Results - last 24 hr 09/23/18 09/23/18 09/23/18 11:16 16:43 21:20 Sodium Potassium Chloride Carbon Dioxide Anion Gap BUN Creatinine Est GFR ( Amer) Est GFR (Non-Af Amer) POC Glucose (mg/dL) 120 H 173 H 219 H Random Glucose Calcium 09/24/18 09/24/18 04:55 06:40 Sodium 136 Potassium 4.1 Chloride 92 L Carbon Dioxide 34 H Anion Gap 14 BUN 37 H Creatinine 0.9 Est GFR ( Amer) > 60 Est GFR (Non-Af Amer) > 60 POC Glucose (mg/dL) 157 H Random Glucose 144 H Calcium 9.0 Attending/Attestation - Attestation I have personally seen and examined this patient.: Yes I have fully participated in the care of the patient.: Yes I have reviewed all pertinent clinical information: Yes
--- NOTE | 2018-09-22 13:48 | PN ---
DATE: 09/22/2018 REFERRING PHYSICIAN: Dr. Tyrone Posey. SUBJECTIVE: The patient is seen lying in bed, in no acute distress. No overnight events reported. States that he has occasional cough. Shortness of breath is better, just gets slightly short of breath on exertion. No headache, rhinitis, chest pain, abdominal pain, nausea, vomiting, diarrhea, or leg pain reported. The patient refused blood work this morning. OBJECTIVE: PHYSICAL EXAMINATION VITAL SIGNS: Blood pressure 108/70, pulse 101, temperature 98. GENERAL: No acute distress. HEENT: Moist mucous membranes. Mallampati score of 4. Crowded airway. NECK: Supple. No JVD. Short and thick. LUNGS: Scattered rhonchi bilaterally. CARDIOVASCULAR: S1 and S2. ABDOMEN: Obese, distended and nontender. EXTREMITIES: Bilateral lower extremity edema. NEUROLOGICAL: Awake, alert and verbal. Following commands. MEDICATIONS: Reviewed. Mucomyst 4 mL inhalation twice a day, Eliquis 5 mg twice a day, aspirin 81 mg daily, Lipitor 40 mg at dinner, Lotrisone topically twice a day, Pulmicort 0.5 mg inhalation every 12 hours, Coreg 3.125 mg twice a day, digoxin 0.125 mg daily, Colace 100 mg twice a day, ergocalciferol 50,000 units every 7 days, Lexapro 10 mg at bedtime, Flonase nasal spray daily, Lasix 60 mg IV push every 8 hours, Levemir 30 units subcutaneous at bedtime, Humulin R sliding scale before meals and at bedtime, Atrovent 0.5 mg inhalation three times a day, Lac-Hydrin cream topically daily to affected area, Xopenex 0.63 mg inhalation every 6 hours p.r.n., Xopenex 0.63 mg inhalation three times a day, lisinopril 2.5 mg daily, magnesium oxide 400 mg three times a day, oxycodone 5 mg every 6 hours p.r.n., Protonix 40 mg daily, MiraLax 17 g twice a day, potassium chloride 40 mEq twice a day, spironolactone 25 mg twice a day, and verapamil 40 mg three times a day. LABORATORY DATA: Reviewed. POC glucose 139. IMPRESSION AND PLAN: Cardiomyopathy, chronic obstructive lung disease, coronary artery disease, obstructive sleep apnea syndrome, diabetes mellitus, morbid obesity, peripheral vascular disease, hypertension, renal insufficiency, pulmonary hypertension and congestive heart failure exacerbation. Pulmonary point review, the patient continues to refuse CPAP/BiPAP machine. Sleep apnea precaution, head of bed elevated at 45 degrees. Continue inhaled bronchodilators, gastric prophylaxis, continue diuretics, currently on anticoagulation therapy. Pressure ulcer precaution. Continue physical therapy. We will order BNP to be done in the morning. Fall precaution. This patient was seen and examined with Dr. Simpson. Discussed assessment and plan as described above. This patient was seen and examined with Jose Salinas, nurse practitioner. Discussed assessment and plan as described above. Thank you for this consult and we will follow with you. Jose Salinas APN Rudy Simpson MD
[2018-09-22] MEDS: Digoxin 125 mcg (0.125 mg) Tab PO SCH (14:08)
--- NOTE | 2018-09-22 22:29 | CON ---
DATE: 09/22/2018 REASON FOR CONSULTATION AND FOLLOWUP: History of acute on chronic congestive heart failure secondary to systolic dysfunction, transferred to transitional care unit for the continuity of care, history of coronary artery disease with CABG, history of chronic atrial fibrillation. SUBJECTIVE: The patient denies any chest pain, shortness of breath, or any palpitation. Lying flat on the bed in transitional care unit. OBJECTIVE GENERAL: Not in apparent distress. VITAL SIGNS: Temperature afebrile, heart rate 101, blood pressure 108/70. HEENT: PERRLA. Extraocular muscles intact. NECK: Supple. No carotid bruits or thyromegaly. CHEST: Clear to auscultation. HEART: S1 and S2 regular. ABDOMEN: Soft. EXTREMITIES: Clubbing and cyanosis negative. LABORATORY DATA: Blood workup as follows; Only SMA-7 is available; Sodium 130, potassium 3.8, chloride 91, carbon dioxide 37, anion gap 13, BUN 26, and creatinine 1. IMPRESSION: A 58-year-old morbidly obese male with past medical history significant for coronary artery disease, status post coronary artery bypass grafting many years ago at [facility]. Last echo dated 07/09/2018 shows ejection fraction 20% to 25%, 4-chamber dilatation, trace aortic regurgitation, moderate mitral regurgitation, moderate tricuspid regurgitation, right ventricular systolic pressure 40, trace pulmonary insufficiency, dilated inferior vena cava, history of atrial fibrillation, history of paroxysmal atrial fibrillation, noncompliance with medication, admitted with acute decompensated congestive heart failure. RECOMMENDATION: Continue aggressive diuresis. Continue spironolactone. Continue IV Lasix. Continue verapamil to control the heart rate. Continue Coreg. Continue digoxin. Continue Eliquis for atrial fibrillation. Repeat the blood workup in the morning. Supplement electrolytes as needed. We will follow with you. Thank you, Dr. Posey, for providing us the opportunity in taking care of the patient, Mason Benavides. Rudy Fermin MD
[2018-09-22] MEDS: Insulin Detemir 100 units/ml Vial (Levemir) SC SCH (22:48)
--- NOTE | 2018-09-23 03:57 | HP ---
DATE OF EXAM: 09/21/2018 HISTORY OF PRESENT ILLNESS: The patient initially was admitted to medical floor and has been gaining severe weight with severe dyspnea, insomnia, bilateral leg edema, and scrotal swelling. He was given IV Lasix, seems stable. No chest pain. No shortness of breath, given diuretics. Seen by cardiology Dr. Fermin. Seen by podiatry Dr. Squires and the patient was diuresed till he lost significant weight, still swollen and has decided still need further IV Lasix and further physical therapy treatment for which he is admitted to TCU. The patient also while in the hospital he was seen by pulmonary consult for his COPD and obstructive sleep apnea, on BiPAP. PAST MEDICAL HISTORY: Severe congestive heart failure with low ejection fraction, coronary artery disease, bypass surgery, hypertension, hypercholesterolemia, insulin-dependent diabetes, morbid obesity, obstructive sleep apnea, COPD, chronic leg with recurrent cellulitis, lymphedema, noncompliance as outpatient and poor compliance with medications. Atrial fibrillation. MEDICATIONS: He is on Plavix 75 mg, Coreg 3.125 b.i.d., calcium twice a day, Lipitor 40, aspirin 81, Aldactone 25 p.o. daily, potassium 10 p.o. daily, Miralax p.r.n., Protonix 40, Xopenex q.i.d., Lasix, currently he is getting IV Lasix 60 mg IV every 8 hours. In addition, the patient also getting Brovana and Pulmicort plus Xopenex. He is getting also Zestril 2.5 mg, Protonix 40, oxycodone p.r.n. for his back pain, Miralax, magnesium 400 b.i.d., Lotrisone cream for his lower extremity b.i.d., Lipitor 40, Lexapro 10, Lac-Hydrin for both lower extremities, Flonase, Eliquis 5 mg b.i.d. for new onset atrial fibrillation, the patient getting digoxin 0.125 mg p.o. daily, Calan or verapamil HCl 40 mg t.i.d., Atrovent t.i.d., aspirin 81, and Mucomyst b.i.d. ALLERGIES: NO KNOWN ALLERGIES. REVIEW OF SYSTEMS: As in the history of present illness. PHYSICAL EXAMINATION VITAL SIGNS: On 09/21/2018, date of admission to TCU; his temperature 98, heart rate 75, blood pressure 120/73, respirations 16, saturating 93%. HEAD AND NECK: Normal. No JVD. No thyromegaly. CHEST: Diminished breath sounds but clear. CARDIOVASCULAR: First sounds and second sounds normal. Systolic murmur. ABDOMEN: Obese. Ascites. Nontender. EXTREMITIES: Bilateral leg lymphedema is improving. NEUROLOGIC: Normal. LABORATORY STUDIES: Showed following, sodium 138, potassium 3.8, chloride 91, bicarb 37, BUN 26, creatinine 1, blood sugar 79, calcium 9.1, phosphorous 3.3, magnesium 1.7. IMPRESSION AND PLAN: 1. Generalized weakness, deconditioning. Continue physical therapy. 2. Acute systolic heart failure on top of chronic systolic heart failure. Continue diuretics, digoxin, lisinopril, Coreg, and will follow up with consultants. 3. Chronic obstructive pulmonary disease, obstructive sleep apnea. Continue inhaled bronchodilators, BiPAP machine. 4. Insulin-dependent diabetes. Continue insulin coverage per sliding scale. Blood sugar stable 100 to 150. 5. Chronic back pain, chronic osteoarthritis. Continue Percocet p.r.n. 6. Continue current therapy. For his chronic atrial fibrillation, continue Eliquis 5 mg b.i.d. Will follow up clinically. Will follow up with other consultants. Tyrone Posey MD
[2018-09-23] MEDS: Pantoprazole 40 mg EC Tab PO SCH (05:43)
[2018-09-23] MEDS: Insulin Reg-LOW-Coverage SC SCH ×4 (06:47→21:22)
[2018-09-23] MEDS: Acetylcysteine 20% Inhal Soln (4ml) IH SCH ×2 (07:15→19:58)
[2018-09-23] MEDS: Levalbuterol 0.63 MG/3 ML Inhal Soln UD IH SCH ×3 (07:16→19:58)
[2018-09-23] MEDS: Ipratropium 0.02% Inhal Soln (0.5 mg/2.5 ml) UD IH SCH ×3 (07:16→19:58)
[2018-09-23] MEDS: Budesonide 0.5 mg/2 ml Inhal Susp UD IH SCH (07:16)
[2018-09-23] MEDS: Potassium Chloride 20 mEq ER Tab PO SCH ×2 (08:40→17:22)
--- NOTE | 2018-09-23 08:53 | PN ---
DATE: 09/22/2018 SUBJECTIVE: The patient is stable, doing better. Feeling better. Less short of breath than before. No chest pain but less dyspnea than before, ambulating to the bathroom. PHYSICAL EXAMINATION: GENERAL: Temperature 98.6, heart rate 101, blood pressure 108/70, respirations 18, saturation is 97% on room air. HEAD AND NECK: Normal. No JVD. No thyromegaly. CHEST: Clear bilateral. CARDIAC: First sound and second sound normal. There is systolic murmur. ABDOMEN: Obese, nontender. Ascites. EXTREMITIES: Bilateral leg lymphedema. Both legs are red. NEUROLOGIC: Normal. LABORATORY STUDIES: Last BUN was 26, creatinine is 1. Blood sugar running between 100 to 150. IMPRESSION AND PLAN: 1. Acute systolic heart failure on top of chronic. Continue intravenous Lasix. Continue Coreg. Continue digoxin. Continue Aldactone, potassium, Lasix intravenous 60 every 8 hours. Continue lisinopril 2.5 mg daily. 2. History of coronary artery disease, history of chronic atrial fibrillation. Continue Eliquis 5 mg twice daily. 3. Chronic obstructive pulmonary disease, obstructive sleep apnea. Continue inhaled bronchodilators. 4. Morbid obesity, chronic back pain, chronic osteoarthritis. Continue oxycodone. Continue physical therapy. 5. Diabetes, insulin dependent. Continue current regimen. Blood sugar is running good. We will follow up clinically. Tyrone Posey MD
[2018-09-23] MEDS: POLYETHYLENE GLYCOL 3350 17 GM/Dose PACKET PO SCH ×2 (09:41→17:23)
[2018-09-23] MEDS: Ammonium Lactate 12% Cream (140 g) TOP SCH (11:07)
[2018-09-23] MEDS: Fluticasone Nasal 50 mcg/Spray NS SCH (11:07)
[2018-09-23] MEDS: Clotrimazole/Betamethasone Cream(15 gm) TOP SCH ×2 (11:08→17:23)
[2018-09-23] MEDS: Magnesium Oxide 400 mg Tab UD PO SCH ×3 (11:08→17:22)
[2018-09-23] MEDS: Digoxin 125 mcg (0.125 mg) Tab PO SCH (13:58)
--- NOTE | 2018-09-23 19:37 | PN ---
DATE: 09/23/2018 REFERRING PHYSICIAN: Tyrone Posey MD. SUBJECTIVE: The patient seen lying bed, no acute distress. No overnight events reported. Reports feel a little better this morning. Has been refusing lab work the last two days. No headache, rhinitis, chest pain, abdominal pain, nausea, vomiting, diarrhea, leg pain reported. Cough and shortness of breath has improved. OBJECTIVE: VITAL SIGNS: Blood pressure 120/59, pulse 82, temperature 98.2 and oxygen saturation 95%. GENERAL: No acute distress. HEENT: Moist mucous membranes. Crowded airway. Mallampati score of 4. NECK: Supple. No JVD. Short and thick. LUNGS: Scattered rhonchi bilaterally. CARDIOVASCULAR: S1 and S2. ABDOMEN: Obese, distended and nontender. EXTREMITIES: Bilateral lower extremity edema. NEUROLOGICAL: Awake, alert and verbal. Following commands. MEDICATIONS: Reviewed. Mucomyst 4 mL inhalation twice a day, Eliquis 5 mg twice a day, aspirin 81 mg daily, Lipitor 40 mg at dinner, Lotrisone topically twice a day affected area, Pulmicort 0.5 mg inhalation every 12 hours, Coreg 3.125 mg twice a day, digoxin 0.125 mg daily, Colace 100 mg twice a day, ergocalciferol 50,000 units every 7 days, Lexapro 10 mg at bedtime, Flonase nasal spray daily, Lasix 60 mg IV push every 8 hours, Levemir 30 units subcutaneous at bedtime, Humulin R sliding scale before meals and at bedtime, Atrovent 0.5 mg inhalation three times a day, Lac-Hydrin cream topically daily to affected area, Xopenex 0.63 mg inhalation every 6 hours, Xopenex 0.63 mg inhalation three times a day, lisinopril 2.5 mg daily, magnesium oxide 400 mg three times a day, oxycodone 5 mg every 6 hours p.r.n., Protonix 40 mg daily, MiraLax 17 g twice a day, potassium chloride 40 mEq twice a day, Aldactone 25 mg twice a day, and verapamil 40 mg three times a day. LABORATORY DATA: Reviewed. POC glucose 120. IMPRESSION AND PLAN: Cardiomyopathy, chronic obstructive lung disease, coronary artery disease, diabetes mellitus, obstructive sleep apnea syndrome, morbid obesity, peripheral vascular disease, hypertension, renal insufficiency, pulmonary hypertension, congestive heart failure exacerbation. He denies history of noncompliance with treatment plan. Pulmonary point of view, the patient continues to refuse CPAP/BiPAP use. Sleep apnea precautions, head of the bed elevated at 45 degrees, verbalizes understanding of risk of cardiopulmonary diseases associated with sleep apnea. Continue inhaled bronchodilators. Gastric prophylaxis. The patient on anticoagulation therapy. Pressure ulcer precaution. Continue physical therapy. Discussed in depth with the patient the need to have blood work drawn as the patient is on diuretics and we need to monitor electrolytes. The patient verbalizes understanding. We will order labs to be drawn in the morning. The patient was seen and examined with Dr. Simpson. Discussed assessment and plan as described above. The patient was seen and examined with Jose Salinas, nurse practitioner. Discussed assessment and plan as described above. Thank you for this consult and we will follow with you. Jose Salinas APN Rudy Simpson MD
--- NOTE | 2018-09-23 21:06 | PN ---
DATE: 09/23/2018 REASON FOR CONSULTATION AND FOLLOWUP: History of [id number] congestive heart failure secondary to systolic dysfunction. Transferred to transitional care unit for the continuity of care. The patient initially admitted with [id number] symptoms of systolic dysfunction, congestive heart failure, history of chronic atrial fibrillation. SUBJECTIVE: The patient denies any chest pain, shortness of breath, or any palpitation. OBJECTIVE: GENERAL: Not in apparent distress. VITAL SIGNS: Temperature afebrile. Heart rate 73, blood pressure 106/75. HEENT: PERRLA. Extraocular muscles intact. NECK: Supple. No carotid bruits or thyromegaly. CHEST: Clear to auscultation. HEART: S1, S2. Regular. ABDOMEN: Soft. EXTREMITIES: Clubbing, cyanosis negative. LABORATORY DATA: Blood workup as follows: Last chemistry, sodium 130, potassium 3.8, chloride 91, carbon dioxide 37, anion gap of 13, BUN 26, creatinine 1. IMPRESSION: A 58-year-old morbidly obese male with a past medical history significant for coronary artery disease, coronary artery bypass grafting many years ago at [facility], history of last echo 07/09/2018 shows ejection fraction 20% to 25%, four-chamber dilatation, trace aortic regurgitation, moderate mitral regurgitation, moderate tricuspid regurgitation, right ventricular systolic pressure 40, trace pulmonary insufficiency, history of atrial fibrillation persistent, noncompliance with the medications, admitted with acute decompensated heart failure, grossly overload. The patient was initially treated in the floor with intravenous Primacor, diuretics, and now the patient is in transitional care unit for the continuity of care. The patient feels better. RECOMMENDATIONS: Continue aspirin. Continue spironolactone. Continue verapamil to control the heart rate. Continue Coreg. Continue digoxin. The patient's blood pressure is 93. If the patient's blood pressure improves, consider putting on Entresto. The patient needs verapamil to control the heart rate. Otherwise, it will be better if the patient's heart rate is controlled, we can discontinue verapamil and continue Entresto and discontinue lisinopril but since the patient needs verapamil to control the heart rate, we will continue current regimen. The patient's current medications runs low blood pressure 90, so hard to start Entresto on this low blood pressure. We will follow with you. Thank you, Dr. Posey, for providing us the opportunity in taking care of the patient, Mason Makayla. Rudy Fermin MD
[2018-09-23] MEDS: oxyCODONE 5 mg Immediate Release Tab PO PRN (21:14)
[2018-09-23] MEDS: Insulin Detemir 100 units/ml Vial (Levemir) SC SCH (21:21)
[2018-09-24] MEDS: Pantoprazole 40 mg EC Tab PO SCH (05:40)
[2018-09-24] MEDS: Insulin Reg-LOW-Coverage SC SCH ×5 (06:30→21:35)
[2018-09-24] MEDS: Acetylcysteine 20% Inhal Soln (4ml) IH SCH ×2 (07:09→20:32)
[2018-09-24] MEDS: Levalbuterol 0.63 MG/3 ML Inhal Soln UD IH SCH ×3 (07:10→20:34)
[2018-09-24] MEDS: Ipratropium 0.02% Inhal Soln (0.5 mg/2.5 ml) UD IH SCH ×3 (07:10→20:35)
[2018-09-24] MEDS: Budesonide 0.5 mg/2 ml Inhal Susp UD IH SCH ×2 (07:10→20:35)
[2018-09-24 07:43] LABS: BLOOD UREA NITROGEN 37 mg/dL (7-21); GFR NON-AFRICAN AMERICAN > 60
[2018-09-24] MEDS: Potassium Chloride 20 mEq ER Tab PO SCH ×2 (07:54→17:50)
[2018-09-24] MEDS: POLYETHYLENE GLYCOL 3350 17 GM/Dose PACKET PO SCH ×2 (09:52→17:52)
[2018-09-24] MEDS: Fluticasone Nasal 50 mcg/Spray NS SCH (09:54)
[2018-09-24] MEDS: Magnesium Oxide 400 mg Tab UD PO SCH ×3 (09:54→17:51)
[2018-09-24] MEDS: Ammonium Lactate 12% Cream (140 g) TOP SCH (09:55)
[2018-09-24] MEDS: Clotrimazole/Betamethasone Cream(15 gm) TOP SCH ×2 (09:55→17:51)
[2018-09-24] MEDS: Digoxin 125 mcg (0.125 mg) Tab PO SCH (13:09)
--- NOTE | 2018-09-24 13:40 | PN ---
DATE: 09/23/2018 SUBJECTIVE: SUBJECTIVE: The patient was seen in TCU. He feels comfortable. He wants to eat more. I explained to him about diet restriction and diabetic diet. We will to him. Otherwise, he has no new complaints. He is still on IV Lasix and seems to be doing better. He is getting physical therapy. No chest pain, less short of breath than before. PHYSICAL EXAMINATION: VITAL SIGNS: Temperature 98, heart rate 82, blood pressure 120/69. HEAD AND NECK: Normal. No JVD. No thyromegaly. CHEST: Clear bilateral. CARDIAC: First and second sound normal. Regular. ABDOMEN: Obese, nontender. EXTREMITIES: Less edema. Both legs are wrapped with gauze. LABORATORY DATA: Blood sugar is better, it is 150-200. IMPRESSION AND PLAN: 1. Acute systolic heart failure on top of chronic systolic heart failure. Continue intravenous diuresis. Continue other medications. 2. Ischemic cardiomyopathy. The patient has low ejection fraction. He has a history of coronary bypass surgery and atrial fibrillation new onset. Continue Coreg 3.125 b.i.d., digoxin 0.125 mg p.o. daily. Continue Zestril 2.5 mg once a day. Continue Lasix intravenous and aspirin 81, Eliquis 5 mg b.i.d., Verapamil 40 mg t.i.d., Aldactone 25 b.i.d. 3. Insulin-dependent diabetes. We increased his insulin, seems doing well. Continue Levemir. Continue insulin coverage. 4. Hypercholesteremia. 5. Chronic obstructive pulmonary disease. Continue inhaled bronchodilators, Lipitor. 6. The patient also has chronic back pain, chronic osteoarthritis. Continue oxycodone 5 mg every 6 hours as needed. 7. Continue current therapy. We will followup clinically. Tyrone Posey MD
--- NOTE | 2018-09-24 13:55 | PN ---
DATE: 09/24/2018 PULMONARY PROGRESS NOTE REFERRING PHYSICIAN: Tyrone Posey MD SUBJECTIVE: The patient is seen, sitting up at bedside. No acute distress. No overnight events reported. States that he still has some coughing, reports that last night he had episode where he felt short of breath while sleeping. The patient continues to refuse CPAP and BiPAP use at bedtime. No headache, rhinitis, chest pain, abdominal pain, nausea, vomiting, diarrhea or leg pain reported. OBJECTIVE: GENERAL: No acute distress. VITAL SIGNS: Blood pressure 108/64, pulse 77, temperature 98.2 and oxygen saturation 98%. HEENT: Moist mucous membranes. Crowded airway. Mallampati score of 4. NECK: Supple. No JVD. Short and thick. LUNGS: Few scattered rhonchi bilaterally. CARDIOVASCULAR: S1 and S2. ABDOMEN: Obese and nontender. EXTREMITIES: Bilateral lower extremity edema improving. NEUROLOGICAL: Awake, alert and verbal. Following commands. MEDICATIONS: Reviewed. Mucomyst 4 mL inhalation twice a day, Eliquis 5 mg twice a day, aspirin 81 mg daily, Lipitor 40 mg at dinner, Lotrisone topically twice a day to affected area, Pulmicort 0.5 mg inhalation every 12 hours, Coreg 3.125 mg twice a day, digoxin 0.125 mg daily, Colace 100 mg twice a day, ergocalciferol 50,000 units every 7 days, Lexapro 10 mg at bedtime, Flonase nasal spray daily, Lasix 60 mg IV push every 8 hours, Levemir 30 units subcutaneous at bedtime, Humulin R sliding scale a.c. and at bedtime, Atrovent 0.5 mg inhalation 3 times a day, Lac-Hydrin cream topically daily to affected area, Xopenex 0.63 mg inhalation every 6 hours p.r.n., Xopenex 0.63 mg inhalation 3 times a day, lisinopril 2.5 mg daily, magnesium oxide 400 mg 3 times a day, oxycodone 5 mg every 8 hours p.r.n., Protonix 40 mg daily, MiraLax 17 g twice a day, potassium chloride 20 mEq twice a day, Aldactone 25 mg twice a day, and verapamil 40 mg 3 times a day. LABORATORY DATA: Reviewed. Sodium 136, potassium 4.1, chloride 92, carbon dioxide 34, anion gap 14, BUN 37, creatinine 0.9, GFR greater than 60, POC glucose 173, random glucose 144 and calcium 9.0. IMPRESSION AND PLAN: Cardiomyopathy, chronic obstructive lung disease, diabetes mellitus, obstructive sleep apnea syndrome, coronary artery disease, morbid obesity, peripheral vascular disease, hypertension, renal insufficiency, pulmonary hypertension and congestive heart failure exacerbation. Discussed with the patient in depth using continuous positive airway pressure/continuous positive airway pressure machine at bedtime for sleep apnea syndrome. The patient refusing at this time, but verbalizes understanding of cardiopulmonary risk associated with sleep apnea. Sleep apnea precautions, head of bed elevated at 45 degrees. Continue inhaled bronchodilators and gastric prophylaxis. The patient is currently on anticoagulation therapy. Pressure ulcer precaution. Continue physical therapy. Fall precautions. This patient was seen and examined with Dr. Simpson. Discussed assessment and plan as described above. This patient was seen and examined with Jose Salinas, nurse practitioner. Discussed assessment and plan as described above. Thank you for this consult and we will follow with you. Jose Salinas APN Rudy Simpson MD
--- NOTE | 2018-09-24 14:45 | PN ---
DATE: 09/24/2018 REASON FOR CONSULTATION AND FOLLOWUP: Acute decompensated congestive heart failure, [id number] systolic dysfunction, history of chronic atrial fibrillation transferred from to Transitional Care Unit for continuity of care. SUBJECTIVE: The patient denies any chest pain, shortness of breath or any palpitation. OBJECTIVE: GENERAL: Not in apparent distress. VITAL SIGNS: Temperature afebrile. Heart rate 76 and blood pressure 103/63. HEENT: PERRLA. Extraocular muscles intact. NECK: Supple. No carotid bruits or thyromegaly. CHEST: Clear to auscultation. HEART: S1 and S2, regular. ABDOMEN: Soft. EXTREMITIES: Clubbing and cyanosis negative. LABORATORY DATA: Blood workup last as of today is sodium 130, potassium 4.1, chloride 92, carbon dioxide 34, anion gap of 14, BUN 37, creatinine 0.9 and glucose 144. IMPRESSION: A 58-year-old obese male with past medical history significant for chronic atrial fibrillation, history of coronary artery disease, history of coronary artery bypass surgery in the past and admitted with acute decompensated congestive heart failure. The patient had an recent echo done on 07/09/2018 that shows ejection fraction 20%-25% four chamber dilatation consistent with cardiomyopathy, moderate mitral regurgitation, moderate tricuspid regurgitation, right ventricular systolic pressure 40, trace pulmonary insufficiency and history of atrial fibrillation persistent. Admitted with acute decompensated congestive heart failure. The patient was initially treated with IV Primacor, diuretics and now transferred to Transitional Care Unit for continuity of care. Currently, the patient is on IV Lasix. RECOMMENDATION: Continue spironolactone. Continue verapamil to control the heart rate. Continue Coreg. Continue Digoxin. Because of the low blood pressure, the patient is not a candidate for Entresto. Once the patient improves, we will consider Entresto. We will follow. The patient long-term prognosis is guarded. noncompliance with the medication. Thank you, Dr. Posey, for providing us the opportunity in taking care of the patient, Makayla Cuevas. Rudy Fermin MD
[2018-09-24 18:48] LABS: URINE APPEARANCE CLEAR (CLEAR); URINE BILIRUBIN NEGATIVE (NEGATIVE); URINE BLOOD MODERATE (NEGATIVE); URINE GLUCOSE (UA) NEGATIVE (NEGATIVE); URINE LEUKOCYTE ESTERASE SMALL Leu/uL (NEGATIVE); URINE PROTEIN NEGATIVE mg/dL (<30 mg/dL)
[2018-09-24 18:49] LABS: URINE COLOR YELLOW (YELLOW)
[2018-09-24] MEDS: Amoxicillin-Clav 875-125 mg Tab PO SCH (20:14)
[2018-09-24] MEDS: Insulin Detemir 100 units/ml Vial (Levemir) SC SCH (21:37)
[2018-09-25] MEDS: oxyCODONE 5 mg Immediate Release Tab PO PRN ×2 (03:04→21:30)
[2018-09-25] MEDS: Pantoprazole 40 mg EC Tab PO SCH (05:33)
[2018-09-25] MEDS: Insulin Reg-LOW-Coverage SC SCH ×4 (07:02→22:33)
[2018-09-25] MEDS: Acetylcysteine 20% Inhal Soln (4ml) IH SCH ×2 (07:12→20:28)
[2018-09-25] MEDS: Budesonide 0.5 mg/2 ml Inhal Susp UD IH SCH ×2 (07:13→20:29)
[2018-09-25] MEDS: Ipratropium 0.02% Inhal Soln (0.5 mg/2.5 ml) UD IH SCH ×3 (07:13→20:29)
[2018-09-25] MEDS: Levalbuterol 0.63 MG/3 ML Inhal Soln UD IH SCH ×3 (07:13→20:29)
[2018-09-25] MEDS: Amoxicillin-Clav 875-125 mg Tab PO SCH ×2 (07:52→21:25)
[2018-09-25] MEDS: Potassium Chloride 20 mEq ER Tab PO SCH ×2 (07:53→18:06)
[2018-09-25] MEDS: Magnesium Oxide 400 mg Tab UD PO SCH ×3 (09:35→18:07)
[2018-09-25] MEDS: POLYETHYLENE GLYCOL 3350 17 GM/Dose PACKET PO SCH ×2 (09:35→18:07)
[2018-09-25] MEDS: Clotrimazole/Betamethasone Cream(15 gm) TOP SCH ×2 (09:35→18:07)
[2018-09-25] MEDS: Ammonium Lactate 12% Cream (140 g) TOP SCH (09:36)
[2018-09-25] MEDS: Fluticasone Nasal 50 mcg/Spray NS SCH (09:39)
--- NOTE | 2018-09-25 12:29 | CP.PCM.PN ---
<Lupe Delarosamargarita - Last Filed: 09/25/18 12:28> Subjective - Date & Time of Evaluation Date of Evaluation: 09/25/18 Time of Evaluation: 12:28 - Subjective Subjective: Podiatry Progress Note for Dr. Squires/Andrew 58 year old male seen at bedside for b/l LE edema which he states has been present for several weeks. Patient is AAO x 3 and NAD, resting comfortably in bed. Denies any further pedal complaints at this time. Denies any recent N/V/F/C/CP/D Objective - Vital Signs/Intake and Output Vital Signs (last 24 hours): Temp Pulse Resp BP Pulse Ox 98.4 F 85 18 114/70 96 09/25/18 11:34 09/25/18 11:34 09/25/18 11:34 09/25/18 11:34 09/24/18 16:00 Intake and Output: 09/25/18 09/25/18 06:59 18:59 Output Total 1600 Balance -1600 - Medications Medications: Current Medications Acetylcysteine (Acetylcysteine 20%) 4 ml IH BIDRESP [facility] Last Admin: 09/25/18 07:12 Dose: Not Given Amoxicillin/Clavulanate Potassium (Augmentin 875 Mg-125 Mg Tab) 1 tab PO 0 800,2000 JANY; Protocol Last Admin: 09/25/18 07:52 Dose: 1 tab Apixaban (Eliquis) 5 mg PO BID [facility]; Protocol Last Admin: 09/25/18 09:38 Dose: 5 mg Aspirin (Aspirin Chewable) 81 mg PO 0800 [facility] Last Admin: 09/25/18 07:52 Dose: 81 mg Atorvastatin Calcium (Lipitor) 40 mg PO DIN [facility] Last Admin: 09/24/18 17:51 Dose: 40 mg Betamethasone/Clotrimazole (Lotrisone) 0 gm TOP BID [facility] Last Admin: 09/25/18 09:35 Dose: 1 applic Budesonide (Pulmicort Respules) 0.5 mg IH [id number] [facility] Last Admin: 09/25/18 07:13 Dose: 0.5 mg Carvedilol (Coreg) 3.125 mg PO 0800,1800 JANY Digoxin (Digoxin) 0.125 mg PO 1400 [facility] Last Admin: 09/24/18 13:09 Dose: 0.125 mg Docusate Sodium (Colace) 100 mg PO BID [facility] Last Admin: 09/25/18 09:34 Dose: 100 mg Ergocalciferol (Drisdol 50,000 Intl Units Cap) 1 cap PO Q7D [facility] Escitalopram Oxalate (Lexapro) 10 mg PO HS [facility] Last Admin: 09/24/18 21:35 Dose: 10 mg Fluticasone Propionate (Flonase) 1 actuation NS DAILY [facility] Last Admin: 09/25/18 09:39 Dose: 1 actuation Furosemide (Lasix) 60 mg IVP Q8 [facility] Last Admin: 09/25/18 05:33 Dose: 60 mg Insulin Detemir (Levemir) 30 unit SC [facility] Last Admin: 09/24/18 21:37 Dose: 30 u Insulin Human Regular (Humulin R Low) 0 units SC [facility]; Protocol Last Admin: 09/25/18 11:39 Dose: Not Given Ipratropium [place] (Atrovent) 0.5 mg IH TIDRESP [facility] Last Admin: 09/25/18 07:13 Dose: 0.5 mg Lactic Acid (Lac-Hydrin 12% Cream (140 G)) 0 ea TOP DAILY [facility] Last Admin: 09/25/18 09:36 Dose: 1 applic Levalbuterol HCl (Xopenex) 0.63 mg IH [id number] PRN PRN Reason: Shortness of Breath Levalbuterol HCl (Xopenex) 0.63 mg IH TIDRESP [facility] Last Admin: 09/25/18 07:13 Dose: 0.63 mg Lisinopril (Zestril) 2.5 mg PO DAILY [facility] Last Admin: 09/25/18 09:38 Dose: 2.5 mg Magnesium Oxide (Mag-Ox) 400 mg PO TID [facility] Last Admin: 09/25/18 09:35 Dose: 400 mg Oxycodone HCl (Oxycodone Immediate Release Tab) 5 mg PO Q8H PRN PRN Reason: Pain, severe (8-10) Last Admin: 09/25/18 03:04 Dose: 5 mg Pantoprazole Sodium (Protonix Ec Tab) 40 mg PO 0600 [facility] Last Admin: 09/25/18 05:33 Dose: 40 mg Polyethylene Glycol (Miralax) 17 gm PO BID [facility] Last Admin: 09/25/18 09:35 Dose: 17 gm Potassium Chloride (K-Dur 20 Meq Er Tab) 20 meq PO 0800,1800 [facility] Last Admin: 09/25/18 07:53 Dose: 20 meq Spironolactone (Aldactone) 25 mg PO BID [facility] Last Admin: 09/25/18 09:34 Dose: 25 mg Verapamil HCl (Calan Tab) 40 mg PO TID [facility] Last Admin: 09/25/18 09:39 Dose: 40 mg - Labs Labs: 09/24/18 06:40 - Constitutional Appears: Well, Non-toxic, No Acute Distress - Head Exam Head Exam: ATRAUMATIC, NORMOCEPHALIC - Extremities Exam Additional comments: LE focused exam: Vasc: DP/PT pulses faintly palpable 1/4 secondary to 1+ pitting edema b/l. CFT < 3 seconds to all digits b/l. Skin temperature warm to warm from proximal to distal WNL Neuro: Epicritic and protective sensation grossly intact b/l Derm: No open lesions, wounds, maceration, xerosis, abnormal pigmentation or abnormal growths noted MSK: Pain to right heel with palpation secondary to deep tissue injury. ROM WNL at all major joints, MMT 5/5 in all major muscle groups - Neurological Exam Neurological Exam: Alert, Awake, Oriented x3 - Psychiatric Exam Psychiatric exam: Normal Affect, Normal Mood Assessment and Plan - Assessment and Plan (Free Text) Assessment: 58M seen at bedside for b/l LE swelling Plan: Patient seen and evaluated with Dr. Squires Plan discussed with Dr. Squires Both legs lightly wrapped in MARCEL compression dressing Multipodus boots ordered to be worn at all times in bed No plan for surgical intervention at this time Podiatry will continue to follow while patient in house <Juan Squires - Last Filed: 09/25/18 18:22> Objective - Vital Signs/Intake and Output Vital Signs (last 24 hours): Temp Pulse Resp BP Pulse Ox 98.2 F 77 20 99/56 L 96 09/25/18 14:00 09/25/18 18:03 09/25/18 14:00 09/25/18 18:03 09/24/18 16:00 Intake and Output: 09/25/18 09/25/18 06:59 18:59 Output Total 1600 Balance -1600 - Medications Medications: Current Medications Acetylcysteine (Acetylcysteine 20%) 4 ml IH BIDRESP [facility] Last Admin: 09/25/18 07:12 Dose: Not Given Amoxicillin/Clavulanate Potassium (Augmentin 875 Mg-125 Mg Tab) 1 tab PO 0800,2000 [facility]; Protocol Last Admin: 09/25/18 07:52 Dose: 1 tab Apixaban (Eliquis) 5 mg PO BID [facility]; Protocol Last Admin: 09/25/18 18:07 Dose: 5 mg Aspirin (Aspirin Chewable) 81 mg PO 0800 [facility] Last Admin: 09/25/18 07:52 Dose: 81 mg Atorvastatin Calcium (Lipitor) 40 mg PO DIN [facility] Last Admin: 09/25/18 18:07 Dose: 40 mg Betamethasone/Clotrimazole (Lotrisone) 0 gm TOP BID [facility] Last Admin: 09/25/18 18:07 Dose: 1 applic Budesonide (Pulmicort Respules) 0.5 mg IH [id number] [facility] Last Admin: 09/25/18 07:13 Dose: 0.5 mg Carvedilol (Coreg) 3.125 mg PO 0800,1800 [facility] Last Admin: 09/25/18 18:04 Dose: Not Given Digoxin (Digoxin) 0.125 mg PO 1400 [facility] Last Admin: 09/25/18 14:29 Dose: 0.125 mg Docusate Sodium (Colace) 100 mg PO BID [facility] Last Admin: 09/25/18 18:06 Dose: 100 mg Ergocalciferol (Drisdol 50,000 Intl Units Cap) 1 cap PO Q7D [facility] Escitalopram Oxalate (Lexapro) 10 mg PO HS [facility] Last Admin: 09/24/18 21:35 Dose: 10 mg Fluticasone Propionate (Flonase) 1 actuation NS DAILY [facility] Last Admin: 09/25/18 09:39 Dose: 1 actuation Furosemide (Lasix) 60 mg IVP Q8 [facility] Last Admin: 09/25/18 14:30 Dose: 60 mg Insulin Detemir (Levemir) 30 unit SC HS [facility] Last Admin: 09/24/18 21:37 Dose: 30 u Insulin Human Regular (Humulin R Low) 0 units SC ACHS [facility]; Protocol Last Admin: 09/25/18 18:08 Dose: 2 units Ipratropium [place] (Atrovent) 0.5 mg IH TIDRESP [facility] Last Admin: 09/25/18 13:05 Dose: 0.5 mg Lactic Acid (Lac-Hydrin 12% Cream (140 G)) 0 ea TOP DAILY [facility] Last Admin: 09/25/18 09:36 Dose: 1 applic Levalbuterol HCl (Xopenex) 0.63 mg IH [id number] PRN PRN Reason: Shortness of Breath Levalbuterol HCl (Xopenex) 0.63 mg IH TIDRESP [facility] Last Admin: 09/25/18 13:04 Dose: 0.63 mg Lisinopril (Zestril) 2.5 mg PO DAILY [facility] Last Admin: 09/25/18 09:38 Dose: 2.5 mg Magnesium Oxide (Mag-Ox) 400 mg PO TID [facility] Last Admin: 09/25/18 18:07 Dose: 400 mg Oxycodone HCl (Oxycodone Immediate Release Tab) 5 mg PO Q8H PRN PRN Reason: Pain, severe (8-10) Last Admin: 09/25/18 03:04 Dose: 5 mg Pantoprazole Sodium (Protonix Ec Tab) 40 mg PO 0600 [facility] Last Admin: 09/25/18 05:33 Dose: 40 mg Polyethylene Glycol (Miralax) 17 gm PO BID [facility] Last Admin: 09/25/18 18:07 Dose: 17 gm Potassium Chloride (K-Dur 20 Meq Er Tab) 20 meq PO 0800,1800 [facility] Last Admin: 09/25/18 18:06 Dose: 20 meq Spironolactone (Aldactone) 25 mg PO BID [facility] Last Admin: 09/25/18 18:06 Dose: 25 mg Verapamil HCl (Calan Tab) 40 mg PO TID [facility] Last Admin: 09/25/18 18:03 Dose: Not Given - Labs Labs: 09/24/18 06:40 Attending/Attestation - Attestation I have personally seen and examined this patient.: Yes I have fully participated in the care of the patient.: Yes I have reviewed all pertinent clinical information, including history, physical exam and plan: Yes
[2018-09-25] MEDS: Digoxin 125 mcg (0.125 mg) Tab PO SCH (14:29)
--- NOTE | 2018-09-25 15:13 | PN ---
DATE: 09/24/2018 LOCATION: The patient is in room 318, bed 1. REASON FOR CONSULTATION AND FOLLOWUP: Congestive heart failure, [id number] systolic dysfunction, history of chronic atrial fibrillation, deconditioning. SUBJECTIVE: The patient lying comfortable in bed without any chest pain, shortness of breath or palpitation. PHYSICAL EXAMINATION: VITAL SIGNS: Blood pressure 114/70, respirations 20, pulse 85, and the patient is afebrile. HEENT: Head is normocephalic. Eyes; pupils normal. Conjunctivae normal. NECK: JVP low. Carotids equal. THORAX: AP diameter normal. LUNGS: No significant rales. CARDIOVASCULAR: S1 and S2. ABDOMEN: Soft and nontender. No organomegaly. Bowel sounds normal. EXTREMITIES: No clubbing. No cyanosis. LABORATORY DATA: Sodium 136, potassium 4.1, BUN 37, creatinine 0.9, random glucose 133 and calcium 9. Another glucose level 144. DIAGNOSES: Congestive heart failure, [id number], due to left ventricular systolic dysfunction, history of coronary artery disease, status post coronary artery bypass surgery in the past, atrial fibrillation. Recent echo on 07/09/2018, showed ejection fraction 20% to 25%, 4-chamber dilatation consistent with cardiomyopathy, moderate mitral regurgitation, moderate tricuspid regurgitation, right ventricle pressure 30 mmHg, trace pulmonary regurgitation, deconditioning. PLAN: Continue spironolactone 25 b.i.d., aspirin 81 mg daily. The patient on Augmentin b.i.d., verapamil 40 p.o. t.i.d., carvedilol 3.125 b.i.d., digoxin 0.125 daily, potassium 20 mEq p.o. b.i.d., furosemide 60 mg IV every 8 hours, atorvastatin 40 daily, magnesium oxide 400 mg p.o. t.i.d., Protonix 40 daily, Xopenex and Pulmicort inhalation therapy, lisinopril 2.5 mg p.o. b.i.d. We will follow. Rudy Gibbs MD
--- NOTE | 2018-09-25 16:41 | PN ---
DATE: 09/25/2018 PULMONARY PROGRESS NOTE REFERRING PHYSICIAN: Tyrone Posey MD SUBJECTIVE: The patient is seen standing in room. No acute distress. Reports that he got short of breath during therapy this morning when bending down to practice tying his shoes. Reporting some blood from his urinary catheter. Also, yesterday reported some discomfort due to urinary catheter. Pus noted. Urinalysis and urine culture was sent. The patient was started on antibiotics. No headache, rhinitis, cough, chest pain, abdominal pain, nausea, vomiting, diarrhea, leg pain reported. OBJECTIVE: GENERAL: No acute distress. VITAL SIGNS: Blood pressure 114/70, pulse 85, temperature 98.4, and oxygen saturation 96% on room air. HEENT: Moist mucous membranes. Crowded airway. Mallampati score of 4. NECK: Supple. No JVD. Short and thick. RESPIRATORY: Few scattered rhonchi bilaterally. CARDIOVASCULAR: S1 and S2. ABDOMEN: Obese and nontender. EXTREMITIES: Bilateral lower extremity edema, improving. Tomas wrap noted to bilateral lower extremities. NEUROLOGIC: Awake, alert and verbal. Following commands. MEDICATIONS: Reviewed. Mucomyst 4 mL inhalation twice a day, Augmentin 875/125 mg one tab twice a day, Eliquis 5 mg twice a day, aspirin 81 mg daily, Lipitor 40 mg at dinner, Lotrisone cream topically twice a day, Pulmicort 0.5 mg inhalation every 12 hours, Coreg 3.125 mg twice a day, digoxin 0.125 mg daily, Colace 100 mg twice a day, ergocalciferol 50,000 units every 7 days, Lexapro 10 mg at h.s., Flonase nasal spray daily, Lasix 60 mg IV push every 8 hours, Levemir 30 units subcu h.s., Humulin R sliding scale a.c. and h.s., Atrovent 0.5 mg inhalation three times a day, Lac-Hydrin topically daily to affected area, Xopenex 0.63 mg inhalation every 6 hours p.r.n., Xopenex 0.63 mg inhalation three times a day, lisinopril 2.5 mg daily, magnesium oxide 400 mg three times a day, oxycodone 5 mg every 8 hours p.r.n., Protonix 40 mg daily, MiraLax 17 g twice a day, potassium chloride 20 mEq daily, Aldactone 25 mg twice a day, and verapamil 40 mg three times a day. LABORATORY DATA: Reviewed. POC glucose 133. Urinalysis shows urine blood moderate, urobilinogen 1, urine leukocyte esterase small, urine rbcs 5 - 10. IMPRESSION AND PLAN: Cardiomyopathy, chronic obstructive lung disease, diabetes mellitus, obstructive sleep apnea syndrome, coronary artery disease, morbid obesity, peripheral vascular disease, hypertension, renal insufficiency, pulmonary hypertension, congestive heart failure exacerbation. The patient has valvular heart disease. The patient continues to refuse continuous positive airway pressure/bilevel positive airway pressure use for sleep apnea syndrome. Sleep apnea precaution, head of bed elevated 45 degrees. Continue inhaled bronchodilators, gastric prophylaxis. The patient currently on anticoagulation therapy. Continue physical therapy, fall precautions, pressure ulcer precaution. Continue antibiotic therapy. Urine culture is pending. We will order CBC, BMP in the morning. We will place the patient on 1 liter fluid restriction. The patient was seen and examined with Dr. Simpson. Discussed assessment and plan as described above. The patient was seen and examined with Jose Salinas, nurse practitioner. Discussed assessment and plan as described above. Thank you for this consult. We will follow with you. Jose Salinas APN Rudy Simpson MD HONG
--- NOTE | 2018-09-25 17:43 | PN ---
DATE: 09/24/2018 SUBJECTIVE: The patient is comfortable. He did complain of Muñoz catheter leak and problem with the Muñoz catheter; otherwise his breathing is better. He is less short of breath. He has scrotal swelling. No other new complaints. PHYSICAL EXAMINATION: As follow: VITAL SIGNS: On 09/24/2018, his temperature 98, heart rate 78, blood pressure is 118/71, respirations 18, saturation 96%. HEENT: Head and neck exam normal. No JVD. No thyromegaly. CHEST: Clear bilateral. CARDIAC: First sound, second sound normal and regular. ABDOMEN: Soft, distended, nontender. EXTREMITIES: Mild edema. Both legs are wrapped with gauze. NEUROLOGICAL: Normal. LABORATORY STUDIES: Sodium 136, potassium 4.1, chloride 96, bicarbonate 34, BUN 37, creatinine 0.9, blood glucose level 144, calcium is 9. His urinalysis was normal with 5-10 red blood cells, small leukocyte esterase. IMPRESSION AND PLAN: 1. Acute systolic heart failure on top of chronic. Continue intravenous Lasix. 2. Ischemic cardiomyopathy with low ejection fraction. Continue Aldactone. Continue aspirin. Continue Coreg, digoxin, and Zestril 2.5 mg daily. Also continue Lasix intravenous plus potassium 20. The patient getting furosemide 60 intravenous every 8 hours and continue potassium 20 mEq twice a day. 3. Chronic obstructive pulmonary disease, stable. Continue inhaled bronchodilator. For his obstructive sleep apnea, he is using bilevel positive airway pressure, compliance is a problem. 4. Morbid obesity, generalized weakness, gait disorder. Continue physical therapy. 5. Catheter problem. We will try to see if we can take the catheter out and see how he does without it, probably evaluate that in the morning. Continue current therapy. We will follow up clinically. Follow up with other consultants. Tyrone Posey MD
--- NOTE | 2018-09-25 18:45 | RAD ---
Date of service: 09/25/2018 HISTORY: CHF COMPARISON: 09/12/2018 TECHNIQUE: Chest PA and lateral FINDINGS: LINES AND TUBES: None. LUNG AND PLEURA: The lungs are well inflated. There is redemonstration of moderate pulmonary venous congestion. Suspect small effusions. No pneumothorax. HEART AND MEDIASTINUM: Moderate cardiomegaly. Status post CABG. No aortic atherosclerotic calcifications present. The hilar and mediastinal contours are within normal limits. SKELETAL STRUCTURES: The bony structures are within normal limits for the patient's age. VISUALIZED UPPER ABDOMEN: Normal. OTHER FINDINGS: None. IMPRESSION: Little interval change in known mild congestive heart failure.
[2018-09-25] MEDS: Insulin Detemir 100 units/ml Vial (Levemir) SC SCH (22:35)
--- NOTE | 2018-09-26 04:03 | PN ---
DATE: 09/25/2018 SUBJECTIVE: The patient is stable. He does complain of mild shortness of breath with moving around, but improved than before. No chest pain. No fever. No nausea or vomiting. He is ambulating better than before. PHYSICAL EXAMINATION: VITAL SIGNS: Temperature 98.2, heart rate 95, blood pressure 99/59, and respirations 20. HEAD AND NECK: Normal. No JVD. No thyromegaly. CHEST: Clear bilaterally. CARDIAC: First sound and second sound normal. ABDOMEN: Obese, nontender, and distended. EXTREMITIES: With [id number] edema bilateral lower extremities, both of them . NEUROLOGIC: Normal. LABORATORY STUDIES: Blood sugar 200 range. Urine shows microscopic hematuria, 5-10 red blood cells; the patient has a Muñoz catheter. IMPRESSION: 1. Acute on top of chronic systolic heart failure secondary to ischemic cardiomyopathy with low ejection fraction. Continue IV Lasix. Continue Coreg, Aldactone, Vistaril, digoxin plus Lasix. 2. Insulin-dependent diabetes. Blood sugar running better. Continue Levemir 30 units subcutaneously at bedtime and continue Humulin insulin coverage. 3. Chronic obstructive pulmonary disease, obstructive sleep apnea. Continue inhaled bronchodilators and bilevel positive airway pressure machine at night. The patient is noncompliant with the machine. 4. Chronic osteoarthritis and chronic back pain. The patient is getting Percocet only every 8 hours p.r.n. basis. 5. The patient has morbid obesity, generalized weakness. We will continue physical therapy. 6. Hematuria, probably microscopic secondary to Muñoz catheter trauma, it seems mild tinged urine and otherwise the patient is stable. PLAN: Continue current therapy, physical therapy, IV Lasix, and we will add Augmentin 875 b.i.d. We will follow up clinically. Tyrone Posey MD
[2018-09-26] MEDS: Pantoprazole 40 mg EC Tab PO SCH (05:33)
[2018-09-26] MEDS: Insulin Reg-LOW-Coverage SC SCH ×4 (06:39→22:13)
[2018-09-26] MEDS: Ipratropium 0.02% Inhal Soln (0.5 mg/2.5 ml) UD IH SCH ×3 (07:43→19:57)
[2018-09-26] MEDS: Acetylcysteine 20% Inhal Soln (4ml) IH SCH ×2 (07:46→19:57)
[2018-09-26] MEDS: Budesonide 0.5 mg/2 ml Inhal Susp UD IH SCH ×2 (07:46→19:57)
[2018-09-26] MEDS: Levalbuterol 0.63 MG/3 ML Inhal Soln UD IH SCH ×3 (07:46→19:57)
[2018-09-26] MEDS: Potassium Chloride 20 mEq ER Tab PO SCH ×2 (08:08→17:13)
--- NOTE | 2018-09-26 08:20 | PN ---
DATE: 09/25/2018 SUBJECTIVE: The patient is stable and comfortable. No distress. He has mild hematuria from Muñoz catheter trauma. No other complaints. The patient is otherwise stable. PHYSICAL EXAMINATION VITAL SIGNS: Temperature 98, heart rate 83, blood pressure 112/68, respirations 20, saturation above 93%. HEAD AND NECK: Normal. No JVD, no thyromegaly. CHEST: Clear bilaterally. CARDIAC: First sound and second sound normal. No murmur, rub, or gallop. ABDOMEN: Soft and nontender. EXTREMITIES: Bilateral leg edema, improved. NEUROLOGIC: Normal. IMPRESSION AND PLAN: 1. Acute congestive heart failure due to ischemic cardiomyopathy, low ejection fraction. Continue IV Lasix. Continue digoxin, Vistaril, Coreg, Aldactone. Seems doing well with the current medications. 2. Chronic obstructive pulmonary disease and obstructive sleep apnea. Continue inhaled bronchodilator and BiPAP machine. 3. Diabetes, insulin dependent. Continue Levemir plus insulin coverage. 4. Hypercholesterolemia. 5. Chronic osteoarthritis. 6. Chronic back pain. Continue oxycodone. Continue current medications. 7. Generalized weakness, gait disorder. The patient has been getting physical therapy. Will continue current therapy. Will follow up with other consultants. Tyrone Posey MD
[2018-09-26] MEDS: Fluticasone Nasal 50 mcg/Spray NS SCH (09:44)
[2018-09-26] MEDS: Amoxicillin-Clav 875-125 mg Tab PO SCH ×2 (09:44→20:22)
[2018-09-26] MEDS: Clotrimazole/Betamethasone Cream(15 gm) TOP SCH ×2 (09:46→17:13)
[2018-09-26] MEDS: Ammonium Lactate 12% Cream (140 g) TOP SCH (09:46)
[2018-09-26] MEDS: POLYETHYLENE GLYCOL 3350 17 GM/Dose PACKET PO SCH ×2 (09:48→17:14)
[2018-09-26] MEDS: Magnesium Oxide 400 mg Tab UD PO SCH ×3 (09:48→17:14)
[2018-09-26] MEDS: oxyCODONE 5 mg Immediate Release Tab PO PRN ×2 (09:50→18:16)
[2018-09-26] MEDS ORDERED: metOLazone 5 MG TAB PO STA (12:34)
--- NOTE | 2018-09-26 13:24 | PN ---
DATE: 09/26/2018 PULMONARY PROGRESS NOTE REFERRING PHYSICIAN: Dr. Tyrone Posey. SUBJECTIVE: The patient is seen sitting in armchair in room. No acute distress. No overnight events reported. The patient refused blood work to be drawn this morning. Reports having shortness of breath with exertion, but that has improved. No headache, rhinitis, cough, chest pain, abdominal pain, nausea, vomiting, diarrhea, or leg pain reported. OBJECTIVE: GENERAL: No acute distress. VITAL SIGNS: Blood pressure 99/62, pulse 83, temperature 98, and oxygen saturation 96% on room air. HEENT: Moist mucous membranes. Crowded airway. Mallampati score of 4. NECK: Supple. No JVD. Short and thick. RESPIRATORY: Few scattered rhonchi bilaterally. CARDIOVASCULAR: S1 and S2. ABDOMEN: Obese and nontender. EXTREMITIES: Improving bilateral lower extremity edema. NEUROLOGIC: Awake, alert, and verbal. Following commands. MEDICATIONS: Reviewed. Mucomyst 4 mL inhalation twice a day, Augmentin one tab twice a day, Eliquis 5 mg twice a day, aspirin 81 mg daily, Lipitor 40 mg at dinner, Lotrisone topically twice a day to affected area, Pulmicort 0.5 mg inhalation every 12 hours, Coreg 3.125 mg twice a day, digoxin 0.125 mg daily, Colace 100 mg twice a day, ergocalciferol 50,000 units one cap every 7 days, Lexapro 10 mg at bedtime, Flonase nasal spray daily, Lasix 60 mg IV push every 8 hours, Levemir 30 units subcutaneous at bedtime, Humulin R sliding scale a.c. and at bedtime, Atrovent 0.5 mg inhalation three times a day, Lac-Hydrin topically daily to affected area, Xopenex 0.63 mg inhalation every 6 hours p.r.n., Xopenex 0.63 mg inhalation three times a day, lisinopril 2.5 mg daily, magnesium oxide 400 mg three times a day, oxycodone 5 mg every 8 hours p.r.n., Protonix 40 mg daily, MiraLax 17 g twice a day, potassium chloride 20 mEq twice a day, spironolactone 25 mg twice a day, and verapamil 40 mg three times a day. LABORATORY DATA: Reviewed. POC glucose 141. Urine culture preliminary shows gram-negative rods, colony count greater than 100,000. Chest x-ray shows little interval change and known mild congestive heart failure. IMPRESSION AND PLAN: Congestive heart failure exacerbation, cardiomyopathy, chronic obstructive lung disease, diabetes mellitus, obstructive sleep apnea syndrome, coronary artery disease, morbid obesity, hypertension, peripheral vascular disease, renal insufficiency, pulmonary hypertension, and valvular heart disease. The patient continues to refuse continuous positive airway pressure/bilevel positive airway pressure use at bedtime. Sleep apnea precaution and head of bed elevated at 45 degrees. Education provided to the patient regarding need for blood work to be drawn. We will order new labs for the morning. Continue inhaled bronchodilators, gastric prophylaxis, and currently anticoagulation therapy. Continue physical therapy, fall precautions, and pressure ulcer precautions. Continue antibiotic therapy. We will reevaluate once sensitivity is available. Continue fluid restriction to 1 liter. The patient was seen and examined with Dr. Simpson. Discussed assessment and plan as described above. The patient was seen and examined with Jose Salinas, nurse practitioner. Discussed assessment and plan as described above. Thank you for this consult. We will follow with you. Jose Salinas APN Rudy Simpson MD
[2018-09-26] MEDS: Digoxin 125 mcg (0.125 mg) Tab PO SCH (13:29)
--- NOTE | 2018-09-26 13:49 | PN ---
DATE: 09/26/2018 LOCATION: The patient is in room 318, bed 1. REASON FOR CONSULTATION AND FOLLOWUP: Congestive heart failure, [id number] systolic dysfunction, history of chronic atrial fibrillation, deconditioning, and obesity. SUBJECTIVE: The patient lying comfortably in bed without any cardiac symptoms, chest pain, short of breath, or palpitation. PHYSICAL EXAMINATION: VITAL SIGNS: Blood pressure 99/62, respiratory rate 20, pulse 83, and temperature 98. HEENT: Head is normocephalic. Eyes; pupils normal. Conjunctivae normal. NECK: JVP low. Carotids equal. THORAX: AP diameter normal. LUNGS: No rales. CARDIOVASCULAR: S1 and S2. ABDOMEN: Protuberant. No organomegaly. EXTREMITIES: No clubbing. No cyanosis. LABORATORY DATA: Random sugar is 141. DIAGNOSES: Congestive heart failure, acute on chronic due to left ventricle systolic dysfunction; history of coronary artery disease, status post coronary artery bypass surgery in the past; atrial fibrillation, recent echo 07/09/2018, showed ejection fraction 20% to 25%, 4-chamber dilatation consistent with cardiomyopathy; moderate mitral regurgitation; moderate tricuspid regurgitation; right ventricle systolic pressure 30 mmHg; and trace pulmonary regurgitation, deconditioning. ASSESSMENT AND PLAN: The patient is on Lasix 60 mg IV every 8 hours along with other medications spironolactone, aspirin, Augmentin, verapamil, carvedilol, digoxin, potassium, atorvastatin, magnesium oxide, Protonix, Xopenex, and Pulmicort, inhalation therapy, and lisinopril. We will add Zaroxolyn 5 mg daily to help more diurese chest x-ray was done on 09/25/2018 which showed some mild congestive changes. We will continue to follow. Rudy Gibbs MD
[2018-09-26] MEDS: Insulin Detemir 100 units/ml Vial (Levemir) SC SCH (22:15)
--- NOTE | 2018-09-27 00:55 | PN ---
DATE: 09/26/2018 SUBJECTIVE: The patient was seen in TCU. He has no chest pain, no short of breath, he is still feeling weak. He is working with physical therapy. He has burning urination, still mild short of breath with exertions. PHYSICAL EXAMINATION VITAL SIGNS: Temperature 97, heart rate 75, blood pressure 116/77, respirations 18, saturation 94%. HEAD AND NECK: Normal. No JVD. No thyromegaly. CHEST: Diminished breath sounds bilaterally. CARDIAC: First sound and second sound normal. ABDOMEN: Soft and nontender. EXTREMITIES: There is [id number] edema of both lower extremities that has been improved and both legs are wrapped with gauze. Also the patient has a Muñoz catheter that seems the urine is clear now. LABORATORY DATA: Urine culture shows gram negative. IMPRESSION AND PLAN: 1. Acute generalized weakness, deconditioning. We will advise the patient to do more physical therapy and continue physical therapy. He still needs more physical therapy. We will discontinue Muñoz catheter and that could help him. 2. Microscopic hematuria. We will discontinue Muñoz catheter and will continue current antibiotic, culture sensitivity still pending. We will get Infectious Disease to look at him. 3. Congestive heart failure secondary to ischemic cardiomyopathy, low ejection fractions status post cardiac bypass surgery. Continue Lasix, continue Vistaril, Aldactone, Coreg, and Lasix IV. 4. Diabetes, stable. Continue Levemir plus insulin coverage. 5. Chronic back pain. Continue oxycodone p.r.n. 6. Obstructive sleep apnea. Continue BiPAP machine. The patient is noncompliant with the BiPAP machine. PLAN: At this time, we will continue current therapy, maintain physical therapy, discontinue Muñoz and we will follow up with the urine culture. Tyrone Posey MD
[2018-09-27] MEDS: Pantoprazole 40 mg EC Tab PO SCH (05:23)
[2018-09-27] MEDS: Insulin Reg-LOW-Coverage SC SCH ×4 (06:39→21:29)
[2018-09-27] MEDS: Acetylcysteine 20% Inhal Soln (4ml) IH SCH ×2 (08:31→19:36)
[2018-09-27] MEDS: Levalbuterol 0.63 MG/3 ML Inhal Soln UD IH SCH ×3 (08:32→19:37)
[2018-09-27] MEDS: Ipratropium 0.02% Inhal Soln (0.5 mg/2.5 ml) UD IH SCH ×3 (08:32→19:37)
[2018-09-27] MEDS: Budesonide 0.5 mg/2 ml Inhal Susp UD IH SCH ×2 (08:32→19:37)
[2018-09-27] MEDS: Amoxicillin-Clav 875-125 mg Tab PO SCH (08:37)
[2018-09-27] MEDS: Potassium Chloride 20 mEq ER Tab PO SCH ×2 (08:38→17:39)
[2018-09-27] MEDS ORDERED: Ergocalciferol 50,000 Intl Units Cap PO SCH (10:00)
[2018-09-27] MEDS: Fluticasone Nasal 50 mcg/Spray NS SCH (10:10)
[2018-09-27] MEDS: Ammonium Lactate 12% Cream (140 g) TOP SCH (10:11)
[2018-09-27] MEDS: Magnesium Oxide 400 mg Tab UD PO SCH ×3 (10:12→17:37)
[2018-09-27] MEDS: POLYETHYLENE GLYCOL 3350 17 GM/Dose PACKET PO SCH ×2 (10:12→17:36)
[2018-09-27] MEDS: Clotrimazole/Betamethasone Cream(15 gm) TOP SCH ×2 (10:12→17:39)
[2018-09-27 11:34] LABS: BASO # 0.03 K/mm3 (0.0-2.0); BASO % 0.8 % (0.0-3.0); EOS # 0.2 (0.0-0.7); EOS % 4.1 % (1.5-5.0); HEMOGLOBIN 11.5 g/dL (14.0-18.0); LYMPH # 0.7 (1.2-3.4); LYMPH % 18.2 % (22.0-35.0); MEAN CELL VOLUME 79.8 fl (80.0-105.0); MEAN CORPUSCULAR HEMOGLOBIN 25.2 pg (25.0-35.0); MEAN CORPUSCULAR HGB CONC 31.6 g/dl (31.0-37.0); MEAN PLATELET VOLUME 9.7 fl (7.0-11.0); MONO # 0.5 (0.1-0.6); RBC 4.56 10^6/uL (3.5-6.1); RED CELL DISTRIBUTION WIDTH 18.8 % (11.5-14.5); WHITE BLOOD COUNT 3.6 10^3/uL (4.5-11.0)
[2018-09-27 11:44] LABS: BLOOD UREA NITROGEN 49 mg/dL (7-21); CALCIUM 9.2 mg/dL (8.4-10.5); GFR NON-AFRICAN AMERICAN > 60
[2018-09-27] MEDS: cefTRIAXone 1 gm 1 GM/100 ML BAG IVPB SCH (11:59)
--- NOTE | 2018-09-27 12:06 | PN ---
DATE: 09/27/2018 REFERRING PHYSICIAN: Dr. Posey. SUBJECTIVE: Th patient is seen lying in bed, in no acute distress. No overnight events reported. Nursing staff reports that the patient refused blood work this morning. The patient reports that he gets short of breath with exertion, but that has improved from previously. The patient is also complaining of lump to right breast for which he did have consult for, but states that he had refused recommended treatment at that time. The patient now states that he would like to be seen and reevaluated again regarding right breast mass. No headache, rhinitis, cough, chest pain, abdominal pain, nausea, vomiting, diarrhea, or leg pain reported. OBJECTIVE: VITAL SIGNS: Blood pressure 102/65, pulse 79, temperature 97.9, oxygen saturation 96% on room air. GENERAL: No acute distress. HEENT: Moist mucous membranes. Crowded airway. Mallampati score of 4. NECK: Supple. No JVD. Short and thick. RESPIRATORY: Fair airflow bilaterally. CARDIOVASCULAR: S1 and S2. ABDOMEN: Obese, nontender. EXTREMITIES: Improving bilateral lower extremity edema. NEUROLOGIC: Awake, alert and verbal. Following commands. MEDICATIONS: Reviewed. Mucomyst 4 mL inhalation twice a day, Augmentin one tab twice a day, Eliquis 5 mg twice a day, aspirin 81 mg daily, Lipitor 40 mg at dinner, Lotrisone topically twice a day to affected area, Pulmicort 0.5 mg inhalation every 12 hours, Coreg 3.125 mg twice a day, Rocephin 1 g daily, digoxin 0.125 mg daily, Colace 100 mg twice a day, ergocalciferol 50,000 units every 7 days, Lexapro 10 mg at bedtime, Flonase nasal spray daily, Lasix 60 mg IV push every 8 hours, Levemir 30 units subcutaneous at bedtime, Humulin R sliding scale before meals and at bedtime, Atrovent 0.5 mg inhalation three times a day, Lac-Hydrin cream topically daily to affected area, Xopenex 0.63 mg inhalation every 6 hours p.r.n., Xopenex 0.63 mg inhalation three times a day, lisinopril 2.5 mg daily, magnesium oxide 400 mg three times a day, oxycodone 5 mg every 8 hours p.r.n., Protonix 40 mg daily, Pyridium 100 mg twice a day, MiraLax 17 g twice a day, potassium chloride 20 mEq twice a day, spironolactone 25 mg twice a day, verapamil 40 mg three times a day. LABORATORY DATA: Reviewed. POC glucose 181. Urine culture positive for Klebsiella pneumoniae. Sensitivity reviewed. IMPRESSION AND PLAN: Congestive heart failure exacerbation, cardiomyopathy, chronic obstructive lung disease, diabetes mellitus, obstructive sleep apnea syndrome, coronary artery disease, morbid obesity, hypertension, peripheral vascular disease, renal insufficiency, pulmonary hypertension, valvular heart disease. The patient at this time with urinary tract infection. Started on Rocephin today. We will stop Augmentin. Continues to refuse CPAP, BiPAP at bedtime. Sleep apnea precaution. Head of the bed elevated at 45 degrees. Continue inhaled bronchodilators. Gastric prophylaxis. Currently on anticoagulation therapy. Continue physical therapy. Fall precaution. Pressure ulcer precautions. We will re-consult Dr. John Anderson regarding right breast lump. We will order BMP to be done in the morning. Continue fluid restrictions. This patient was seen and examined with Dr. Simpson. Discussed assessment and plan as described above. This patient was seen and examined with Jose Salinas, nurse practitioner. Discussed assessment and plan as described above. Thank you for this consult. We will follow with you. Jose Salinas APN Rudy Simpson MD
[2018-09-27] MEDS ORDERED: metOLazone 5 MG TAB PO STA (12:19)
[2018-09-27] MEDS: Digoxin 125 mcg (0.125 mg) Tab PO SCH (13:28)
--- NOTE | 2018-09-27 14:21 | PN ---
DATE: 09/27/2018 LOCATION: The patient is in room 318, bed 1. REASON FOR CONSULTATION AND FOLLOWUP: Congestive heart failure, acute on chronic systolic dysfunction, history of chronic atrial fibrillation, deconditioning and obesity. SUBJECTIVE: The patient denied any chest pain. He says breathing is better. Denies any palpitation. The patient getting physical therapy. PHYSICAL EXAMINATION: VITAL SIGNS: Blood pressure 102/65, respirations 14, pulse 79 and temperature 97.9. HEENT: Head is normocephalic. Eyes; pupil normal. Conjunctiva normal. Nose and throat normal. NECK: JVP low. Carotid equal. THORAX: AP diameter normal. LUNGS: No significant rales. CARDIOVASCULAR: S1 and S2. ABDOMEN: Soft and nontender. No organomegaly. Bowel sounds normal. EXTREMITIES: No clubbing. No cyanosis. Has changes of venous stasis. LABORATORY DATA: Shows WBC 3.6, hemoglobin 11.5, hematocrit 36.4 and platelet 201. Sodium 139, potassium 4.2, BUN 49, creatinine 1.1, sugar 172, random glucose 150 and calcium 9.2. DIAGNOSES: Congestive heart failure, acute on chronic due to left ventricular systolic dysfunction; history of coronary artery disease; status post coronary artery bypass surgery in the past; atrial fibrillation; recent echo 07/09/2018 showed ejection fraction 20%-25%; four chamber dilation consistent cardiomyopathy; moderate mitral regurgitation; moderate tricuspid regurgitation; right ventricular systolic pressure 30 mmHg trace pulmonary regurgitation; deconditioning. PLAN: The patient getting physical therapy. Continue IV Lasix to Augmentin diureses, I will give another dose of Zaroxolyn 5 mg today, I gave one dose yesterday and the patient continued on other medications as before, which is spironolactone 25 twice a day, aspirin 81 daily, verapamil 40 three times a day, Carvedilol 3.125 twice a day, digoxin 0.125 daily, Eliquis 5 mg twice a day, potassium 20 mg twice a day, Lasix 60 mg IV every 8 hours, insulin detemir 30 units subcutaneous at bedtime, atorvastatin 40 daily, magnesium oxide 400 mg three times a day, Protonix 40 daily, ceftriaxone 1 g IV daily, lisinopril 2.5 mg daily. We will continue to follow. Rudy Gibbs MD [facility] # [id number]
[2018-09-27] MEDS: Insulin Detemir 100 units/ml Vial (Levemir) SC SCH (21:34)
[2018-09-28] MEDS: oxyCODONE 5 mg Immediate Release Tab PO PRN (02:25)
--- NOTE | 2018-09-28 03:44 | CON ---
DATE: 09/27/2018 The patient is seen earlier today in Room #318. CHIEF COMPLAINT: Dysuria and frequency times several days. HISTORY OF PRESENT ILLNESS: This is a 58-year-old male with history of morbid obesity with a BMI of 41, history of diabetes, kidney stones, coronary artery disease, congestive heart failure, depression, high cholesterol, cardiomyopathy, and who was seen earlier this morning in Room 318. The patient was complaining of dysuria or frequency and had no chills, no fevers. REVIEW OF SYSTEMS: A 12-point review of systems was performed. PAST MEDICAL HISTORY: Significant for diabetes, kidney stones, coronary artery disease, congestive heart failure, hypertension, depression, high cholesterol, and cardiomyopathy. PAST SURGICAL HISTORY: Significant for coronary artery bypass graft and pilonidal cyst. ALLERGIES: THE PATIENT HAS NO KNOWN ALLERGIES. HOME MEDICATIONS: Medications at home are reviewed. PHYSICAL EXAMINATION: GENERAL: The patient is in bed, in no acute distress, nontoxic, answering questions slowly, but appropriately. VITAL SIGNS: Temperature of 98, blood pressure is 102/60 and with a respiratory rate of 18 and a heart rate of 82. Initially, the patient's heart rate was 101. HEENT: Examination is unremarkable. NECK: Supple. LUNGS: Have decreased breath sounds. HEART: Normal S1, S2. ABDOMEN: Soft, nontender. LABORATORY DATA: Laboratory examination reveals a white count of 3.6, hemoglobin of 11. Chemistries are noted. Urinalysis reveals 1-3 WBC's. The patient has positive leukocyte esterase, moderate blood, and microbiology reveals Klebsiella pneumoniae in the urine and which is pansensitive with the exception of resistance to ampicillin. ASSESSMENT AND PLAN: This is a 58-year-old [place] male with diabetes, kidney stones, coronary artery disease, congestive heart failure, hypertension with sepsis with Klebsiella pneumoniae, urine as the source. We will treat the patient with ceftriaxone . Upon discharge, may be able to switch to p.o. cefpodoxime at 200 mg p.o. b.i.d., p.o. Rantid 7 to 10 days' total. Alessio Melo MD [facility] # [id number]
[2018-09-28] MEDS: Pantoprazole 40 mg EC Tab PO SCH (05:33)
[2018-09-28] MEDS: Insulin Reg-LOW-Coverage SC SCH ×4 (07:00→21:51)
[2018-09-28] MEDS: Acetylcysteine 20% Inhal Soln (4ml) IH SCH ×2 (07:13→20:10)
[2018-09-28] MEDS: Budesonide 0.5 mg/2 ml Inhal Susp UD IH SCH ×2 (07:15→20:11)
[2018-09-28] MEDS: Levalbuterol 0.63 MG/3 ML Inhal Soln UD IH SCH ×3 (07:15→20:11)
[2018-09-28] MEDS: Ipratropium 0.02% Inhal Soln (0.5 mg/2.5 ml) UD IH SCH ×3 (07:15→20:11)
[2018-09-28] MEDS: Potassium Chloride 20 mEq ER Tab PO SCH ×2 (08:20→17:56)
[2018-09-28] MEDS: POLYETHYLENE GLYCOL 3350 17 GM/Dose PACKET PO SCH ×2 (09:15→17:35)
[2018-09-28] MEDS: Ammonium Lactate 12% Cream (140 g) TOP SCH (09:16)
[2018-09-28] MEDS: Fluticasone Nasal 50 mcg/Spray NS SCH (09:16)
[2018-09-28] MEDS: Clotrimazole/Betamethasone Cream(15 gm) TOP SCH ×2 (09:16→17:34)
[2018-09-28] MEDS: Magnesium Oxide 400 mg Tab UD PO SCH ×3 (09:17→17:34)
[2018-09-28] MEDS: cefTRIAXone 1 gm 1 GM/100 ML BAG IVPB SCH (09:18)
--- NOTE | 2018-09-28 10:51 | CP.PCM.PN ---
<Nola Doe - Last Filed: 09/28/18 10:45> Subjective - Date & Time of Evaluation Date of Evaluation: 09/28/18 Time of Evaluation: 10:46 - Subjective Subjective: Podiatry Progress Note: Dr. Squires/Andrew 58M seen and examined at bedside for b/l LE edema. Patient resting comfortably and in NAD. Denies any pain to b/l lower extremities. He notes that he continues to wear MARCEL as instructed. Denies nausea/vomiting/fever. Objective - Vital Signs/Intake and Output Vital Signs (last 24 hours): Temp Pulse Resp BP Pulse Ox 97.9 F 84 18 120/70 98 09/27/18 16:00 09/28/18 09:21 09/27/18 16:00 09/28/18 09:21 09/27/18 16:00 - Medications Medications: Current Medications Acetylcysteine (Acetylcysteine 20%) 4 ml IH BIDRESP [facility] Last Admin: 09/28/18 07:13 Dose: Not Given Apixaban (Eliquis) 5 mg PO BID [facility]; Protocol Last Admin: 09/28/18 09:16 Dose: 5 mg Aspirin (Aspirin Chewable) 81 mg PO 0800 [facility] Last Admin: 09/28/18 08:19 Dose: 81 mg Atorvastatin Calcium (Lipitor) 40 mg PO DIN [facility] Last Admin: 09/27/18 17:37 Dose: 40 mg Betamethasone/Clotrimazole (Lotrisone) 0 gm TOP BID [facility] Last Admin: 09/28/18 09:16 Dose: 1 applic Budesonide (Pulmicort Respules) 0.5 mg IH [id number] [facility] Last Admin: 09/28/18 07:15 Dose: 0.5 mg Carvedilol (Coreg) 3.125 mg PO 0800,1800 [facility] Last Admin: 09/28/18 08:20 Dose: 3.125 mg Digoxin (Digoxin) 0.125 mg PO 1400 [facility] Last Admin: 09/27/18 13:28 Dose: 0.125 mg Docusate Sodium (Colace) 100 mg PO BID [facility] Last Admin: 09/28/18 09:15 Dose: 100 mg Ergocalciferol (Drisdol 50,000 Intl Units Cap) 1 cap PO Q7D [facility] Last Admin: 09/27/18 10:10 Dose: 1 cap Escitalopram Oxalate (Lexapro) 10 mg PO HS [facility]; Protocol Last Admin: 09/27/18 21:40 Dose: 10 mg Fluticasone Propionate (Flonase) 1 actuation NS DAILY [facility] Last Admin: 09/28/18 09:16 Dose: Not Given Furosemide (Lasix) 60 mg IVP Q8 [facility] Last Admin: 09/28/18 05:33 Dose: 60 mg Ceftriaxone Sodium (Rocephin 1 Gram Ivpb) 1 gm in 100 mls @ 100 mls/hr IVPB DAILY [facility]; Protocol Last Admin: 09/28/18 09:18 Dose: 100 mls/hr Insulin Detemir (Levemir) 30 unit SC HS [facility] Last Admin: 09/27/18 21:34 Dose: 30 u Insulin Human Regular (Humulin R Low) 0 units SC [facility]; Protocol Last Admin: 09/28/18 07:00 Dose: Not Given Ipratropium [place] (Atrovent) 0.5 mg IH TIDRESP [facility] Last Admin: 09/28/18 07:15 Dose: 0.5 mg Lactic Acid (Lac-Hydrin 12% Cream (140 G)) 0 ea TOP DAILY [facility] Last Admin: 09/28/18 09:16 Dose: 1 applic Levalbuterol HCl (Xopenex) 0.63 mg IH [id number] PRN PRN Reason: Shortness of Breath Levalbuterol HCl (Xopenex) 0.63 mg IH TIDRESP [facility] Last Admin: 09/28/18 07:15 Dose: 0.63 mg Lisinopril (Zestril) 2.5 mg PO DAILY [facility] Last Admin: 09/28/18 09:21 Dose: 2.5 mg Magnesium Oxide (Mag-Ox) 400 mg PO TID [facility] Last Admin: 09/28/18 09:17 Dose: 400 mg Pantoprazole Sodium (Protonix Ec Tab) 40 mg PO 0600 [facility] Last Admin: 09/28/18 05:33 Dose: 40 mg Phenazopyridine HCl (Pyridium) 100 mg PO BID [facility] Last Admin: 09/28/18 09:17 Dose: 100 mg Polyethylene Glycol (Miralax) 17 gm PO BID [facility] Last Admin: 09/28/18 09:15 Dose: 17 gm Potassium Chloride (K-Dur 20 Meq Er Tab) 20 meq PO 0800,1800 [facility] Last Admin: 09/28/18 08:20 Dose: 20 meq Spironolactone (Aldactone) 25 mg PO BID [facility] Last Admin: 09/28/18 09:15 Dose: 25 mg Verapamil HCl (Calan Tab) 40 mg PO TID [facility] Last Admin: 09/28/18 09:21 Dose: 40 mg - Labs Labs: 09/27/18 11:25 09/27/18 11:25 - Constitutional Appears: Non-toxic, No Acute Distress - Head Exam Head Exam: ATRAUMATIC, NORMOCEPHALIC - Extremities Exam Additional comments: LE focused exam: Vasc: DP/PT pulses faintly palpable 1/4 secondary to 1+ pitting edema b/l. CFT < 3 seconds to all digits b/l. Skin temperature warm to warm from proximal to distal WNL Neuro: gross and protective sensation grossly intact b/l Derm: No open lesions, wounds, maceration, xerosis, abnormal pigmentation or abnormal growths noted MSK: ROM WNL at all major joints, MMT 5/5 in all major muscle groups - Neurological Exam Neurological Exam: Alert, Awake, Oriented x3 - Psychiatric Exam Psychiatric exam: Normal Affect, Normal Mood - Skin Skin Exam: Warm Assessment and Plan - Assessment and Plan (Free Text) Assessment: 58M with b/l LE edema Plan: Patient seen and evaluated with Dr. Squires Both legs lightly wrapped in MARCEL compression dressing Multipodus boots to be worn at all times in bed No plan for surgical intervention at this time <Juan Squires - Last Filed: 09/28/18 14:18> Objective - Vital Signs/Intake and Output Vital Signs (last 24 hours): Temp Pulse Resp BP Pulse Ox 97.7 F 70 18 114/68 97 09/28/18 10:00 09/28/18 13:15 09/28/18 10:00 09/28/18 13:15 09/28/18 10:00 Intake and Output: 09/28/18 09/28/18 06:59 18:59 Output Total 1400 Balance -1400 - Medications Medications: Current Medications Acetylcysteine (Acetylcysteine 20%) 4 ml IH BIDRESP [facility] Last Admin: 09/28/18 07:13 Dose: Not Given Apixaban (Eliquis) 5 mg PO BID [facility]; Protocol Last Admin: 09/28/18 09:16 Dose: 5 mg Aspirin (Aspirin Chewable) 81 mg PO 0800 [facility] Last Admin: 09/28/18 08:19 Dose: 81 mg Atorvastatin Calcium (Lipitor) 40 mg PO DIN [facility] Last Admin: 09/27/18 17:37 Dose: 40 mg Betamethasone/Clotrimazole (Lotrisone) 0 gm TOP BID [facility] Last Admin: 09/28/18 09:16 Dose: 1 applic Budesonide (Pulmicort Respules) 0.5 mg IH [id number] [facility] Last Admin: 09/28/18 07:15 Dose: 0.5 mg Carvedilol (Coreg) 3.125 mg PO 0800,1800 [facility] Last Admin: 09/28/18 08:20 Dose: 3.125 mg Digoxin (Digoxin) 0.125 mg PO 1400 [facility] Last Admin: 09/28/18 13:15 Dose: 0.125 mg Docusate Sodium (Colace) 100 mg PO BID [facility] Last Admin: 09/28/18 09:15 Dose: 100 mg Ergocalciferol (Drisdol 50,000 Intl Units Cap) 1 cap PO Q7D [facility] Last Admin: 09/27/18 10:10 Dose: 1 cap Escitalopram Oxalate (Lexapro) 10 mg PO HS [facility]; Protocol Last Admin: 09/27/18 21:40 Dose: 10 mg Fluticasone Propionate (Flonase) 1 actuation NS DAILY [facility] Last Admin: 09/28/18 09:16 Dose: Not Given Furosemide (Lasix) 60 mg IVP Q8 [facility] Last Admin: 09/28/18 13:13 Dose: 60 mg Ceftriaxone Sodium (Rocephin 1 Gram Ivpb) 1 gm in 100 mls @ 100 mls/hr IVPB DAILY [facility]; Protocol Last Admin: 09/28/18 09:18 Dose: 100 mls/hr Insulin Detemir (Levemir) 30 unit SC HS [facility] Last Admin: 09/27/18 21:34 Dose: 30 u Insulin Human Regular (Humulin R Low) 0 units SC ACHS [facility]; Protocol Last Admin: 09/28/18 12:15 Dose: 2 units Ipratropium [place] (Atrovent) 0.5 mg IH TIDRESP [facility] Last Admin: 09/28/18 13:31 Dose: 0.5 mg Lactic Acid (Lac-Hydrin 12% Cream (140 G)) 0 ea TOP DAILY [facility] Last Admin: 09/28/18 09:16 Dose: 1 applic Levalbuterol HCl (Xopenex) 0.63 mg IH [id number] PRN PRN Reason: Shortness of Breath Levalbuterol HCl (Xopenex) 0.63 mg IH TIDRESP [facility] Last Admin: 09/28/18 13:31 Dose: 0.63 mg Lisinopril (Zestril) 2.5 mg PO DAILY [facility] Last Admin: 09/28/18 09:21 Dose: 2.5 mg Magnesium Oxide (Mag-Ox) 400 mg PO TID [facility] Last Admin: 09/28/18 13:16 Dose: 400 mg Pantoprazole Sodium (Protonix Ec Tab) 40 mg PO 0600 [facility] Last Admin: 09/28/18 05:33 Dose: 40 mg Phenazopyridine HCl (Pyridium) 100 mg PO BID [facility] Last Admin: 09/28/18 09:17 Dose: 100 mg Polyethylene Glycol (Miralax) 17 gm PO BID [facility] Last Admin: 09/28/18 09:15 Dose: 17 gm Potassium Chloride (K-Dur 20 Meq Er Tab) 20 meq PO 0800,1800 [facility] Last Admin: 09/28/18 08:20 Dose: 20 meq Spironolactone (Aldactone) 25 mg PO BID [facility] Last Admin: 09/28/18 09:15 Dose: 25 mg Verapamil HCl (Calan Tab) 40 mg PO TID [facility] Last Admin: 09/28/18 13:15 Dose: 40 mg - Labs Labs: 09/27/18 11:25 09/27/18 11:25 Attending/Attestation - Attestation I have personally seen and examined this patient.: Yes I have fully participated in the care of the patient.: Yes I have reviewed all pertinent clinical information, including history, physical exam and plan: Yes
[2018-09-28 10:53] VITALS: O2SAT 97
[2018-09-28] MEDS: Digoxin 125 mcg (0.125 mg) Tab PO SCH (13:15)
--- NOTE | 2018-09-28 14:28 | PN ---
DATE: 09/27/2018 SUBJECTIVE: The patient is stable. No chest pain. No short of breath. PHYSICAL EXAMINATION VITAL SIGNS: Temperature 98, heart rate is 82, blood pressure is 102/ , respirations 18, sat 98%. HEAD AND NECK: Normal. No JVD. No thyromegaly. CHEST: Clear bilaterally. CARDIAC: First sound, second sound normal. No murmur, rub or gallop. ABDOMEN: Soft, obese, nontender. EXTREMITIES: Mild edema. Both legs are wrapped with gauze. NEUROLOGIC: Normal. LABORATORY DATA: Sodium 139, potassium 4.2, chloride 96, bicarb 31, BUN 49, creatinine 1.1, blood sugar 150, and calcium 9.2. Urine has moderate blood and urine culture shows gram-negative . IMPRESSION AND PLAN 1. Acute urinary tract infection, Muñoz is out. Continue IV Rocephin. 2. Acute systolic heart failure on top of chronic ischemic cardiomyopathy. Continue IV Lasix, Zestril, Coreg, Aldactone, and continue diuresis. 3. Chronic atrial fibrillation. Continue Eliquis 5 mg b.i.d. 4. Diabetes, insulin-dependent. Continue current therapy. Followup clinically. 5. Chronic obstructive pulmonary disease, obstructive sleep apnea. The patient is noncompliant. We will continue current therapy and followup. Tyrone Posey MD
--- NOTE | 2018-09-28 15:07 | PN ---
DATE: 09/28/2018 PULMONARY PROGRESS NOTE REFERRING PHYSICIAN: Tyrone Posey MD SUBJECTIVE: He is sitting at the side of the bed. Night was unremarkable. Muñoz catheter been out. He was placed on Rocephin for UTI. Abdominal girth is decreasing, leg swelling is decreasing. Short of breath with exertion, but no chest pain. OBJECTIVE: GENERAL: No acute distress. VITAL SIGNS: Temperature 98, heart rate is 84, respiratory rate is 18, blood pressure is 120/70, pulse ox is 97% on room air. HEENT: Moist mucous membranes. Crowded airway. NECK: Supple. No JVD. LUNGS: Fair airflow with rhonchi. HEART: S1 and S2. ABDOMEN: Soft. Abdominal wall edema has been decreasing. EXTREMITIES: Edema is decreasing. NEUROLOGIC: Awake and alert. Follows simple commands. MEDICATIONS: He is on Mucomyst inhaler twice a day, , Aldactone 25 mg twice a day, aspirin 81 mg daily, Atrovent 0.5 mg three times a day, Calan 40 mg three times a day, Colace 100 mg twice a day, Coreg 3.125 mg twice a day, digoxin 0.125 mg daily, vitamin D 50,000 units every 7 days, Eliquis 5 mg twice a day, insulin coverage, potassium 20 mEq twice a day, Lactic acid to affected area, Lasix 60 mg every 8 hours, Levemir 30 units subcutaneously at bedtime, Lexapro 10 mg daily, Lipitor 40 mg daily, Lotrisone cream affected area, mag oxide 40 mg three times a day, MiraLax 17 g daily, Protonix 40 mg daily, Pulmicort inhaled twice a day, Pyridium 100 mg twice a day, Rocephin 1 g daily, Xopenex inhaled every 8 hours, and Zestril 2.5 mg daily. LABORATORY DATA: Reviewed. Blood sugar this morning is 213. IMPRESSION AND PLAN: Cardiomyopathy with severe heart failure, chronic obstructive lung disease, diabetes, obstructive sleep apnea syndrome, coronary artery disease, morbid obesity, hypertension, peripheral vascular disease, renal insufficiency, pulmonary hypertension, valvular heart disease. Pulmonary point of view, slowly improving. Has urinary tract infection, on Rocephin, continue diuretics. Followup electrolytes. Encourage bilevel positive airway pressure/continuous positive airway pressure use. High risk for respiratory failure, because of sleep apnea syndrome. Continue therapy. The patient was relating about his breast seen by Dr. John Anderson, which is re-consulted. Thank you and we will follow with you. Rudy Simpson MD
[2018-09-28] MEDS: Insulin Detemir 100 units/ml Vial (Levemir) SC SCH (21:42)
--- NOTE | 2018-09-28 21:47 | PN ---
DATE: 09/28/2018 SUBJECTIVE: The patient is in bed in no acute distress, nontoxic. PHYSICAL EXAMINATION: VITAL SIGNS: Temperature is 97, blood pressure is 102/60, respiratory rate of 16. HEENT: Unremarkable. NECK: Supple. LUNGS: Have decreased breath sounds. HEART: Normal S1, S2. ABDOMEN: Soft and nontender. LABORATORY DATA: Reviewed. ASSESSMENT AND PLAN: This is a 58-year-old [place] male with diabetes, kidney stones, coronary artery disease, congestive heart failure, hypertension with sepsis with Klebsiella pneumonia in urine as the source and is on ceftriaxone and upon discharge, may be able to switch to by mouth cefpodoxime 200 mg by mouth 2 times daily for a total of 7 to 10 days. Alessio Melo MD
[2018-09-29] MEDS: Pantoprazole 40 mg EC Tab PO SCH (05:47)
[2018-09-29] MEDS: Insulin Reg-LOW-Coverage SC SCH ×4 (06:50→21:26)
[2018-09-29] MEDS: Acetylcysteine 20% Inhal Soln (4ml) IH SCH ×2 (07:22→19:44)
[2018-09-29] MEDS: Ipratropium 0.02% Inhal Soln (0.5 mg/2.5 ml) UD IH SCH ×3 (07:28→19:46)
[2018-09-29] MEDS: Levalbuterol 0.63 MG/3 ML Inhal Soln UD IH SCH ×3 (07:28→19:46)
[2018-09-29] MEDS: Budesonide 0.5 mg/2 ml Inhal Susp UD IH SCH ×2 (07:28→19:46)
[2018-09-29] MEDS: Potassium Chloride 20 mEq ER Tab PO SCH ×2 (08:31→17:52)
[2018-09-29] MEDS: Fluticasone Nasal 50 mcg/Spray NS SCH (10:28)
[2018-09-29] MEDS: Magnesium Oxide 400 mg Tab UD PO SCH ×3 (10:29→17:51)
[2018-09-29] MEDS: POLYETHYLENE GLYCOL 3350 17 GM/Dose PACKET PO SCH ×2 (10:30→17:49)
[2018-09-29] MEDS: cefTRIAXone 1 gm 1 GM/100 ML BAG IVPB SCH (10:31)
--- NOTE | 2018-09-29 12:49 | PN ---
DATE: 09/29/2018 SUBJECTIVE: The patient is in bed, in no acute distress, nontoxic. PHYSICAL EXAMINATION: VITAL SIGNS: Temperature is 97, blood pressure is 109/70, respiratory rate of 18. HEENT: Unremarkable. NECK: Supple. LUNGS: Have decreased breath sounds. HEART: Normal S1, S2. ABDOMEN: Soft. LABORATORY DATA: Laboratory examination reveals a white count of 3.6, hemoglobin of 11, platelets of 201. Chemistries reveals the patient's creatinine is 1.1. ASSESSMENT AND PLAN: A 58-year-old [place]ian male with diabetes mellitus, kidney stones, congestive heart failure, hypertension and sepsis with Klebsiella pneumoniae in the urine, on ceftriaxone, may be able to switch to p.o. cefpodoxime 200 mg p.o. b.i.d. for a total of 7 to 10 days. Review of orders confirms the ceftriaxone to be active. Alessio Melo MD
[2018-09-29] MEDS: Clotrimazole/Betamethasone Cream(15 gm) TOP SCH ×2 (12:53→17:54)
[2018-09-29] MEDS: Digoxin 125 mcg (0.125 mg) Tab PO SCH (14:11)
[2018-09-29] MEDS: Ammonium Lactate 12% Cream (140 g) TOP SCH (17:53)
[2018-09-29] MEDS: Insulin Detemir 100 units/ml Vial (Levemir) SC SCH (21:41)
--- NOTE | 2018-09-29 22:17 | PN ---
DATE: 09/29/2018 PULMONARY PROGRESS NOTE REFERRING PHYSICIAN: Dr. Tyrone Posey. SUBJECTIVE: He is sitting at the side of the bed. Night was unremarkable. He slept okay, feels okay. No cough, no sputum production. No nausea, no vomiting. Decreased leg swelling and testicular swelling. OBJECTIVE: GENERAL: In no acute distress. VITAL SIGNS: Temperature is 98, heart rate is 82, respiratory rate is 20, blood pressure is 109/64, pulse ox is 97% on nasal cannula. HEENT: Moist mucous membranes. Crowded airway. NECK: Supple. No JVD. LUNGS: Few scattered rhonchi. HEART: S1 and S2. ABDOMEN: Soft and nontender. No organomegaly. EXTREMITIES: Decreased edema. NEUROLOGIC: Awake and alert. Follows simple commands. MEDICATIONS: He is on Mucomyst inhaled twice a day, Aldactone 25 mg twice a day, aspirin 81 mg daily, Atrovent inhaled 3 times a day, Calan 40 mg three times a day, Colace 100 mg twice a day, Coreg 3.125 mg twice a day, digoxin 0.125 mg daily, Eliquis 5 mg twice a day, Flonase one spray to each nostril daily, insulin coverage, potassium 20 mEq twice a day, Lasix 60 mg every 8 hours, Levemir 30 units subcutaneous at bedtime, Lexapro 10 mg at bedtime, Lipitor 40 mg daily, MiraLax 17 g twice a day, Protonix mg twice a day, Pyridium 100 mg twice a day, Rocephin 1 g daily, Xopenex inhaled every 6 hours, and Zestril 2.5 mg daily. LABORATORY DATA: Reviewed. Blood sugar this morning 175. Urine has Klebsiella pneumoniae. IMPRESSION AND PLAN: Cardiomyopathy with severe heart failure, chronic obstructive lung disease, diabetes, obstructive sleep apnea syndrome, coronary artery disease, morbid obesity, hypertension, peripheral vascular disease, renal insufficiency, pulmonary hypertension, valvular heart disease, urinary tract infection. Pulmonary point of view, doing okay. Continue to encourage BiPAP use, keep head at 45 degrees. Careful with sedation. Continue diuretics. Follow electrolytes in the morning. Thank you and we will follow with you. Rudy Simpson MD [facility] # [id number]
[2018-09-30 06:03] VITALS: RESP 18; TEMP 98.7
[2018-09-30] MEDS: Pantoprazole 40 mg EC Tab PO SCH (06:13)
[2018-09-30] MEDS: Insulin Reg-LOW-Coverage SC SCH ×2 (06:31→12:07)
[2018-09-30] MEDS: Ipratropium 0.02% Inhal Soln (0.5 mg/2.5 ml) UD IH SCH ×2 (07:16→13:10)
[2018-09-30] MEDS: Budesonide 0.5 mg/2 ml Inhal Susp UD IH SCH (07:17)
[2018-09-30] MEDS: Levalbuterol 0.63 MG/3 ML Inhal Soln UD IH SCH ×2 (07:17→13:13)
[2018-09-30] MEDS: Acetylcysteine 20% Inhal Soln (4ml) IH SCH (07:17)
[2018-09-30] MEDS: Potassium Chloride 20 mEq ER Tab PO SCH (08:20)
[2018-09-30] MEDS: Fluticasone Nasal 50 mcg/Spray NS SCH (09:12)
[2018-09-30] MEDS: Clotrimazole/Betamethasone Cream(15 gm) TOP SCH (10:07)
[2018-09-30] MEDS: POLYETHYLENE GLYCOL 3350 17 GM/Dose PACKET PO SCH (10:07)
[2018-09-30] MEDS: Magnesium Oxide 400 mg Tab UD PO SCH ×2 (10:07→13:57)
[2018-09-30] MEDS: Ammonium Lactate 12% Cream (140 g) TOP SCH (10:07)
[2018-09-30] MEDS: cefTRIAXone 1 gm 1 GM/100 ML BAG IVPB SCH (10:08)
--- NOTE | 2018-09-30 12:40 | PN ---
DATE: 09/29/2018 HISTORY OF PRESENT ILLNESS: Mason Benavides came in complaining of polyuria and having also problem with the urine, had a little blood in the urine today on 09/29/2018. The patient has no chest pain. His breathing is improving. PHYSICAL EXAMINATION: VITAL SIGNS: On the 09/29/2018; temperature 98, heart rate is 79, blood pressure is 118/77 and respirations 20. HEENT: Head and neck exam is normal. No JVD. No thyromegaly. CHEST: Clear bilateral. CARDIAC: First sound and second sound normal. No murmur, rub or gallop. ABDOMEN: Soft. Distended. Nontender. EXTREMITIES: Mild edema both legs has been wrapped with gauze. NEUROLOGIC: Normal. IMPRESSION: 1. Urinary tract infection Gram-negative. Continue current antibiotics. He was doing well with Rocephin 1 g daily and for hematuria we will reevaluate ultrasound of the bladder, but we will reevaluate this after finishing antibiotic course for a week. 2. Acute systolic heart failure on top of chronic systolic heart failure, ischemic cardiomyopathy. Continue Aldactone. Continue aspirin. Continue Calan 40 mg three times a day, Coreg 3.125 twice a day and Eliquis for his atrial fibrillation 4 mg twice a day. 3. Chronic obstructive pulmonary disease and obstructive sleep apnea, hypercholesteremia and insulin-dependant diabetes. PLAN: Continue Levemir. Continue insulin coverage. Continue Xopenex and the patient is not machine. We will followup clinically. The patient is seen otherwise doing well. Continue current medication and followup. Tyrone Posey MD
--- NOTE | 2018-09-30 12:59 | PN ---
DATE: 09/30/2018 PULMONARY PROGRESS NOTE REFERRING PHYSICIAN: Tyrone Posey MD SUBJECTIVE: The patient is seen ambulating in room. No acute distress. No overnight events reported. He states that he feels well today. No headache, rhinitis, cough, shortness of breath, chest pain, abdominal pain, nausea, vomiting, diarrhea or leg pain reported. OBJECTIVE: GENERAL: No acute distress. VITAL SIGNS: Blood pressure 116/70, pulse 77, temperature 98.7 and oxygen saturation 97%. HEENT: Moist mucous membranes. Crowded airway. NECK: Supple. No JVD. RESPIRATORY: Few scattered rhonchi. CARDIOVASCULAR: S1 and S2. ABDOMEN: Soft and nontender. No distention. No organomegaly. EXTREMITIES: Decreased edema bilateral lower extremities. NEUROLOGIC: Awake, alert and verbal. Following commands. MEDICATIONS: Reviewed. Mucomyst 4 mL inhalation twice a day, Eliquis 5 mg twice a day, aspirin 81 mg daily, Lipitor 40 mg daily, Lotrisone topically twice a day to affected area, Pulmicort 0.5 mg inhalation every 12 hours, Coreg 3.125 mg twice a day, Rocephin 1 g daily, digoxin 0.125 mg daily, Colace 100 mg twice a day, ergocalciferol 50,000 units every 7 days, Lexapro 10 mg at bedtime, Flonase nasal spray daily, Lasix 60 mg IV push every 8 hours, Levemir 30 units subcutaneous at bedtime, Humulin R sliding scale a.c. and at bedtime, Atrovent 0.5 mg inhalation 3 times a day, Lac-Hydrin topically to affected area daily, Xopenex 0.63 mg inhalation every 6 hours p.r.n., Xopenex 0.63 mg inhalation 3 times a day, lisinopril 2.5 mg daily, magnesium oxide 400 mg 3 times a day, Protonix 40 mg daily, Pyridium 100 mg twice a day, MiraLax 17 g twice a day, potassium chloride 20 mEq twice a day, Aldactone 25 mg twice a day, verapamil 40 mg 3 times a day. LABORATORY DATA: Reviewed. POC glucose 215. IMPRESSION AND PLAN: Cardiomyopathy, severe heart failure, chronic obstructive lung disease, diabetes mellitus, obstructive sleep apnea syndrome, morbid obesity, hypertension, coronary artery disease, renal insufficiency, pulmonary hypertension, peripheral vascular disease, valvular heart disease and urinary tract infection. Continue antibiotics per Infectious Disease. Pulmonary point of view, continue to encourage bilevel positive airway pressure use at bedtime, sleep apnea precaution, head of bed elevated at 45 degrees. Continue diuretics, need followup with labs. The patient is scheduled for possible discharge to home today. Need to follow up with surgeon and primary physician regarding breast mass. Need follow up outpatient for full PFT and follow up regarding sleep apnea. This patient was seen and examined with Dr. Simpson. Discussed assessment and plan as described above. This patient was seen and examined with Jose Salinas, nurse practitioner. Discussed assessment and plan as described above. Thank you for this consult and we will follow. Jose Salinas APN Rudy Simpson MD [facility]
[2018-09-30] MEDS: Digoxin 125 mcg (0.125 mg) Tab PO SCH (13:56)
[2018-09-30 13:58] VITALS: BP 119/64; PULSE 70; PULSE 71
--- NOTE | 2018-09-30 18:54 | PN ---
DATE: 09/30/2018 LOCATION: Room 318, bed 1. REASON FOR CONSULTATION AND FOLLOWUP: Congestive heart failure, acute on chronic systolic dysfunction, history of chronic atrial fibrillation, deconditioning, and obesity. SUBJECTIVE: The patient denies any chest pain. His breathing has also improved as compared to admission. Denies any palpitation. The patient continues to get physical therapy. PHYSICAL EXAMINATION: VITAL SIGNS: Blood pressure 119/70, respiratory rate 18, pulse 78, and temperature 98.7. HEENT: Head is normocephalic. Eyes; pupils normal. Conjunctivae normal. NECK: JVP low. Carotids equal. THORAX: AP diameter normal. LUNGS: No rales. CARDIOVASCULAR: S1, S2. ABDOMEN: Protuberant. No organomegaly. EXTREMITIES: No clubbing. No cyanosis. LABORATORY DATA: WBC 3.6, hemoglobin 11.5, hematocrit 36.4, platelets 201. Random sugar 215. The patient's other chemistry and labs were normal also on 09/27/2018, which showed sodium 139, potassium 4.2, BUN 49, and creatinine 1.1. DIAGNOSES: Congestive heart failure, acute on chronic due to left ventricle systolic dysfunction; history of coronary artery disease, status post coronary artery bypass surgery in the past; atrial fibrillation, recent echo 07/09/2018 showed ejection fraction 20% to 25%, 4-chamber dilatation consistent with cardiomyopathy; moderate mitral regurgitation; moderate tricuspid regurgitation; right ventricle systolic pressure 30 mmHg; trace pulmonary regurgitation; deconditioning; and obesity. PLAN: Told the patient to lose weight and to continue physical therapy at present along with medication including Lasix, spironolactone 25 mg twice a day, aspirin 81 daily, verapamil 40 mg three times a day, carvedilol 3.125 mg twice a day, digoxin 0.125 mg daily, Eliquis 5 mg twice a day, potassium 20 mEq twice a day, Lasix 60 mg IV every 8 hours. The patient was getting insulin detemir 30 units subcu at bedtime, atorvastatin 40 mg daily, mag oxide 400 mg three times a day, Protonix 40 mg daily, and lisinopril 2.5 mg daily. The patient is on Eliquis 5 mg b.i.d. We will continue the present therapy. We will follow. Rudy Gibbs MD [facility] # [id number]
--- NOTE | 2018-09-30 20:34 | PN ---
DATE: 09/30/2018 SUBJECTIVE: The patient is in bed, in no acute distress, nontoxic. PHYSICAL EXAMINATION: VITAL SIGNS: Temperature is 99, blood pressure is 119/70, respiratory rate of 16. HEENT: Unremarkable. NECK: Supple. LUNGS: Have decreased breath sounds. HEART: Normal S1, S2. ABDOMEN: Soft. LABORATORY DATA: Laboratory examination reveals a white count of 3.6, hemoglobin of 11, and creatinine is 1.1. Urinalysis is noted. Microbiology reveals the patient has Klebsiella. ASSESSMENT AND PLAN: This is a 58-year-old male who was seen early this morning, who is up, awake, and alert, doing well. I explained to him that he need to follow up with Urology. The patient is an [place] with diabetes, kidney stones, congestive heart failure, hypertension, sepsis with Klebsiella pneumoniae in the urine. Switched to cefpodoxime and follow up with Urology. The patient is on cefpodoxime 200 mg b.i.d. for a total of 7 to 10 days total and Urology followup. He agrees and will do so. Alessio Melo MD
--- NOTE | 2018-10-02 04:03 | DS ---
HISTORY OF PRESENT ILLNESS: The patient, Mason Benavides seems to be doing well. He is comfortable. He was in TCU. He was maintained on IV Lasix, IV antibiotic Rocephin. Gram-negative in the urine. The patient diuresed very well. His leg was wrapped. He significantly improved with leg edema and his short of breath, scrotum back to his approximately 98% of his size. He did have hydrocele and he has congestive heart failure, which has got worse as outpatient because of the issue of noncompliance and he came back again. We did a mammogram and ultrasound. Surgical team saw him. There was no evidence of any masses; however, the Surgery team will follow up on him. I did discuss whole condition with the patient, he understands; however, compliance of the patient is questionable. He has no chest pain. He seems to be doing well, comfortable, went to the bathroom. No falls and his leg has improved. PHYSICAL EXAMINATION: On discharge; VITAL SIGNS: Temperature 98, heart rate 77, blood pressure 100/61, respiration 18, and saturation 97%. HEAD AND NECK: Normal. No JVD. No thyromegaly. CHEST: Clear bilaterally. CARDIAC: First sound and second sound normal. ABDOMEN: Obese and nontender. EXTREMITIES: Significantly less edema than before; left leg wrapped. No old diagnosis of chronic lymphedema. NEUROLOGIC: Normal. LABORATORY DATA: Blood sugar was running 215 to 170. The patient is eating more food, does not want to follow diet. ASSESSMENT AND PLAN: The patient was in the hospital. He was seen with Dr. Melo, Infectious Disease consult; Dr. Simpson, Pulmonary consult; Dr. Juan Squires in Podiatry consult and Cardiology, Dr. Gibbs. The patient is stable. He will be discharged on the same medication he takes, again switched the Lasix to p.o. Continue all cardiac medications in addition to Eliquis 5 mg b.i.d. for chronic atrial fibrillation and Vantin 200 mg p.o. b.i.d., Lasix 60 mg three times a day p.o. I discussed with the patient the treatment plan. Follow up in office within a week. Continue nebulizer treatment. Noncompliant with continuous positive airway pressure. DISCHARGE MEDICATIONS: He was given Robitussin, potassium 10 mEq p.o. daily, MiraLax b.i.d. and daily, Xopenex q.i.d., Levemir 50 units subcutaneous daily, whatever he was taking at home I did send him on, glimepiride 4 mg, Lasix 60 mg t.i.d., calcium b.i.d., verapamil 40 mg t.i.d., Aldactone 25 mg p.o. daily, Protonix 40 mg daily, magnesium 400 mg t.i.d., lisinopril 2.5 mg once a day, nebulizer treatment, Lexapro 10 mg, Leukocet, digoxin 0.125 mg, Vantin 200 mg b.i.d., Lipitor 40 mg, aspirin 81 mg, and Eliquis 5 mg b.i.d. Follow up in the office. DISCHARGE DIAGNOSES: 1. Acute systolic heart failure, on top of chronic systolic heart failure with poor ejection fraction. 2. Coronary artery disease with bypass surgery. 3. Atrial fibrillation, new. 4. Insulin-dependent diabetes. 5. Chronic obstructive pulmonary disease. 6. Obstructive sleep apnea. 7. Chronic lymphedema. 8. Chronic back pain. 9. Morbid obesity. 10. Urinary tract infection. 11. Microscopic hematuria. The patient also had a catheter trauma induced hematuria. PLAN: Discharge the patient home. Follow up in the office within a week. Tyrone Posey MD
== END 2018-09-30 15:04 | disposition home or self-care (01) | DRG 945 ==
LOC: TRCU 15:54
PROVIDERS: ADMIT Internal Medicine; ATTEND Internal Medicine
PROC: F07Z9FZ Gait Training/Functional Ambulation Treatment using Assistive, Adaptive, Supportive or Protective Equipment (ICD-10-PCS; principal; 2018-09-21)
PROC: F08Z4FZ Home Management Treatment using Assistive, Adaptive, Supportive or Protective Equipment (ICD-10-PCS; 2018-09-21)
PROC: 3E0F7GC Introduction of Other Therapeutic Substance into Respiratory Tract, Via Natural or Artificial Opening (ICD-10-PCS; 2018-09-21)
DX: R53.1 Weakness (principal); I50.23 Acute on chronic systolic (congestive) heart failure; I13.0 Hypertensive heart and chronic kidney disease with heart failure and stage 1 through stage 4 chronic kidney disease, or unspecified chronic kidney disease; Z68.41 Body mass index [BMI] 40.0-44.9, adult; N39.0 Urinary tract infection, site not specified; N18.9 Chronic kidney disease, unspecified; E11.22 Type 2 diabetes mellitus with diabetic chronic kidney disease; E11.51 Type 2 diabetes mellitus with diabetic peripheral angiopathy without gangrene; E66.01 Morbid (severe) obesity due to excess calories; G47.33 Obstructive sleep apnea (adult) (pediatric); I25.10 Atherosclerotic heart disease of native coronary artery without angina pectoris; I25.5 Ischemic cardiomyopathy; I27.20 Pulmonary hypertension, unspecified; I48.0 Paroxysmal atrial fibrillation; I48.2 Chronic atrial fibrillation; J44.9 Chronic obstructive pulmonary disease, unspecified; E78.00 Pure hypercholesterolemia, unspecified; I08.1 Rheumatic disorders of both mitral and tricuspid valves; R26.89 Other abnormalities of gait and mobility; B96.1 Klebsiella pneumoniae [K. pneumoniae] as the cause of diseases classified elsewhere; E78.5 Hyperlipidemia, unspecified; G89.29 Other chronic pain; H40.9 Unspecified glaucoma; K76.0 Fatty (change of) liver, not elsewhere classified; N50.89 Other specified disorders of the male genital organs; N63.10 Unspecified lump in the right breast, unspecified quadrant; Z79.4 Long term (current) use of insulin; Z91.19 Patient's noncompliance with other medical treatment and regimen; Z91.14 Patient's other noncompliance with medication regimen; Z95.1 Presence of aortocoronary bypass graft; Z87.891 Personal history of nicotine dependence